=== PATIENT | male | born 1945 | race Caucasian/White ===

== ENCOUNTER → 2016-11-16 | Outpatient (CLI) | payer MEDICARE ==
[2016-11-16 13:04] LABS: CH 23.7; CHCM 29.6; HCT 40.1 % (39.0-53.0); HDW 2.62; HGB 11.9 gm/dL (13.0-17.5); Hypochromasia Marked; MCH 23.8 pg (25.0-35.0); MCHC 29.7 g/dL (31.0-37.0); MCV 80.1 fL (80.0-100.0); Mean Platelet Volume 6.1; RBC 5.01 m/uL (4.30-5.90); WBC 9.2 k/uL (3.8-10.6)
[2016-11-16 13:26] LABS: ALT 29 U/L (21-72); AST 21 U/L (17-59); Alkaline Phosphatase 90 U/L (38-126); Anion Gap 15 mmol/L; Blood Urea Nitrogen 23 mg/dL (9-20); C Reactive Protein 11.1 mg/L (<10.0); Calcium 9.7 mg/dL (8.4-10.2); Carbon Dioxide 26 mmol/L (22-30); Chloride 104 mmol/L (98-107); Glucose 206 mg/dL (74-99); Non-African American GFR(MDRD) >60 (>60 ml/min/1.73 sqM); Potassium 4.2 mmol/L (3.5-5.1); Sodium 145 mmol/L (137-145); Total Bilirubin 0.5 mg/dL (0.2-1.3); Total Protein 8.1 g/dL (6.3-8.2)
[2016-11-16 13:31] LABS: Prealbumin 21 mg/dL (18-36)
[2016-11-16 14:49] LABS: Erythrocyte Sedimentation Rate 28 mm/hr (0-15)
[2016-11-16 16:18] LABS: Hemoglobin A1C 8.1 % (4.2-6.1)
== END | disposition home or self-care (01) ==
LOC: LABWHC1 12:25
PROVIDERS: ATTEND Surgery
DX: E63.8 Other specified nutritional deficiencies (principal)
CPT/HCPCS: 36415; 80053; 83036; 84134; 85027; 85652; 86140

== ENCOUNTER → 2016-11-18 | Outpatient (CLI) | payer MEDICARE ==
--- NOTE | 2016-11-18 14:23 | US ---
LOWER EXTREMITY VENOUS INSUFFICIENCY SIDE PERFORMED: Bilateral 1) Color flow is present and patency is documented in the following vessels. No DVT or SVT is noted . ? EIV ? Common Femoral Vein ? Deep Femoral Vein ? Femoral Vein ? Popliteal Vein ? Proximal Calf Veins ? Greater Saph Vein ? Upper Small Saph Vein 2) There is venous reflux noted at the following venous levels: No reflux seen Bilateral leg ulcers x 6 years IMPRESSION: 1. No evidence of venous reflux
--- NOTE | 2016-11-25 10:50 | P.ARTDOP ---
Arterial Doppler LOWER EXTREMITY ARTERIAL DOPPLER: DATE OF SERVICE: 11/18/2016 Reason for study: Leg ulcers. Doppler waveforms: Multiphasic bilaterally throughout. Pulse volume recording: Normal configuration except at the left digital. Pressure gradients: None proximally on the right. Distal gradients on the left.. Ankle-brachial indices: Greater than 1 on the right and 0.72 on the left. Toe pressures: 59 on the right, 22 on the left Impression: Appears to be mild distal disease on the right and moderate at least distal disease on the left. Clinical correlation recommended..
== END | disposition home or self-care (01) ==
LOC: RADUSWWP 12:23
PROVIDERS: ATTEND Surgery
DX: L97.911 Non-pressure chronic ulcer of unspecified part of right lower leg limited to breakdown of skin (principal); L97.921 Non-pressure chronic ulcer of unspecified part of left lower leg limited to breakdown of skin; M79.604 Pain in right leg
CPT/HCPCS: 93923; 93970

== ENCOUNTER 2017-02-16 11:53 | Emergency (ER) | payer MEDICARE ==
[2017-02-16 12:10] VITALS: BP 191/85; PULSE 65; RESP 17; TEMP 97.5
[2017-02-16] MEDS ORDERED: DIPH,PERTUS(ACELL)TETVAC-LF 0.5 ML VIAL IM ONE (12:13)
--- NOTE | 2017-02-16 12:34 | ED ---
Lower Extremity Injury HPI - General Chief Complaint: Extremity Injury, Lower Stated Complaint: puncture wound Rt foot Time Seen by Provider: 02/16/17 12:12 Source: patient, RN notes reviewed Mode of arrival: ambulatory Limitations: no limitations - History of Present Illness Initial Comments: 71-year-old male presents emergency Department chief complaint puncture wound to his right foot. Patient states she stepped on a nail that went through his shoe into his foot. Patient was seen at the wound center today and was advised , finger to be evaluated. Patient was given a prescription for ciprofloxacin. Patient states that they want him to take this for his nail puncture. Patient was sent earlier for stated tetanus. Patient states it is sore but able to ambulate. - Related Data Home Medications Medication Instructions Recorded Confirmed Lisinopril [Zestril] 20 mg PO DAILY 11/10/16 02/16/17 amLODIPine [Norvasc] 10 mg PO DAILY 11/10/16 02/16/17 metFORMIN HCL [Glucophage] 500 mg PO DAILY 11/10/16 02/16/17 Ciprofloxacin HCl [Cipro] 500 mg PO Q12HR 02/16/17 02/16/17 Allergies Allergy/AdvReac Type Severity Reaction Status Date / Time No Known Allergies Allergy Verified 02/16/17 10:44 Review of Systems ROS Statement: Those systems with pertinent positive or pertinent negative responses have been documented in the HPI. ROS Other: All systems not noted in ROS Statement are negative. Past Medical History Past Medical History: Diabetes Mellitus, Hypertension Additional Past Medical History / Comment(s): VENOUS STASIS ULCERS BILAT LEGS, PVD History of Any Multi-Drug Resistant Organisms: MRSA Date of last positivie culture/infection: 11/10/16 MDRO Source:: Right Leg Past Surgical History: Tonsillectomy Additional Past Surgical History / Comment(s): REATTACHED TENDON LT 5TH FINGER 1995 Past Psychological History: No Psychological Hx Reported Smoking Status: Never smoker Past Alcohol Use History: None Reported Past Drug Use History: None Reported - Past Family History Father Family Medical History: Cancer Additional Family Medical History / Comment(s): PROSTATE CANCER Mother Family Medical History: Hypertension General Exam Limitations: no limitations General appearance: alert, in no apparent distress Head exam: Present: atraumatic, normocephalic, normal inspection Respiratory exam: Present: normal lung sounds bilaterally. Absent: respiratory distress, wheezes, rales, rhonchi, stridor Cardiovascular Exam: Present: regular rate, normal rhythm, normal heart sounds. Absent: systolic murmur, diastolic murmur, rubs, gallop, clicks Extremities exam: Present: other (Right foot there is a puncture wound noted just proximal to the first MTP no erythema no drainage) Course Vital Signs 02/16/17 12:06 Temperature 97.5 F L Pulse Rate 65 Respiratory 17 Rate Blood Pressure 191/85 O2 Sat by Pulse 99 Oximetry Medical Decision Making - Medical Decision Making 71-year-old male presented for puncture wound to his right foot. Patient was referred here from Wound Center. Patient was written prescription for fluoroquinolone for the nail puncture. Patient's tetanus is updated here. There is a foreign body on x-ray though it's not an area of the puncture wound on his foot. Patient will be discharged return parameters discussed. Disposition Clinical Impression: Puncture wound of foot Disposition: HOME SELF-CARE Condition: Stable Instructions: Puncture Wound (ED) Additional Instructions: Start your antibiotic prescription as directed.Please return to the Emergency Department if symptoms worsen or any other concerns. Referrals: None,Stated [Primary Care Provider] - 1-2 days Time of Disposition: 12:34
--- NOTE | 2017-02-16 13:12 | XR ---
EXAMINATION TYPE: XR foot complete RT DATE OF EXAM: 02/16/2017 CLINICAL HISTORY: pain TECHNIQUE: Frontal, lateral and oblique images of the right foot are obtained. COMPARISON: None. FINDINGS: There is no acute fracture/dislocation evident. Mild degenerative narrowing first metatars al phalangeal joint. The overlying soft tissue appears unremarkable. IMPRESSION: There is no acute fracture or dislocation. ICD 10 NO FRACTURE, INITIAL EVALUATION
== END 2017-02-16 12:45 | disposition home or self-care (01) ==
LOC: EC 11:53
DX: S91.331A Puncture wound without foreign body, right foot, initial encounter (principal); E11.9 Type 2 diabetes mellitus without complications; I10 Essential (primary) hypertension; Z23 Encounter for immunization; Z86.14 Personal history of Methicillin resistant Staphylococcus aureus infection; Z79.84 Long term (current) use of oral hypoglycemic drugs; Z79.899 Other long term (current) drug therapy; W45.0XXA Nail entering through skin, initial encounter
CPT/HCPCS: 90471; 90715; 99283

== ENCOUNTER 2017-07-07 10:49 | Day surgery (SDC) | payer MEDICARE ==
[2017-07-05 10:35] VITALS: BMI 29.0
[~2017-07-07 10:49] MED LIST: DEXAMETHASONE SOD PHOSPHATE 10 MG/ML 1 ML VIAL IV ONE; HYDROmorphone 0.5 MG/0.5 ML SYRINGE IVP PRN; LACTATED RINGERS 1,000 ML IV SCH; ONDANSETRON 4 MG/2 ML VIAL IVP ONE; Pre Op ABX Message 1 EACH MISC MISCELLANE ONE
[2017-07-07] MEDS ORDERED: LIDOCAINE 1% 20 ML VIAL (10MG/ML) FOR IV START INTRADERMA ONE (11:35)
[2017-07-07 11:46] LABS: Glucose,Whole Blood 124 mg/dL (75-99)
[2017-07-07] MEDS ORDERED: PROPOFOL 10 MG/ML 20 ML VIAL IV ONE (12:21)
[2017-07-07] MEDS ORDERED: MIDAZOLAM 2 MG/2 ML VIAL ONE (12:21)
[2017-07-07] MEDS ORDERED: fentaNYL (PF) 50 MCG/ML 2 ML AMP ONE (12:21)
[2017-07-07] MEDS ORDERED: MINERAL OIL 1 APPLIC/ML OIL MISCELLANE ONE (12:48)
[2017-07-07 13:28] VITALS: TEMP 96.8
[2017-07-07 13:42] VITALS: RESP 18
--- NOTE | 2017-07-07 13:46 | P.PCN ---
Date of Procedure: 07/07/17 Preoperative Diagnosis: Chronic ulcer lateral left lower leg and medial left ankle Postoperative Diagnosis: Same Procedure(s) Performed: Selective debridement lateral left lower leg and medial right ankle and split- thickness skin graft Anesthesia: MAC Surgeon: Thomas Whiting Estimated Blood Loss (ml): 30 Pathology: none sent Condition: stable Disposition: PACU Indications for Procedure: The patient has a chronic ulcer on the lateral left lower leg and medial right ankle. The patient has developed significantly improved vascularity in the granulation tissue. Operative Findings: On debridement of the ankle we did have fibrous tissue but there was significant oozing up through the tissue. On the lateral aspect there was a fair amount of redundant granulation tissue but beneath was fairly healthy granulation tissue which oozed very well. Description of Procedure: Date of service: 07/07/2017 Surgeon: Henok Pre-and postop diagnosis: Chronic ulcer lateral left lower leg and medial left ankle Type of debridement: selective Ulcer location lateral left lower leg and medial left ankle Anesthesia: [2% lidocaine gel applied to the ulcer] Signs of infection: Mild redness Extent of necrotic, devitalized or non-viable tissue: Slough on the medial aspect and redundant Slough and granulation tissue lateral aspect Other material in the wound that is expected to inhibit healing or promote adjacent tissue breakdown: Same Degree of epithelialization: [%] Method and instrument: Surgical debridement with sharp curette Character of the wound after debridement: Clean bloody subcutaneous bed with X tensive granulation on the lateral aspect Description of tissue removed: Slough and excessive granulation tissue Pre-debridement measurement: The lateral lower leg was 6 x 4 cm and 0.1 cm in depth. The medial ankle was 1.5 x 1 cm and 0.2 cm in depth Postoperative debridement measurement: No change Control of bleeding:[Bleeding was easily controlled with saline moistened gauze and light pressure] Post debridement dressing: We then harvested a 6 cm length 1.5 inch wide split- thickness skin graft from the anterior left thigh utilizing the dermatome set at 10 /1000s of an inch. This was placed on the mesh apparatus and meshed at 3- 1. We then placed this on the lateral ulceration and flattened it and spread it nicely. A redundant small portion was excised and placed on the medial ankle ulcer. Both skin graft areas were smeared with hydrogel. They were covered with Adaptic touch and anchored with half inch Steri-Strips. We then placed more hydrogel and absorptive silver over this. These dressings were maintained in place then with Kerlix and Eusebio wrap. [Patient tolerated procedure well]
[2017-07-07 13:48] LABS: Glucose,Whole Blood 134 mg/dL (75-99)
[2017-07-07 14:21] VITALS: BP 161/87; PULSE 65
== END 2017-07-07 14:45 | disposition home or self-care (01) ==
LOC: OR 10:49
PROVIDERS: ATTEND Thoracic Surgery (Cardiothoracic Vascular Surgery)
DX: I83.028 Varicose veins of left lower extremity with ulcer other part of lower leg (principal); I10 Essential (primary) hypertension; E11.9 Type 2 diabetes mellitus without complications; Z79.2 Long term (current) use of antibiotics; Z79.84 Long term (current) use of oral hypoglycemic drugs; Z79.899 Other long term (current) drug therapy
CPT/HCPCS: 15100; J2250; J1100; J2405; J3010; J2704

== ENCOUNTER → 2017-07-08 | Outpatient (CLI) | payer MEDICARE ==
[2017-07-08 16:32] LABS: Appearance,Urine Clear (Clear); Bilirubin,Urine Negative (Negative); Blood,Urine Negative (Negative); Color,Urine Yellow; Glucose,Urine (UA) Negative (Negative); Ketones,Urine Negative (Negative); Leukocyte Esterase,Urine Negative (Negative); Nitrite,Urine Negative (Negative); Protein,Urine Negative (Negative); Urobilinogen,Urine <2.0 mg/dL (<2.0)
[2017-07-08 16:37] LABS: Basophils % (A) 0 %; Eosinophils # (A) 0.1 k/uL (0-0.7); Eosinophils % (A) 1 %; HCT 34.1 % (39.0-53.0); HGB 10.7 gm/dL (13.0-17.5); Hypochromasia Moderate; Lymphocytes # (A) 2.1 k/uL (1.0-4.8); Lymphocytes % (A) 17 %; MCH 25.6 pg (25.0-35.0); MCHC 31.4 g/dL (31.0-37.0); MCV 81.6 fL (80.0-100.0); Monocytes # (A) 0.7 k/uL (0-1.0); Monocytes % (A) 6 %; Neutrophils # (A) 9.4 k/uL (1.3-7.7); Neutrophils % (A) 74 %; Platelet Count 366 k/uL (150-450); RBC 4.19 m/uL (4.30-5.90); RDW 14.4 % (11.5-15.5); WBC 12.6 k/uL (3.8-10.6)
[2017-07-08 16:41] LABS: Anion Gap 13 mmol/L; Blood Urea Nitrogen 23 mg/dL (9-20); Carbon Dioxide 27 mmol/L (22-30); Chloride 105 mmol/L (98-107); Potassium 4.3 mmol/L (3.5-5.1); Sodium 145 mmol/L (137-145)
== END | disposition home or self-care (01) ==
LOC: LABPAT 15:40
PROVIDERS: ATTEND Surgery
DX: Z01.812 Encounter for preprocedural laboratory examination (principal); I83.028 Varicose veins of left lower extremity with ulcer other part of lower leg
CPT/HCPCS: 80051; 81003; 82565; 84520; 85025; 93005

== ENCOUNTER 2017-07-13 08:15 | Day surgery (SDC) | payer MEDICARE ==
[2017-07-09 14:44] VITALS: BMI 29.0
[2017-07-13 08:12] LABS: Glucose,Whole Blood 158 mg/dL (75-99)
[~2017-07-13 08:15] MED LIST changes: +ASPIRIN 325 MG TAB ONE; -DEXAMETHASONE SOD PHOSPHATE 10 MG/ML 1 ML VIAL IV ONE; -HYDROmorphone 0.5 MG/0.5 ML SYRINGE IVP PRN; -LACTATED RINGERS 1,000 ML IV SCH; -ONDANSETRON 4 MG/2 ML VIAL IVP ONE; -Pre Op ABX Message 1 EACH MISC MISCELLANE ONE; +SODIUM CHLORIDE 0.9% 1,000 ML in EMPTY BAG 1 BAG IV ONE; +ceFAZolin IN SWFI 2 GM/20 ML SYRINGE IVP ONE
[2017-07-13 08:17] VITALS: RESP 16; TEMP 98.4
[2017-07-13] MEDS ORDERED: LIDOCAINE 2% INJ 20 MG/ML SQ ONE (08:34)
[2017-07-13] MEDS ORDERED: DOCUSATE 100 MG CAP PO PRN (09:19)
[2017-07-13] MEDS ORDERED: TEMAZEPAM 15 MG CAP PO PRN (09:19)
[2017-07-13] MEDS ORDERED: MAG HYDROX/AL HYDROX/SIMETH 30 ML CUP PO PRN (09:19)
[2017-07-13] MEDS ORDERED: SODIUM CHLORIDE 0.9% 1,000 ML IV SCH (09:30)
--- NOTE | 2017-07-13 09:40 | P.OP ---
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 Aortogram with bilateral runoffs via right common femoral artery access under ultrasound guidance 2. LLE selective angiogram Implants: none Anesthesia: local Surgeon: Hilario Ambriz Estimated Blood Loss (ml): 5 Pathology: none sent Condition: stable Disposition: same day Indications for Procedure: 72 yo male with history of chronic LE wounds with disabiling claudication who has been seen in wound care for months without any improvements. Upon examination he has no palpable peripheral pulses and presents for angiogram. Operative Findings: Aorta: no significant occlusive disease Iliac: bilateral iliac arteries are patent without any significant stenosis Femoral: bilateral femoral, profunda and SFA are patent with mild occlusive disease without significant stenosis. Popliteal: bilateral popliteal arteries patent without significant stenosis TPT: right lower extremity tibial peroneal artery occlusive disease. left lower extremity tibial peroneal artery occlusive disease with occlusion of anterior tibial and posterior tibial arteries. Description of Procedure: After written and informed consent was obtained from the patient and all risks, benefits and complications were described the patient was brought to the recyclable materials sorter and laid in a supine position. The area of the groins were prepped and draped in the normal fashion. Time out was done in normal fashion. Local anesthetic was administered in the subcutaneous tissues overlying the right femoral artery and using ultrasound and Seldinger technique the artery was accessed and a 5 kazakh sheath was placed. Guidewire was placed followed by a pigtail catheter and aortogram was obtained. The catheter was withdrawn and bilateral runoffs were obtained. Upon runoff the left lower extremity below knee vessels were not visualized well and therefore a rim catheter was placed and the left iliac vessel was cannulated in an up and over fashion. Selective angiogram was then performed of the left lower extremity below knee vessels. The catheter and sheath was then removed and pressure was held for hemostasis. The patient tolerated the procedure well and was sent to PACU for recovery.
--- NOTE | 2017-07-13 12:59 | IR ---
Fluoroscopy HISTORY: Bilateral leg Pain 4.5 minutes fluoroscopy time supplied to the referring clinician. 90 intraoperative C-arm images doc ument the procedure. See dictated report from vascular surgery.
[2017-07-13 15:52] VITALS: BP 154/72; PULSE 92
== END 2017-07-13 12:25 | disposition home or self-care (01) ==
LOC: CATHCVL 08:15
PROVIDERS: ATTEND Surgery
DX: I70.213 Atherosclerosis of native arteries of extremities with intermittent claudication, bilateral legs (principal); I83.028 Varicose veins of left lower extremity with ulcer other part of lower leg
CPT/HCPCS: 36246; 75625; 75716; 76937; C1769 ×4; C1894; J2001

== ENCOUNTER 2017-08-18 11:33 | Day surgery (SDC) | payer MEDICARE ==
[2017-08-02 09:03] VITALS: BMI 29.0
[~2017-08-18 11:33] MED LIST changes: -ASPIRIN 325 MG TAB ONE; +HYDROmorphone 0.5 MG/0.5 ML SYRINGE IVP PRN; +LACTATED RINGERS 1,000 ML IV SCH; +LIDOCAINE 1% 20 ML VIAL (10MG/ML) FOR IV START INTRADERMA PRN; +ONDANSETRON 4 MG/2 ML VIAL IVP ONE; +Pre Op ABX Message 1 EACH MISC MISCELLANE ONE; -SODIUM CHLORIDE 0.9% 1,000 ML in EMPTY BAG 1 BAG IV ONE; -ceFAZolin IN SWFI 2 GM/20 ML SYRINGE IVP ONE
--- NOTE | 2017-08-18 12:14 | P.GSHP ---
History of Present Illness H&P Date: 08/18/17 Chief Complaint: Chronic stasis ulcers left lower leg The patient has had stasis ulcers of the left lower leg for years. We previously did a radical debridement on the left leg including the fascia which had a significant improvement in the characteristics of the granulation tissue and the beginnings of shrinking of the lateral ulcer. He is here today to do the medial aspect of the left leg. - Constitutional Constitutional: Denies chills, Denies fever - EENT Eyes: denies blurred vision, denies pain Ears, nose, mouth and throat: Denies headache, Denies sore throat - Cardiovascular Cardiovascular: Denies chest pain, Denies shortness of breath - Respiratory Respiratory: Denies cough, Denies 7 - Gastrointestinal Gastrointestinal: Denies abdominal pain, Denies diarrhea, Denies nausea, Denies vomiting - Genitourinary (Female) Genitourinary: Denies dysuria, Denies hematuria - Genitourinary (Male) Genitourinary: Denies dysuria, Denies hematuria - Musculoskeletal Musculoskeletal: Denies myalgias - Integumentary Integumentary: Denies pruritus, Denies rash - Neurological Neurological: Denies numbness, Denies weakness - Psychiatric Psychiatric: Denies anxiety, Denies depression - Endocrine Endocrine: Denies fatigue, Denies weight change Past Medical History Past Medical History: Diabetes Mellitus, Hypertension Additional Past Medical History / Comment(s): VENOUS STASIS ; ULCERS BILAT LEGS , PVD, CRISTAL LEG WOUND DRESSED BY HOME CARE NURSE History of Any Multi-Drug Resistant Organisms: MRSA Date of last positivie culture/infection: 04/14/17 MDRO Source:: Right Leg Past Surgical History: Tonsillectomy Additional Past Surgical History / Comment(s): 07/13/17 CRISTAL AORTOGRAM AND LLE ANGIOGRAM, REATTACHED TENDON LT 5TH FINGER 1995 Past Anesthesia/Blood Transfusion Reactions: No Reported Reaction Past Psychological History: No Psychological Hx Reported Smoking Status: Never smoker Past Alcohol Use History: None Reported 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 Past Drug Use History: None Reported - Past Family History Father Family Medical History: Cancer Additional Family Medical History / Comment(s): PROSTATE CANCER Mother Family Medical History: Hypertension Medications and Allergies Home Medications Medication Instructions Recorded Confirmed Type Lisinopril [Zestril] 20 mg PO W/SUPPER 11/10/16 08/13/17 History amLODIPine [Norvasc] 10 mg PO W/SUPPER 11/10/16 08/13/17 History metFORMIN HCL [Glucophage] 500 mg PO AC-SUPPER 11/10/16 08/13/17 History Allergies Allergy/AdvReac Type Severity Reaction Status Date / Time No Known Allergies Allergy Verified 08/18/17 12:07 Surgical - Exam Osteopathic Statement: *. No significant issues noted on an osteopathic structural exam other than those noted in the History and Physical/Consult. Vital Signs Temp Pulse Resp BP Pulse Ox 97.1 F L 77 16 158/73 99 08/18/17 12:02 08/18/17 12:02 08/18/17 12:02 08/18/17 12:02 08/18/17 12:02 - General well developed, well nourished, no distress - Eyes normal ocular movement, no icteric - ENT no hearing loss, no congestion - Neck no masses, no bruits, trachea midline - Respiratory normal expansion, normal respiratory effort, clear to auscultation - Cardiovascular Rhythm: regular - Abdomen Abdomen: soft, non tender, no guarding, no rigid, no rebound - Integumentary Large stasis ulcers left lower leg no rash, no abnormal pigmentation - Neurologic no disoriented, no combative - Psychiatric oriented to time, oriented to person, oriented to place, speech is normal, memory intact Assessment and Plan (1) Venous stasis ulcer of left lower extremity Current Visit: Yes Status: Acute Code(s): I83.029 - VARICOSE VEINS OF LEFT LOWER EXTREMITY W ULCER OF UNSP SITE; L97.929 - NON-PRS CHRONIC ULC UNSP PRT OF L LOW LEG W UNSP SEVERITY SNOMED Code(s): 922759500 Plan: The patient is admitted for radical debridement of the left leg including fascia. He will then be followed in wound care.
[2017-08-18 12:17] LABS: Glucose,Whole Blood 123 mg/dL (75-99)
[2017-08-18] MEDS ORDERED: GLYCOPYRROLATE 0.2 MG/ML 2 ML VIAL ONE (12:39)
[2017-08-18] MEDS ORDERED: fentaNYL (PF) 50 MCG/ML 2 ML AMP ONE (12:39)
[2017-08-18] MEDS ORDERED: PROPOFOL 10 MG/ML 20 ML VIAL IV ONE (12:39)
[2017-08-18] MEDS ORDERED: MIDAZOLAM 2 MG/2 ML VIAL ONE (12:39)
[2017-08-18] MEDS ORDERED: LIDOCAINE 1% INJ 10MG/ML (20 ML MDV) ONE (12:39)
[2017-08-18 13:49] VITALS: TEMP 97.2
--- NOTE | 2017-08-18 13:51 | P.WCSRGD ---
Wound Ctr Surgical Debridement Date of service: 08/18/2017 Surgeon: Henok Pre-and postop diagnosis: Chronic refractory right leg stasis ulcer Type of debridement: Excisional surgical including fascial structures Chief complaint: ulcer of lateral right lower leg Anesthesia: 2% lidocaine gel applied to the ulcer Signs of infection: Mild redness Extent of necrotic, devitalized or non-viable tissue: Nonviable soft tissue and scar including nonviable fascial structures Other material in the wound that is expected to inhibit healing or promote adjacent tissue breakdown: Same Degree of epithelialization: % Method and instrument: Surgical debridement with scalpel Character of the wound after debridement: Clean bloody deep soft tissue and portions of fascial structures with bleeding edges Description of necrotic material present: And nonviable soft tissue and scar and nonviable fascial structures Description of tissue removed: Same Pre-debridement measurement: 7.5 x 7 cm and 0.1 cm in depth Postoperative debridement measurement: 8 x 9 cm and 1 cm in depth Control of bleeding:Bleeding was easily controlled with saline moistened gauze and light pressure, as well as pinpoint electrocautery Post debridement dressing: Absorptive silver and Eusebio wrap Patient tolerated procedure well
[2017-08-18 14:23] LABS: Glucose,Whole Blood 103 mg/dL (75-99)
[2017-08-18 14:37] VITALS: PULSE 60
[2017-08-18 14:59] VITALS: RESP 18
[2017-08-18 15:13] VITALS: BP 170/79
== END 2017-08-18 15:34 | disposition home or self-care (01) ==
LOC: OR 11:33
PROVIDERS: ATTEND Thoracic Surgery (Cardiothoracic Vascular Surgery)
DX: I83.018 Varicose veins of right lower extremity with ulcer other part of lower leg (principal); L97.812 Non-pressure chronic ulcer of other part of right lower leg with fat layer exposed; I10 Essential (primary) hypertension; Z79.84 Long term (current) use of oral hypoglycemic drugs; Z79.899 Other long term (current) drug therapy
CPT/HCPCS: 11043; 11046 ×6; J2250; J2405; J2001; J3010; J2704

== ENCOUNTER 2017-09-08 10:36 | Day surgery (SDC) | payer MEDICARE ==
[~2017-09-08 10:36] MED LIST changes: -LIDOCAINE 1% 20 ML VIAL (10MG/ML) FOR IV START INTRADERMA PRN; +MORPHINE SULFATE 4 MG/ML SYRINGE IV PRN; -ONDANSETRON 4 MG/2 ML VIAL IVP ONE
--- NOTE | 2017-09-08 10:46 | P.GSHP ---
History of Present Illness H&P Date: 09/08/17 Chief Complaint: Ulcer right leg. Patient has an ulcer on the right leg which has been present for years. He has had a recent aggressive surgical debridement but requires further debridement to remove large amounts of slough. It is too painful to do so without sedation. - Review of Systems Comment: Please refer to recent history and physicals for further details. There is one dated less than 30 days ago. Past Medical History Past Medical History: Diabetes Mellitus, Hypertension Additional Past Medical History / Comment(s): VENOUS STASIS ; ULCERS BILAT LEGS , PVD, CRISTAL LEG WOUND DRESSED BY HOME CARE NURSE History of Any Multi-Drug Resistant Organisms: MRSA Date of last positivie culture/infection: 04/14/17 MDRO Source:: Right Leg Past Surgical History: Tonsillectomy Additional Past Surgical History / Comment(s): 07/13/17 CRISTAL AORTOGRAM AND LLE ANGIOGRAM, REATTACHED TENDON LT 5TH FINGER 1995 Past Anesthesia/Blood Transfusion Reactions: No Reported Reaction Past Psychological History: No Psychological Hx Reported Smoking Status: Never smoker Past Alcohol Use History: None Reported 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 Past Drug Use History: None Reported - Past Family History Father Family Medical History: Cancer Additional Family Medical History / Comment(s): PROSTATE CANCER Mother Family Medical History: Hypertension Medications and Allergies Home Medications Medication Instructions Recorded Confirmed Type Lisinopril [Zestril] 20 mg PO W/SUPPER 11/10/16 09/01/17 History amLODIPine [Norvasc] 10 mg PO W/SUPPER 11/10/16 09/01/17 History metFORMIN HCL [Glucophage] 500 mg PO AC-SUPPER 11/10/16 09/01/17 History Levofloxacin [Levaquin] 500 mg PO DAILY 09/01/17 09/01/17 History Allergies Allergy/AdvReac Type Severity Reaction Status Date / Time No Known Allergies Allergy Verified 09/01/17 09:29 Surgical - Exam Osteopathic Statement: *. No significant issues noted on an osteopathic structural exam other than those noted in the History and Physical/Consult. - General well developed, well nourished, no distress - Eyes normal ocular movement, no icteric - ENT no hearing loss, no congestion - Neck no masses, no bruits, trachea midline - Respiratory normal expansion, normal respiratory effort, clear to auscultation - Cardiovascular Rhythm: regular - Abdomen Abdomen: soft, non tender, no guarding, no rigid, no rebound - Integumentary He has a large ulcer on the lateral right lower leg. no rash, no abnormal pigmentation - Neurologic no disoriented, no combative - Psychiatric oriented to time, oriented to person, oriented to place, speech is normal, memory intact Assessment and Plan (1) Venous ulcers of both lower extremities Current Visit: No Status: Acute Code(s): I87.2 - VENOUS INSUFFICIENCY ( CHRONIC) (PERIPHERAL) SNOMED Code(s): 800921727 Plan: Patient is admitted for aggressive debridement of the right leg ulcer to be done under sedation.
[2017-09-08] MEDS ORDERED: LIDOCAINE 1% 20 ML VIAL (10MG/ML) FOR IV START INTRADERMA ONE (11:14)
[2017-09-08] MEDS: ONDANSETRON 4 MG/2 ML VIAL IVP PRN ×2 (11:16→12:54)
[2017-09-08 11:25] LABS: Glucose,Whole Blood 131 mg/dL (75-99)
[2017-09-08] MEDS ORDERED: MIDAZOLAM 2 MG/2 ML VIAL ONE (12:11)
[2017-09-08] MEDS ORDERED: PROPOFOL 10 MG/ML 20 ML VIAL IV ONE (12:11)
[2017-09-08] MEDS ORDERED: fentaNYL (PF) 50 MCG/ML 2 ML AMP ONE (12:11)
[2017-09-08] MEDS ORDERED: LACTATED RINGERS 1,000 ML IV ONE ×2 (12:47→13:09)
[2017-09-08 12:51] VITALS: TEMP 97.1
[2017-09-08 13:00] VITALS: RESP 18
[2017-09-08 13:19] LABS: Glucose,Whole Blood 124 mg/dL (75-99)
[2017-09-08 13:57] VITALS: BP 143/73; PULSE 96
--- NOTE | 2017-09-08 14:46 | P.WCPCN ---
Wound Ctr Selective Debridemen Date of service: 09/08/2017 Surgeon: Henok Pre-and postop diagnosis: Chronic stasis ulcer with fascia and muscle exposed right lower leg Type of debridement: selective Ulcer location anterior lateral right lower leg Anesthesia: IV sedation per anesthesia Signs of infection: Mild redness Extent of necrotic, devitalized or non-viable tissue: Large amounts of nonviable soft tissue and slough Other material in the wound that is expected to inhibit healing or promote adjacent tissue breakdown: Same Degree of epithelialization: % Method and instrument: Surgical debridement with sharp curette Character of the wound after debridement: Bloody subcutaneous bed Description of tissue removed: Large amounts of slough and nonviable soft tissue Pre-debridement measurement: 10 x 9.5 x 0.3 cm Postoperative debridement measurement: 10.5 x 10 x 0.4 cm Control of bleeding:Bleeding was easily controlled with saline moistened gauze and light pressure Post debridement dressing: Absorptive silver and Eusebio wrap Patient tolerated procedure well
== END 2017-09-08 14:34 | disposition home or self-care (01) ==
LOC: OR 10:36
PROVIDERS: ATTEND Thoracic Surgery (Cardiothoracic Vascular Surgery)
DX: L97.815 Non-pressure chronic ulcer of other part of right lower leg with muscle involvement without evidence of necrosis (principal); I87.2 Venous insufficiency (chronic) (peripheral); E11.51 Type 2 diabetes mellitus with diabetic peripheral angiopathy without gangrene; I73.9 Peripheral vascular disease, unspecified; I10 Essential (primary) hypertension; Z79.2 Long term (current) use of antibiotics; Z79.84 Long term (current) use of oral hypoglycemic drugs; Z79.899 Other long term (current) drug therapy; Z86.14 Personal history of Methicillin resistant Staphylococcus aureus infection
CPT/HCPCS: 87070; 87075; 87205; 88304

== ENCOUNTER 2017-10-27 09:43 | Day surgery (SDC) | payer MEDICARE ==
[2017-10-25 16:17] VITALS: BMI 27.3
--- NOTE | 2017-10-27 09:11 | P.GSHP ---
History of Present Illness H&P Date: 10/27/17 Chief Complaint: Right leg ulcer For at least 3 or 4 years this patient has had bilateral lower leg ulcers. We were able to heal the left leg with aggressive deep debridement followed by skin grafting. He still has a very large ulcer on the lateral right leg which has undergone extensive aggressive debridement and has filled in with good granulation tissue. - Constitutional Constitutional: Denies chills, Denies fever - EENT Eyes: denies blurred vision, denies pain Ears, nose, mouth and throat: Denies headache, Denies sore throat - Cardiovascular Cardiovascular: Denies chest pain, Denies decreased exercise tolerance, Denies dyspnea on exertion, Denies orthopnea, Denies paroxysmal nocturnal dyspnea, Denies shortness of breath - Respiratory Respiratory: Denies cough, Denies 7 - Gastrointestinal Gastrointestinal: Denies abdominal pain, Denies coffee ground emesis, Denies diarrhea, Denies hematemesis, Denies hematochezia, Denies jaundice, Denies nausea, Denies vomiting - Genitourinary (Female) Genitourinary: Denies dysuria, Denies hematuria - Genitourinary (Male) Genitourinary: Denies dysuria, Denies hematuria - Musculoskeletal Musculoskeletal: Denies myalgias - Integumentary Comment: Large ulcer anterior lateral right leg. Integumentary: Denies pruritus, Denies rash - Neurological Neurological: Denies numbness, Denies weakness - Psychiatric Psychiatric: Denies anxiety, Denies depression - Endocrine Endocrine: Denies fatigue, Denies weight change - Hematologic/Lymphatic Hematologic/Lymphatic: Denies easy bleeding, Denies easy bruising, Denies lymphedema - Allergic/Immunologic Allergic/Immunologic: Denies anaphylaxis, Denies angioedema, Denies urticaria Past Medical History Past Medical History: Diabetes Mellitus, Hypertension Additional Past Medical History / Comment(s): VENOUS STASIS ; ULCERS BILAT LEGS , PVD, CRISTAL LEG WOUND DRESSED BY HOME CARE NURSE History of Any Multi-Drug Resistant Organisms: MRSA Date of last positivie culture/infection: 04/14/17 MDRO Source:: Right Leg Past Surgical History: Tonsillectomy Additional Past Surgical History / Comment(s): CRISTAL AORTOGRAM AND LLE ANGIOGRAM, REATTACHED TENDON LT 5TH FINGER Past Anesthesia/Blood Transfusion Reactions: No Reported Reaction Smoking Status: Never smoker - Past Family History Father Family Medical History: Cancer Additional Family Medical History / Comment(s): PROSTATE CANCER Mother Family Medical History: Hypertension Medications and Allergies Home Medications Medication Instructions Recorded Confirmed Type Lisinopril [Zestril] 20 mg PO W/SUPPER 11/10/16 10/25/17 History amLODIPine [Norvasc] 10 mg PO W/SUPPER 11/10/16 10/25/17 History metFORMIN HCL [Glucophage] 500 mg PO AC-SUPPER 11/10/16 10/25/17 History Amoxic-Pot Clav 875-125Mg 1 tab PO Q12HR 10/25/17 10/25/17 History [Augmentin 875-125] Allergies Allergy/AdvReac Type Severity Reaction Status Date / Time No Known Allergies Allergy Verified 10/26/17 08:05 Surgical - Exam Osteopathic Statement: *. No significant issues noted on an osteopathic structural exam other than those noted in the History and Physical/Consult. Assessment and Plan (1) Venous stasis ulcer of right lower extremity Status: Acute Code(s): I83.019 - VARICOSE VEINS OF RIGHT LOWER EXTREMITY W ULCER OF UNSP SITE; L97.919 - NON-PRS CHRONIC ULC UNSP PRT OF R LOW LEG W UNSP SEVERITY SNOMED Code(s): 782900433 Plan: We discussed options with the patient. We will proceed with split-thickness skin graft anterior lateral right lower leg.
[~2017-10-27 09:43] MED LIST changes: +DEXAMETHASONE SOD PHOSPHATE 10 MG/ML 1 ML VIAL IV ONE; -HYDROmorphone 0.5 MG/0.5 ML SYRINGE IVP PRN; +LIDOCAINE 1% 20 ML VIAL (10MG/ML) FOR IV START INTRADERMA PRN; +MORPHINE SULFATE 2 MG/ML SYRINGE IV PRN; -MORPHINE SULFATE 4 MG/ML SYRINGE IV PRN; +ONDANSETRON ODT 4 MG TAB PO ONE; -Pre Op ABX Message 1 EACH MISC MISCELLANE ONE; +ceFAZolin IN SWFI 2 GM/20 ML SYRINGE IVP ONE
[2017-10-27 10:12] VITALS: TEMP 98.4
[2017-10-27] MEDS ORDERED: ONDANSETRON 4 MG/2 ML VIAL IVP ONE (10:13)
[2017-10-27 10:18] LABS: Glucose,Whole Blood 132 mg/dL (75-99)
[2017-10-27] MEDS ORDERED: LIDOCAINE 1% INJ 10MG/ML (20 ML MDV) ONE (11:48)
[2017-10-27] MEDS ORDERED: MIDAZOLAM 2 MG/2 ML VIAL ONE (11:48)
[2017-10-27] MEDS ORDERED: PROPOFOL 10 MG/ML 20 ML VIAL IV ONE (11:48)
[2017-10-27] MEDS ORDERED: fentaNYL (PF) 50 MCG/ML 2 ML AMP ONE (11:48)
[2017-10-27] MEDS ORDERED: MINERAL OIL 30 ML CUP MISCELLANE ONE (12:12)
--- NOTE | 2017-10-27 12:49 | P.PCN ---
Date of Procedure: 10/27/17 Preoperative Diagnosis: Chronic ulcer anterior lateral right lower leg Postoperative Diagnosis: Same Procedure(s) Performed: Selective debridement and split-thickness skin graft Anesthesia: MAC Surgeon: Thomas Whiting Estimated Blood Loss (ml): 20 Pathology: none sent Condition: stable Disposition: PACU Indications for Procedure: The patient has a chronic ulcer in the anterior right lower leg Operative Findings: The ulcer is about 10 x 12 cm and 0.1 cm in depth. It is very well granulated. Description of Procedure: With the patient spine position, under benefit of IV sedation, we prepped and draped in standard fashion. We began by using a sharp curette to remove slough and excess granulation tissue down to 1 including bloody granulating subcutaneous bed. We left behind a bloody granulating subcutaneous base. We did not change the dimensions in are debridement. This was a selective debridement. We then achieved satisfactory hemostasis with direct pressure. We then using 10 1000s of an inch setting and a 1-1/2 inch guide on the dermatome removed about a 10 a half centimeter split-thickness skin graft from the anterior right thigh. This was meshed at 1-3. We then placed this on the ulceration and spread it to cover almost the entire ulceration. We trimmed a portion of the graft from one edge and placed this in a thumb-like peninsula of ulcer. The skin graft was flattened nicely and spread over the entire area. We then covered it with Adaptic touch. The Adaptic touch was anchored in place using Steri-Strips. We then placed hydrogel over the ulcer on top of the Adaptic touch. We then covered this with a layer of absorptive silver. We then coated the absorptive silver again with the hydrogel. We then placed 4 x 4 's over this. The leg was wrapped first with Kerlix and then with a 44 inch Eusebio. This was held in place with tape. The patient tolerated the procedure well and was taken recovery area in stable condition.
[2017-10-27 13:05] VITALS: BP 128/72; PULSE 55; RESP 18
== END 2017-10-27 13:29 | disposition home or self-care (01) ==
LOC: OR 09:43
PROVIDERS: ATTEND Thoracic Surgery (Cardiothoracic Vascular Surgery)
DX: E11.622 Type 2 diabetes mellitus with other skin ulcer (principal); L97.819 Non-pressure chronic ulcer of other part of right lower leg with unspecified severity; I10 Essential (primary) hypertension; I73.9 Peripheral vascular disease, unspecified; Z86.14 Personal history of Methicillin resistant Staphylococcus aureus infection; Z79.2 Long term (current) use of antibiotics; Z79.84 Long term (current) use of oral hypoglycemic drugs; Z79.899 Other long term (current) drug therapy
CPT/HCPCS: 15100; J2250; J1100; J2405; J2001; J3010; J2704

== ENCOUNTER → 2018-07-21 | Outpatient (CLI) | payer MEDICARE ==
--- NOTE | 2018-07-22 11:19 | ECHOF ---
Referral Reason:R01.1 Murmur, Z01.818 MEASUREMENTS -------- HEIGHT: 185.4 cm WEIGHT: 98.9 kg BP: 151/68 RVIDd: 3.6 cm (< 3.3) IVSd: 1.3 cm (0.6 - 1.1) LVIDd: 4.5 cm (3.9 - 5.3) LVPWd: 1.3 cm (0.6 - 1.1) IVSs: 1.8 cm LVIDs: 3.4 cm LVPWs: 1.8 cm LA Diam: 3.6 cm (2.7 - 3.8) LAESV Index (A-L): 30.02 ml/m Ao Diam: 3.5 cm (2.0 - 3.7) MV EXCURSION: 18.395 mm (> 18.000) MV EF SLOPE: 46 mm/s (70 - 150) EPSS: 0.3 cm MV E Evan: 1.20 m/s MV DecT: 309 ms MV A Evan: 1.28 m/s MV E/A Ratio: 0.93 AV maxP.88 mmHg AV meanP.34 mmHg RAP: 5.00 mmHg RVSP: 35.45 mmHg FINDINGS -------- Sinus rhythm. This was a technically adequate study. The left ventricular size is normal. There is mild concentric left ventricular hypertrophy. Overa ll left ventricular systolic function is normal with, an EF between 60 - 65 %. The right ventricle is mildly enlarged. LA is midly dilated 29-33ml/m2. The right atrium is normal in size. There is mild aortic valve sclerosis. There is mild aortic stenosis present. Peak/mean gradient a cross the Aortic Valve is 18.88mmHg / 8.34mmHg. Mild mitral annular calcification present. Mild tricuspid regurgitation present. There is mild pulmonary hypertension. The right ventricular systolic pressure, as measured by Doppler, is 35.45mmHg. Trace/mild (physiologic) pulmonic regurgitation. The aortic root size is normal. Normal inferior vena cava with normal inspiratory collapse consistent with estimated right atrial pre ssure of 5 mmHg. There is no pericardial effusion. CONCLUSIONS -------- 1. Sinus rhythm. 2. This was a technically adequate study. 3. The left ventricular size is normal. 4. There is mild concentric left ventricular hypertrophy. 5. Overall left ventricular systolic function is normal with, an EF between 60 - 65 %. 6. The right ventricle is mildly enlarged. 7. LA is midly dilated 29-33ml/m2. 8. The right atrium is normal in size. 9. There is mild aortic valve sclerosis. 10. There is mild aortic stenosis present. 11. Peak/mean gradient across the Aortic Valve is 18.88mmHg / 8.34mmHg. 12. Mild mitral annular calcification present. 13. Mild tricuspid regurgitation present. 14. There is mild pulmonary hypertension. 15. The right ventricular systolic pressure, as measured by Doppler, is 35.45mmHg. 16. Trace/mild (physiologic) pulmonic regurgitation. 17. The aortic root size is normal. 18. Normal inferior vena cava with normal inspiratory collapse consistent with estimated right atrial pressure of 5 mmHg. 19. There is no pericardial effusion. CAR BODY INSPECTOR: Radha Jesus RDCS
== END ==
LOC: RADECHMAIN 12:28
PROVIDERS: ATTEND Nurse Practitioner Family
DX: I51.7 Cardiomegaly (principal); I35.8 Other nonrheumatic aortic valve disorders; I35.0 Nonrheumatic aortic (valve) stenosis; I07.1 Rheumatic tricuspid insufficiency; I27.20 Pulmonary hypertension, unspecified
CPT/HCPCS: 93306

== ENCOUNTER → 2018-07-21 | Outpatient (CLI) | payer MEDICARE ==
[2018-07-21 13:48] LABS: Basophils % (A) 0 %; Eosinophils # (A) 0.1 k/uL (0-0.7); Eosinophils % (A) 1 %; HCT 35.2 % (39.0-53.0); HGB 11.5 gm/dL (13.0-17.5); Lymphocytes # (A) 1.3 k/uL (1.0-4.8); Lymphocytes % (A) 16 %; MCHC 32.6 g/dL (31.0-37.0); MCV 82.8 fL (80.0-100.0); Mean Platelet Volume 6.5; Monocytes # (A) 0.7 k/uL (0-1.0); Monocytes % (A) 8 %; Neutrophils # (A) 6.1 k/uL (1.3-7.7); Neutrophils % (A) 72 %; Platelet Count 339 k/uL (150-450); RBC 4.26 m/uL (4.30-5.90); RDW 14.9 % (11.5-15.5); WBC 8.6 k/uL (3.8-10.6)
[2018-07-21 13:49] LABS: Potassium 4.8 mmol/L (3.5-5.1)
== END ==
LOC: LABPAT 13:15
PROVIDERS: ATTEND Surgery
DX: Z01.812 Encounter for preprocedural laboratory examination (principal); I83.028 Varicose veins of left lower extremity with ulcer other part of lower leg
CPT/HCPCS: 36415; 80051; 82565; 84520; 85025

== ENCOUNTER 2018-07-29 05:52 | Day surgery (SDC) | payer MEDICARE ==
[2018-07-27 15:15] VITALS: BMI 28.8
[2018-07-29] MEDS ORDERED: SODIUM CHLORIDE 0.9% 1,000 ML in EMPTY BAG 1 BAG IV ONE (06:12)
[2018-07-29] MEDS ORDERED: ASPIRIN 325 MG TAB PO STA (06:12)
[2018-07-29] MEDS ORDERED: ALPRAZolam 0.25 MG TAB PO PRN (06:12)
[2018-07-29 07:03] LABS: Glucose,Whole Blood 149 mg/dL (75-99)
[2018-07-29 07:05] VITALS: TEMP 97.8
[2018-07-29] MEDS ORDERED: fentaNYL (PF) 50 MCG/ML 2 ML AMP ONE (07:26)
[2018-07-29] MEDS ORDERED: LIDOCAINE 1% INJ 10MG/ML (20 ML MDV) ONE (07:26)
[2018-07-29] MEDS ORDERED: MIDAZOLAM 2 MG/2 ML VIAL ONE (07:26)
[2018-07-29] MEDS ORDERED: PROPOFOL 10 MG/ML 20 ML VIAL IV ONE (07:26)
[2018-07-29] MEDS ORDERED: LIDOCAINE 1% INJ 10MG/ML (20 ML MDV) SQ ONE (07:36)
[2018-07-29] MEDS ORDERED: IOPAMIDOL-370 50ML BTL INJ ONE ×2 (08:15→08:16)
[2018-07-29] MEDS ORDERED: IOPAMIDOL-370 100ML BTL INJ ONE (08:16)
--- NOTE | 2018-07-29 08:35 | P.OP ---
Date of Procedure: 07/29/18 Preoperative Diagnosis: left lower extremity chronic non healing wounds Postoperative Diagnosis: same Procedure(s) Performed: aortogram with runoffs and selective left lower extremity angiogram and attempted revascularization of anterior tibial artery Anesthesia: local Surgeon: Hilario Ambriz Estimated Blood Loss (ml): 5 Condition: stable Disposition: other (Unable to revascularize the anterior tibial or posterior tibial arteries due to chronic occlusion. We will need to continue local wound care and if wounds do not heal issue and will likely need a below-knee amputation.) Indications for Procedure: 73 year old male with history of left lower extremity non healing wounds x months presents for angiogram and possible intervention to improve blood flow to the left lower extremity. Operative Findings: occluded anterior tibial artery without collateralization. Occluded posterior tibial artery. Only one vessel to the ankle with small collaterals in the foot. Description of Procedure: After written informed consent was obtained the patient all risks benefits competitions were described the patient is brought to the Extrusion Die Coordinator and laid in a supine position. The area of the groins were prepped and draped in usual sterile fashion. Timeout was performed in normal fashion. Local anesthetic was utilized to infuse over the right common femoral artery and under ultrasound guidance utilizing a micropuncture needle and Seldinger technique the right common femoral artery was accessed. 035 Glidewire was then placed into the aorta followed by pigtail catheter. Aortogram and lower extremity angiograms were then obtained. 035 Glidewire was placed once again within the pigtail catheter and the left common iliac artery was accessed. This was followed by an angled glide catheter. Guidewire was then removed and exchanged for a Glidewire advantage. 6-Estonian up and over sheath 55 cm was then placed over the Glidewire advantage into the superficial femoral artery. And gram was then obtained of the left lower extremity demonstrating abrupt cutoff and occlusion of the anterior tibial artery just after the takeoff. There was multiple collaterals noted but none that reconstituted to the anterior tibial artery at the ankle. Attempt was placed across this area with no success. All guidewires and catheters were then removed pressure was placed after the sheath was removed for hemostasis. Hemostasis was assured area was cleansed and dressings were placed the patient tolerated procedure well and was sent to PACU for recovery. Plan - Discharge Summary Discharge Rx Participant: No New Discharge Prescriptions: No Action Lisinopril [Zestril] 20 mg PO W/SUPPER metFORMIN HCL [Glucophage] 500 mg PO AC-SUPPER amLODIPine [Norvasc] 10 mg PO W/SUPPER Simvastatin [Zocor] 5 mg PO W/SUPPER Levofloxacin [Levaquin] 500 mg PO DAILY Discharge Medication List Lisinopril [Zestril] 20 mg PO W/SUPPER 11/10/16 [History] amLODIPine [Norvasc] 10 mg PO W/SUPPER 11/10/16 [History] metFORMIN HCL [Glucophage] 500 mg PO AC-SUPPER 11/10/16 [History] Simvastatin [Zocor] 5 mg PO W/SUPPER 03/16/18 [History] Levofloxacin [Levaquin] 500 mg PO DAILY 06/08/18 [History] Follow up Appointment(s)/Referral(s): Thomas Whiting DO [Doctor of Osteopathic Medicine] - 1 Week Discharge Disposition: HOME SELF-CARE
--- NOTE | 2018-07-29 09:00 | IR ---
Fluoroscopy HISTORY: Peripheral vascular occlusive disease 12.3 minutes fluoroscopy time supplied to the referring clinician. 180 intraoperative C-arm images d ocument the procedure. See dictated report from vascular surgery.
[2018-07-29 12:54] VITALS: RESP 18
[2018-07-29 12:55] VITALS: BP 141/65
[2018-07-29 14:07] VITALS: PULSE 65
== END 2018-07-29 13:30 | disposition home or self-care (01) ==
LOC: CATHCVL 05:52
PROVIDERS: ATTEND Surgery
DX: E11.51 Type 2 diabetes mellitus with diabetic peripheral angiopathy without gangrene (principal); I70.245 Atherosclerosis of native arteries of left leg with ulceration of other part of foot; L97.529 Non-pressure chronic ulcer of other part of left foot with unspecified severity; I70.211 Atherosclerosis of native arteries of extremities with intermittent claudication, right leg; E11.621 Type 2 diabetes mellitus with foot ulcer; I87.2 Venous insufficiency (chronic) (peripheral); I10 Essential (primary) hypertension; E78.5 Hyperlipidemia, unspecified; Z79.2 Long term (current) use of antibiotics; Z79.84 Long term (current) use of oral hypoglycemic drugs; Z79.899 Other long term (current) drug therapy
CPT/HCPCS: 36247; 75625; 75716; 76937; C1894; C1769 ×5; C1887; J2250; J2001; J3010; J2704; Q9967 ×2

== ENCOUNTER 2021-12-26 17:19 | Inpatient (IN) | payer MEDICARE, OTHER ==
--- NOTE | 2021-12-26 22:10 | ED ---
Recheck HPI - General Chief Complaint: Recheck/Abnormal Lab/Rx Stated Complaint: critical labs Time Seen by Provider: 12/26/21 21:36 Source: EMS Mode of arrival: EMS Limitations: no limitations - History of Present Illness Initial Comments: This patient is a 76-year-old man sent here from [facility] for abnormal lab result. Patient believes that he had routine follow-up testing today. The nurses at the [facility] received a call that his BUN and creatinine were elevated, they were 103 and 7.8 respectively. The patient states that he feels "okay." On the review of systems, patient does report that he is having difficulty initiating urination. He denies any other urinary symptoms. Patient is not aware if he has any prostate issues, he does not see a urologist. MD Complaint: abnormal lab -: hour(s) Returns Today for: Called Because of Abnormal Lab/Test Symptoms Since Prior Visit: no new symptoms Context: called for abnormal lab result Associated Symptoms: none - Related Data Home Medications Medication Instructions Recorded Confirmed amLODIPine [Norvasc] 10 mg PO W/SUPPER 11/10/16 09/28/18 lisinopriL [Zestril] 20 mg PO W/SUPPER 11/10/16 09/28/18 metFORMIN HCL [Glucophage] 500 mg PO AC-SUPPER 11/10/16 09/28/18 Simvastatin [Zocor] 5 mg PO W/SUPPER 03/16/18 09/28/18 Lidocaine 2% Gel [Xylocaine Jelly 1 applic TOPICAL ONCE PRN 09/07/18 09/28/18 2%] Allergies Allergy/AdvReac Type Severity Reaction Status Date / Time No Known Allergies Allergy Verified 12/26/21 22:51 Review of Systems ROS Statement: Those systems with pertinent positive or pertinent negative responses have been documented in the HPI. ROS Other: All systems not noted in ROS Statement are negative. Constitutional: Denies: fever, chills Respiratory: Denies: cough, dyspnea Cardiovascular: Denies: chest pain, palpitations, edema Gastrointestinal: Denies: abdominal pain, vomiting, diarrhea Genitourinary: Reports: other (Difficulty initiating urination). Denies: dysuria, frequency, hematuria Musculoskeletal: Denies: back pain Skin: Denies: rash Neurological: Denies: headache Past Medical History Past Medical History: Diabetes Mellitus, Hypertension, Renal Disease Additional Past Medical History / Comment(s): VENOUS STASIS ; ULCERS BILAT LEGS, PVD, CRISTAL LEG WOUND DRESSED BY HOME CARE NURSE History of Any Multi-Drug Resistant Organisms: MRSA Date of last positivie culture/infection: 04/14/17 MDRO Source:: Right Leg Past Surgical History: Tonsillectomy Additional Past Surgical History / Comment(s): 07/13/17 CRISTAL AORTOGRAM AND LLE ANGIOGRAM, REATTACHED TENDON LT 5TH FINGER 1995. skin graft bilat legs Past Anesthesia/Blood Transfusion Reactions: No Reported Reaction Past Psychological History: No Psychological Hx Reported Smoking Status: Never smoker Past Alcohol Use History: None Reported Past Drug Use History: None Reported - Past Family History Father Family Medical History: Cancer Additional Family Medical History / Comment(s): PROSTATE CANCER Mother Family Medical History: Hypertension General Exam Limitations: no limitations General appearance: alert, in no apparent distress Head exam: Present: atraumatic, normocephalic Eye exam: Present: normal appearance. Absent: scleral icterus, conjunctival injection ENT exam: Present: normal oropharynx Neck exam: Present: normal inspection Respiratory exam: Present: normal lung sounds bilaterally. Absent: respiratory distress, wheezes, rales, rhonchi, stridor Cardiovascular Exam: Present: regular rate, normal rhythm, normal heart sounds. Absent: systolic murmur, diastolic murmur, rubs, gallop GI/Abdominal exam: Present: soft. Absent: distended, tenderness, guarding, rebound, rigid, mass Extremities exam: Present: normal inspection, normal capillary refill, pedal edema (There is right lower extremity edema, patient states this is chronic. Chronic heel decubitus ulcers). Absent: calf tenderness Back exam: Present: normal inspection. Absent: CVA tenderness (R), CVA tenderness (L) Neurological exam: Present: alert Skin exam: Present: warm, dry, normal color Course Vital Signs 12/26/21 17:34 Temperature 97.8 F Pulse Rate 91 Respiratory 14 Rate Blood Pressure 160/77 O2 Sat by Pulse 98 Oximetry Medical Decision Making - Medical Decision Making Patient 76-year-old man sent from his long-term care facility for abnormal labs found earlier today. I repeat labs confirm patient in renal failure. Suspect that this is obstructive, a post void bladder scan revealed volume of approx imately 1000 and miles. Blankenship catheter placed with 1 L of urine drained. Patient discussed with the on-call physician, admitted and consultations ordered. - Lab Data Result diagrams: 12/26/21 21:41 12/26/21 21:41 Lab Results 12/26/21 12/26/21 12/26/21 Range/Units 21:41 21:41 21:41 WBC 8.4 (3.8-10.6) k/uL RBC 4.24 L (4.30-5.90) m/uL Hgb 12.2 L (13.0-17.5) gm/dL Hct 36.8 L (39.0-53.0) % MCV 86.7 (80.0-100.0) fL MCH 28.9 (25.0-35.0) pg MCHC 33.3 (31.0-37.0) g/dL RDW 16.6 H (11.5-15.5) % Plt Count 315 (150-450) k/uL MPV 7.0 Neutrophils % 75 % Lymphocytes % 10 % Monocytes % 8 % Eosinophils % 2 % Basophils % 1 % Neutrophils # 6.4 (1.3-7.7) k/uL Lymphocytes # 0.8 L (1.0-4.8) k/uL Monocytes # 0.7 (0-1.0) k/uL Eosinophils # 0.2 (0-0.7) k/uL Basophils # 0.1 (0-0.2) k/uL Anisocytosis Slight Sodium 135 L (137-145) mmol/L Potassium 4.7 (3.5-5.1) mmol/L Chloride 101 (98-107) mmol/L Carbon Dioxide 19 L (22-30) mmol/L Anion Gap 15 mmol/L BUN 108 H* (9-20) mg/dL Creatinine 7.90 H* (0.66-1.25) mg/dL Est GFR (CKD-EPI)AfAm 7 (>60 ml/min/1.73 sqM) Est GFR (CKD-EPI)NonAf 6 (>60 ml/min/1.73 sqM) Glucose 167 H (74-99) mg/dL Calcium 8.8 (8.4-10.2) mg/dL Total Bilirubin 0.5 (0.2-1.3) mg/dL AST 23 (17-59) U/L ALT 11 (4-49) U/L Alkaline Phosphatase 72 (38-126) U/L Total Protein 7.8 (6.3-8.2) g/dL Albumin 4.3 (3.5-5.0) g/dL Urine Color Light Yellow Urine Appearance Clear (Clear) Urine pH 5.5 (5.0-8.0) Ur Specific [place] 1.008 (1.001-1.035) Urine Protein 1+ H (Negative) Urine Glucose (UA) Trace H (Negative) Urine Ketones Negative (Negative) Urine Blood Small H (Negative) Urine Nitrite Negative (Negative) Urine Bilirubin Negative (Negative) Urine Urobilinogen <2.0 (<2.0) mg/dL Ur Leukocyte Esterase Negative (Negative) Urine RBC 1 (0-5) /hpf Urine WBC 4 (0-5) /hpf Ur Squamous Epith Cells <1 (0-4) /hpf Amorphous Sediment Occasional H (None) /hpf Urine Bacteria Rare H (None) /hpf Hyaline Casts 3 H (0-2) /lpf Granular Casts 3 (0) /lpf Urine Mucus Rare H (None) /hpf Disposition Clinical Impression: Acute renal failure Disposition: ADMITTED IP TO THIS HOSP Condition: Fair Is patient prescribed a controlled substance at d/c from ED?: No Time of Disposition: 22:45
[2021-12-26 22:13] LABS: Anisocytosis Slight; Basophils # (A) 0.1 k/uL (0-0.2); Basophils % (A) 1 %; Eosinophils # (A) 0.2 k/uL (0-0.7); Eosinophils % (A) 2 %; HCT 36.8 % (39.0-53.0); HGB 12.2 gm/dL (13.0-17.5); Lymphocytes # (A) 0.8 k/uL (1.0-4.8); Lymphocytes % (A) 10 %; MCH 28.9 pg (25.0-35.0); MCHC 33.3 g/dL (31.0-37.0); MCV 86.7 fL (80.0-100.0); Monocytes # (A) 0.7 k/uL (0-1.0); Monocytes % (A) 8 %; Neutrophils # (A) 6.4 k/uL (1.3-7.7); Neutrophils % (A) 75 %; Platelet Count 315 k/uL (150-450); RBC 4.24 m/uL (4.30-5.90); RDW 16.6 % (11.5-15.5); WBC 8.4 k/uL (3.8-10.6)
[2021-12-26 22:30] LABS: Albumin 4.3 g/dL (3.5-5.0); Calcium 8.8 mg/dL (8.4-10.2); Potassium 4.7 mmol/L (3.5-5.1); Total Bilirubin 0.5 mg/dL (0.2-1.3); Total Protein 7.8 g/dL (6.3-8.2)
[2021-12-26 22:41] LABS: Amorphous Sediment,Urine Occasional /hpf; Appearance,Urine Clear (Clear); Bacteria,Urine Rare /hpf; Bilirubin,Urine Negative (Negative); Blood,Urine Small (Negative); Color,Urine Light Yellow; Glucose,Urine (UA) Trace (Negative); Granular Casts,Urine 3 /lpf (0); Hyaline Casts,Urine 3 /lpf (0-2); Ketones,Urine Negative (Negative); Leukocyte Esterase,Urine Negative (Negative); Mucus,Urine Rare /hpf; Nitrite,Urine Negative (Negative); PH, Urine 5.5 (5.0-8.0); Protein,Urine 1+ (Negative); RBC,Urine 1 /hpf (0-5); Specific Gravity,Urine 1.008 (1.001-1.035); Squamous Epithelial Cell,Urine <1 /hpf (0-4); Urobilinogen,Urine <2.0 mg/dL (<2.0); WBC,Urine 4 /hpf (0-5)
[2021-12-26] MEDS ORDERED: NALOXONE 0.4 MG/ML 1 ML VIAL IV PRN (22:46)
[2021-12-26] MEDS ORDERED: ACETAMINOPHEN TAB 325 MG TAB PO PRN (22:46)
[2021-12-26 23:40] LABS: Creatinine,Urine Random 39.4 mg/dL
[2021-12-27] MEDS: INSULIN ASPART (NovoLOG) 100 UNIT/ML VIAL SQ SCH ×4 (06:13→21:14)
[2021-12-27 06:20] LABS: Glucose,Whole Blood 134 mg/dL (70-110)
--- NOTE | 2021-12-27 08:45 | P.GSCN ---
History of Present Illness Consult date: 12/27/21 Reason for Consult: urinary retention History of present illness: This is a 76-year-old male that presented to the emergency department from a retirement due to acute kidney injury, his creatinine was 7.9 from a baseline of 1.3. In the emergency department a catheter was placed for 1 L urinary retention. Indicated he's been having some difficulty voiding recently. Denies any previous history of urinary retention. Denies any gross hematuria or history of kidney stones. He has not seen a urologist in the past. Review of Systems - Constitutional Denies fever, Denies weight loss - EENT Ears, nose, mouth and throat: Denies dysphagia - Cardiovascular Denies chest pain, Denies shortness of breath - Gastrointestinal Reports as per HPI - Genitourinary Denies dysuria, Denies hematuria, Denies kidney stones - Integumentary Denies rash, Denies unusual bruising - Neurological Denies headaches, Denies syncope Past Medical History Past Medical History: Diabetes Mellitus, Hypertension, Renal Disease Additional Past Medical History / Comment(s): VENOUS STASIS ; ULCERS BILAT LEGS, PVD, CRISTAL LEG WOUND DRESSED BY HOME CARE NURSE History of Any Multi-Drug Resistant Organisms: MRSA Year Discovered:: 04/14/17 MDRO Source:: Right Leg Past Surgical History: Tonsillectomy Additional Past Surgical History / Comment(s): 07/13/17 CRISTAL AORTOGRAM AND LLE ANGIOGRAM, REATTACHED TENDON LT 5TH FINGER 1995. skin graft bilat legs Past Anesthesia/Blood Transfusion Reactions: No Reported Reaction Past Psychological History: No Psychological Hx Reported Smoking Status: Never smoker Past Alcohol Use History: None Reported Past Drug Use History: None Reported - Past Family History Father Family Medical History: Cancer Additional Family Medical History / Comment(s): PROSTATE CANCER Mother Family Medical History: Hypertension Medications and Allergies Home Medications Medication Instructions Recorded Confirmed Type amLODIPine [Norvasc] 10 mg PO DAILY 11/10/16 12/26/21 History Simvastatin [Zocor] 5 mg PO HS 03/16/18 12/26/21 History Acetaminophen Tab [Tylenol] 650 mg PO Q6H PRN 12/26/21 12/26/21 History Cefepime [Maxipime] 2 gm IVPB Q12H 12/26/21 12/26/21 History HYDROcodone/APAP 5-325MG [[place] 1 tab PO Q6H PRN 12/26/21 12/26/21 History 5-325] Insulin Glargine,Hum.rec.anlog 10 units SQ HS 12/26/21 12/26/21 History [Lantus Solostar Pen] Insulin Lispro [humaLOG Kwikpen] 2 unit SQ TID-W/MEALS 12/26/21 12/26/21 History Insulin Lispro [humaLOG Kwikpen] See Protocol SQ ACHS 12/26/21 12/26/21 History Magnesium Oxide [Mag-Ox] 400 mg PO DAILY 12/26/21 12/26/21 History Multivitamins, Thera [Multivitamin 1 tab PO DAILY 12/26/21 12/26/21 History (formulary)] Pioglitazone [Actos] 15 mg PO DAILY 12/26/21 12/26/21 History Prostat Awc 30 ml PO BID 12/26/21 12/26/21 History Sennosides [Senokot] 8.6 mg PO BID PRN 12/26/21 12/26/21 History Triad Hydrophillic Wound Dress 1 applic TOPICAL DAILY PRN 12/26/21 12/26/21 History Paste Triad Hydrophillic Wound Dress 1 applic TOPICAL Q12H 12/26/21 12/26/21 History Paste metroNIDAZOLE [Flagyl] 500 mg PO Q8H 12/26/21 12/26/21 History polyethylene glycoL 3350 [Miralax] 17 gm PO DAILY PRN 12/26/21 12/26/21 History Allergies Allergy/AdvReac Type Severity Reaction Status Date / Time No Known Allergies Allergy Verified 12/26/21 22:51 Surgical - Exam Vital Signs Temp Pulse Resp BP Pulse Ox 97.8 F 91 14 160/77 98 12/26/21 17:34 12/26/21 17:34 12/26/21 17:34 12/26/21 17:34 12/26/21 17:34 - General no distress, no pain - Eyes normal ocular movement, no pale - ENT normal nares, normal mucosa - Respiratory normal expansion, normal respiratory effort - Abdomen Abdomen: soft, non tender - Genitourinary Urine is clear - Psychiatric oriented to time, oriented to person, oriented to place Results - Labs 12/26/21 21:41 12/26/21 21:41 Abnormal Lab Results - Last 24 Hours (Table) 12/26/21 12/26/21 12/26/21 Range/Units 21:41 21:41 21:41 RBC 4.24 L (4.30-5.90) m/uL Hgb 12.2 L (13.0-17.5) gm/dL Hct 36.8 L (39.0-53.0) % RDW 16.6 H (11.5-15.5) % Lymphocytes # 0.8 L (1.0-4.8) k/uL Sodium 135 L (137-145) mmol/L Carbon Dioxide 19 L (22-30) mmol/L BUN 108 H* (9-20) mg/dL Creatinine 7.90 H* (0.66-1.25) mg/dL Glucose 167 H (74-99) mg/dL POC Glucose (mg/dL) (70-110) mg/dL Osmolality (280-301) mosm/kg Urine Protein 1+ H (Negative) Urine Glucose (UA) Trace H (Negative) Urine Blood Small H (Negative) Amorphous Sediment Occasional H (None) /hpf Urine Bacteria Rare H (None) /hpf Hyaline Casts 3 H (0-2) /lpf Urine Mucus Rare H (None) /hpf 12/26/21 12/27/21 Range/Units 21:41 05:57 RBC (4.30-5.90) m/uL Hgb (13.0-17.5) gm/dL Hct (39.0-53.0) % RDW (11.5-15.5) % Lymphocytes # (1.0-4.8) k/uL Sodium (137-145) mmol/L Carbon Dioxide (22-30) mmol/L BUN (9-20) mg/dL Creatinine (0.66-1.25) mg/dL Glucose (74-99) mg/dL POC Glucose (mg/dL) 134 H (70-110) mg/dL Osmolality 320 H (280-301) mosm/kg Urine Protein (Negative) Urine Glucose (UA) (Negative) Urine Blood (Negative) Amorphous Sediment (None) /hpf Urine Bacteria (None) /hpf Hyaline Casts (0-2) /lpf Urine Mucus (None) /hpf Diabetes panel 12/26/21 Range/Units 21:41 Sodium 135 L (137-145) mmol/L Potassium 4.7 (3.5-5.1) mmol/L Chloride 101 (98-107) mmol/L Carbon Dioxide 19 L (22-30) mmol/L BUN 108 H* (9-20) mg/dL Creatinine 7.90 H* (0.66-1.25) mg/dL Glucose 167 H (74-99) mg/dL Calcium 8.8 (8.4-10.2) mg/dL AST 23 (17-59) U/L ALT 11 (4-49) U/L Alkaline Phosphatase 72 (38-126) U/L Total Protein 7.8 (6.3-8.2) g/dL Albumin 4.3 (3.5-5.0) g/dL Calcium panel 12/26/21 Range/Units 21:41 Calcium 8.8 (8.4-10.2) mg/dL Albumin 4.3 (3.5-5.0) g/dL Pituitary panel 12/26/21 Range/Units 21:41 Sodium 135 L (137-145) mmol/L Potassium 4.7 (3.5-5.1) mmol/L Chloride 101 (98-107) mmol/L Carbon Dioxide 19 L (22-30) mmol/L BUN 108 H* (9-20) mg/dL Creatinine 7.90 H* (0.66-1.25) mg/dL Glucose 167 H (74-99) mg/dL Calcium 8.8 (8.4-10.2) mg/dL Adrenal panel 12/26/21 Range/Units 21:41 Sodium 135 L (137-145) mmol/L Potassium 4.7 (3.5-5.1) mmol/L Chloride 101 (98-107) mmol/L Carbon Dioxide 19 L (22-30) mmol/L BUN 108 H* (9-20) mg/dL Creatinine 7.90 H* (0.66-1.25) mg/dL Glucose 167 H (74-99) mg/dL Calcium 8.8 (8.4-10.2) mg/dL Total Bilirubin 0.5 (0.2-1.3) mg/dL AST 23 (17-59) U/L ALT 11 (4-49) U/L Alkaline Phosphatase 72 (38-126) U/L Total Protein 7.8 (6.3-8.2) g/dL Albumin 4.3 (3.5-5.0) g/dL Assessment and Plan Assessment: 76-year-old male admitted to the hospital with acute kidney injury, creatinine of 7.9 from 1.3. Also has 1 L urinary retention, no previous history of retention. Most likely patient has underlying BPH. -Recommend Keeping Blankenship catheter for minumum of 7-10 days, patient is discharged to retirement, trial of void can be performed at the retirement. -We'll start Flomax, recommend discharged home on Flomax -We'll obtain a renal ultrasound
--- NOTE | 2021-12-27 09:02 | P.HPIM ---
History of Present Illness This is a pleasant 76 years old male with past medical history of Diabetes Mellitus, Hypertension; ULCERS BILAT LEGS, PVD, CRISTAL LEG WOUND DRESSED BY HOME CARE NURSE Patient was brought from [facility]. He was at [facility] and discharge hospital on bilateral diabetic foot ulcers with surrounding cellulitis secondary to enterococcus faecalis, Morganella morganii and Fusobacterium Varium. He underwent surgical debridement on 11/18 and he was discharged on IV cefepime and Flagyl 5 weeks he still has PICC line in his left arm with no surrounding cellulitis Sent from [facility] for elevated BUN & Cr. Pt does have hx of renal failure. Patient states that he has no burning but sometimes his house for him to be and sometimes he has pain when he urinated. He denies suprapubic tenderness. Patient found to have urinary retention with 1 L of urine. He status post Blankenship catheter No chest pain or dyspnea. No headache or weakness or numbness. No vomiting or abdominal pain. He has some loose stool. No smoking, alcohol or illicit drugs BUN and creatinine were elevated, they were 103 and 7.8 respectively. Vitas looks stable. Blood pressure elevated mildly. Labs showing unremarkable CBC and BMP except for elevated creatinine 7.9 and be on 108. Osmolality is high at 320. Glucose is high as 167. Liver enzymes are not elevated. Urinalysis is negative for infection but showed 1+ protein, trace glucose and small blood and occasional amorphous sediment. Urine osmolality is 248 and urine creatinine is 39.4 In the emergency room metformin was held and shock absorber installer consulted Review of Systems Review of systems CONSTITUTIONAL: No fever, no malaise, no fatigue. HEENT: No recent visual problems or hearing problems. Denied any sore throat. CARDIOVASCULAR: No orthopnea, PND, no palpitations, no syncope. PULMONARY: No shortness of breath, no cough, no hemoptysis. GASTROINTESTINAL: No diarrhea, no nausea, no vomiting, no abdominal pain. Normoactive bowel sounds. NEUROLOGICAL: No headaches, no weakness, no numbness. HEMATOLOGICAL: Denies any bleeding or petechiae. GENITOURINARY: Denies any burning micturition, frequency, or urgency. MUSCULOSKELETAL/RHEUMATOLOGICAL: Denies any joint pain, swelling, or any muscle pain. ENDOCRINE: Denies any polyuria or polydipsia. Past Medical History Past Medical History: Diabetes Mellitus, Hypertension, Renal Disease Additional Past Medical History / Comment(s): VENOUS STASIS ; ULCERS BILAT LEGS, PVD, CRISTAL LEG WOUND DRESSED BY HOME CARE NURSE History of Any Multi-Drug Resistant Organisms: MRSA Date of last positivie culture/infection: 04/14/17 MDRO Source:: Right Leg Past Surgical History: Tonsillectomy Additional Past Surgical History / Comment(s): 07/13/17 CRISTAL AORTOGRAM AND LLE ANGIOGRAM, REATTACHED TENDON LT 5TH FINGER 1995. skin graft bilat legs Past Anesthesia/Blood Transfusion Reactions: No Reported Reaction Past Psychological History: No Psychological Hx Reported Smoking Status: Never smoker Past Alcohol Use History: None Reported Past Drug Use History: None Reported - Past Family History Father Family Medical History: Cancer Additional Family Medical History / Comment(s): PROSTATE CANCER Mother Family Medical History: Hypertension Medications and Allergies Home Medications Medication Instructions Recorded Confirmed Type amLODIPine [Norvasc] 10 mg PO DAILY 11/10/16 12/26/21 History Simvastatin [Zocor] 5 mg PO HS 03/16/18 12/26/21 History Acetaminophen Tab [Tylenol] 650 mg PO Q6H PRN 12/26/21 12/26/21 History Cefepime [Maxipime] 2 gm IVPB Q12H 12/26/21 12/26/21 History HYDROcodone/APAP 5-325MG [[place] 1 tab PO Q6H PRN 12/26/21 12/26/21 History 5-325] Insulin Glargine,Hum.rec.anlog 10 units SQ HS 12/26/21 12/26/21 History [Lantus Solostar Pen] Insulin Lispro [humaLOG Kwikpen] 2 unit SQ TID-W/MEALS 12/26/21 12/26/21 History Insulin Lispro [humaLOG Kwikpen] See Protocol SQ ACHS 12/26/21 12/26/21 History Magnesium Oxide [Mag-Ox] 400 mg PO DAILY 12/26/21 12/26/21 History Multivitamins, Thera [Multivitamin 1 tab PO DAILY 12/26/21 12/26/21 History (formulary)] Pioglitazone [Actos] 15 mg PO DAILY 12/26/21 12/26/21 History Prostat Awc 30 ml PO BID 12/26/21 12/26/21 History Sennosides [Senokot] 8.6 mg PO BID PRN 12/26/21 12/26/21 History Triad Hydrophillic Wound Dress 1 applic TOPICAL DAILY PRN 12/26/21 12/26/21 History Paste Triad Hydrophillic Wound Dress 1 applic TOPICAL Q12H 12/26/21 12/26/21 History Paste metroNIDAZOLE [Flagyl] 500 mg PO Q8H 12/26/21 12/26/21 History polyethylene glycoL 3350 [Miralax] 17 gm PO DAILY PRN 12/26/21 12/26/21 History Allergies Allergy/AdvReac Type Severity Reaction Status Date / Time No Known Allergies Allergy Verified 12/26/21 22:51 Physical Exam Vitals: Vital Signs Temp Pulse Pulse Resp BP BP Pulse Ox 12/27/21 03:27 97.9 F 87 16 154/75 98 12/27/21 00:05 98.0 F 90 16 160/80 99 12/26/21 23:00 97.7 F 77 20 149/79 97 12/26/21 17:34 97.8 F 91 14 160/77 98 Intake and Output 12/26/21 12/27/21 12/27/21 22:59 06:59 14:59 Output Total 850 Balance -850 Output: Urine 850 Uretheral (Blankenship) 350 Other: Voiding Method Indwelling Catheter # Bowel Movements 1 Weight 99.79 kg 99.79 kg GENERAL: The patient is alert and oriented x3, not in any acute distress. Well developed, well nourished. HEENT: Pupils are round and equally reacting to light. EOMI. No scleral icterus. No conjunctival pallor. Normocephalic, atraumatic. No pharyngeal erythema. No thyromegaly. CARDIOVASCULAR: S1 and S2 present. No murmurs, rubs, or gallops. PULMONARY: Chest is clear to auscultation, no wheezing or crackles. ABDOMEN: Soft, nontender, nondistended, normoactive bowel sounds. No palpable or ganomegaly. MUSCULOSKELETAL: No joint swelling or deformity. -EXTREMITIES: No cyanosis, clubbing, or pedal edema. Bilateral feet ulcers with Dressing in Place NEUROLOGICAL: Gross neurological examination did not reveal any focal deficits. SKIN: No rashes. no petechiae. Results CBC & Chem 7: 12/26/21 21:41 12/26/21 21:41 Labs: Abnormal Lab Results - Last 24 Hours (Table) 12/26/21 12/26/21 12/26/21 Range/Units 21:41 21:41 21:41 RBC 4.24 L (4.30-5.90) m/uL Hgb 12.2 L (13.0-17.5) gm/dL Hct 36.8 L (39.0-53.0) % RDW 16.6 H (11.5-15.5) % Lymphocytes # 0.8 L (1.0-4.8) k/uL Sodium 135 L (137-145) mmol/L Carbon Dioxide 19 L (22-30) mmol/L BUN 108 H* (9-20) mg/dL Creatinine 7.90 H* (0.66-1.25) mg/dL Glucose 167 H (74-99) mg/dL POC Glucose (mg/dL) (70-110) mg/dL Osmolality (280-301) mosm/kg Urine Protein 1+ H (Negative) Urine Glucose (UA) Trace H (Negative) Urine Blood Small H (Negative) Amorphous Sediment Occasional H (None) /hpf Urine Bacteria Rare H (None) /hpf Hyaline Casts 3 H (0-2) /lpf Urine Mucus Rare H (None) /hpf 12/26/21 12/27/21 Range/Units 21:41 05:57 RBC (4.30-5.90) m/uL Hgb (13.0-17.5) gm/dL Hct (39.0-53.0) % RDW (11.5-15.5) % Lymphocytes # (1.0-4.8) k/uL Sodium (137-145) mmol/L Carbon Dioxide (22-30) mmol/L BUN (9-20) mg/dL Creatinine (0.66-1.25) mg/dL Glucose (74-99) mg/dL POC Glucose (mg/dL) 134 H (70-110) mg/dL Osmolality 320 H (280-301) mosm/kg Urine Protein (Negative) Urine Glucose (UA) (Negative) Urine Blood (Negative) Amorphous Sediment (None) /hpf Urine Bacteria (None) /hpf Hyaline Casts (0-2) /lpf Urine Mucus (None) /hpf Thrombosis Risk Factor Assmnt - Choose All That Apply Each Factor Represents 1 point: Swollen legs (current) Each Risk Factor Represents 3 Points: Age 75 years or older Other congenital or acquired thrombophilia - If yes, enter type in comment: No Thrombosis Risk Factor Assessment Total Risk Factor Score: 4 Thrombosis Risk Factor Assessment Level: Moderate Risk Assessment and Plan Assessment: Acute kidney injury mostly secondary to obstructive uropathy Urinary retention status post Blankenship catheter Chronic bilateral diabetic foot ulcers and surrounding cellulitis, improving, on chronic antibiotics but syncope 5 weeks from 11/26 Hypertension Diabetes mellitus Peripheral vascular disease and history of bilateral leg ulcers. Plan: This is a pleasant 76 years old male who presents with acute kidney injury Continue with IV fluid Nephrology consult renal ultrasound Consult ID team urology consult and patient was started on Flomax. Continue with Blankenship catheter. Labs and medication were reviewed.. Continue same treatment. Continue with symptomatic treatment. Resume home medication. Monitor lytes and vitals. DVT and GI prophylaxis. Further recommendations as per clinical course of the patient DVT prophylaxis: Subcutaneous heparin GI Prophylaxis: Pepcid
--- NOTE | 2021-12-27 09:40 | P.NPCON ---
History of Present Illness - Reason for Consult acute renal failure - History of Present Illness Reason for consultation: Acute kidney injury History of present illness: Patient is a 76-year-old male seen in renal consultation for acute kidney injury. Patient's creatinine in December 2020 was in the range of 1.1-1.3. This admission it was elevated at 7.9. Patient presents from extended care facility due to abnormal labs. He was noted to be in acute renal failure and was sent to the hospital. It is noted that he was having difficulty with urination. He was noted to be in urinary retention and had a Blankenship catheter placed in the ER with 1 L of urine obtained. Patient is not a very reliable historian. Noted to have dysphagia. Denies chest pain or shortness of breath. No vomiting or diarrhea. Oral intake is good. Currently has a Blankenship catheter with urine output documented as 850 mL. Patient has history of hypertension and diabetes. I don't see any nonsteroidals and his home medication list. Denies hematuria. No evidence of hypotension. Vital signs are stable. General: Awake. No acute distress. HEENT: Head exam is unremarkable. LUNGS: Breath sounds decreased. HEART: Rate and Rhythm are regular. ABDOMEN: Soft, no distention. EXTREMITITES: No edema. Past Medical History Past Medical History: Diabetes Mellitus, Hypertension, Renal Disease Additional Past Medical History / Comment(s): VENOUS STASIS ; ULCERS BILAT LEGS, PVD, CRISTAL LEG WOUND DRESSED BY HOME CARE NURSE History of Any Multi-Drug Resistant Organisms: MRSA Date of last positivie culture/infection: 04/14/17 MDRO Source:: Right Leg Past Surgical History: Tonsillectomy Additional Past Surgical History / Comment(s): 07/13/17 CRISTAL AORTOGRAM AND LLE ANGIOGRAM, REATTACHED TENDON LT 5TH FINGER 1995. skin graft bilat legs Past Anesthesia/Blood Transfusion Reactions: No Reported Reaction Past Psychological History: No Psychological Hx Reported Smoking Status: Never smoker Past Alcohol Use History: None Reported Past Drug Use History: None Reported - Past Family History Father Family Medical History: Cancer Additional Family Medical History / Comment(s): PROSTATE CANCER Mother Family Medical History: Hypertension Medications and Allergies Home Medications Medication Instructions Recorded Confirmed Type amLODIPine [Norvasc] 10 mg PO DAILY 11/10/16 12/26/21 History Simvastatin [Zocor] 5 mg PO HS 03/16/18 12/26/21 History Acetaminophen Tab [Tylenol] 650 mg PO Q6H PRN 12/26/21 12/26/21 History Cefepime [Maxipime] 2 gm IVPB Q12H 12/26/21 12/26/21 History HYDROcodone/APAP 5-325MG [[place] 1 tab PO Q6H PRN 12/26/21 12/26/21 History 5-325] Insulin Glargine,Hum.rec.anlog 10 units SQ HS 12/26/21 12/26/21 History [Lantus Solostar Pen] Insulin Lispro [humaLOG Kwikpen] 2 unit SQ TID-W/MEALS 12/26/21 12/26/21 History Insulin Lispro [humaLOG Kwikpen] See Protocol SQ ACHS 12/26/21 12/26/21 History Magnesium Oxide [Mag-Ox] 400 mg PO DAILY 12/26/21 12/26/21 History Multivitamins, Thera [Multivitamin 1 tab PO DAILY 12/26/21 12/26/21 History (formulary)] Pioglitazone [Actos] 15 mg PO DAILY 12/26/21 12/26/21 History Prostat Awc 30 ml PO BID 12/26/21 12/26/21 History Sennosides [Senokot] 8.6 mg PO BID PRN 12/26/21 12/26/21 History Triad Hydrophillic Wound Dress 1 applic TOPICAL DAILY PRN 12/26/21 12/26/21 History Paste Triad Hydrophillic Wound Dress 1 applic TOPICAL Q12H 12/26/21 12/26/21 History Paste metroNIDAZOLE [Flagyl] 500 mg PO Q8H 12/26/21 12/26/21 History polyethylene glycoL 3350 [Miralax] 17 gm PO DAILY PRN 12/26/21 12/26/21 History Allergies Allergy/AdvReac Type Severity Reaction Status Date / Time No Known Allergies Allergy Verified 12/26/21 22:51 Physical Exam Vitals: Vital Signs Temp Pulse Pulse Resp BP BP Pulse Ox 12/27/21 03:27 97.9 F 87 16 154/75 98 12/27/21 00:05 98.0 F 90 16 160/80 99 12/26/21 23:00 97.7 F 77 20 149/79 97 12/26/21 17:34 97.8 F 91 14 160/77 98 Intake and Output 12/26/21 12/27/21 12/27/21 22:59 06:59 14:59 Output Total 850 Balance -850 Output: Urine 850 Uretheral (Blankenship) 350 Other: Voiding Method Indwelling Catheter # Bowel Movements 1 Weight 99.79 kg 99.79 kg Results - Lab Results Most recent lab results Calcium 8.8 mg/dL (8.4-10.2) 12/26/21 21:41 12/26/21 21:41 12/26/21 21:41 Assessment and Plan Plan: Assessment: 1. Acute kidney injury secondary to urinary retention. Creatinine 7.9 on admission. Creatinine in December 2020 was in the range of 1.1-1.3. 2. Metabolic acidosis secondary to acute kidney injury. 3. Urinary retention. Has a Blankenship catheter. Flomax started. Urology following. 4. Benign hypertension. Stable. 5. Diabetes mellitus. Plan: Start normal saline at 50 mL an hour. Maintain Blankenship catheter. Follow-up renal ultrasound. Morning labs pending. Continue to monitor renal function and urine output. Continue to hold metformin for now. Thank you for the consultation. I will continue to follow patient with you during his hospital stay.
[2021-12-27] MEDS: FAMOTIDINE 20 MG/2 ML VIAL IV SCH (09:59)
[2021-12-27] MEDS: TAMSULOSIN 0.4 MG CAP.ER.24H PO SCH (09:59)
[2021-12-27] MEDS: SODIUM CHLORIDE 0.9% 1,000 ML IV SCH (10:00)
[2021-12-27 11:30] LABS: Glucose,Whole Blood 246 mg/dL (70-110)
--- NOTE | 2021-12-27 11:52 | US ---
EXAMINATION TYPE: US kidneys/renal and bladder DATE OF EXAM: 12/27/2021 COMPARISON: NONE CLINICAL HISTORY: SIXTO. SIXTO EXAM MEASUREMENTS: Right Kidney: 12.0 x 6.7 x 6.5 cm Left Kidney: 11.7 x 5.8 x 6.5 cm Right Kidney: No hydronephrosis or masses seen Left Kidney: Dilated renal pelvis Bladder: Blankenship within bladder Bilateral Jets seen: N IMPRESSION: Mild left hydronephrosis versus extrarenal pelvis. Blankenship catheter with suboptimal visualization of the bladder lumen. There appears to be a thickened bl adder wall. Correlate with urinalysis.
[2021-12-27 12:20] LABS: Calcium 8.4 mg/dL (8.4-10.2); Magnesium 2.5 mg/dL (1.6-2.3); Potassium 4.8 mmol/L (3.5-5.1)
[2021-12-27 16:52] LABS: Glucose,Whole Blood 235 mg/dL (70-110)
[2021-12-27] MEDS ORDERED: metFORMIN 500 MG TAB PO SCH (17:30)
[2021-12-27] MEDS: ATORVASTATIN 10 MG TAB PO SCH (18:05)
[2021-12-27] MEDS: amLODIPine 10 MG TAB PO SCH (18:05)
[2021-12-27 20:14] LABS: Glucose,Whole Blood 250 mg/dL (70-110)
[2021-12-27] MEDS: HEPARIN SODIUM,PORCINE/PF 5,000 UNIT/0.5 ML SYRINGE SQ SCH (21:14)
--- NOTE | 2021-12-28 00:54 | P.CONS ---
History of Present Illness - Reason for Consult Consult date: 12/27/21 - History of Present Illness Patient is a 76-year-old male well-known to myself in this patient who to follow-up with us that [facility] wound care patient was recently diagnosed with bilateral heel infected pressure ulcer with underlying osteomyelitis culture predominantly positive for gram-negative that is Morganella Proteus group A strep and bacteroids patient did get a PICC line and was advised a 6-week course of cefepime and oral Flagyl with the patient apparently was receiving at the local residential patient was brought into the hospital last night as the patient was noticed to have a abnormal labs done at the residential with a BUN of 103 and a creatinine of 7.8 patient was feeling okay and did not have any active symptoms patient denies having any headache no chest pain or shortness of breath or cough no abdominal pain or any diarrhea patient on presentation to the hospital was afebrile and no fever have been recorded subsequently patient did have a normal white count, BUN 105 with a creatinine of 7.92 liver exams are normal urine has been negative patient did have a abdominal bladder ultrasound mild left hydronephrosis with a thickened bladder, infectious disease was consulted for follow-up of his wound and need for further antibiotic Past Medical History Past Medical History: Diabetes Mellitus, Hypertension, Renal Disease Additional Past Medical History / Comment(s): VENOUS STASIS ; ULCERS BILAT LEGS, PVD, CRISTAL LEG WOUND DRESSED BY HOME CARE NURSE History of Any Multi-Drug Resistant Organisms: MRSA Year Discovered:: 04/14/17 MDRO Source:: Right Leg Past Surgical History: Tonsillectomy Additional Past Surgical History / Comment(s): 07/13/17 CRISTAL AORTOGRAM AND LLE ANGIOGRAM, REATTACHED TENDON LT 5TH FINGER 1995. skin graft bilat legs Past Anesthesia/Blood Transfusion Reactions: No Reported Reaction Past Psychological History: No Psychological Hx Reported Smoking Status: Never smoker Past Alcohol Use History: None Reported Past Drug Use History: None Reported - Past Family History Father Family Medical History: Cancer Additional Family Medical History / Comment(s): PROSTATE CANCER Mother Family Medical History: Hypertension Medications and Allergies Home Medications Medication Instructions Recorded Confirmed Type amLODIPine [Norvasc] 10 mg PO DAILY 11/10/16 12/26/21 History Simvastatin [Zocor] 5 mg PO HS 03/16/18 12/26/21 History Acetaminophen Tab [Tylenol] 650 mg PO Q6H PRN 12/26/21 12/26/21 History Cefepime [Maxipime] 2 gm IVPB Q12H 12/26/21 12/26/21 History HYDROcodone/APAP 5-325MG [[place] 1 tab PO Q6H PRN 12/26/21 12/26/21 History 5-325] Insulin Glargine,Hum.rec.anlog 10 units SQ HS 12/26/21 12/26/21 History [Lantus Solostar Pen] Insulin Lispro [humaLOG Kwikpen] 2 unit SQ TID-W/MEALS 12/26/21 12/26/21 History Insulin Lispro [humaLOG Kwikpen] See Protocol SQ ACHS 12/26/21 12/26/21 History Magnesium Oxide [Mag-Ox] 400 mg PO DAILY 12/26/21 12/26/21 History Multivitamins, Thera [Multivitamin 1 tab PO DAILY 12/26/21 12/26/21 History (formulary)] Pioglitazone [Actos] 15 mg PO DAILY 12/26/21 12/26/21 History Prostat Awc 30 ml PO BID 12/26/21 12/26/21 History Sennosides [Senokot] 8.6 mg PO BID PRN 12/26/21 12/26/21 History Triad Hydrophillic Wound Dress 1 applic TOPICAL DAILY PRN 12/26/21 12/26/21 History Paste Triad Hydrophillic Wound Dress 1 applic TOPICAL Q12H 12/26/21 12/26/21 History Paste metroNIDAZOLE [Flagyl] 500 mg PO Q8H 12/26/21 12/26/21 History polyethylene glycoL 3350 [Miralax] 17 gm PO DAILY PRN 12/26/21 12/26/21 History Allergies Allergy/AdvReac Type Severity Reaction Status Date / Time No Known Allergies Allergy Verified 12/26/21 22:51 Physical Exam Vitals: Vital Signs Temp Pulse Pulse Resp BP BP Pulse Ox 12/27/21 11:10 97.6 F 89 16 137/69 97 12/27/21 09:54 97.6 F 96 16 142/70 99 12/27/21 03:27 97.9 F 87 16 154/75 98 12/27/21 00:05 98.0 F 90 16 160/80 99 12/26/21 23:00 97.7 F 77 20 149/79 97 12/26/21 17:34 97.8 F 91 14 160/77 98 Intake and Output 12/26/21 12/27/21 12/27/21 22:59 06:59 14:59 Intake Total 1236 Output Total 850 400 Balance -850 836 Intake: Oral 1236 Output: Urine 850 400 Uretheral (Blankenship) 350 Other: Voiding Method Indwelling Catheter Indwelling Catheter # Bowel Movements 1 Weight 99.79 kg 99.79 kg Results CBC & Chem 7: 12/26/21 21:41 12/27/21 11:26 Labs: Abnormal Lab Results - Last 24 Hours (Table) 12/26/21 12/26/21 12/26/21 Range/Units 21:41 21:41 21:41 RBC 4.24 L (4.30-5.90) m/uL Hgb 12.2 L (13.0-17.5) gm/dL Hct 36.8 L (39.0-53.0) % RDW 16.6 H (11.5-15.5) % Lymphocytes # 0.8 L (1.0-4.8) k/uL Sodium 135 L (137-145) mmol/L Carbon Dioxide 19 L (22-30) mmol/L BUN 108 H* (9-20) mg/dL Creatinine 7.90 H* (0.66-1.25) mg/dL Glucose 167 H (74-99) mg/dL POC Glucose (mg/dL) (70-110) mg/dL Osmolality (280-301) mosm/kg Magnesium (1.6-2.3) mg/dL Urine Protein 1+ H (Negative) Urine Glucose (UA) Trace H (Negative) Urine Blood Small H (Negative) Amorphous Sediment Occasional H (None) /hpf Urine Bacteria Rare H (None) /hpf Hyaline Casts 3 H (0-2) /lpf Urine Mucus Rare H (None) /hpf 12/26/21 12/27/21 12/27/21 Range/Units 21:41 05:57 11:26 RBC (4.30-5.90) m/uL Hgb (13.0-17.5) gm/dL Hct (39.0-53.0) % RDW (11.5-15.5) % Lymphocytes # (1.0-4.8) k/uL Sodium 135 L (137-145) mmol/L Carbon Dioxide 20 L (22-30) mmol/L BUN 105 H* (9-20) mg/dL Creatinine 7.92 H* (0.66-1.25) mg/dL Glucose 234 H (74-99) mg/dL POC Glucose (mg/dL) 134 H (70-110) mg/dL Osmolality 320 H (280-301) mosm/kg Magnesium 2.5 H (1.6-2.3) mg/dL Urine Protein (Negative) Urine Glucose (UA) (Negative) Urine Blood (Negative) Amorphous Sediment (None) /hpf Urine Bacteria (None) /hpf Hyaline Casts (0-2) /lpf Urine Mucus (None) /hpf 12/27/21 Range/Units 11:28 RBC (4.30-5.90) m/uL Hgb (13.0-17.5) gm/dL Hct (39.0-53.0) % RDW (11.5-15.5) % Lymphocytes # (1.0-4.8) k/uL Sodium (137-145) mmol/L Carbon Dioxide (22-30) mmol/L BUN (9-20) mg/dL Creatinine (0.66-1.25) mg/dL Glucose (74-99) mg/dL POC Glucose (mg/dL) 246 H (70-110) mg/dL Osmolality (280-301) mosm/kg Magnesium (1.6-2.3) mg/dL Urine Protein (Negative) Urine Glucose (UA) (Negative) Urine Blood (Negative) Amorphous Sediment (None) /hpf Urine Bacteria (None) /hpf Hyaline Casts (0-2) /lpf Urine Mucus (None) /hpf Assessment and Plan Plan: 1patient with recent history of bilateral heel infected pressure ulcer with underlying osteomyelitis culture positive for Morganella Proteus strep and bacteroids for the patient was getting cefepime and Flagyl and seem to have almost complete his antibiotic therapy now presenting with the acute renal failure in this patient currently does not look toxic and bilateral heel wounds have significantly improved with no evidence of any cellulitis. 2recommend local wound care with the Aquacel silver dressing and keep the area of the pressure. 3no need for further antibiotic therapy. We will follow on clinical condition and cultures to further adjust medication if needed Thank you for this consultation will follow this patient along with you
[2021-12-28 06:16] LABS: Glucose,Whole Blood 136 mg/dL (70-110)
[2021-12-28] MEDS: INSULIN ASPART (NovoLOG) 100 UNIT/ML VIAL SQ SCH ×4 (06:36→20:33)
[2021-12-28] MEDS: SODIUM CHLORIDE 0.9% 1,000 ML IV SCH (06:37)
[2021-12-28 09:32] LABS: Calcium 8.4 mg/dL (8.4-10.2); Magnesium 2.2 mg/dL (1.6-2.3); Potassium 4.6 mmol/L (3.5-5.1)
--- NOTE | 2021-12-28 09:38 | P.PN ---
Subjective Patient is seen in follow-up for acute kidney injury. Creatinine 7.92 yesterday. Has a Blankenship catheter. Nonoliguric. Oral intake is good. No vom iting or diarrhea. Hemodynamically stable. Vital signs are stable. General: Awake. No acute distress. HEENT: Head exam is unremarkable. LUNGS: Breath sounds decreased. HEART: Rate and Rhythm are regular. ABDOMEN: Soft, no distention. EXTREMITITES: No edema. Objective - Vital Signs Vital signs: Vital Signs Temp 98.0 F 12/28/21 04:11 Pulse 103 H 12/28/21 04:11 Resp 16 12/28/21 04:11 BP 153/80 12/28/21 04:11 Pulse Ox 95 12/28/21 04:11 FiO2 Intake & Output 12/27/21 12/28/21 12/28/21 18:59 06:59 18:59 Intake Total 1236 618 Output Total 900 1750 Balance 336 -1750 618 Intake: Oral 1236 618 Output: Urine 900 1750 Uretheral (Blankenship) 1400 Other: Voiding Method Indwelling Catheter Indwelling Catheter - Labs CBC & Chem 7: 12/26/21 21:41 12/27/21 11:26 Labs: Abnormal Lab Results - Last 24 Hours (Table) 12/27/21 12/27/21 12/27/21 Range/Units 11:26 11:28 16:45 Sodium 135 L (137-145) mmol/L Carbon Dioxide 20 L (22-30) mmol/L BUN 105 H* (9-20) mg/dL Creatinine 7.92 H* (0.66-1.25) mg/dL Glucose 234 H (74-99) mg/dL POC Glucose (mg/dL) 246 H 235 H (70-110) mg/dL Magnesium 2.5 H (1.6-2.3) mg/dL 12/27/21 12/28/21 Range/Units 20:13 06:11 Sodium (137-145) mmol/L Carbon Dioxide (22-30) mmol/L BUN (9-20) mg/dL Creatinine (0.66-1.25) mg/dL Glucose (74-99) mg/dL POC Glucose (mg/dL) 250 H 136 H (70-110) mg/dL Magnesium (1.6-2.3) mg/dL Assessment and Plan Plan: Assessment: 1. Acute kidney injury secondary to urinary retention. Creatinine 7.9 on admission - stable at 7.92 yesterday- . Creatinine in December 2020 was in the range of 1.1-1.3. 2. Metabolic acidosis secondary to acute kidney injury. 3. Urinary retention. Has a Blankenship catheter.On Flomax. Urology following. Ultrasound showed left-sided hydronephrosis versus extrarenal pelvis. 4. Benign hypertension. Stable. 5. Diabetes mellitus. Plan: Maintain IV fluids - change to bicarb drip. Continue to monitor renal function and urine output. Continue to hold metformin for now. Continue to assess daily for need for renal replacement therapy. No urgency at this time. Will notify urology for possible cystoscopy with intervention as renal function has not improved. Quantify proteinuria. Repeat UA. Check serologies.
[2021-12-28] MEDS: HEPARIN SODIUM,PORCINE/PF 5,000 UNIT/0.5 ML SYRINGE SQ SCH ×2 (09:41→21:14)
[2021-12-28] MEDS: TAMSULOSIN 0.4 MG CAP.ER.24H PO SCH (09:42)
[2021-12-28] MEDS: FAMOTIDINE 20 MG/2 ML VIAL IV SCH (09:42)
[2021-12-28] MEDS ORDERED: DEXTROSE 5% IN WATER 1,000 ML with SODIUM BICARB (1 MEQ/ML) 150 ML IV SCH (11:00)
[2021-12-28 11:56] LABS: Estimated Average Glucose UNC
[2021-12-28 12:00] LABS: Glucose,Whole Blood 149 mg/dL (70-110)
[2021-12-28] MEDS: SODIUM BICARBONATE TAB 650 MG TAB PO SCH ×2 (12:51→21:14)
[2021-12-28 13:19] LABS: Appearance,Urine Clear (Clear); Bacteria,Urine Rare /hpf; Bilirubin,Urine Negative (Negative); Blood,Urine Large (Negative); Color,Urine Light Yellow; Glucose,Urine (UA) 1+ (Negative); Ketones,Urine Negative (Negative); Leukocyte Esterase,Urine Small (Negative); Mucus,Urine Rare /hpf; Nitrite,Urine Negative (Negative); PH, Urine 6.5 (5.0-8.0); Protein,Urine 1+ (Negative); RBC,Urine 110 /hpf (0-5); Specific Gravity,Urine 1.005 (1.001-1.035); Urobilinogen,Urine <2.0 mg/dL (<2.0); WBC,Urine 10 /hpf (0-5)
[2021-12-28 13:24] LABS: Creatinine,Urine Random 21.7 mg/dL; Protein/Creatinine Ratio,Urine 3.226
--- NOTE | 2021-12-28 14:42 | CT ---
EXAMINATION TYPE: CT renal stones wo con DATE OF EXAM: 12/28/2021 COMPARISON: None HISTORY: hydronephrosis CT DLP: 806.5 mGycm Automated exposure control for dose reduction was used. Images obtained from the diaphragm to the floor of the pelvis with no contrast. Lung bases are clear of consolidation. No pleural effusion. Heart size is normal. No pericardial effu ray. Liver spleen and stomach pancreas gallbladder appear intact. Bile ducts are not dilated. There are small calcified gallstone. There is no adrenal mass. Kidneys have normal size. No hydronephrosis. 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 There is no retroperitoneal adenopathy. Ureters are not dilated. There is Blankenship catheter in the urina ry bladder. Bladder is almost empty. There is some wall thickening of the urinary bladder. There is n o evidence of inguinal hernia. There is right hip nailing. No free fluid in the pelvis. Appendix appe ars normal. The lumbar vertebrae have normal alignment. There is degenerative anterior spurring in the lower thor acic spine and entire lumbar spine. Facet joints are intact. No compression fracture. IMPRESSION: No evidence of renal stone or obstruction. There is probably nonspecific urinary bladder wall thicken ing. Small gallstone.
[2021-12-28 16:44] LABS: Glucose,Whole Blood 294 mg/dL (70-110)
[2021-12-28] MEDS: ATORVASTATIN 10 MG TAB PO SCH (17:29)
[2021-12-28] MEDS: amLODIPine 10 MG TAB PO SCH (17:29)
[2021-12-28 20:12] LABS: Glucose,Whole Blood 121 mg/dL (70-110)
--- NOTE | 2021-12-28 21:23 | P.PN ---
Subjective This is a pleasant 76 years old male with past medical history of Diabetes Mellitus, Hypertension; ULCERS BILAT LEGS, PVD, CRISTAL LEG WOUND DRESSED BY HOME CARE NURSE Patient was brought from [facility]. He was at [facility] and discharge hospital on bilateral diabetic foot ulcers with surrounding cellulitis secondary to enterococcus faecalis, Morganella morganii and Fusobacterium Varium. He underwent surgical debridement on 11/18 and he was discharged on IV cefepime and Flagyl 5 weeks he still has PICC line in his left arm with no surr ounding cellulitis Sent from [facility] for elevated BUN & Cr. Pt does have hx of renal failure. Wendy dove states that he has no burning but sometimes his house for him to be and sometimes he has pain when he urinated. He denies suprapubic tenderness. Patient found to have urinary retention with 1 L of urine. He status post Blankenship catheter No chest pain or dyspnea. No headache or weakness or numbness. No vomiting or abdominal pain. He has some loose stool. No smoking, alcohol or illicit drugs BUN and creatinine were elevated, they were 103 and 7.8 respectively. Vitas looks stable. Blood pressure elevated mildly. Labs showing unremarkable CBC and BMP except for elevated creatinine 7.9 and be on 108. Osmolality is high at 320. Glucose is high as 167. Liver enzymes are not elevated. Urinalysis is negative for infection but showed 1+ protein, trace glucose and small blood and occasional amorphous sediment. Urine osmolality is 248 and urine creatinine is 39.4 In the emergency room metformin was held and air chipper consulted 12/28/2021 Patient clinically stable. No new complaints. He still has Blankenship catheter in place for his obstructive uropathy. Creatinine around 7. CT of the renal system without contrast showing no obstruction or stone today. Check CBC and BMP tomorrow, further workup recommended by air chipper will defer further management. No need for antibiotics per ID team for his diabetic foot ulcers Objective - Vital Signs Vital signs: Vital Signs Temp 98.0 F 12/28/21 09:34 Pulse 91 12/28/21 09:34 Resp 16 12/28/21 09:34 BP 157/78 12/28/21 09:34 Pulse Ox 98 12/28/21 09:34 FiO2 Intake & Output 12/27/21 12/28/21 12/28/21 18:59 06:59 18:59 Intake Total 1236 618 Output Total 900 1750 550 Balance 336 -1750 68 Intake: Oral 1236 618 Output: Urine 900 1750 550 Uretheral (Blankenship) 1400 550 Other: Voiding Method Indwelling Catheter Indwelling Catheter Indwelling Catheter - Exam GENERAL: The patient is alert and oriented x3, not in any acute distress. Well developed, well nourished. HEENT: Pupils are round and equally reacting to light. EOMI. No scleral icterus. No conjunctival pallor. Normocephalic, atraumatic. No pharyngeal erythema. No thyromegaly. CARDIOVASCULAR: S1 and S2 present. No murmurs, rubs, or gallops. PULMONARY: Chest is clear to auscultation, no wheezing or crackles. -ABDOMEN: Soft, nontender, nondistended, normoactive bowel sounds. No palpable organomegaly. Blankenship catheter in place MUSCULOSKELETAL: No joint swelling or deformity. EXTREMITIES: No cyanosis, clubbing, or pedal edema. NEUROLOGICAL: Gross neurological examination did not reveal any focal deficits. SKIN: No rashes. no petechiae. - Labs CBC & Chem 7: 12/26/21 21:41 12/28/21 08:44 Labs: Abnormal Lab Results - Last 24 Hours (Table) 12/27/21 12/27/21 12/27/21 Range/Units 11:26 11:28 16:45 Sodium 135 L (137-145) mmol/L Carbon Dioxide 20 L (22-30) mmol/L BUN 105 H* (9-20) mg/dL Creatinine 7.92 H* (0.66-1.25) mg/dL Glucose 234 H (74-99) mg/dL POC Glucose (mg/dL) 246 H 235 H (70-110) mg/dL Magnesium 2.5 H (1.6-2.3) mg/dL 12/27/21 12/28/21 12/28/21 Range/Units 20:13 06:11 08:44 Sodium 131 L (137-145) mmol/L Carbon Dioxide 15 L (22-30) mmol/L BUN 99 H (9-20) mg/dL Creatinine 7.57 H* (0.66-1.25) mg/dL Glucose 137 H (74-99) mg/dL POC Glucose (mg/dL) 250 H 136 H (70-110) mg/dL Magnesium (1.6-2.3) mg/dL Assessment and Plan Assessment: Acute kidney injury secondary to obstructive uropathy Urinary retention status post Blankenship catheter Chronic bilateral diabetic foot ulcers and surrounding cellulitis, improving, no need for further antibiotic Hypertension Diabetes mellitus Peripheral vascular disease and history of bilateral leg ulcers. Plan: This is a pleasant 76 years old male who presents with acute kidney injury Continue with IV fluid, currently on sodium bicarb Nephrology consult Consult ID team urology consult and patient was started on Flomax. Continue with Blankenship catheter. Labs and medication were reviewed.. Continue same treatment. Continue with symptomatic treatment. Resume home medication. Monitor lytes and vitals. DVT and GI prophylaxis. Further recommendations as per clinical course of the patient DVT prophylaxis: Subcutaneous heparin GI Prophylaxis: Pepcid
--- NOTE | 2021-12-29 01:32 | P.PN ---
Subjective Progress Note Date: 12/28/21 Principal diagnosis: Bilateral heel ulcers Patient is a 76-year-old male with a recent history of bilateral knee infected pressure ulcer with underlying osteomyelitis for the patient was receiving cefepime and Flagyl subsequently admitted to hospital with acute renal failure. On today's evaluation that is 12/28/2021, the patient denies having any fever or any chills, the patient is breathing comfortably no chest pain shortness of breath, abdominal pain or any worsening pain to bilateral heel wound area Objective - Vital Signs Vital signs: Vital Signs Temp 97.4 F L 12/28/21 16:15 Pulse 89 12/28/21 16:15 Resp 16 12/28/21 16:15 BP 153/76 12/28/21 16:15 Pulse Ox 99 12/28/21 16:15 FiO2 Intake & Output 12/28/21 12/28/21 12/29/21 06:59 18:59 06:59 Intake Total 1476 Output Total 1750 1350 Balance -1750 126 Intake: Oral 1476 Output: Urine 1750 1350 Uretheral (Blankenship) 1400 550 Other: Voiding Method Indwelling Catheter Indwelling Catheter - Exam GENERAL DESCRIPTION: An elderly male lying in bed in no distress RESPIRATORY SYSTEM: Unlabored breathing , decreased breath sounds at bases HEART: S1 S2 regular rate and rhythm , ABDOMEN: Soft , no tenderness EXTREMITIES: Bilateral heel wounds are currently dressed no drainage on the dressing - Labs CBC & Chem 7: 12/26/21 21:41 12/28/21 08:44 Labs: Abnormal Lab Results - Last 24 Hours (Table) 12/28/21 12/28/21 12/28/21 Range/Units 06:11 08:44 08:44 Sodium 131 L (137-145) mmol/L Carbon Dioxide 15 L (22-30) mmol/L BUN 99 H (9-20) mg/dL Creatinine 7.57 H* (0.66-1.25) mg/dL Glucose 137 H (74-99) mg/dL POC Glucose (mg/dL) 136 H (70-110) mg/dL Hemoglobin A1c 7.1 H (0.0-6.0) % Urine Protein (Negative) Urine Glucose (UA) (Negative) Urine Blood (Negative) Ur Leukocyte Esterase (Negative) Urine RBC (0-5) /hpf Urine WBC (0-5) /hpf Urine Bacteria (None) /hpf Urine Mucus (None) /hpf 12/28/21 12/28/21 12/28/21 Range/Units 11:54 13:00 16:42 Sodium (137-145) mmol/L Carbon Dioxide (22-30) mmol/L BUN (9-20) mg/dL Creatinine (0.66-1.25) mg/dL Glucose (74-99) mg/dL POC Glucose (mg/dL) 149 H 294 H (70-110) mg/dL Hemoglobin A1c (0.0-6.0) % Urine Protein 1+ H (Negative) Urine Glucose (UA) 1+ H (Negative) Urine Blood Large H (Negative) Ur Leukocyte Esterase Small H (Negative) Urine RBC 110 H (0-5) /hpf Urine WBC 10 H (0-5) /hpf Urine Bacteria Rare H (None) /hpf Urine Mucus Rare H (None) /hpf 12/28/21 Range/Units 20:09 Sodium (137-145) mmol/L Carbon Dioxide (22-30) mmol/L BUN (9-20) mg/dL Creatinine (0.66-1.25) mg/dL Glucose (74-99) mg/dL POC Glucose (mg/dL) 121 H (70-110) mg/dL Hemoglobin A1c (0.0-6.0) % Urine Protein (Negative) Urine Glucose (UA) (Negative) Urine Blood (Negative) Ur Leukocyte Esterase (Negative) Urine RBC (0-5) /hpf Urine WBC (0-5) /hpf Urine Bacteria (None) /hpf Urine Mucus (None) /hpf Assessment and Plan (1) Decubitus ulcer of heel, bilateral, stage 3 Current Visit: Yes Status: Acute Code(s): L89.613 - PRESSURE ULCER OF RIGHT HEEL, STAGE 3; L89.623 - PRESSURE ULCER OF LEFT HEEL, STAGE 3 SNOMED Code(s): 61553341062785 Plan: 1patient with recent history of bilateral heel infected pressure ulcer with underlying osteomyelitis culture positive for Morganella Proteus strep and bacteroids for the patient was getting cefepime and Flagyl and seem to have almost complete his antibiotic therapy now presenting with the acute renal failure in this patient currently does not look toxic and bilateral heel wounds have significantly improved with no evidence of any cellulitis. 2patient continue local wound care with the Aquacel silver dressing and keep the area of the pressure. 3will monitor patient closely off antibiotic therapy. Time with Patient: Less than 30
[2021-12-29 06:15] LABS: Glucose,Whole Blood 133 mg/dL (70-110)
[2021-12-29] MEDS: INSULIN ASPART (NovoLOG) 100 UNIT/ML VIAL SQ SCH ×4 (06:56→20:32)
[2021-12-29] MEDS: SODIUM BICARBONATE TAB 650 MG TAB PO SCH ×2 (08:31→20:32)
[2021-12-29] MEDS: TAMSULOSIN 0.4 MG CAP.ER.24H PO SCH (08:31)
[2021-12-29] MEDS: HEPARIN SODIUM,PORCINE/PF 5,000 UNIT/0.5 ML SYRINGE SQ SCH ×2 (08:31→20:32)
[2021-12-29] MEDS: FAMOTIDINE 20 MG TAB PO SCH (08:31)
[2021-12-29 08:43] LABS: Basophils # (A) 0.1 k/uL (0-0.2); Basophils % (A) 1 %; Eosinophils # (A) 0.2 k/uL (0-0.7); Eosinophils % (A) 2 %; HCT 33.7 % (39.0-53.0); HGB 11.3 gm/dL (13.0-17.5); Lymphocytes # (A) 0.8 k/uL (1.0-4.8); Lymphocytes % (A) 8 %; MCH 28.2 pg (25.0-35.0); MCHC 33.4 g/dL (31.0-37.0); MCV 84.3 fL (80.0-100.0); Mean Platelet Volume 7.1; Monocytes # (A) 0.7 k/uL (0-1.0); Monocytes % (A) 7 %; Neutrophils # (A) 8.1 k/uL (1.3-7.7); Neutrophils % (A) 81 %; Platelet Count 301 k/uL (150-450); RBC 3.99 m/uL (4.30-5.90); RDW 15.9 % (11.5-15.5)
[2021-12-29 08:53] LABS: Magnesium 2.2 mg/dL (1.6-2.3)
[2021-12-29 08:57] LABS: Calcium 8.1 mg/dL (8.4-10.2); Potassium 3.7 mmol/L (3.5-5.1)
--- NOTE | 2021-12-29 09:22 | P.PN ---
Subjective Patient is seen in follow-up for acute kidney injury. No improvement in renal function despite Blankenship catheter insertion. Nonoliguric. Oral intake is good. No vomiting or diarrhea. Hemodynamically stable. Vital signs are stable. General: Awake. No acute distress. HEENT: Head exam is unremarkable. LUNGS: Breath sounds decreased. HEART: Rate and Rhythm are regular. ABDOMEN: Soft, no distention. EXTREMITITES: No edema. Objective - Vital Signs Vital signs: Vital Signs Temp 97.6 F 12/29/21 08:29 Pulse 95 12/29/21 08:29 Resp 16 12/29/21 08:29 BP 146/68 12/29/21 08:29 Pulse Ox 98 12/29/21 08:29 FiO2 Intake & Output 12/28/21 12/29/21 12/29/21 18:59 06:59 18:59 Intake Total 1476 320 Output Total 1350 1900 Balance 126 -1580 Intake: Intake, IV Titration 200 Amount Dextrose 5% in Water 1, 200 000 ml @ 50 mls/hr IV . Q23H CIARA with Sodium Bicarb (1 Meq/ml) 150 ml Rx#:[id number] Oral 1476 120 Output: Urine 1350 1900 Uretheral (Blankenship) 550 650 Other: Voiding Method Indwelling Catheter Indwelling Catheter - Labs CBC & Chem 7: 12/29/21 08:14 12/29/21 08:14 Labs: Abnormal Lab Results - Last 24 Hours (Table) 12/28/21 12/28/21 12/28/21 Range/Units 08:44 08:44 11:54 RBC (4.30-5.90) m/uL Hgb (13.0-17.5) gm/dL Hct (39.0-53.0) % RDW (11.5-15.5) % Neutrophils # (1.3-7.7) k/uL Lymphocytes # (1.0-4.8) k/uL Sodium 131 L (137-145) mmol/L Chloride (98-107) mmol/L Carbon Dioxide 15 L (22-30) mmol/L BUN 99 H (9-20) mg/dL Creatinine 7.57 H* (0.66-1.25) mg/dL Glucose 137 H (74-99) mg/dL POC Glucose (mg/dL) 149 H (70-110) mg/dL Hemoglobin A1c 7.1 H (0.0-6.0) % Calcium (8.4-10.2) mg/dL Urine Protein (Negative) Urine Glucose (UA) (Negative) Urine Blood (Negative) Ur Leukocyte Esterase (Negative) Urine RBC (0-5) /hpf Urine WBC (0-5) /hpf Urine Bacteria (None) /hpf Urine Mucus (None) /hpf 12/28/21 12/28/21 12/28/21 Range/Units 13:00 16:42 20:09 RBC (4.30-5.90) m/uL Hgb (13.0-17.5) gm/dL Hct (39.0-53.0) % RDW (11.5-15.5) % Neutrophils # (1.3-7.7) k/uL Lymphocytes # (1.0-4.8) k/uL Sodium (137-145) mmol/L Chloride (98-107) mmol/L Carbon Dioxide (22-30) mmol/L BUN (9-20) mg/dL Creatinine (0.66-1.25) mg/dL Glucose (74-99) mg/dL POC Glucose (mg/dL) 294 H 121 H (70-110) mg/dL Hemoglobin A1c (0.0-6.0) % Calcium (8.4-10.2) mg/dL Urine Protein 1+ H (Negative) Urine Glucose (UA) 1+ H (Negative) Urine Blood Large H (Negative) Ur Leukocyte Esterase Small H (Negative) Urine RBC 110 H (0-5) /hpf Urine WBC 10 H (0-5) /hpf Urine Bacteria Rare H (None) /hpf Urine Mucus Rare H (None) /hpf 12/29/21 12/29/21 12/29/21 Range/Units 06:13 08:14 08:14 RBC 3.99 L (4.30-5.90) m/uL Hgb 11.3 L (13.0-17.5) gm/dL Hct 33.7 L (39.0-53.0) % RDW 15.9 H (11.5-15.5) % Neutrophils # 8.1 H (1.3-7.7) k/uL Lymphocytes # 0.8 L (1.0-4.8) k/uL Sodium 130 L (137-145) mmol/L Chloride 93 L (98-107) mmol/L Carbon Dioxide (22-30) mmol/L BUN 93 H (9-20) mg/dL Creatinine 7.87 H* (0.66-1.25) mg/dL Glucose 127 H (74-99) mg/dL POC Glucose (mg/dL) 133 H (70-110) mg/dL Hemoglobin A1c (0.0-6.0) % Calcium 8.1 L (8.4-10.2) mg/dL Urine Protein (Negative) Urine Glucose (UA) (Negative) Urine Blood (Negative) Ur Leukocyte Esterase (Negative) Urine RBC (0-5) /hpf Urine WBC (0-5) /hpf Urine Bacteria (None) /hpf Urine Mucus (None) /hpf Assessment and Plan Plan: Assessment: 1. Acute kidney injury secondary to urinary retention. No improvement in renal function. Creatinine in December 2020 was in the range of 1.1-1.3; creatinine was 1.4 in October 2021. 2. Metabolic acidosis secondary to acute kidney injury. Improved. 3. Urinary retention. Has a Blankenship catheter.On Flomax. Urology following. Ultrasound showed left-sided hydronephrosis versus extrarenal pelvis. 4. Benign hypertension. Stable. 5. Diabetes mellitus. Plan: Stop Bicarb drip. Start normal saline at 50 mL an hour. Maintain oral bicarb. Continue to monitor renal function and urine output. Continue to hold metformin for now. Continue to assess daily for need for renal replacement therapy. No urgency at this time. Renal CT showed no evidence of obstruction. UPC 3.2 g. Follow-up serologies. If no further intervention by urology, will need kidney biopsy to determine cause of kidney failure. Will discuss with urology.
[2021-12-29 11:10] LABS: Protein, Total 6.7 g/dL (6.2-8.2)
[2021-12-29 11:15] LABS: Complement C3 69.7 mg/dL (80.0-207.0)
[2021-12-29 11:27] LABS: Hepatitis A Antibody IgM Nonreactive (Nonreactive); Hepatitis B Core IgM Nonreactive (Nonreactive); Hepatitis B Surface Antigen Nonreactive (Nonreactive); Hepatitis C IgG Antibody Nonreactive (Nonreactive)
[2021-12-29 12:05] LABS: Glucose,Whole Blood 187 mg/dL (70-110)
[2021-12-29] MEDS: SODIUM CHLORIDE 0.9% 1,000 ML IV SCH (12:44)
--- NOTE | 2021-12-29 13:09 | P.PN ---
Subjective Progress Note Date: 12/29/21 No acute overnight events, creatinine stones at 7.8. Underwent CT abdomen and pelvis yesterday showed no evidence of hydronephrosis Objective - Vital Signs Vital signs: Vital Signs Temp 97.6 F 12/29/21 08:29 Pulse 95 12/29/21 08:29 Resp 16 12/29/21 08:29 BP 146/68 12/29/21 08:29 Pulse Ox 98 12/29/21 08:29 FiO2 Intake & Output 12/28/21 12/29/21 12/29/21 18:59 06:59 18:59 Intake Total 1476 320 354 Output Total 1350 1900 Balance 126 -1580 354 Intake: Intake, IV Titration 200 Amount Dextrose 5% in Water 1, 200 000 ml @ 50 mls/hr IV . Q23H CIARA with Sodium Bicarb (1 Meq/ml) 150 ml Rx#:[id number] Oral 1476 120 354 Output: Urine 1350 1900 Uretheral (Blankenship) 550 650 Other: Voiding Method Indwelling Catheter Indwelling Catheter - Constitutional General appearance: Present: no acute distress - Gastrointestinal General gastrointestinal: Present: soft. Absent: distended, tenderness - Labs CBC & Chem 7: 12/29/21 08:14 12/29/21 08:14 Labs: Abnormal Lab Results - Last 24 Hours (Table) 12/28/21 12/28/21 12/28/21 Range/Units 13:00 16:42 20:09 RBC (4.30-5.90) m/uL Hgb (13.0-17.5) gm/dL Hct (39.0-53.0) % RDW (11.5-15.5) % Neutrophils # (1.3-7.7) k/uL Lymphocytes # (1.0-4.8) k/uL Sodium (137-145) mmol/L Chloride (98-107) mmol/L BUN (9-20) mg/dL Creatinine (0.66-1.25) mg/dL Glucose (74-99) mg/dL POC Glucose (mg/dL) 294 H 121 H (70-110) mg/dL Calcium (8.4-10.2) mg/dL Urine Protein 1+ H (Negative) Urine Glucose (UA) 1+ H (Negative) Urine Blood Large H (Negative) Ur Leukocyte Esterase Small H (Negative) Urine RBC 110 H (0-5) /hpf Urine WBC 10 H (0-5) /hpf Urine Bacteria Rare H (None) /hpf Urine Mucus Rare H (None) /hpf Complement C3 (80.0-207.0) mg/dL 12/29/21 12/29/21 12/29/21 Range/Units 06:13 08:14 08:14 RBC (4.30-5.90) m/uL Hgb (13.0-17.5) gm/dL Hct (39.0-53.0) % RDW (11.5-15.5) % Neutrophils # (1.3-7.7) k/uL Lymphocytes # (1.0-4.8) k/uL Sodium 130 L (137-145) mmol/L Chloride 93 L (98-107) mmol/L BUN 93 H (9-20) mg/dL Creatinine 7.87 H* (0.66-1.25) mg/dL Glucose 127 H (74-99) mg/dL POC Glucose (mg/dL) 133 H (70-110) mg/dL Calcium 8.1 L (8.4-10.2) mg/dL Urine Protein (Negative) Urine Glucose (UA) (Negative) Urine Blood (Negative) Ur Leukocyte Esterase (Negative) Urine RBC (0-5) /hpf Urine WBC (0-5) /hpf Urine Bacteria (None) /hpf Urine Mucus (None) /hpf Complement C3 69.7 L (80.0-207.0) mg/dL 12/29/21 12/29/21 Range/Units 08:14 12:03 RBC 3.99 L (4.30-5.90) m/uL Hgb 11.3 L (13.0-17.5) gm/dL Hct 33.7 L (39.0-53.0) % RDW 15.9 H (11.5-15.5) % Neutrophils # 8.1 H (1.3-7.7) k/uL Lymphocytes # 0.8 L (1.0-4.8) k/uL Sodium (137-145) mmol/L Chloride (98-107) mmol/L BUN (9-20) mg/dL Creatinine (0.66-1.25) mg/dL Glucose (74-99) mg/dL POC Glucose (mg/dL) 187 H (70-110) mg/dL Calcium (8.4-10.2) mg/dL Urine Protein (Negative) Urine Glucose (UA) (Negative) Urine Blood (Negative) Ur Leukocyte Esterase (Negative) Urine RBC (0-5) /hpf Urine WBC (0-5) /hpf Urine Bacteria (None) /hpf Urine Mucus (None) /hpf Complement C3 (80.0-207.0) mg/dL Assessment and Plan Assessment: 76-year-old male admitted to the hospital with acute kidney injury, creatinine of 7.9 from 1.3. Also has 1 L urinary retention, no previous history of retention. Most likely patient has underlying BPH. Creatinine has not improved despite Blankenship. CT obtained yesterday showed no evidence of hydronephrosis. Given the lack of hydronephrosis patient will not benefit from stents. At this point no further surgical intervention from urology standpoint. -Recommend Keeping Blankenship catheter in until acute kidney injury resolves -Continue Flomax
--- NOTE | 2021-12-29 15:32 | P.PN ---
Subjective This is a pleasant 76 years old male with past medical history of Diabetes Mellitus, Hypertension; ULCERS BILAT LEGS, PVD, CRISTAL LEG WOUND DRESSED BY HOME CARE NURSE Patient was brought from [facility]. He was at [facility] and discharge hospital on bilateral diabetic foot ulcers with surrounding cellulitis secondary to enterococcus faecalis, Morganella morganii and Fusobacterium Varium. He underwent surgical debridement on 11/18 and he was discharged on IV cefepime and Flagyl 5 weeks he still has PICC line in his left arm with no surr ounding cellulitis Sent from [facility] for elevated BUN & Cr. Pt does have hx of renal failure. Wendy dove states that he has no burning but sometimes his house for him to be and sometimes he has pain when he urinated. He denies suprapubic tenderness. Patient found to have urinary retention with 1 L of urine. He status post Blankenship catheter No chest pain or dyspnea. No headache or weakness or numbness. No vomiting or abdominal pain. He has some loose stool. No smoking, alcohol or illicit drugs BUN and creatinine were elevated, they were 103 and 7.8 respectively. Vitas looks stable. Blood pressure elevated mildly. Labs showing unremarkable CBC and BMP except for elevated creatinine 7.9 and be on 108. Osmolality is high at 320. Glucose is high as 167. Liver enzymes are not elevated. Urinalysis is negative for infection but showed 1+ protein, trace glucose and small blood and occasional amorphous sediment. Urine osmolality is 248 and urine creatinine is 39.4 In the emergency room metformin was held and systems support specialist consulted 12/28/2021 Patient clinically stable. No new complaints. He still has Blankenship catheter in place for his obstructive uropathy. Creatinine around 7. CT of the renal system without contrast showing no obstruction or stone today. Check CBC and BMP tomorrow, further workup recommended by systems support specialist will defer further management. No need for antibiotics per ID team for his diabetic foot ulcers 12/29/2021 Patient remains clinically the same, no dyspnea or chest discomfort. Cephalic catheter and replaced Creatinine with no improvement and staying at 7.8. Urologist recommending no further surgical intervention Car Body Designer on the case with more workup was ordered. He started on normal saline 50 mL/h today Objective - Vital Signs Vital signs: Vital Signs Temp 97.6 F 12/29/21 08:29 Pulse 95 12/29/21 08:29 Resp 16 12/29/21 08:29 BP 146/68 12/29/21 08:29 Pulse Ox 98 12/29/21 08:29 FiO2 Intake & Output 12/28/21 12/29/21 12/29/21 18:59 06:59 18:59 Intake Total 1476 320 354 Output Total 1350 1900 Balance 126 -1580 354 Intake: Intake, IV Titration 200 Amount Dextrose 5% in Water 1, 200 000 ml @ 50 mls/hr IV . Q23H [facility] with Sodium Bicarb (1 Meq/ml) 150 ml Rx#:[id number] Oral 1476 120 354 Output: Urine 1350 1900 Uretheral (Blankenship) 550 650 Other: Voiding Method Indwelling Catheter Indwelling Catheter - Exam GENERAL: The patient is alert and oriented x3, not in any acute distress. Well developed, well nourished. HEENT: Pupils are round and equally reacting to light. EOMI. No scleral icterus. No conjunctival pallor. Normocephalic, atraumatic. No pharyngeal erythema. No thyromegaly. CARDIOVASCULAR: S1 and S2 present. No murmurs, rubs, or gallops. PULMONARY: Chest is clear to auscultation, no wheezing or crackles. -ABDOMEN: Soft, nontender, nondistended, normoactive bowel sounds. No palpable organomegaly. Blankenship catheter in place MUSCULOSKELETAL: No joint swelling or deformity. EXTREMITIES: No cyanosis, clubbing, or pedal edema. NEUROLOGICAL: Gross neurological examination did not reveal any focal deficits. SKIN: No rashes. no petechiae. - Labs CBC & Chem 7: 12/29/21 08:14 12/29/21 08:14 Labs: Abnormal Lab Results - Last 24 Hours (Table) 12/28/21 12/28/21 12/28/21 Range/Units 08:44 11:54 13:00 RBC (4.30-5.90) m/uL Hgb (13.0-17.5) gm/dL Hct (39.0-53.0) % RDW (11.5-15.5) % Neutrophils # (1.3-7.7) k/uL Lymphocytes # (1.0-4.8) k/uL Sodium (137-145) mmol/L Chloride (98-107) mmol/L BUN (9-20) mg/dL Creatinine (0.66-1.25) mg/dL Glucose (74-99) mg/dL POC Glucose (mg/dL) 149 H (70-110) mg/dL Hemoglobin A1c 7.1 H (0.0-6.0) % Calcium (8.4-10.2) mg/dL Urine Protein 1+ H (Negative) Urine Glucose (UA) 1+ H (Negative) Urine Blood Large H (Negative) Ur Leukocyte Esterase Small H (Negative) Urine RBC 110 H (0-5) /hpf Urine WBC 10 H (0-5) /hpf Urine Bacteria Rare H (None) /hpf Urine Mucus Rare H (None) /hpf Complement C3 (80.0-207.0) mg/dL 12/28/21 12/28/21 12/29/21 Range/Units 16:42 20:09 06:13 RBC (4.30-5.90) m/uL Hgb (13.0-17.5) gm/dL Hct (39.0-53.0) % RDW (11.5-15.5) % Neutrophils # (1.3-7.7) k/uL Lymphocytes # (1.0-4.8) k/uL Sodium (137-145) mmol/L Chloride (98-107) mmol/L BUN (9-20) mg/dL Creatinine (0.66-1.25) mg/dL Glucose (74-99) mg/dL POC Glucose (mg/dL) 294 H 121 H 133 H (70-110) mg/dL Hemoglobin A1c (0.0-6.0) % Calcium (8.4-10.2) mg/dL Urine Protein (Negative) Urine Glucose (UA) (Negative) Urine Blood (Negative) Ur Leukocyte Esterase (Negative) Urine RBC (0-5) /hpf Urine WBC (0-5) /hpf Urine Bacteria (None) /hpf Urine Mucus (None) /hpf Complement C3 (80.0-207.0) mg/dL 12/29/21 12/29/21 12/29/21 Range/Units 08:14 08:14 08:14 RBC 3.99 L (4.30-5.90) m/uL Hgb 11.3 L (13.0-17.5) gm/dL Hct 33.7 L (39.0-53.0) % RDW 15.9 H (11.5-15.5) % Neutrophils # 8.1 H (1.3-7.7) k/uL Lymphocytes # 0.8 L (1.0-4.8) k/uL Sodium 130 L (137-145) mmol/L Chloride 93 L (98-107) mmol/L BUN 93 H (9-20) mg/dL Creatinine 7.87 H* (0.66-1.25) mg/dL Glucose 127 H (74-99) mg/dL POC Glucose (mg/dL) (70-110) mg/dL Hemoglobin A1c (0.0-6.0) % Calcium 8.1 L (8.4-10.2) mg/dL Urine Protein (Negative) Urine Glucose (UA) (Negative) Urine Blood (Negative) Ur Leukocyte Esterase (Negative) Urine RBC (0-5) /hpf Urine WBC (0-5) /hpf Urine Bacteria (None) /hpf Urine Mucus (None) /hpf Complement C3 69.7 L (80.0-207.0) mg/dL Assessment and Plan Assessment: Acute kidney injury secondary to obstructive uropathy Urinary retention status post Blankenship catheter Chronic bilateral diabetic foot ulcers and surrounding cellulitis, improving, no need for further antibiotic Hypertension Diabetes mellitus Peripheral vascular disease and history of bilateral leg ulcers. Plan: This is a pleasant 76 years old male who presents with acute kidney injury Continue with IV fluid, currently on sodium bicarb Nephrology consult Consult ID team urology consult and patient was started on Flomax. Continue with Blankenship catheter. Labs and medication were reviewed.. Continue same treatment. Continue with symptomatic treatment. Resume home medication. Monitor lytes and vitals. DVT and GI prophylaxis. Further recommendations as per clinical course of the patient DVT prophylaxis: Subcutaneous heparin GI Prophylaxis: Pepcid
[2021-12-29 16:37] LABS: Glucose,Whole Blood 154 mg/dL (70-110)
[2021-12-29] MEDS: ATORVASTATIN 10 MG TAB PO SCH (17:16)
[2021-12-29] MEDS: amLODIPine 10 MG TAB PO SCH (17:16)
[2021-12-29 20:07] LABS: Glucose,Whole Blood 253 mg/dL (70-110)
[2021-12-30 06:25] LABS: Glucose,Whole Blood 160 mg/dL (70-110)
[2021-12-30] MEDS: SODIUM CHLORIDE 0.9% 1,000 ML IV SCH (06:29)
[2021-12-30] MEDS: INSULIN ASPART (NovoLOG) 100 UNIT/ML VIAL SQ SCH ×4 (06:30→20:40)
[2021-12-30 08:13] LABS: Calcium 7.7 mg/dL (8.4-10.2); Magnesium 2.1 mg/dL (1.6-2.3); Potassium 3.5 mmol/L (3.5-5.1)
[2021-12-30] MEDS: FAMOTIDINE 20 MG TAB PO SCH (09:29)
[2021-12-30] MEDS: SODIUM BICARBONATE TAB 650 MG TAB PO SCH ×2 (09:29→20:40)
[2021-12-30] MEDS: TAMSULOSIN 0.4 MG CAP.ER.24H PO SCH (09:29)
[2021-12-30] MEDS: HEPARIN SODIUM,PORCINE/PF 5,000 UNIT/0.5 ML SYRINGE SQ SCH ×2 (09:29→20:39)
[2021-12-30] MEDS ORDERED: POTASSIUM CHLORIDE ER 20 MEQ TAB.ER PO STA (10:36)
--- NOTE | 2021-12-30 10:39 | P.PN ---
Subjective Patient is seen in follow-up for acute kidney injury. No improvement in renal function despite Blankenship catheter insertion. Nonoliguric. Oral intake is good. No vomiting or diarrhea. Hemodynamically stable. No changes overnight. Vital signs are stable. General: Awake. No acute distress. HEENT: Head exam is unremarkable. LUNGS: Breath sounds decreased. HEART: Rate and Rhythm are regular. ABDOMEN: Soft, no distention. EXTREMITITES: No edema. Objective - Vital Signs Vital signs: Vital Signs Temp 97.7 F 12/30/21 08:45 Pulse 99 12/30/21 08:45 Resp 16 12/30/21 10:16 BP 144/56 12/30/21 08:45 Pulse Ox 95 12/30/21 08:45 FiO2 Intake & Output 12/29/21 12/30/21 12/30/21 18:59 06:59 18:59 Intake Total 1140 840 240 Output Total 2000 3100 600 Balance -860 -5471 -360 Intake: IV 550 600 Sodium Chloride 0.9% 1, 550 600 000 ml @ 50 mls/hr IV . Q20H [facility] Rx#:[id number] Oral 590 240 240 Output: Urine 1999 3100 600 Uretheral (Blankenship) 2000 1000 600 Other: Voiding Method Indwelling Catheter Indwelling Catheter Indwelling Catheter - Labs CBC & Chem 7: 12/29/21 08:14 12/30/21 06:22 Labs: Abnormal Lab Results - Last 24 Hours (Table) 12/29/21 12/29/21 12/29/21 Range/Units 08:14 12:03 16:36 Sodium (137-145) mmol/L Carbon Dioxide (22-30) mmol/L BUN (9-20) mg/dL Creatinine (0.66-1.25) mg/dL POC Glucose (mg/dL) 187 H 154 H (70-110) mg/dL Calcium (8.4-10.2) mg/dL Complement C3 69.7 L (80.0-207.0) mg/dL 12/29/21 12/30/21 12/30/21 Range/Units 20:06 06:22 06:22 Sodium 134 L (137-145) mmol/L Carbon Dioxide 19 L (22-30) mmol/L BUN 97 H (9-20) mg/dL Creatinine 7.37 H* (0.66-1.25) mg/dL POC Glucose (mg/dL) 253 H 160 H (70-110) mg/dL Calcium 7.7 L (8.4-10.2) mg/dL Complement C3 (80.0-207.0) mg/dL Assessment and Plan Plan: Assessment: 1. Acute kidney injury secondary to urinary retention. No improvement in renal function. Creatinine in December 2020 was in the range of 1.1-1.3; creatinine was 1.4 in October 2021. 2. Metabolic acidosis secondary to acute kidney injury and IV fluids. 3. Urinary retention. Has a Blankenship catheter. On Flomax. Urology following. Ultrasound showed left-sided hydronephrosis versus extrarenal pelvis. no hydronephrosis noted on CT. 4. Benign hypertension. Stable. 5. Diabetes mellitus. Plan: Maintain normal saline at 50 mL an hour. Maintain oral bicarb. Continue to monitor renal function and urine output. Continue to hold metformin for now. Continue to assess daily for need for renal replacement therapy. No urgency at this time. Renal CT showed no evidence of obstruction. UPC 3.2 g. Follow-up serologies - hepatitis panel negative. C3 low. C4 normal. No further intervention is planned by urology. Schedule for kidney biopsy. Replace potassium.
[2021-12-30 11:33] LABS: Potassium,Urine Random 26.9 mmol/L (25.0-125.0)
[2021-12-30 11:34] LABS: Glucose,Whole Blood 178 mg/dL (70-110)
--- NOTE | 2021-12-30 12:02 | P.PN ---
Subjective This is a pleasant 76 years old male with past medical history of Diabetes Mellitus, Hypertension; ULCERS BILAT LEGS, PVD, CRISTAL LEG WOUND DRESSED BY HOME CARE NURSE Patient was brought from [facility]. He was at [facility] and discharge hospital on bilateral diabetic foot ulcers with surrounding cellulitis secondary to enterococcus faecalis, Morganella morganii and Fusobacterium Varium. He underwent surgical debridement on 11/18 and he was discharged on IV cefepime and Flagyl 5 weeks he still has PICC line in his left arm with no surr ounding cellulitis Sent from [facility] for elevated BUN & Cr. Pt does have hx of renal failure. Wendy dove states that he has no burning but sometimes his house for him to be and sometimes he has pain when he urinated. He denies suprapubic tenderness. Patient found to have urinary retention with 1 L of urine. He status post Blankenship catheter No chest pain or dyspnea. No headache or weakness or numbness. No vomiting or abdominal pain. He has some loose stool. No smoking, alcohol or illicit drugs BUN and creatinine were elevated, they were 103 and 7.8 respectively. Vitas looks stable. Blood pressure elevated mildly. Labs showing unremarkable CBC and BMP except for elevated creatinine 7.9 and be on 108. Osmolality is high at 320. Glucose is high as 167. Liver enzymes are not elevated. Urinalysis is negative for infection but showed 1+ protein, trace glucose and small blood and occasional amorphous sediment. Urine osmolality is 248 and urine creatinine is 39.4 In the emergency room metformin was held and animal park code enforcement officer consulted 12/28/2021 Patient clinically stable. No new complaints. He still has Blankenship catheter in place for his obstructive uropathy. Creatinine around 7. CT of the renal system without contrast showing no obstruction or stone today. Check CBC and BMP tomorrow, further workup recommended by animal park code enforcement officer will defer further management. No need for antibiotics per ID team for his diabetic foot ulcers 12/29/2021 Patient remains clinically the same, no dyspnea or chest discomfort. Cephalic catheter and replaced Creatinine with no improvement and staying at 7.8. Urologist recommending no further surgical intervention Scrap Piler on the case with more workup was ordered. He started on normal saline 50 mL/h today 12/30/21 No new complaint Patient still has Blankenship catheter in place. Creatinine only slightly came down to 7.3 today. Patient kept on normal saline at 50 mm per hour. Metformin on hold. Scrap Piler on the case recommended transfer the patient to her level of care for possible kidney biopsy Discussed with social work Objective - Vital Signs Vital signs: Vital Signs Temp 97.7 F 12/30/21 08:45 Pulse 99 12/30/21 08:45 Resp 16 12/30/21 10:16 BP 144/56 12/30/21 08:45 Pulse Ox 95 12/30/21 08:45 FiO2 Intake & Output 12/29/21 12/30/21 12/30/21 18:59 06:59 18:59 Intake Total 1140 840 240 Output Total 1999 3100 600 Balance -436 -0082 -051 Intake: IV 550 600 Sodium Chloride 0.9% 1, 550 600 000 ml @ 50 mls/hr IV . Q20H [facility] Rx#:[id number] Oral 590 240 240 Output: Urine 1999 3100 600 Uretheral (Blankenship) 1999 1000 600 Other: Voiding Method Indwelling Catheter Indwelling Catheter Indwelling Catheter - Exam GENERAL: The patient is alert and oriented x3, not in any acute distress. Well developed, well nourished. HEENT: Pupils are round and equally reacting to light. EOMI. No scleral icterus. No conjunctival pallor. Normocephalic, atraumatic. No pharyngeal erythema. No thyromegaly. CARDIOVASCULAR: S1 and S2 present. No murmurs, rubs, or gallops. PULMONARY: Chest is clear to auscultation, no wheezing or crackles. -ABDOMEN: Soft, nontender, nondistended, normoactive bowel sounds. No palpable organomegaly. Blankenship catheter in place MUSCULOSKELETAL: No joint swelling or deformity. EXTREMITIES: No cyanosis, clubbing, or pedal edema. NEUROLOGICAL: Gross neurological examination did not reveal any focal deficits. SKIN: No rashes. no petechiae. - Labs CBC & Chem 7: 12/29/21 08:14 12/30/21 06:22 Labs: Abnormal Lab Results - Last 24 Hours (Table) 12/29/21 12/29/21 12/29/21 Range/Units 08:14 12:03 16:36 Sodium (137-145) mmol/L Carbon Dioxide (22-30) mmol/L BUN (9-20) mg/dL Creatinine (0.66-1.25) mg/dL POC Glucose (mg/dL) 187 H 154 H (70-110) mg/dL Calcium (8.4-10.2) mg/dL Complement C3 69.7 L (80.0-207.0) mg/dL 12/29/21 12/30/21 12/30/21 Range/Units 20:06 06:22 06:22 Sodium 134 L (137-145) mmol/L Carbon Dioxide 19 L (22-30) mmol/L BUN 97 H (9-20) mg/dL Creatinine 7.37 H* (0.66-1.25) mg/dL POC Glucose (mg/dL) 253 H 160 H (70-110) mg/dL Calcium 7.7 L (8.4-10.2) mg/dL Complement C3 (80.0-207.0) mg/dL Assessment and Plan Assessment: Acute kidney injury secondary to obstructive uropathy Urinary retention status post Blaneknship catheter Chronic bilateral diabetic foot ulcers and surrounding cellulitis, improving, no need for further antibiotic Hypertension Diabetes mellitus Peripheral vascular disease and history of bilateral leg ulcers. Plan: This is a pleasant 76 years old male who presents with acute kidney injury Continue with IV fluid, currently on normal saline at 50 mL per hour Continue with Blankenship catheter Urologist recommended no further workup Nephrology consult, discussed the case with animal park code enforcement officer recommended to transfer the patient to tertiary center for possible biopsy urology consult and patient was started on Flomax. Continue with Blankenship catheter. Labs and medication were reviewed.. Continue same treatment. Continue with symptomatic treatment. Resume home medication. Monitor lytes and vitals. DVT and GI prophylaxis. Further recommendations as per clinical course of the patient DVT prophylaxis: Subcutaneous heparin GI Prophylaxis: Pepcid
[2021-12-30 14:40] LABS: Free Kappa Lt Chain Qnt, Serum 11.02 mg/dL (0.33-1.94); Free Lambda Lt Chain Qnt, Seru 8.85 mg/dL (0.57-2.63)
[2021-12-30 16:11] LABS: Glucose,Whole Blood 166 mg/dL (70-110)
[2021-12-30] MEDS: ATORVASTATIN 10 MG TAB PO SCH (17:08)
[2021-12-30] MEDS: amLODIPine 10 MG TAB PO SCH (17:08)
--- NOTE | 2021-12-30 17:25 | P.PN ---
Subjective Progress Note Date: 12/29/21 Principal diagnosis: Bilateral heel ulcers Patient is a 76-year-old male with a recent history of bilateral knee infected pressure ulcer with underlying osteomyelitis for the patient was receiving cefepime and Flagyl subsequently admitted to hospital with acute renal failure. On today's evaluation that is 12/29/2021, the patient remains to be afebrile, the patient is breathing comfortably on room air, denies chest pain shortness of breath, abdominal pain or any worsening pain to bilateral heel wound area Objective - Vital Signs Vital signs: Vital Signs Temp 97.6 F 12/29/21 08:29 Pulse 84 12/29/21 12:00 Resp 16 12/29/21 12:00 BP 143/66 12/29/21 12:00 Pulse Ox 98 12/29/21 12:00 FiO2 Intake & Output 12/28/21 12/29/21 12/29/21 18:59 06:59 18:59 Intake Total 1476 320 472 Output Total 1350 1900 1000 Balance 126 -1580 -528 Intake: Intake, IV Titration 200 Amount Dextrose 5% in Water 1, 200 000 ml @ 50 mls/hr IV . Q23H [facility] with Sodium Bicarb (1 Meq/ml) 150 ml Rx#:[id number] Oral 1476 120 472 Output: Urine 1350 1900 1000 Uretheral (Blankenship) 977 211 9549 Other: Voiding Method Indwelling Catheter Indwelling Catheter Indwelling Catheter - Exam GENERAL DESCRIPTION: An elderly male lying in bed in no distress RESPIRATORY SYSTEM: Unlabored breathing , decreased breath sounds at bases HEART: S1 S2 regular rate and rhythm , ABDOMEN: Soft , no tenderness EXTREMITIES: Bilateral heel wounds are currently dressed no drainage on the lex ssing - Labs CBC & Chem 7: 12/29/21 08:14 12/30/21 06:22 Labs: Abnormal Lab Results - Last 24 Hours (Table) 12/28/21 12/28/21 12/29/21 Range/Units 16:42 20:09 06:13 RBC (4.30-5.90) m/uL Hgb (13.0-17.5) gm/dL Hct (39.0-53.0) % RDW (11.5-15.5) % Neutrophils # (1.3-7.7) k/uL Lymphocytes # (1.0-4.8) k/uL Sodium (137-145) mmol/L Chloride (98-107) mmol/L BUN (9-20) mg/dL Creatinine (0.66-1.25) mg/dL Glucose (74-99) mg/dL POC Glucose (mg/dL) 294 H 121 H 133 H (70-110) mg/dL Calcium (8.4-10.2) mg/dL Complement C3 (80.0-207.0) mg/dL 12/29/21 12/29/21 12/29/21 Range/Units 08:14 08:14 08:14 RBC 3.99 L (4.30-5.90) m/uL Hgb 11.3 L (13.0-17.5) gm/dL Hct 33.7 L (39.0-53.0) % RDW 15.9 H (11.5-15.5) % Neutrophils # 8.1 H (1.3-7.7) k/uL Lymphocytes # 0.8 L (1.0-4.8) k/uL Sodium 130 L (137-145) mmol/L Chloride 93 L (98-107) mmol/L BUN 93 H (9-20) mg/dL Creatinine 7.87 H* (0.66-1.25) mg/dL Glucose 127 H (74-99) mg/dL POC Glucose (mg/dL) (70-110) mg/dL Calcium 8.1 L (8.4-10.2) mg/dL Complement C3 69.7 L (80.0-207.0) mg/dL 12/29/21 Range/Units 12:03 RBC (4.30-5.90) m/uL Hgb (13.0-17.5) gm/dL Hct (39.0-53.0) % RDW (11.5-15.5) % Neutrophils # (1.3-7.7) k/uL Lymphocytes # (1.0-4.8) k/uL Sodium (137-145) mmol/L Chloride (98-107) mmol/L BUN (9-20) mg/dL Creatinine (0.66-1.25) mg/dL Glucose (74-99) mg/dL POC Glucose (mg/dL) 187 H (70-110) mg/dL Calcium (8.4-10.2) mg/dL Complement C3 (80.0-207.0) mg/dL Assessment and Plan (1) Decubitus ulcer of heel, bilateral, stage 3 Current Visit: Yes Status: Acute Code(s): L89.613 - PRESSURE ULCER OF RIGHT HEEL, STAGE 3; L89.623 - PRESSURE ULCER OF LEFT HEEL, STAGE 3 SNOMED Code(s): 33438536549076 Plan: 1patient with recent history of bilateral heel infected pressure ulcer with underlying osteomyelitis culture positive for Morganella Proteus strep and bacteroids for the patient was getting cefepime and Flagyl and seem to have almost complete his antibiotic therapy now presenting with the acute renal failure in this patient currently does not look toxic and bilateral heel wounds have significantly improved with no evidence of any cellulitis. 2patient continue local wound care with the Aquacel silver dressing and keep th e area of the pressure. 3no need for antibiotic therapy at this point. Time with Patient: Less than 30
--- NOTE | 2021-12-30 17:26 | P.PN ---
Subjective Progress Note Date: 12/30/21 Principal diagnosis: Bilateral heel ulcers Patient is a 76-year-old male with a recent history of bilateral knee infected pressure ulcer with underlying osteomyelitis for the patient was receiving cefepime and Flagyl subsequently admitted to hospital with acute renal failure. On today's evaluation that is 12/30/2021, the patient denies any fever or any chills, the patient is breathing comfortably on room air, the patient denies chest pain shortness of breath, the patient denies nausea vomiting abdominal pain and no pain to bilateral heel wound area Objective - Vital Signs Vital signs: Vital Signs Temp 97.7 F 12/30/21 08:45 Pulse 99 12/30/21 08:45 Resp 16 12/30/21 10:16 BP 144/56 12/30/21 08:45 Pulse Ox 95 12/30/21 08:45 FiO2 Intake & Output 12/29/21 12/30/21 12/30/21 18:59 06:59 18:59 Intake Total 1140 840 240 Output Total 1999 3100 600 Balance -864 -5951 -360 Intake: IV 550 600 Sodium Chloride 0.9% 1, 550 600 000 ml @ 50 mls/hr IV . Q20H [facility] Rx#:[id number] Oral 590 240 240 Output: Urine 1999 3100 600 Uretheral (Blankenship) 1999 1000 600 Other: Voiding Method Indwelling Catheter Indwelling Catheter Indwelling Catheter - Exam GENERAL DESCRIPTION: An elderly male lying in bed in no distress RESPIRATORY SYSTEM: Unlabored breathing , decreased breath sounds at bases HEART: S1 S2 regular rate and rhythm , ABDOMEN: Soft , no tenderness EXTREMITIES: Bilateral heel wounds are currently dressed no drainage on the dressing - Labs CBC & Chem 7: 12/29/21 08:14 12/30/21 06:22 Labs: Abnormal Lab Results - Last 24 Hours (Table) 12/29/21 12/29/21 12/29/21 Range/Units 12:03 16:36 20:06 Sodium (137-145) mmol/L Carbon Dioxide (22-30) mmol/L BUN (9-20) mg/dL Creatinine (0.66-1.25) mg/dL POC Glucose (mg/dL) 187 H 154 H 253 H (70-110) mg/dL Calcium (8.4-10.2) mg/dL 12/30/21 12/30/21 Range/Units 06:22 06:22 Sodium 134 L (137-145) mmol/L Carbon Dioxide 19 L (22-30) mmol/L BUN 97 H (9-20) mg/dL Creatinine 7.37 H* (0.66-1.25) mg/dL POC Glucose (mg/dL) 160 H (70-110) mg/dL Calcium 7.7 L (8.4-10.2) mg/dL Assessment and Plan (1) Decubitus ulcer of heel, bilateral, stage 3 Current Visit: Yes Status: Acute Code(s): L89.613 - PRESSURE ULCER OF RIGHT HEEL, STAGE 3; L89.623 - PRESSURE ULCER OF LEFT HEEL, STAGE 3 SNOMED Code(s): 05872073516343 Plan: 1patient with recent history of bilateral heel infected pressure ulcer with underlying osteomyelitis culture positive for Morganella Proteus strep and bacteroids for the patient was getting cefepime and Flagyl and seem to have almost complete his antibiotic therapy now presenting with the acute renal failure in this patient currently does not look toxic and bilateral heel wounds have significantly improved with no evidence of any cellulitis. 2patient continue local wound care with the Aquacel silver dressing and keep the area of the pressure and monitor close off antibiotic therapy. Time with Patient: Less than 30
[2021-12-30 18:45] LABS: Anti-DNA, DS unit <1.0 IU/mL; DNA Double-Stranded NEGATIVE (NEGATIVE)
[2021-12-30 20:26] LABS: Glucose,Whole Blood 173 mg/dL (70-110)
[2021-12-30 20:39] VITALS: RESP 17
[2021-12-30 23:49] VITALS: BP 154/69; PULSE 96; TEMP 98
[2021-12-31 14:20] LABS: C-ANCA <1:20 Titer (<1:20)
[2021-12-31 15:31] LABS: Albumin 3.45 g/dL (3.80-4.90); Gamma Globulin 1.23 g/dL (0.70-1.50)
== END 2021-12-31 00:30 | disposition short-term general hospital (02) | DRG 682 ==
LOC: EC 17:19 → 3SCARD 22:46
PROVIDERS: ADMIT Hospitalist; ATTEND Hospitalist
DX: N17.9 Acute kidney failure, unspecified (principal); L89.613 Pressure ulcer of right heel, stage 3; L89.623 Pressure ulcer of left heel, stage 3; E87.2 Acidosis; M86.8X7 Other osteomyelitis, ankle and foot; N40.1 Benign prostatic hyperplasia with lower urinary tract symptoms; R33.8 Other retention of urine; I10 Essential (primary) hypertension; E11.51 Type 2 diabetes mellitus with diabetic peripheral angiopathy without gangrene; E11.621 Type 2 diabetes mellitus with foot ulcer; E11.628 Type 2 diabetes mellitus with other skin complications; N13.9 Obstructive and reflux uropathy, unspecified; L97.529 Non-pressure chronic ulcer of other part of left foot with unspecified severity; L97.519 Non-pressure chronic ulcer of other part of right foot with unspecified severity; Z20.822 Contact with and (suspected) exposure to COVID-19; R13.10 Dysphagia, unspecified; N28.89 Other specified disorders of kidney and ureter; Z79.4 Long term (current) use of insulin; Z79.84 Long term (current) use of oral hypoglycemic drugs; Z79.899 Other long term (current) drug therapy; Z98.890 Other specified postprocedural states; Z79.2 Long term (current) use of antibiotics; Z86.14 Personal history of Methicillin resistant Staphylococcus aureus infection; Z86.19 Personal history of other infectious and parasitic diseases; Z80.42 Family history of malignant neoplasm of prostate; Z82.49 Family history of ischemic heart disease and other diseases of the circulatory system
CPT/HCPCS: 36415; 74150; 76770; 80048; 80053; 80074; 81001; 82570; 83036; 83735; 83883; 83930; 83935; 84133; 84156; 84165; 84300; 85025; 86038; 86160; 86162; 86225; 86255; 86334; 86335; 87635

== ENCOUNTER 2023-10-21 11:11 | Inpatient (IN) | payer MEDICARE ==
[2023-10-21 12:02] LABS: Basophils % (A) 0 %; Eosinophils # (A) 0.1 k/uL (0-0.7); Eosinophils % (A) 1 %; HGB 11.6 gm/dL (13.0-17.5); Lymphocytes # (A) 0.6 k/uL (1.0-4.8); Lymphocytes % (A) 5 %; MCH 31.5 pg (25.0-35.0); MCHC 33.2 g/dL (31.0-37.0); Mean Platelet Volume 7.4; Monocytes # (A) 0.8 k/uL (0-1.0); Monocytes % (A) 7 %; Neutrophils # (A) 9.7 k/uL (1.3-7.7); Neutrophils % (A) 85 %; Platelet Count 353 k/uL (150-450); RBC 3.68 m/uL (4.30-5.90); RDW 13.9 % (11.5-15.5); WBC 11.5 k/uL (3.8-10.6)
--- NOTE | 2023-10-21 12:07 | ED ---
Skin/Abscess/FB HPI - General Chief complaint: Skin/Abscess/Foreign Body Stated complaint: wounds on feet Time Seen by Provider: 10/21/23 11:23 Source: patient, EMS, RN notes reviewed Mode of arrival: EMS Limitations: no limitations - History of Present Illness Initial comments: This is a 78-year-old male who presents to the emergency department for a di abetic ulcer to his left heel. States that this has been present for the last 3 years. He does have a wound care nurse who comes to the house every other day, and she was concerned that the wound appeared to be worsening, and advised he come to the emergency department for evaluation. Patient states that he usually uses a cane to get around, however this morning he was unable to put pressure on his left foot. Denies any fever/chills and he is not currently on any antibiotics. Patient notes that he did trip over his couch a couple of days ago and fell, hitting the top of his head. Denies any loss of consciousness. Not taking any blood thinners and denies any headaches. - Related Data Home Medications Medication Instructions Recorded Confirmed amLODIPine [Norvasc] 10 mg PO DAILY 11/10/16 10/21/23 Simvastatin [Zocor] 5 mg PO HS 03/16/18 10/21/23 Multivitamins, Thera [Multivitamin 1 tab PO DAILY 12/26/21 10/21/23 (formulary)] Pioglitazone [Actos] 15 mg PO DAILY 12/26/21 10/21/23 Ferrous Sulfate [Feosol] 325 mg PO DAILY 04/29/23 10/21/23 Tamsulosin [Flomax] 0.4 mg PO DAILY 10/21/23 10/21/23 lisinopriL [Zestril] 10 mg PO DAILY 10/21/23 10/21/23 Allergies Allergy/AdvReac Type Severity Reaction Status Date / Time No Known Allergies Allergy Verified 10/21/23 12:02 Review of Systems ROS Statement: Those systems with pertinent positive or pertinent negative responses have been documented in the HPI. ROS Other: All systems not noted in ROS Statement are negative. Past Medical History Past Medical History: Diabetes Mellitus, Hypertension, Renal Disease Additional Past Medical History / Comment(s): VENOUS STASIS ; ULCERS BILAT LEGS, PVD, CRISTAL LEG WOUND DRESSED BY HOME CARE NURSE History of Any Multi-Drug Resistant Organisms: MRSA Date of last positivie culture/infection: 04/14/17 MDRO Source:: Right Leg Past Surgical History: Tonsillectomy Additional Past Surgical History / Comment(s): 07/13/17 CRISTAL AORTOGRAM AND LLE ANGIOGRAM, REATTACHED TENDON LT 5TH FINGER 1995. skin graft bilat legs Past Anesthesia/Blood Transfusion Reactions: No Reported Reaction Past Psychological History: No Psychological Hx Reported Smoking Status: Former smoker Past Alcohol Use History: None Reported Past Drug Use History: None Reported - Past Family History Father Family Medical History: Cancer Additional Family Medical History / Comment(s): PROSTATE CANCER Mother Family Medical History: Hypertension General Exam Limitations: no limitations General appearance: alert, in no apparent distress Head exam: Present: atraumatic, normocephalic, normal inspection Respiratory exam: Present: normal lung sounds bilaterally. Absent: respiratory distress, wheezes, rales, rhonchi, stridor Cardiovascular Exam: Present: regular rate, normal rhythm, normal heart sounds. Absent: systolic murmur, diastolic murmur, rubs, gallop, clicks Extremities exam: Present: other (There is a large ulceration to the left heel with some active drainage and foul odor) Neurological exam: Present: alert, oriented X3, CN II-XII intact Psychiatric exam: Present: normal affect, normal mood Course Vital Signs 10/21/23 10/21/23 10/21/23 11:14 12:12 14:39 Temperature 98.7 F 98.3 F 98.4 F Pulse Rate 78 85 81 Respiratory 20 18 16 Rate Blood Pressure 146/69 131/67 140/67 O2 Sat by Pulse 98 96 97 Oximetry Medical Decision Making - Medical Decision Making This is a 78 year old male who presents to the emergency department for an ulcer to the left heel. Was pt. sent in by a medical professional or institution? @ -No Did you speak to anyone other than the patient for history? @ -No Did you review nursing and triage notes? @ -Yes, and I agree, it is accurate with regards to the patient's symptoms. Were old charts reviewed? @ -No Differential Diagnosis? @ -Differential Wound: Ulcer, cellulitis, abscess, burn, this is not meant to be an all-inclusive list. EKG interpreted by me (3pts min.)? @ -EKG interpreted by me demonstrating the following: Sinus rhythm. Ventricular rate 93 bpm, SD interval 189 ms, QRS duration 122 ms, QTc 402 ms. X-rays interpreted by me (1pt min.)? @ -X-ray of the left foot obtained. My interpretation identifies a soft tissue wound on the heel CT interpreted by me (1pt min.)? @ -Not obtained U/S interpreted by me (1pt. min.)? @ -Not obtained What testing was considered but not performed? (CT, X-rays, U/S, labs)? Why? @ -None What meds were considered but not given? Why? @ -None Did you discuss the management of the patient with other professionals? @ -Yes, Dr. Easton, who accepts the patient for admission. Did you reconcile home meds? @ -Yes Was smoking cessation discussed for >3mins.? @ -No Was critical care preformed (if so, how long)? @ -No Were there social determinants of health that impacted care today? How? (Homelessness, low income, unemployed, alcoholism, drug addiction, transportation, low edu. Level, literacy, decrease access to med. care, longterm, rehab)? @ -No Was there de-escalation of care discussed even if they declined? (Discuss DNR or withdrawal of care, Hospice)? @ -No What co-morbidities impacted this encounter? (DM, HTN, Smoking, COPD, CAD, Cancer, CVA, Hep., AIDS, mental health diagnosis, sleep apnea, morbid obesity)? @ -DM, HTN, renal disease Was patient admitted / discharged? @ -Admitted. Lab work demonstrates leukocytosis with a white blood cell count of 11.5. CRP elevated at 18.6. Hyperkalemia also present with a potassium of 5.7. Lokelma and calcium gluconate administered for hypokalemia. X-ray of the left foot demonstrates a large soft tissue wound along the heel that appears to be a full-thickness to nearly full-thickness wound down to the calcaneal bone. There is a possible pathologic fracture secondary to osteomyelitis. Blood and wound cultures were obtained and the patient was started on vancomycin and cefepime. Patient admitted to medicine for diabetic ulcer with possible osteomyelitis and calcaneal fracture. Consult placed for infectious disease and orthopedics. Undiagnosed new problem with uncertain prognosis? @ -None Drug Therapy requiring intensive monitoring for toxicity (Heparin, Nitro, Insulin, Cardizem)? @ -None Were any procedures done? @ -None Diagnosis/symptom? @ -Osteomyelitis, calcaneal fracture Acute, or Chronic, or Acute on Chronic? @ -Acute Uncomplicated (without systemic symptoms) or Complicated (systemic symptoms)? @ -Uncomplicated Side effects of treatment? @ -None Exacerbation, Progression, or Severe Exacerbation] @ -Not applicable Poses a threat to life or bodily function? @ -Yes Diagnosis/symptom? @ -Diabetic ulcer Acute, or Chronic, or Acute on Chronic? @ -Chronic Uncomplicated (without systemic symptoms) or Complicated (systemic symptoms)? @ -Uncomplicated Side effects of treatment? @ -None Exacerbation, Progression, or Severe Exacerbation] @ -Progression Poses a threat to life or bodily function? @ -Yes This case was discussed in detail with the attending ED physician, Dr. Martinez. Presentation, findings, and treatment plan discussed in detail as well. - Lab Data Result diagrams: 10/21/23 11:47 10/21/23 11:47 Lab Results 10/21/23 10/21/23 10/21/23 Range/Units 11:47 11:47 11:47 WBC 11.5 H (3.8-10.6) k/uL RBC 3.68 L (4.30-5.90) m/uL Hgb 11.6 L (13.0-17.5) gm/dL Hct 35.0 L (39.0-53.0) % MCV 95.0 (80.0-100.0) fL MCH 31.5 (25.0-35.0) pg MCHC 33.2 (31.0-37.0) g/dL RDW 13.9 (11.5-15.5) % Plt Count 353 (150-450) k/uL MPV 7.4 Neutrophils % 85 % Lymphocytes % 5 % Monocytes % 7 % Eosinophils % 1 % Basophils % 0 % Neutrophils # 9.7 H (1.3-7.7) k/uL Lymphocytes # 0.6 L (1.0-4.8) k/uL Monocytes # 0.8 (0-1.0) k/uL Eosinophils # 0.1 (0-0.7) k/uL Basophils # 0.0 (0-0.2) k/uL Sodium 141 (137-145) mmol/L Potassium 5.7 H (3.5-5.1) mmol/L Chloride 111 H (98-107) mmol/L Carbon Dioxide 20 L (22-30) mmol/L Anion Gap 10 mmol/L BUN 55 H (9-20) mg/dL Creatinine 1.45 H (0.66-1.25) mg/dL Est GFR (CKD-EPI)AfAm 53 (>60 ml/min/1.73 sqM) Est GFR (CKD-EPI)NonAf 46 (>60 ml/min/1.73 sqM) Glucose 242 H (74-99) mg/dL Plasma Lactic Acid Aston 1.6 (0.7-2.0) mmol/L Calcium 9.7 (8.4-10.2) mg/dL Total Bilirubin 0.6 (0.2-1.3) mg/dL AST 32 (17-59) U/L ALT 45 (4-49) U/L Alkaline Phosphatase 103 (38-126) U/L C-Reactive Protein 18.6 H (<1.0) mg/dL Total Protein 7.5 (6.3-8.2) g/dL Albumin 3.5 (3.5-5.0) g/dL - Radiology Data Radiology results: report reviewed, image reviewed Disposition Clinical Impression: Diabetic ulcer of left foot, Osteomyelitis of left foot, Calcaneus fracture, left Disposition: ADMITTED IP TO [facility] Time of Disposition: 14:00
[2023-10-21] MEDS: SODIUM CHLORIDE 0.9% 1,000 ML IV STA (12:11)
--- NOTE | 2023-10-21 12:11 | XR ---
EXAMINATION TYPE: XR foot limited 2 views LT DATE OF EXAM: 10/21/2023 COMPARISON: NONE HISTORY: 78-year-old male nonhealing wound/infection, pain TECHNIQUE: 2 views FINDINGS: There is diffuse osteopenia. There is chronic-appearing soft tissue and bony deformity to t he tip of the great toe. Vascular calcifications. Pes planus. There is a soft tissue wound along the plantar heel. This appears to be full-thickness to nearly full-thickness to the calcaneus. There appe ars to be a probable pathologic fracture that is obliquely oriented through the posterior calcaneus p ossibly extending to the posterior subtalar joint. IMPRESSION: 1. Large soft tissue wound along the heel. This appears to be a full-thickness to nearly full-thickne ss wound down to the calcaneal bone. There is an underlying oblique fracture of the posterior calcane us. Widening at the fracture margins up to 7 mm and possible superior extension of fracture to the po sterior subtalar joint. Unable to exclude pathologic fracture secondary to osteomyelitis. Compare to any available outside priors. 2. Pes planus deformity. Osteopenia.
[2023-10-21] MEDS ORDERED: VANCOMYCIN IV PER PHARMACY 1 EACH MISC MISCELLANE PRN (12:22)
[2023-10-21 12:26] LABS: ALT 45 U/L (4-49); AST 32 U/L (17-59); African American GFR (CKD) 53 (>60 ml/min/1.73 sqM); Albumin 3.5 g/dL (3.5-5.0); Alkaline Phosphatase 103 U/L (38-126); Anion Gap 10 mmol/L; Blood Urea Nitrogen 55 mg/dL (9-20); Calcium 9.7 mg/dL (8.4-10.2); Carbon Dioxide 20 mmol/L (22-30); Chloride 111 mmol/L (98-107); Glucose 242 mg/dL (74-99); Non-African American GFR(CKD) 46 (>60 ml/min/1.73 sqM); Potassium 5.7 mmol/L (3.5-5.1); Sodium 141 mmol/L (137-145); Total Bilirubin 0.6 mg/dL (0.2-1.3); Total Protein 7.5 g/dL (6.3-8.2)
[2023-10-21 12:52] LABS: C Reactive Protein 18.6 mg/dL (<1.0)
[2023-10-21] MEDS: CALCIUM GLUCONATE IN NACL 1 GM in SALINE 1 100ML.BAG IVPB ONE (13:19)
[2023-10-21] MEDS: CEFEPIME 1 GM in SODIUM CHLORIDE 0.9% 50 ML IVPB STA (13:22)
--- NOTE | 2023-10-21 13:44 | CT ---
EXAMINATION TYPE: CT brain wo con CT DLP: 1168.5 mGycm, Automated exposure control for dose reduction was used. DATE OF EXAM: 10/21/2023 1:01 PM COMPARISON: . CLINICAL INDICATION:Male, 78 years old with history of Head injury, . Altered mental status. Initial encounter. TECHNIQUE: Brain: Axial CT images of the brain were obtained with coronal and sagittal reformats created and rev iewed. Contrast used: None. Oral contrast used: None. FINDINGS: Brain: Extra-axial spaces: No abnormal extra-axial fluid collections. Ventricular system: Ventricles are prominent in size. Likely age-related involution. Cerebral parenchyma: No acute intraparenchymal hemorrhage or mass effect. The higgins-white junction is well differentiated. Cerebellum: Unremarkable. Mass effect: No evidence of midline shift. Intracranial vasculature: unremarkable Soft tissues: Normal. Calvarium/osseous structures: No depressed skull fracture. Paranasal sinuses and mastoid air cells: Mild scattered paranasal sinus disease. Visualized orbits: Orbital contents are intact. IMPRESSION: No acute intracranial process. Age-related involution.
[2023-10-21] MEDS ORDERED: NALOXONE 0.4 MG/ML 1 ML VIAL IV PRN (14:00)
[2023-10-21] MEDS ORDERED: ONDANSETRON 4 MG/2 ML VIAL IVP PRN (14:00)
[2023-10-21] MEDS ORDERED: ACETAMINOPHEN TAB 325 MG TAB PO PRN (14:00)
[2023-10-21] MEDS: VANCOMYCIN 1,750 MG in SODIUM CHLORIDE 0.9% 500 ML 500 ML IVPB ONE (14:19)
[2023-10-21] MEDS: SODIUM ZIRCONIUM CYCLOSILICATE 10 GM PACKET PO ONE (14:20)
[2023-10-21 16:30] LABS: Glucose,Whole Blood 179 mg/dL (70-110)
[2023-10-21] MEDS ORDERED: DEXTROSE 50% SYRINGE 50 ML IVP PRN ×2 (18:24)
[2023-10-21 19:58] LABS: Erythrocyte Sedimentation Rate 89 mm/Hr (0-20)
[2023-10-21 21:44] LABS: Glucose,Whole Blood 195 mg/dL (70-110)
[2023-10-21] MEDS: CEFEPIME 1 GM in SODIUM CHLORIDE 0.9% 50 ML IVPB SCH (21:45)
[2023-10-21] MEDS: ATORVASTATIN 10 MG TAB PO SCH (21:45)
[2023-10-21] MEDS: INSULIN ASPART (NovoLOG) 100 UNIT/ML VIAL SQ SCH (21:45)
--- NOTE | 2023-10-21 22:12 | P.HPIM ---
History of Present Illness H&P Date: 10/21/23 Chief Complaint: Foot ulcer Patient is a 78-year-old male with a past medical history of hypertension, diabetes type 2 [id number], BPH, chronic venous stasis ulcers bilateral legs and left heel diabetic foot ulcer presents to ER with worsening wound infection. Patient has been having diabetic ulcer for the past 3 years and is on follow-up with wound care nurse who came to her house the other day and concerned that wounds appears to be worsening and advised to go to ER. Otherwise patient denies any complaints of fever or chills. No nausea vomiting abdominal pain or diarrhea. Apparently patient did trip over his college a couple of days ago and fell hitting his head. Patient is currently not on any blood thinners. Denies any chest pain or shortness of breath. No cough or sputum production. X-ray of the foot showed large soft tissue wound along the heel. This appears to be full-thickness to nearly full-thickness wound down to the calcaneal bone. Underlying oblique fracture of the posterior calcaneus. Widening at the fracture margin up to 7 mm and possible superior axis no fracture to the posterior subtalar joint. Unable to exclude pathological fracture secondary to osteomyelitis. Pes planus deformity. Osteopenia. CT head showed no acute intracranial process. Age-related involution. EKG showed sinus rhythm with heart rate 93 Laboratory data showed WBC 11.5 hemoglobin 11.6, platelets 353 ESR 89 CRP 18.6 Sodium 141 potassium 5.7, chloride 111 bicarb is 20 BUN 55 and creatinine 1.45, blood sugar 242, liver enzymes not elevated. Albumin 3.5 Review of Systems Constitutional: Patient denies any fever or chills . No generalized weakness or weight loss. Abdomen: Patient denied nausea vomiting and diarrhea and abdominal pain. Cardiovascular: Patient denies any chest pain or short of breath no palpit ations. Respiratory: patient denied any cough is from production. No shortness of breath Complete review of systems could not be obtained from the patient except above Past Medical History Past Medical History: Diabetes Mellitus, Hypertension, Renal Disease Additional Past Medical History / Comment(s): VENOUS STASIS ; ULCERS BILAT LEGS, PVD, CRISTAL LEG WOUND History of Any Multi-Drug Resistant Organisms: MRSA Date of last positivie culture/infection: 04/14/17 MDRO Source:: Right Leg Past Surgical History: Tonsillectomy Additional Past Surgical History / Comment(s): 07/13/17 CRISTAL AORTOGRAM AND LLE ANGIOGRAM, REATTACHED TENDON LT 5TH FINGER 1995. skin graft bilat legs, Right foot pinky toe amp. 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 Past Drug Use History: None Reported - Past Family History Father Family Medical History: Cancer Additional Family Medical History / Comment(s): PROSTATE CANCER Mother Family Medical History: Hypertension Medications and Allergies Home Medications Medication Instructions Recorded Confirmed Type RX: amLODIPine [Norvasc] 10 mg PO DAILY 11/10/16 10/21/23 History Simvastatin [Zocor] 5 mg PO HS 03/16/18 10/21/23 History Multivitamins, Thera [Multivitamin 1 tab PO DAILY 12/26/21 10/21/23 History (formulary)] Pioglitazone [Actos] 15 mg PO DAILY 12/26/21 10/21/23 History Ferrous Sulfate [Feosol] 325 mg PO DAILY 04/29/23 10/21/23 History Tamsulosin [Flomax] 0.4 mg PO DAILY 10/21/23 10/21/23 History lisinopriL [Zestril] 10 mg PO DAILY 10/21/23 10/21/23 History Allergies Allergy/AdvReac Type Severity Reaction Status Date / Time No Known Allergies Allergy Verified 10/21/23 12:02 Physical Exam Vitals: Vital Signs Temp Pulse Pulse Resp BP BP Pulse Ox 10/21/23 15:03 98.2 F 74 20 149/67 98 10/21/23 14:39 98.4 F 81 16 140/67 97 10/21/23 12:12 98.3 F 85 18 131/67 96 10/21/23 11:14 98.7 F 78 20 146/69 98 Intake and Output 10/21/23 10/21/23 10/21/23 06:59 14:59 22:59 Output Total 400 Balance -400 Output: Urine 400 Other: Weight 108.862 kg 108.862 kg PHYSICAL EXAMINATION: Patient is lying in the bed comfortably, no acute distress, awake alert and oriented.. HEENT: Normocephalic. Neck is supple. Pupils reactive. Nostrils clear. Oral cavity is moist. Neck reveals no JVD, carotid bruits, or thyromegaly. CHEST EXAMINATION: Trachea is central. Symmetrical expansion. Bibasilar diminished sounds otherwise lung nguyen clear to auscultation and percussion. CARDIAC: Normal S1, S2 with no gallops. No murmurs ABDOMEN: Soft. Bowel sounds normal. No organomegaly. No abdominal bruits. Extremities: Patient does have left heel ulcer with purulent base 4 x 5 cm. Chronic venous stasis. Right foot small plantar ulcer and redness over the metatarsal region. Neurologically awake, alert, oriented x 2-3 able to move all extremities. No focal deficits noted Skin: No rash or skin lesions. Psychiatric: Coperative. Nonsuicidal Musculoskeletal: No joint swelling or deformity. Results CBC & Chem 7: 10/21/23 11:47 10/21/23 17:45 Labs: Abnormal Lab Results - Last 24 Hours (Table) 10/21/23 10/21/23 10/21/23 Range/Units 11:47 11:47 16:29 WBC 11.5 H (3.8-10.6) k/uL RBC 3.68 L (4.30-5.90) m/uL Hgb 11.6 L (13.0-17.5) gm/dL Hct 35.0 L (39.0-53.0) % Neutrophils # 9.7 H (1.3-7.7) k/uL Lymphocytes # 0.6 L (1.0-4.8) k/uL Potassium 5.7 H (3.5-5.1) mmol/L Chloride 111 H (98-107) mmol/L Carbon Dioxide 20 L (22-30) mmol/L BUN 55 H (9-20) mg/dL Creatinine 1.45 H (0.66-1.25) mg/dL Glucose 242 H (74-99) mg/dL POC Glucose (mg/dL) 179 H (70-110) mg/dL C-Reactive Protein 18.6 H (<1.0) mg/dL Thrombosis Risk Factor Assmnt - DVT/VTE Prophylaxis DVT/VTE Prophylaxis: Pharmacologic Prophylaxis ordered - Choose All That Apply Any of the Below Risk Factors Present?: Yes Each Factor Represents 1 point: Obesity (BMI >25), Swollen legs (current), Varicose veins Other Risk Factors: Yes Each Risk Factor Represents 3 Points: Age 75 years or older Other congenital or acquired thrombophilia - If yes, enter type in comment: No Thrombosis Risk Factor Assessment Total Risk Factor Score: 6 Thrombosis Risk Factor Assessment Level: High Risk Assessment and Plan Assessment: Left heel diabetic full-thickness ulcer with possible osteomyelitis Chronic diabetic foot ulcer wound on wound care follow-up for the past 3 years Hyperglycemia with uncontrolled diabetes type 2 Mild acute kidney injury likely prerenal Hyperkalemia with slight hemolysis Hypertension Prior history of smoking DVT and GI prophylaxis with heparin subcu and PPI Plan: Patient will be continued on IV hydration with normal saline. Was given a dose of vancomycin and cefepime in the ER. Continue with broad-spectrum antibiotics and wound cultures were sent. ID consult due to underlying osteomyelitis. Continue with insulin sliding scale for better blood sugar control. Pain management. Wound care consult. Continue with home medications and follow-up closely. Time with Patient: Greater than 30
--- NOTE | 2023-10-21 22:32 | P.CONS ---
History of Present Illness - Reason for Consult Consult date: 10/21/23 Osteomyelitis diabetic ulcer Requesting physician: Rosemary Holland - Chief Complaint Worsening left heel wound x weeks - History of Present Illness Patient is a 78-year-old male with a past medical history negative for diabetes mellitus hypertension renal insufficiency with low creatinine clearance and high risk of nephrotoxicity from certain antibiotics patient did have a history of bilateral heel pressure ulcer with history of osteomyelitis for the patient has completed by therapy for the nonhealing wound patient has been following up in the outpatient center with the wound care patient has been eval by the wound care nurse who was concerned that the left heel wound was getting infected as the patient was having some foul-smelling drainage from it and also noticed to have worsening wound for the patient was advised to go to the hospital patient denies high-grade fever or any chills did have some dull aching pain mild to moderate intensity without radiation nonhealing wound with some foul-smelling drainage that is been getting worse for the last few days on presentation to the hospital the patient was afebrile and no fever have been recorded subsequently patient was not tachycardic hypotensive or hypoxic he did have white count of 11.5 BUN/creatinine has been mildly elevated potassium was 5 point 7 repeat is 4.8 liver enzymes are normal local cultures obtained which are currently pending patient did have a x-ray of the foot large soft tissue wound along the heel full-thickness underlying oblique flexion of the posterior calcaneus patient has been admitted to the hospital he was started on vancomycin and cefepime infectious was consulted for further management of antibiotic therapy Review of Systems Positive point and negatives has been mentioned in the HPI, complete review of systems was performed and all other systems are negative Past Medical History Past Medical History: Diabetes Mellitus, Hypertension, Renal Disease Additional Past Medical History / Comment(s): VENOUS STASIS ; ULCERS BILAT LEGS, PVD, CRISTAL LEG WOUND History of Any Multi-Drug Resistant Organisms: MRSA Year Discovered:: 04/14/17 MDRO Source:: Right Leg Past Surgical History: Tonsillectomy Additional Past Surgical History / Comment(s): 07/13/17 CRISTAL AORTOGRAM AND LLE ANGIOGRAM, REATTACHED TENDON LT 5TH FINGER 1995. skin graft bilat legs, Right foot pinky toe amp. 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 Past Drug Use History: None Reported - Past Family History Father Family Medical History: Cancer Additional Family Medical History / Comment(s): PROSTATE CANCER Mother Family Medical History: Hypertension Medications and Allergies Home Medications Medication Instructions Recorded Confirmed Type amLODIPine [Norvasc] 10 mg PO DAILY 11/10/16 10/21/23 History Simvastatin [Zocor] 5 mg PO HS 03/16/18 10/21/23 History Multivitamins, Thera [Multivitamin 1 tab PO DAILY 12/26/21 10/21/23 History (formulary)] Pioglitazone [Actos] 15 mg PO DAILY 12/26/21 10/21/23 History Ferrous Sulfate [Iron (65 MG 325 mg PO DAILY 04/29/23 10/21/23 History Elemental)] Tamsulosin [Flomax] 0.4 mg PO DAILY 10/21/23 10/21/23 History lisinopriL [Zestril] 10 mg PO DAILY 10/21/23 10/21/23 History Acetaminophen Tab [Tylenol] 650 mg PO Q6HR PRN tab 10/27/23 Rx Cefepime [Maxipime] 2 gm IVPB Q8HR #126 each 10/27/23 Rx Collagenase [Santyl Ointment] 1 applic TOPICAL DAILY each 10/27/23 Rx HYDROcodone/APAP 5-325MG [[place] 1 each PO Q6H PRN #4 tab 10/27/23 Rx 5-325] Heparin Sodium,Porcine (1 ml) 5,000 unit SQ Q8HR each 10/27/23 Rx [Heparin Sodium] INSULIN ASPART (NovoLOG) [NovoLOG 0 unit SQ ACHS each 10/27/23 Rx (formulary)] Pantoprazole [Protonix] 40 mg PO DAILY tab 10/27/23 Rx metroNIDAZOLE [Flagyl] 500 mg PO TID #126 tab 10/27/23 Rx Allergies Allergy/AdvReac Type Severity Reaction Status Date / Time No Known Allergies Allergy Verified 10/21/23 12:02 Physical Exam Vitals: Vital Signs Temp Pulse Pulse Resp BP BP Pulse Ox 10/21/23 15:03 98.2 F 74 20 149/67 98 10/21/23 14:39 98.4 F 81 16 140/67 97 04/25/24 12:12 98.3 F 85 18 131/67 96 10/21/23 11:14 98.7 F 78 20 146/69 98 Intake and Output 10/21/23 10/21/23 10/21/23 06:59 14:59 22:59 Other: Weight 108.862 kg 108.862 kg GENERAL DESCRIPTION: Elderly male lying in bed, no distress. No tachypnea or accessory muscle of respiration use. HEENT: Shows Pallor , no scleral icterus. Oral mucous membrane is dry. No pharyngeal erythema or thrush NECK: Trachea central, no thyromegaly. LUNGS: Unlabored breathing. Clear to auscultation anteriorly. No wheeze or crackle. HEART: S1, S2, regular rate and rhythm. No loud murmur ABDOMEN: Soft, no tenderness , guarding or rigidity, no organomegaly EXTREMITIES: Left heel with necrotic wound with surrounding swelling redness and some drainage SKIN: No rash, no masses palpable. NEUROLOGICAL: The patient is awake, alert, oriented x3, mood and affect normal. Results CBC & Chem 7: 10/27/23 05:39 10/27/23 05:39 Labs: Abnormal Lab Results - Last 24 Hours (Table) 10/21/23 10/21/23 10/21/23 Range/Units 11:47 11:47 16:29 WBC 11.5 H (3.8-10.6) k/uL RBC 3.68 L (4.30-5.90) m/uL Hgb 11.6 L (13.0-17.5) gm/dL Hct 35.0 L (39.0-53.0) % Neutrophils # 9.7 H (1.3-7.7) k/uL Lymphocytes # 0.6 L (1.0-4.8) k/uL Potassium 5.7 H (3.5-5.1) mmol/L Chloride 111 H (98-107) mmol/L Carbon Dioxide 20 L (22-30) mmol/L BUN 55 H (9-20) mg/dL Creatinine 1.45 H (0.66-1.25) mg/dL Glucose 242 H (74-99) mg/dL POC Glucose (mg/dL) 179 H (70-110) mg/dL C-Reactive Protein 18.6 H (<1.0) mg/dL Assessment and Plan (1) Diabetic ulcer of left foot Status: Acute Code(s): E11.621 - TYPE 2 DIABETES MELLITUS WITH FOOT ULCER; L97.529 - NON-PRESSURE CHRONIC ULCER OTH PRT LEFT FOOT W UNSP SEVERITY SNOMED Code(s): 995234087 (2) Osteomyelitis of left foot Status: Acute Code(s): M86.9 - OSTEOMYELITIS, UNSPECIFIED SNOMED Code(s): 1933089800324475 (3) Stage IV pressure ulcer of left heel Status: Acute Code(s): L89.624 - PRESSURE ULCER OF LEFT HEEL, STAGE 4 SNOMED Code(s): 37827033044962 Plan: 1patient presented to hospital with worsening wound to the left heel. The patient has for many months to years and noticed to have worsening by the home care nurse with increasing foul-smelling drainage and the patient did have abnormal x-ray likely secondary to underlying osteomyelitis 2-patient would benefit from vascular surgery evaluation for debridement and deep culture 3-patient did have remains urgency risk of nephrotoxicity 4-cefepime and Vanco should provide adequate empiric antibiotic coverage however the Vanco trough and creatinine level monitor closely 5-we will check inflammatory markers We will follow on clinical condition and cultures to further adjust medication if needed Thank you for this consultation we will follow the patient along with you Dictation was produced using [employer] dictation software. please excuse any grammatical, word or spelling errors. Time with Patient: Greater than 30
[2023-10-21] MEDS: HEPARIN SODIUM,PORCINE 5,000 UNIT/ML 1 ML VIAL SQ SCH (23:22)
[2023-10-22] MEDS: VANCOMYCIN 1,750 MG in SODIUM CHLORIDE 0.9% 500 ML 500 ML IVPB SCH (06:00)
[2023-10-22 06:16] LABS: Glucose,Whole Blood 153 mg/dL (70-110)
[2023-10-22] MEDS: lisinopriL 10 MG TAB PO SCH (08:32)
[2023-10-22] MEDS: MULTIVITAMINS, THERA 1 EACH TAB PO SCH (08:32)
[2023-10-22] MEDS: amLODIPine 10 MG TAB PO SCH (08:32)
[2023-10-22] MEDS: PANTOPRAZOLE 40 MG TABLET PO SCH (08:32)
[2023-10-22] MEDS: TAMSULOSIN 0.4 MG CAP.ER.24H PO SCH (08:32)
[2023-10-22] MEDS: PIOGLITAZONE 15 MG TAB PO SCH (08:32)
[2023-10-22] MEDS: FERROUS SULFATE 325 MG TAB PO SCH (08:32)
--- NOTE | 2023-10-22 08:49 | P.GSCN ---
History of Present Illness Consult date: 10/22/23 Reason for Consult: left heel wound/debridement Requesting physician: Anuradha Bentley History of present illness: This is a pleasant 78-year-old male a with a past medical history including hypertension, type 2 diabetes mellitus, BPH, chronic kidney disease, chronic venous stasis ulcers, peripheral arterial disease and chronic left heel diabetic foot ulcer. Patient states he has had a left heel wound for approximately 5 years, states he has been getting wound care. He has a wound care nurse that comes to his house and they were concerned that it was infected as there was increased drainage and foul odor. He states that this just started about a week ago. Denies any fevers or chills. He has seen Dr. Ambriz in the past and he had a aortogram with runoff in 2019 and attempted revascularization of the anterior and posterior tibial artery, however was unable to due to chronic occlusion. In his report at that time it did state that if the wound did not heal he would recommend a below the knee amputation. Patient has not seen vascular surgery since that time. On this admission he had an x-ray of the left foot concerning for large soft tissue wound with concern for osteomyelitis. Infectious disease is seeing patient and has started him on IV antibiotics and requested vascular surgery for surgical debridement. Patient states he has not been able to walk on that left foot due to increased pain. He also has some lower extremity discoloration which he states comes and goes off and on as well as a fall about a month ago he states where he has a left knee wound. He denies any recent fevers, chills or bodyaches. He has been afebrile. Mildly elevated white count with sed rate and CRP elevated. He currently denies any shortness of breath, chest pain, abdominal pain, nausea or vomiting. Review of Systems A 14 point review systems was completed all pertinent positives and negatives as stated in the HPI. Past Medical History Past Medical History: Diabetes Mellitus, Hypertension, Renal Disease Additional Past Medical History / Comment(s): VENOUS STASIS ; ULCERS BILAT LEGS, PVD, CRISTAL LEG WOUND History of Any Multi-Drug Resistant Organisms: MRSA Year Discovered:: 04/14/17 MDRO Source:: Right Leg Past Surgical History: Tonsillectomy Additional Past Surgical History / Comment(s): 07/13/17 CRISTAL AORTOGRAM AND LLE ANGIOGRAM, REATTACHED TENDON LT 5TH FINGER 1995. skin graft bilat legs, Right foot pinky toe amp. 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 Past Drug Use History: None Reported - Past Family History Father Family Medical History: Cancer Additional Family Medical History / Comment(s): PROSTATE CANCER Mother Family Medical History: Hypertension Medications and Allergies Home Medications Medication Instructions Recorded Confirmed Type amLODIPine [Norvasc] 10 mg PO DAILY 11/10/16 10/21/23 History Simvastatin [Zocor] 5 mg PO HS 03/16/18 10/21/23 History Multivitamins, Thera [Multivitamin 1 tab PO DAILY 12/26/21 10/21/23 History (formulary)] Pioglitazone [Actos] 15 mg PO DAILY 12/26/21 10/21/23 History Ferrous Sulfate [Feosol] 325 mg PO DAILY 04/29/23 10/21/23 History Tamsulosin [Flomax] 0.4 mg PO DAILY 10/21/23 10/21/23 History lisinopriL [Zestril] 10 mg PO DAILY 10/21/23 10/21/23 History Allergies Allergy/AdvReac Type Severity Reaction Status Date / Time No Known Allergies Allergy Verified 10/21/23 12:02 Surgical - Exam Vital Signs Temp Pulse Resp BP Pulse Ox 98.7 F 78 20 146/69 98 10/21/23 11:14 10/21/23 11:14 10/21/23 11:14 10/21/23 11:14 10/21/23 11:14 General appearance: The patient is alert, oriented, appears in no acute distress. HET: Head is normocephalic and atraumatic. Pupils are equal and reactive. Neck: Supple. Heart: Regular. Lungs: Equal expansion, normal respiratory effort. Abdomen: Soft, nondistended. Extremities: Palpable bilateral femoral pulses. Bilateral lower extremities with hyperpigmentation, left greater than right. There is a soft bump on patient's nowak which he states he has had since age 19. Left knee with wound with a scab. Left heel with large diabetic pressure wound with eschar, drainage and foul odor. Wound is to the bone. Right great toe with small diabetic ulcer. Nonpalpable DP and PT pulses. Neurological: No focal deficits. Alert and oriented. Results - Labs 10/21/23 11:47 10/21/23 17:45 Abnormal Lab Results - Last 24 Hours (Table) 10/21/23 10/21/23 10/21/23 Range/Units 11:47 11:47 16:29 WBC 11.5 H (3.8-10.6) k/uL RBC 3.68 L (4.30-5.90) m/uL Hgb 11.6 L (13.0-17.5) gm/dL Hct 35.0 L (39.0-53.0) % Neutrophils # 9.7 H (1.3-7.7) k/uL Lymphocytes # 0.6 L (1.0-4.8) k/uL ESR 89 H (0-20) mm/Hr Potassium 5.7 H (3.5-5.1) mmol/L Chloride 111 H (98-107) mmol/L Carbon Dioxide 20 L (22-30) mmol/L BUN 55 H (9-20) mg/dL Creatinine 1.45 H (0.66-1.25) mg/dL Glucose 242 H (74-99) mg/dL POC Glucose (mg/dL) 179 H (70-110) mg/dL C-Reactive Protein 18.6 H (<1.0) mg/dL 10/21/23 10/22/23 Range/Units 21:34 06:13 WBC (3.8-10.6) k/uL RBC (4.30-5.90) m/uL Hgb (13.0-17.5) gm/dL Hct (39.0-53.0) % Neutrophils # (1.3-7.7) k/uL Lymphocytes # (1.0-4.8) k/uL ESR (0-20) mm/Hr Potassium (3.5-5.1) mmol/L Chloride (98-107) mmol/L Carbon Dioxide (22-30) mmol/L BUN (9-20) mg/dL Creatinine (0.66-1.25) mg/dL Glucose (74-99) mg/dL POC Glucose (mg/dL) 195 H 153 H (70-110) mg/dL C-Reactive Protein (<1.0) mg/dL Microbiology - Last 24 Hours (Table) 10/21/23 11:47 Gram Stain - Preliminary Foot - Left Diabetes panel 10/21/23 10/21/23 Range/Units 11:47 17:45 Sodium 141 (137-145) mmol/L Potassium 5.7 H 4.8 (3.5-5.1) mmol/L Chloride 111 H (98-107) mmol/L Carbon Dioxide 20 L (22-30) mmol/L BUN 55 H (9-20) mg/dL Creatinine 1.45 H (0.66-1.25) mg/dL Glucose 242 H (74-99) mg/dL Calcium 9.7 (8.4-10.2) mg/dL AST 32 (17-59) U/L ALT 45 (4-49) U/L Alkaline Phosphatase 103 (38-126) U/L Total Protein 7.5 (6.3-8.2) g/dL Albumin 3.5 (3.5-5.0) g/dL Calcium panel 10/21/23 Range/Units 11:47 Calcium 9.7 (8.4-10.2) mg/dL Albumin 3.5 (3.5-5.0) g/dL Pituitary panel 10/21/23 10/21/23 Range/Units 11:47 17:45 Sodium 141 (137-145) mmol/L Potassium 5.7 H 4.8 (3.5-5.1) mmol/L Chloride 111 H (98-107) mmol/L Carbon Dioxide 20 L (22-30) mmol/L BUN 55 H (9-20) mg/dL Creatinine 1.45 H (0.66-1.25) mg/dL Glucose 242 H (74-99) mg/dL Calcium 9.7 (8.4-10.2) mg/dL Adrenal panel 10/21/23 10/21/23 Range/Units 11:47 17:45 Sodium 141 (137-145) mmol/L Potassium 5.7 H 4.8 (3.5-5.1) mmol/L Chloride 111 H (98-107) mmol/L Carbon Dioxide 20 L (22-30) mmol/L BUN 55 H (9-20) mg/dL Creatinine 1.45 H (0.66-1.25) mg/dL Glucose 242 H (74-99) mg/dL Calcium 9.7 (8.4-10.2) mg/dL Total Bilirubin 0.6 (0.2-1.3) mg/dL AST 32 (17-59) U/L ALT 45 (4-49) U/L Alkaline Phosphatase 103 (38-126) U/L Total Protein 7.5 (6.3-8.2) g/dL Albumin 3.5 (3.5-5.0) g/dL - Imaging Comments: Left foot x-ray 1. Large tissue wound along the heel. This appears to be a full-thickness to nearly full-thickness wound down to the calcaneal bone. There is an underlying oblique fracture of the posterior calcaneus. Widening at the fracture margins up to 7 mm and possible superior extension of fracture to the posterior subtalar joint. Unable to exclude pathologic fracture secondary to osteomyelitis. Compared to any available outside priors. 2. Pes planus deformity. Osteopenia Assessment and Plan Assessment: 1. Infected chronic left heel wound 2. Peripheral arterial disease 3. Diabetes mellitus 4. Chronic kidney disease 5. Hypertension Plan: 1. Continue with antibiotic recommendations from infectious disease 2. Keep patient n.p.o. except for meds 3. Hold heparin 4. Consult to wound care clinic 5. Arterial ultrasound bilateral lower extremities ordered 6. Patient scheduled for left heel excisional debridement. Discussed with patient findings on x-ray and previous recommendation from vascular surgeon Dr. Ambriz that patient may likely need a below the knee amputation. Patient states that he will not undergo any amputation at this time. Discussed with patient that if amputation is recommended and he declines there is risk for bacteremia and sepsis which could ultimately lead to . Patient states he understands and would not like to proceed with any amputation of the left lower extremity if needed at this time. The impression and plan of care has been dictated as directed. Dr. Blankenship I performed a history and examination of this patient, discussed the same with the dictator. I agree with the dictator's note ,documented as a scribe. Any additional findings or plans will be noted.
[2023-10-22] MEDS ORDERED: PANTOPRAZOLE 40 MG/10 ML VIAL IV SCH (09:00)
--- NOTE | 2023-10-22 09:42 | P.CONS ---
History of Present Illness - Reason for Consult Consult date: 10/22/23 wound care - History of Present Illness This is a pleasant 78-year-old male a with a past medical history including hypertension, type 2 diabetes mellitus, BPH, chronic kidney disease, chronic venous stasis ulcers, peripheral arterial disease and chronic left heel diabetic foot ulcer. Patient states he has had a left heel wound for approximately 5 years, states he has been getting wound care. He has a wound care nurse that comes to his house and they were concerned that it was infected as there was increased drainage and foul odor. He states that this just started about a week ago. Denies any fevers or chills. Patient states that he has been following with Dr. Martini at [facility] for wound care. He does not know what dressings are applied to his site. Patient has a left stage III pressure ulcer measuring approximately 5 x 5 x 0.2 with significant amount of eschar slough and nonviable tissue minimal granulation seen within the wound edge. Patient has a stage II pressure ulcer to the right great toe measuring approxione 0.5 x 1.0 x 0.2 cm ulceration shows slough nonviable tissue with minimal granulation. Patient has a right heel stage II pressure ulcer measuring 1 x 1 x 0.2 cm with slough and nonviable tissue present. Review Of Systems: Constitutional: No fever, no chills, no night sweats. No weight change. No weakness, fatigue or lethargy. No daytime sleepiness. Integumentary:reports wounds, no lesions. No rash or pruritus. No unusual bruising. No change in hair or nails. Physical exam: General Appearance: Alert, cooperative, no distress, appears stated age. Skin: See HPI all other Skin color, texture, tugor normal, no rashes or lesions. Neurologic: Alert oriented x3 Assessment: 1. Stage III pressure ulcer left heel 2. Stage II pressure ulcer right great toe 3. Stage II pressure ulcer right heel 4. Diabetic foot ulcer 5. Arthrosclerosis with ulceration to left heel. Plan: 1. Apply Santyl, saline moist gauze, dry gauze, rolled gauze secure with paper tape. Thank you for the consultation any questions please contact the wound care center. Past Medical History Past Medical History: Diabetes Mellitus, Hypertension, Renal Disease Additional Past Medical History / Comment(s): VENOUS STASIS ; ULCERS BILAT LEGS, PVD, CRISTAL LEG WOUND History of Any Multi-Drug Resistant Organisms: MRSA Year Discovered:: 04/14/17 MDRO Source:: Right Leg Past Surgical History: Tonsillectomy Additional Past Surgical History / Comment(s): 07/13/17 CRISTAL AORTOGRAM AND LLE ANGIOGRAM, REATTACHED TENDON LT 5TH FINGER 1995. skin graft bilat legs, Right foot pinky toe amp. 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 Past Drug Use History: None Reported - Past Family History Father Family Medical History: Cancer Additional Family Medical History / Comment(s): PROSTATE CANCER Mother Family Medical History: Hypertension Medications and Allergies Home Medications Medication Instructions Recorded Confirmed Type amLODIPine [Norvasc] 10 mg PO DAILY 11/10/16 10/21/23 History Simvastatin [Zocor] 5 mg PO HS 03/16/18 10/21/23 History Multivitamins, Thera [Multivitamin 1 tab PO DAILY 12/26/21 10/21/23 History (formulary)] Pioglitazone [Actos] 15 mg PO DAILY 12/26/21 10/21/23 History Ferrous Sulfate [Feosol] 325 mg PO DAILY 04/29/23 10/21/23 History Tamsulosin [Flomax] 0.4 mg PO DAILY 10/21/23 10/21/23 History lisinopriL [Zestril] 10 mg PO DAILY 10/21/23 10/21/23 History Allergies Allergy/AdvReac Type Severity Reaction Status Date / Time No Known Allergies Allergy Verified 10/21/23 12:02 Physical Exam Vitals: Vital Signs Temp Pulse Pulse Resp BP BP Pulse Ox 10/22/23 07:34 98.5 F 80 17 151/67 94 L 10/22/23 02:02 98.6 F 55 L 20 162/71 94 L 10/21/23 19:40 98.4 F 74 20 142/64 99 10/21/23 15:03 98.2 F 74 20 149/67 98 10/21/23 14:39 98.4 F 81 16 140/67 97 10/21/23 12:12 98.3 F 85 18 131/67 96 04/25/24 11:14 98.7 F 78 20 146/69 98 Intake and Output 10/21/23 10/22/23 10/22/23 22:59 06:59 14:59 Intake Total 750 Output Total 400 600 Balance -400 150 Intake: Oral 750 Output: Urine 400 600 Other: Voiding Method Urinal # Voids 2 Weight 108.862 kg Results CBC & Chem 7: 10/21/23 11:47 10/21/23 17:45 Labs: Abnormal Lab Results - Last 24 Hours (Table) 10/21/23 10/21/23 10/21/23 Range/Units 11:47 11:47 16:29 WBC 11.5 H (3.8-10.6) k/uL RBC 3.68 L (4.30-5.90) m/uL Hgb 11.6 L (13.0-17.5) gm/dL Hct 35.0 L (39.0-53.0) % Neutrophils # 9.7 H (1.3-7.7) k/uL Lymphocytes # 0.6 L (1.0-4.8) k/uL ESR 89 H (0-20) mm/Hr Potassium 5.7 H (3.5-5.1) mmol/L Chloride 111 H (98-107) mmol/L Carbon Dioxide 20 L (22-30) mmol/L BUN 55 H (9-20) mg/dL Creatinine 1.45 H (0.66-1.25) mg/dL Glucose 242 H (74-99) mg/dL POC Glucose (mg/dL) 179 H (70-110) mg/dL C-Reactive Protein 18.6 H (<1.0) mg/dL 10/21/23 10/22/23 Range/Units 21:34 06:13 WBC (3.8-10.6) k/uL RBC (4.30-5.90) m/uL Hgb (13.0-17.5) gm/dL Hct (39.0-53.0) % Neutrophils # (1.3-7.7) k/uL Lymphocytes # (1.0-4.8) k/uL ESR (0-20) mm/Hr Potassium (3.5-5.1) mmol/L Chloride (98-107) mmol/L Carbon Dioxide (22-30) mmol/L BUN (9-20) mg/dL Creatinine (0.66-1.25) mg/dL Glucose (74-99) mg/dL POC Glucose (mg/dL) 195 H 153 H (70-110) mg/dL C-Reactive Protein (<1.0) mg/dL Microbiology - Last 24 Hours (Table) 10/21/23 11:47 Gram Stain - Preliminary Foot - Left Assessment and Plan (1) Pressure ulcer of left heel, stage 3 Current Visit: Yes Status: Acute Code(s): L89.623 - PRESSURE ULCER OF LEFT HEEL, STAGE 3 SNOMED Code(s): 29585118779678 (2) Pressure ulcer of right heel, stage 2 Current Visit: Yes Status: Acute Code(s): L89.612 - PRESSURE ULCER OF RIGHT HEEL, STAGE 2 SNOMED Code(s): 56069506783410 (3) Pressure ulcer of toe, stage 2 Current Visit: Yes Status: Acute Code(s): L89.892 - PRESSURE ULCER OF OTHER SITE, STAGE 2 SNOMED Code(s): 788702197 (4) Diabetic ulcer of left foot Current Visit: Yes Status: Acute Code(s): E11.621 - TYPE 2 DIABETES MELLITUS WITH FOOT ULCER; L97.529 - NON-PRESSURE CHRONIC ULCER OTH PRT LEFT FOOT W UNSP SEVERITY SNOMED Code(s): 035183849 (5) Atherosclerosis of [place] arteries of left leg with ulceration of other part of foot Current Visit: No Status: Acute Code(s): I70.245 - ATHSCL [place] ARTERIES OF LEFT LEG W ULCERATION OTH PRT FOOT SNOMED Code(s): 5117638594
[2023-10-22 10:20] LABS: HGB 11.1 g/dL (13.0-17.0); MCH 29.6 pg (27.0-32.0); MCHC 30.8 g/dL (32.0-37.0); Mean Platelet Volume 9.9 FL (9.5-12.2); NRBC Per 100 WBC 0 X 10*3/uL (0.00-0.01); Platelet Count 313 X 10*3/uL (140-440); RBC 3.75 X 10*6/uL (4.40-5.60); RDW 13.7 % (11.5-14.5); WBC 11.36 X 10*3/uL (4.50-10.00)
[2023-10-22 10:48] LABS: Basophils # (A) 0.05 X 10*3/uL (0.00-0.10); Basophils % (A) 0.4 %; Eosinophils # (A) 0.15 X 10*3/uL (0.04-0.35); Eosinophils % (A) 1.3 %; Lymphocytes # (A) 0.74 X 10*3/uL (0.90-5.00); Lymphocytes % (A) 6.5 %; Monocytes # (A) 1.54 X 10*3/uL (0.20-1.00); Monocytes % (A) 13.6 %; Neutrophils % (A) 77.5 %; RBC Morphology Normal (Normal)
[2023-10-22 10:58] LABS: BUN/Creat Ratio 27.08 Ratio (12.00-20.00); Blood Urea Nitrogen 35.2 mg/dL (9.0-27.0); Calcium 9.1 mg/dL (8.7-10.3); Carbon Dioxide 21.2 mmol/L (21.6-31.8); Chloride 110 mmol/L (96-109); Glucose 164 mg/dL (70-110); Potassium 4.8 mmol/L (3.5-5.5); Sodium 142 mmol/L (135-145)
[2023-10-22 11:32] LABS: Glucose,Whole Blood 154 mg/dL (70-110)
[2023-10-22] MEDS: IV FLUID CONTINUATION 1,000 ML IV ONE (12:56)
[2023-10-22 13:03] LABS: Glucose,Whole Blood 144 mg/dL (70-110)
--- NOTE | 2023-10-22 13:21 | US ---
EXAMINATION TYPE: US arterial LE multi level DATE OF EXAM: 10/22/2023 12:23 PM CLINICAL INDICATION: Male, 78 years old with history of non helming left heel wound; History of: Smoker: No Hypertension: Yes Diabetic: Yes Hyperlipidemia: No TIA/CVA: No Previous Vascular Surgery: No CAD: No HI: No Vascular Ulcers: Yes Claudication: Yes Gangrene: Yes Doppler Waveforms: Right: Monophasic Left: Monophasic Pulse Volume Recording: Pressure Gradients: Right Brachial Pressure: 151 Left Brachial Pressure: 151 Ankle-Brachial Indices: Right: 1.09 Left: 1.05 (Vessel hardening > 1.4; Normal 0.9 - 1.4, Moderate 0.7 - 0.9, Severe 0.5-0.7) Toe Brachial Indices: Right: 0.33 Left: 0.20 Unable to identify bilateral posterior tibial pulses. IMPRESSION: MARLA could not be confirmed on bilateral posterior tibial pulses. Right and left MARLA normal utilizing dorsalis pedis arteries. Markedly depressed right and left toe brachial indices indicating severe peripheral vascular disease in the feet.
[2023-10-22] MEDS ORDERED: KETAMINE HCL IN 0.9 % NACL 50 MG/5 ML SYRINGE ONE (13:42)
[2023-10-22] MEDS ORDERED: MIDAZOLAM 2 MG/2 ML VIAL ONE (13:42)
[2023-10-22] MEDS ORDERED: fentaNYL (PF) 50 MCG/ML 2 ML AMP ONE (13:42)
[2023-10-22] MEDS ORDERED: GLYCOPYRROLATE 0.2 MG/ML 2 ML VIAL ONE (13:42)
[2023-10-22] MEDS ORDERED: PROPOFOL 10 MG/ML 20 ML VIAL IV ONE (13:42)
--- NOTE | 2023-10-22 14:24 | P.OP ---
Date of Procedure: 10/22/23 Description of Procedure: Preoperative diagnosis: Left heel nonhealing wound, diabetes, infrapopliteal disease, peripheral arterial disease Postoperative diagnosis: Same Procedure: Sharp excisional debridement left heel to bone measuring 11 x 7 x 2.0 cm Surgeon: Rajwinder Blankenship D.O. EBL: 15 cc IV fluids: See records Urine output: Not measured Drains: None Complications: None immediately apparent Condition: Stable to recovery Operative indication and findings: Patient is a 78-year-old male with a nonhea ling left heel wound for the past 5 years he reportedly has been going to wound care. He was found to have worsening odor and appearance of the wound therefore he presented for evaluation is recommended undergo debridement. We did initially discuss the likelihood of needing a below-knee amputation at some point given the extent of the wound and his continued nonhealing. The patient is not willing to undergo this at the time therefore a debridement was performed. Procedure in detail: Patient is brought to the operative suite placed in supine position. The left lower extremities prepped and draped in usual sterile fashion. A preprocedural timeout was performed, all parties were in agreement. Using a scalpel, the areas of eschar were excised. This carried down to the subcutaneous tissue to the bone. At this point it was evident that there was significant and severe bone destruction of the heel. The bone was debrided. The bone itself is very friable and likely osteomyelitic. The edges were smoothed. The subcutaneous tissues were debrided with a curette. Cultures were taken. The area was irrigated. Wet-to-dry dressings were placed with a mild pressure dressing at the heel due to some minimal bone bleeding. Patient was sent to recovery in stable condition having tolerated the procedure well. The patient will require a below-knee amputation given the extent of the wound and his vascular disease with nonability to revascularize. Will continue to have discussions see if this is something he is willing to undergo.
[2023-10-22] MEDS: LACTATED RINGERS 1,000 ML IV ONE (14:32)
[2023-10-22 15:04] LABS: Glucose,Whole Blood 143 mg/dL (70-110)
--- NOTE | 2023-10-22 16:25 | P.CNOR ---
History of Present Illness - [facility] Consult date: 10/22/23 Requesting physician: Rosemary Holland Consult reason: other (Possible left calcaneal fracture secondary to osteomyel itis) History of present illness: Patient is a 78-year-old male who presented to the emergency department due to diabetic ulcer to the left heel. Patient has a past medical history significant for hypertension, diabetes, BPH, chronic venous stasis ulcers of bilateral legs and left heel diabetic foot ulcer. Orthopedics was consulted due to calcaneal fracture secondary to osteomyelitis. Patient was seen at bedside this morning lying in; position with evident ulcers present through bilateral lower extremities from the ankle to the foot. Patient says he has had an ulcer for several years. Patient is somewhat of a poor historian so some of history is difficult to obtain. Patient states he does normally ambulate using a walker or cane. Patient states she does have a wound care nurse who comes to the house every couple days for care of his wounds. According other notes patient did trip and fall hitting his head prior to coming into the emergency department. Patient denies any high-grade fevers or chills. Patient states he is not having a ton of pain to the foot. Patient does have loss of sensation over the heel. Patient denies any previous orthopedic surgeries to the bilateral lower extremities. Patient denies chest pain, fever, nausea, vomiting, change in vision, loss of bowel/bladder control. Past Medical History Past Medical History: Diabetes Mellitus, Hypertension, Renal Disease Additional Past Medical History / Comment(s): VENOUS STASIS ; ULCERS BILAT LEGS, PVD, CRISTAL LEG WOUND History of Any Multi-Drug Resistant Organisms: MRSA Year Discovered:: 04/14/17 MDRO Source:: Right Leg Past Surgical History: Tonsillectomy Additional Past Surgical History / Comment(s): 07/13/17 CRISTAL AORTOGRAM AND LLE ANGIOGRAM, REATTACHED TENDON LT 5TH FINGER 1995. skin graft bilat legs, Right foot pinky toe amp. 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 Past Drug Use History: None Reported - Past Family History Father Family Medical History: Cancer Additional Family Medical History / Comment(s): PROSTATE CANCER Mother Family Medical History: Hypertension Medications and Allergies Home Medications Medication Instructions Recorded Confirmed Type amLODIPine [Norvasc] 10 mg PO DAILY 11/10/16 10/21/23 History Simvastatin [Zocor] 5 mg PO HS 03/16/18 10/21/23 History Multivitamins, Thera [Multivitamin 1 tab PO DAILY 12/26/21 10/21/23 History (formulary)] Pioglitazone [Actos] 15 mg PO DAILY 12/26/21 10/21/23 History Ferrous Sulfate [Feosol] 325 mg PO DAILY 04/29/23 10/21/23 History Tamsulosin [Flomax] 0.4 mg PO DAILY 10/21/23 10/21/23 History lisinopriL [Zestril] 10 mg PO DAILY 10/21/23 10/21/23 History Allergies Allergy/AdvReac Type Severity Reaction Status Date / Time No Known Allergies Allergy Verified 10/21/23 12:02 Physical Examination On inspection patient does present with bilateral scabbing to the anterior knees just distal to the patella's. Negative for any active drainage from these areas. Patient does have multiple areas from the left ankle and the left foot with nonhealing open wounds. The wound over the left heel appears to be black in color with a distinct odor. Right ankle/foot does with wounds as well. Sensation is greatly diminished in the bilateral ankles and feet. Patient is able to wiggle digits in bilateral feet. Range of motion is limited in the knees and hips bilaterally in flexion so extension. 4/5 in all major motor groups in bilateral lower extremities. DP pulses not palpable bilaterally. Cap refill delayed in digits of bilateral feet. Negative Homans bilaterally. Results - Labs Labs: Abnormal Lab Results - Last 24 Hours (Table) 10/21/23 10/21/23 10/21/23 Range/Units 11:47 16:29 21:34 WBC (4.50-10.00) X 10*3/uL RBC (4.40-5.60) X 10*6/uL Hgb (13.0-17.0) g/dL Hct (39.6-50.0) % MCHC (32.0-37.0) g/dL Immature Gran # (0.00-0.04) X 10*3/uL Neutrophils # (1.80-7.70) X 10*3/uL Lymphocytes # (0.90-5.00) X 10*3/uL Monocytes # (0.20-1.00) X 10*3/uL ESR 89 H (0-20) mm/Hr Chloride (96-109) mmol/L Carbon Dioxide (21.6-31.8) mmol/L BUN (9.0-27.0) mg/dL Est GFR (CKD-EPI) (>=60) BUN/Creatinine Ratio (12.00-20.00) Ratio Glucose (70-110) mg/dL POC Glucose (mg/dL) 179 H 195 H (70-110) mg/dL Hemoglobin A1c (<=6.0) % 10/22/23 10/22/23 10/22/23 Range/Units 06:13 07:20 07:20 WBC 11.36 H (4.50-10.00) X 10*3/uL RBC 3.75 L (4.40-5.60) X 10*6/uL Hgb 11.1 L (13.0-17.0) g/dL Hct 36.0 L (39.6-50.0) % MCHC 30.8 L (32.0-37.0) g/dL Immature Gran # 0.08 H (0.00-0.04) X 10*3/uL Neutrophils # 8.80 H (1.80-7.70) X 10*3/uL Lymphocytes # 0.74 L (0.90-5.00) X 10*3/uL Monocytes # 1.54 H (0.20-1.00) X 10*3/uL ESR (0-20) mm/Hr Chloride (96-109) mmol/L Carbon Dioxide (21.6-31.8) mmol/L BUN (9.0-27.0) mg/dL Est GFR (CKD-EPI) (>=60) BUN/Creatinine Ratio (12.00-20.00) Ratio Glucose (70-110) mg/dL POC Glucose (mg/dL) 153 H (70-110) mg/dL Hemoglobin A1c 6.9 H (<=6.0) % 10/22/23 10/22/23 Range/Units 07:20 11:30 WBC (4.50-10.00) X 10*3/uL RBC (4.40-5.60) X 10*6/uL Hgb (13.0-17.0) g/dL Hct (39.6-50.0) % MCHC (32.0-37.0) g/dL Immature Gran # (0.00-0.04) X 10*3/uL Neutrophils # (1.80-7.70) X 10*3/uL Lymphocytes # (0.90-5.00) X 10*3/uL Monocytes # (0.20-1.00) X 10*3/uL ESR (0-20) mm/Hr Chloride 110 H (96-109) mmol/L Carbon Dioxide 21.2 L (21.6-31.8) mmol/L BUN 35.2 H (9.0-27.0) mg/dL Est GFR (CKD-EPI) 57 L (>=60) BUN/Creatinine Ratio 27.08 H (12.00-20.00) Ratio Glucose 164 H (70-110) mg/dL POC Glucose (mg/dL) 154 H (70-110) mg/dL Hemoglobin A1c (<=6.0) % Microbiology - Last 24 Hours (Table) 10/21/23 11:47 Gram Stain - Preliminary Foot - Left Wound Culture - Preliminary Gram Neg Bacilli Gram Neg Bacilli#2 H & H 10/21/23 10/22/23 Range/Units 11:47 07:20 Hgb 11.6 L 11.1 L (13.0-17.5) gm/dL Hct 35.0 L 36.0 L (39.0-53.0) % Result Diagrams: 10/22/23 07:20 10/22/23 07:20 - Diagnostic results Ankle/Foot x-ray: report reviewed, image reviewed (X-ray of the left foot does reveal oblique fracture of the calcaneus with some extension to over the ankle. Evident for soft tissue ulcer extending to the bone) Assessment and Plan Assessment: 1. Left heel nonhealing wound; calcaneal fracture left foot 2. Multiple medical comorbidities Plan: 1. Left heel nonhealing wound; calcaneal fracture left foot - X-ray of the left foot does reveal oblique fracture of the calcaneus with some extension to over the ankle. Evident for soft tissue ulcer extending to the bone. I did review the findings of the imaging and exam with my attending, Dr. Arias. Due to the patient's complex medical state and having a chronic nonhealing wound in the left foot patient is not a good candidate for orthopedic surgical intervention for the calcaneal fracture on the left foot. we do agree with vascular and other specialties that below the knee amputation of the left lower extremity may be a better treatment option due to the high risk for sepsis due to the chronic infection in the left foot and the peripheral vascular disease. We recommend patient to be nonweightbearing to the left lower extremity. We will defer left ankle/left foot wound care to the wound management team. We do recommend patient to follow-up with orthopedic ankle/contact center specialist for calcaneal fracture when patient is medically stabilized we will follow patient as needed during stay in hospital. 2. Appreciate medical management and other specialty recommendations 3. Pain management -[place]; Tylenol 4. DVT prophylaxis -heparin 5. GI prophylaxis -Protonix 6. PT/OT -nonweightbearing left lower extremity. Perform gentle range of motion exercises while resting in bed 7. Encourage incentive spirometer use 8. Appreciate consult Time with Patient: Less than 30
[2023-10-22 16:47] LABS: Glucose,Whole Blood 140 mg/dL (70-110)
--- NOTE | 2023-10-22 16:58 | P.PN ---
Subjective Progress Note Date: 10/22/23 78-year-old male with a past medical history of hypertension, diabetes type 2 [id number], BPH, chronic venous stasis ulcers bilateral legs and left heel diabetic foot ulcer presents to ER with worsening wound infection. Patient has been having diabetic ulcer for the past 3 years and is on follow-up with wound care nurse who came to her house the other day and concerned that wounds appears to be worsening and advised to go to ER. Otherwise patient denies any complaints of fever or chills. No nausea vomiting abdominal pain or diarrhea. Apparently patient did trip over his college a couple of days ago and fell hitting his head. Patient is currently not on any blood thinners. Denies any chest pain or shortness of breath. No cough or sputum production. X-ray of the foot showed large soft tissue wound along the heel. This appears to be full-thickness to nearly full-thickness wound down to the calcaneal bone. Underlying oblique fracture of the posterior calcaneus. Widening at the fracture margin up to 7 mm and possible superior axis no fracture to the posterior subtalar joint. Unable to exclude pathological fracture secondary to osteomyelitis. Pes planus deformity. Osteopenia. CT head showed no acute intracranial process. Age-related involution. EKG showed sinus rhythm with heart rate 93 Laboratory data showed WBC 11.5 hemoglobin 11.6, platelets 353 ESR 89 CRP 18.6 Sodium 141 potassium 5.7, chloride 111 bicarb is 20 BUN 55 and creatinine 1.45, blood sugar 242, liver enzymes not elevated. Albumin 3.5 Objective - Vital Signs Vital signs: Vital Signs Temp 98.5 F 10/22/23 07:34 Pulse 80 10/22/23 07:34 Resp 17 10/22/23 07:34 BP 151/67 10/22/23 07:34 Pulse Ox 94 L 10/22/23 07:34 FiO2 Intake & Output 10/21/23 10/22/23 10/22/23 18:59 06:59 18:59 Intake Total 750 Output Total 400 600 Balance -400 150 Weight 108.862 kg Intake: Oral 750 Output: Urine 400 600 Other: Voiding Method Urinal # Voids 2 - Exam Patient is lying in the bed comfortably, no acute distress, awake alert and oriented.. HEENT: Normocephalic. Neck is supple. Pupils reactive. Nostrils clear. Oral cavi ty is moist. Neck reveals no JVD, carotid bruits, or thyromegaly. CHEST EXAMINATION: Trachea is central. Symmetrical expansion. Bibasilar diminished sounds otherwise lung nguyen clear to auscultation and percussion. CARDIAC: Normal S1, S2 with no gallops. No murmurs ABDOMEN: Soft. Bowel sounds normal. No organomegaly. No abdominal bruits. Extremities: Patient does have left heel ulcer with purulent base 4 x 5 cm. Chronic venous stasis. Right foot small plantar ulcer and redness over the metatarsal region. Neurologically awake, alert, oriented x 2-3 able to move all extremities. No focal deficits noted Skin: No rash or skin lesions. Psychiatric: Coperative. Nonsuicidal Musculoskeletal: No joint swelling or deformity. - Labs CBC & Chem 7: 10/22/23 07:20 10/22/23 07:20 Labs: Abnormal Lab Results - Last 24 Hours (Table) 10/21/23 10/21/23 10/21/23 Range/Units 11:47 11:47 16:29 WBC 11.5 H (3.8-10.6) k/uL RBC 3.68 L (4.30-5.90) m/uL Hgb 11.6 L (13.0-17.5) gm/dL Hct 35.0 L (39.0-53.0) % MCHC (32.0-37.0) g/dL Immature Gran # (0.00-0.04) X 10*3/uL Neutrophils # 9.7 H (1.3-7.7) k/uL Lymphocytes # 0.6 L (1.0-4.8) k/uL Monocytes # (0.20-1.00) X 10*3/uL ESR 89 H (0-20) mm/Hr Potassium 5.7 H (3.5-5.1) mmol/L Chloride 111 H (98-107) mmol/L Carbon Dioxide 20 L (22-30) mmol/L BUN 55 H (9-20) mg/dL Creatinine 1.45 H (0.66-1.25) mg/dL Est GFR (CKD-EPI) (>=60) BUN/Creatinine Ratio (12.00-20.00) Ratio Glucose 242 H (74-99) mg/dL POC Glucose (mg/dL) 179 H (70-110) mg/dL Hemoglobin A1c (<=6.0) % C-Reactive Protein 18.6 H (<1.0) mg/dL 10/21/23 10/22/23 10/22/23 Range/Units 21:34 06:13 07:20 WBC (3.8-10.6) k/uL RBC (4.30-5.90) m/uL Hgb (13.0-17.5) gm/dL Hct (39.0-53.0) % MCHC (32.0-37.0) g/dL Immature Gran # (0.00-0.04) X 10*3/uL Neutrophils # (1.3-7.7) k/uL Lymphocytes # (1.0-4.8) k/uL Monocytes # (0.20-1.00) X 10*3/uL ESR (0-20) mm/Hr Potassium (3.5-5.1) mmol/L Chloride (98-107) mmol/L Carbon Dioxide (22-30) mmol/L BUN (9-20) mg/dL Creatinine (0.66-1.25) mg/dL Est GFR (CKD-EPI) (>=60) BUN/Creatinine Ratio (12.00-20.00) Ratio Glucose (74-99) mg/dL POC Glucose (mg/dL) 195 H 153 H (70-110) mg/dL Hemoglobin A1c 6.9 H (<=6.0) % C-Reactive Protein (<1.0) mg/dL 10/22/23 10/22/23 10/22/23 Range/Units 07:20 07:20 11:30 WBC 11.36 H (3.8-10.6) k/uL RBC 3.75 L (4.30-5.90) m/uL Hgb 11.1 L (13.0-17.5) gm/dL Hct 36.0 L (39.0-53.0) % MCHC 30.8 L (32.0-37.0) g/dL Immature Gran # 0.08 H (0.00-0.04) X 10*3/uL Neutrophils # 8.80 H (1.3-7.7) k/uL Lymphocytes # 0.74 L (1.0-4.8) k/uL Monocytes # 1.54 H (0.20-1.00) X 10*3/uL ESR (0-20) mm/Hr Potassium (3.5-5.1) mmol/L Chloride 110 H (98-107) mmol/L Carbon Dioxide 21.2 L (22-30) mmol/L BUN 35.2 H (9-20) mg/dL Creatinine (0.66-1.25) mg/dL Est GFR (CKD-EPI) 57 L (>=60) BUN/Creatinine Ratio 27.08 H (12.00-20.00) Ratio Glucose 164 H (74-99) mg/dL POC Glucose (mg/dL) 154 H (70-110) mg/dL Hemoglobin A1c (<=6.0) % C-Reactive Protein (<1.0) mg/dL Microbiology - Last 24 Hours (Table) 10/21/23 11:47 Gram Stain - Preliminary Foot - Left Wound Culture - Preliminary Gram Neg Bacilli Gram Neg Bacilli#2 Assessment and Plan Assessment: Left heel diabetic full-thickness ulcer with possible osteomyelitis Chronic diabetic foot ulcer wound on wound care follow-up for the past 3 years Hyperglycemia with uncontrolled diabetes type 2 Mild acute kidney injury likely prerenal Hyperkalemia with slight hemolysis Hypertension Prior history of smoking DVT and GI prophylaxis with heparin subcu and PPI Plan: Patient will be continued on IV hydration with normal saline. Was given a dose of vancomycin and cefepime in the ER. Continue with broad-spectrum antibiotics and wound cultures were sent. ID consult due to underlying osteomyelitis. Continue with insulin sliding scale for better blood sugar control. Pain management. Wound care consult. Continue with home medications and follow-up closely.
[2023-10-22] MEDS: COLLAGENASE 250 UNIT/GM OINTMENT 30 GM TUBE TOPICAL SCH (17:21)
[2023-10-22 19:58] LABS: Glucose,Whole Blood 181 mg/dL (70-110)
[2023-10-23 07:07] LABS: Glucose,Whole Blood 203 mg/dL (70-110)
--- NOTE | 2023-10-23 08:00 | P.PN ---
Subjective Progress Note Date: 10/22/23 Principal diagnosis: Reason for follow-up is left heel stage IV pressure ulcer with osteomyelitis Patient is a 78-year male with multiple comorbidities did have a chronic nonhealing wound to the left heel area for the patient present to the hospital with worsening wound per advice of his home care nurse.Patient is status post sharp excisional debridement left heel to the wound measuring 11 X7X 2.0 cm by vascular surgery completed on 10/22/2023 On today's evaluation that is 10/22/2023, the patient continues to be afebrile, the patient is on room air and breathing comfortably, the Pt denies having any chest pain or cough, the patient denies having any abdominal pain no vomiting or any diarrhea has been reported by the nursing staff, patient denies any worsening pain to the left heel area. Patient white count is 11.36, creatinine is 1.3 sed rate is 89 CRP 18.6 cultures currently pending Objective - Vital Signs Vital signs: Vital Signs Temp 94.7 F L 10/22/23 16:15 Pulse 69 10/22/23 16:15 Resp 16 10/22/23 16:15 BP 138/69 10/22/23 16:15 Pulse Ox 98 10/22/23 16:15 FiO2 Intake & Output 10/22/23 10/22/23 10/23/23 06:59 18:59 06:59 Intake Total 750 1118 Output Total 600 900 Balance 150 218 Weight 108.862 kg Intake: IV 1000 Oral 750 118 Output: Urine 600 900 Other: Voiding Method Urinal Incontinent External Catheter # Voids 2 1 - Exam GENERAL DESCRIPTION: An elderly male lying in bed in no distress RESPIRATORY SYSTEM: Unlabored breathing , decreased breath sounds at bases HEART: S1 S2 regular rate and rhythm , ABDOMEN: Soft , no tenderness EXTREMITIES: Left heel wound is currently dressed in OR dressing - Labs CBC & Chem 7: 10/22/23 07:20 10/22/23 07:20 Labs: Abnormal Lab Results - Last 24 Hours (Table) 10/22/23 10/22/23 10/22/23 Range/Units 06:13 07:20 07:20 WBC 11.36 H (4.50-10.00) X 10*3/uL RBC 3.75 L (4.40-5.60) X 10*6/uL Hgb 11.1 L (13.0-17.0) g/dL Hct 36.0 L (39.6-50.0) % MCHC 30.8 L (32.0-37.0) g/dL Immature Gran # 0.08 H (0.00-0.04) X 10*3/uL Neutrophils # 8.80 H (1.80-7.70) X 10*3/uL Lymphocytes # 0.74 L (0.90-5.00) X 10*3/uL Monocytes # 1.54 H (0.20-1.00) X 10*3/uL Chloride (96-109) mmol/L Carbon Dioxide (21.6-31.8) mmol/L BUN (9.0-27.0) mg/dL Est GFR (CKD-EPI) (>=60) BUN/Creatinine Ratio (12.00-20.00) Ratio Glucose (70-110) mg/dL POC Glucose (mg/dL) 153 H (70-110) mg/dL Hemoglobin A1c 6.9 H (<=6.0) % 10/22/23 10/22/23 10/22/23 Range/Units 07:20 11:30 13:02 WBC (4.50-10.00) X 10*3/uL RBC (4.40-5.60) X 10*6/uL Hgb (13.0-17.0) g/dL Hct (39.6-50.0) % MCHC (32.0-37.0) g/dL Immature Gran # (0.00-0.04) X 10*3/uL Neutrophils # (1.80-7.70) X 10*3/uL Lymphocytes # (0.90-5.00) X 10*3/uL Monocytes # (0.20-1.00) X 10*3/uL Chloride 110 H (96-109) mmol/L Carbon Dioxide 21.2 L (21.6-31.8) mmol/L BUN 35.2 H (9.0-27.0) mg/dL Est GFR (CKD-EPI) 57 L (>=60) BUN/Creatinine Ratio 27.08 H (12.00-20.00) Ratio Glucose 164 H (70-110) mg/dL POC Glucose (mg/dL) 154 H 144 H (70-110) mg/dL Hemoglobin A1c (<=6.0) % 10/22/23 10/22/23 10/22/23 Range/Units 15:04 16:46 19:57 WBC (4.50-10.00) X 10*3/uL RBC (4.40-5.60) X 10*6/uL Hgb (13.0-17.0) g/dL Hct (39.6-50.0) % MCHC (32.0-37.0) g/dL Immature Gran # (0.00-0.04) X 10*3/uL Neutrophils # (1.80-7.70) X 10*3/uL Lymphocytes # (0.90-5.00) X 10*3/uL Monocytes # (0.20-1.00) X 10*3/uL Chloride (96-109) mmol/L Carbon Dioxide (21.6-31.8) mmol/L BUN (9.0-27.0) mg/dL Est GFR (CKD-EPI) (>=60) BUN/Creatinine Ratio (12.00-20.00) Ratio Glucose (70-110) mg/dL POC Glucose (mg/dL) 143 H 140 H 181 H (70-110) mg/dL Hemoglobin A1c (<=6.0) % Microbiology - Last 24 Hours (Table) 10/21/23 13:07 Blood Culture - Preliminary Blood 10/21/23 13:07 Blood Culture - Preliminary Blood 10/21/23 11:47 Gram Stain - Preliminary Foot - Left Wound Culture - Preliminary Gram Neg Bacilli Gram Neg Bacilli#2 Assessment and Plan (1) Stage IV pressure ulcer of left heel Current Visit: Yes Status: Acute Code(s): L89.624 - PRESSURE ULCER OF LEFT HEEL, STAGE 4 SNOMED Code(s): 01968644944948 (2) Osteomyelitis of left foot Current Visit: Yes Status: Acute Code(s): M86.9 - OSTEOMYELITIS, UNSPECIFIED SNOMED Code(s): 5615449856875255 Plan: 1patient presented to hospital with worsening wound to the left heel. The pat ient has for many months to years and noticed to have worsening by the home care nurse with increasing foul-smelling drainage and the patient did have abnormal x-ray likely secondary to underlying osteomyelitis 2-patient is s/p vascular surgery evaluation and debridement along with deep culture which will be followed 3-patient to continue with cefepime and Vanco while waiting for the culture to finalize Dictation was produced using [employer] dictation software. please excuse any grammatical, word or spelling errors. Time with Patient: Less than 30
[2023-10-23 09:22] LABS: BUN/Creat Ratio 22.92 Ratio (12.00-20.00); Blood Urea Nitrogen 29.8 mg/dL (9.0-27.0); Calcium 8.9 mg/dL (8.7-10.3); Carbon Dioxide 22.4 mmol/L (21.6-31.8); Chloride 111 mmol/L (96-109); Glucose 160 mg/dL (70-110); Potassium 4.8 mmol/L (3.5-5.5); Sodium 142 mmol/L (135-145)
[2023-10-23 09:26] LABS: Basophils # (A) 0.06 X 10*3/uL (0.00-0.10); Basophils % (A) 0.5 %; Eosinophils % (A) 2.3 %; HCT 34.4 % (39.6-50.0); HGB 10.7 g/dL (13.0-17.0); Lymphocytes # (A) 1.15 X 10*3/uL (0.90-5.00); Lymphocytes % (A) 8.9 %; MCH 29.2 pg (27.0-32.0); MCHC 31.1 g/dL (32.0-37.0); MCV 93.7 FL (80.0-97.0); Mean Platelet Volume 9.9 FL (9.5-12.2); Monocytes # (A) 1.64 X 10*3/uL (0.20-1.00); Monocytes % (A) 12.7 %; NRBC Per 100 WBC 0 X 10*3/uL (0.00-0.01); Neutrophils # (A) 9.69 X 10*3/uL (1.80-7.70); Neutrophils % (A) 75.1 %; Platelet Count 314 X 10*3/uL (140-440); RBC 3.67 X 10*6/uL (4.40-5.60); RDW 13.7 % (11.5-14.5); WBC 12.91 X 10*3/uL (4.50-10.00)
[2023-10-23] MEDS: VANCOMYCIN 1,750 MG in SODIUM CHLORIDE 0.9% 500 ML 500 ML IVPB SCH (09:58)
[2023-10-23 11:20] LABS: Glucose,Whole Blood 191 mg/dL (70-110)
--- NOTE | 2023-10-23 11:23 | P.PN ---
Subjective Progress Note Date: 10/23/23 Principal diagnosis: Left heel nonhealing wound; calcaneal fracture left foot Patient was seen at bedside this morning and is; position with dressing present over left ankle/heel. Patient says he did have debridement performed yesterday by Dr. Blankenship in the operating room. Patient says he has been nonweightbearing since the surgery yesterday. Patient denies any other orthopedic issues at this time. Patient is able to freely move digits in his left foot as well as flex an d extend the left knee. Objective - Vital Signs Vital signs: Vital Signs Temp 98.1 F 10/23/23 07:28 Pulse 73 10/23/23 07:28 Resp 17 10/23/23 07:28 BP 155/70 10/23/23 07:28 Pulse Ox 96 10/23/23 07:28 FiO2 Intake & Output 10/22/23 10/23/23 10/23/23 18:59 06:59 18:59 Intake Total 1118 480 Output Total 900 600 Balance 218 -120 Weight 108.862 kg Intake: IV 1000 Oral 118 480 Output: Urine 900 600 Other: Voiding Method Incontinent Incontinent External Catheter External Catheter # Voids 1 2 - Exam On inspection patient does present with bilateral scabbing to the anterior knees just distal to the patellas. Negative for any active drainage from these areas. Patient does have multiple areas from the left ankle and the left foot with nonhealing open wounds. . Right ankle/foot does with wounds as well. Sensation is greatly diminished in the bilateral ankles and feet. Patient is able to wiggle digits in bilateral feet. Range of motion is limited in the knees and hips bilaterally in flexion so extension. 4/5 in all major motor groups in bilateral lower extremities. DP pulses not palpable bilaterally. Cap refill delayed in digits of bilateral feet. Negative Homans bilaterally. - Labs CBC & Chem 7: 10/23/23 04:11 10/23/23 04:11 Labs: Abnormal Lab Results - Last 24 Hours (Table) 10/22/23 10/22/23 10/22/23 Range/Units 11:30 13:02 15:04 WBC (4.50-10.00) X 10*3/uL RBC (4.40-5.60) X 10*6/uL Hgb (13.0-17.0) g/dL Hct (39.6-50.0) % MCHC (32.0-37.0) g/dL Immature Gran # (0.00-0.04) X 10*3/uL Neutrophils # (1.80-7.70) X 10*3/uL Monocytes # (0.20-1.00) X 10*3/uL Chloride (96-109) mmol/L BUN (9.0-27.0) mg/dL Est GFR (CKD-EPI) (>=60) BUN/Creatinine Ratio (12.00-20.00) Ratio Glucose (70-110) mg/dL POC Glucose (mg/dL) 154 H 144 H 143 H (70-110) mg/dL 10/22/23 10/22/23 10/23/23 Range/Units 16:46 19:57 04:11 WBC 12.91 H (4.50-10.00) X 10*3/uL RBC 3.67 L (4.40-5.60) X 10*6/uL Hgb 10.7 L (13.0-17.0) g/dL Hct 34.4 L (39.6-50.0) % MCHC 31.1 L (32.0-37.0) g/dL Immature Gran # 0.07 H (0.00-0.04) X 10*3/uL Neutrophils # 9.69 H (1.80-7.70) X 10*3/uL Monocytes # 1.64 H (0.20-1.00) X 10*3/uL Chloride (96-109) mmol/L BUN (9.0-27.0) mg/dL Est GFR (CKD-EPI) (>=60) BUN/Creatinine Ratio (12.00-20.00) Ratio Glucose (70-110) mg/dL POC Glucose (mg/dL) 140 H 181 H (70-110) mg/dL 10/23/23 10/23/23 10/23/23 Range/Units 04:11 07:06 11:18 WBC (4.50-10.00) X 10*3/uL RBC (4.40-5.60) X 10*6/uL Hgb (13.0-17.0) g/dL Hct (39.6-50.0) % MCHC (32.0-37.0) g/dL Immature Gran # (0.00-0.04) X 10*3/uL Neutrophils # (1.80-7.70) X 10*3/uL Monocytes # (0.20-1.00) X 10*3/uL Chloride 111 H (96-109) mmol/L BUN 29.8 H (9.0-27.0) mg/dL Est GFR (CKD-EPI) 57 L (>=60) BUN/Creatinine Ratio 22.92 H (12.00-20.00) Ratio Glucose 160 H (70-110) mg/dL POC Glucose (mg/dL) 203 H 191 H (70-110) mg/dL Microbiology - Last 24 Hours (Table) 10/21/23 13:07 Blood Culture - Preliminary Blood 10/21/23 13:07 Blood Culture - Preliminary Blood 10/21/23 11:47 Gram Stain - Preliminary Foot - Left Wound Culture - Preliminary Gram Neg Bacilli Gram Neg Bacilli#2 Assessment and Plan Assessment: 1. Left heel nonhealing wound; calcaneal fracture left foot 2. Multiple medical comorbidities Plan: 1. Left heel nonhealing wound; calcaneal fracture left foot - X-ray of the left foot does reveal oblique fracture of the calcaneus with some extension to over the ankle. Evident for soft tissue ulcer extending to the bone. I did review the findings of the imaging and exam with my attending, Dr. Arias. Due to the patient's complex medical state and having a chronic nonhealing wound in the left foot patient is not a good candidate for orthopedic surgical intervention for the calcaneal fracture on the left foot. we do agree with vascular and other specialties that below the knee amputation of the left lower extremity may be a better treatment option due to the high risk for sepsis due to the chronic infection in the left foot and the peripheral vascular disease. We recommend patient to be nonweightbearing to the left lower extremity. We will defer left ankle/left foot wound care to the wound management team. We do recommend patient to follow-up with orthopedic ankle/clerical specialist for calcaneal fr acture when patient is medically stabilized. Orthopedics is signing off at this time. Please do not hesitate to contact us for any further questions. 2. Appreciate medical management and other specialty recommendations 3. Pain management -[place]; Tylenol 4. DVT prophylaxis -heparin 5. GI prophylaxis -Protonix 6. PT/OT -nonweightbearing left lower extremity. Perform gentle range of maureen on exercises while resting in bed 7. Encourage incentive spirometer use Time with Patient: Less than 30
--- NOTE | 2023-10-23 14:54 | P.PN ---
Subjective Progress Note Date: 10/23/23 78-year-old male with a past medical history of hypertension, diabetes type 2 [id number], BPH, chronic venous stasis ulcers bilateral legs and left heel diabetic foot ulcer presents to ER with worsening wound infection. Patient has been having diabetic ulcer for the past 3 years and is on follow-up with wound care nurse who came to her house the other day and concerned that wounds appears to be worsening and advised to go to ER. Otherwise patient denies any complaints of fever or chills. No nausea vomiting abdominal pain or diarrhea. Apparently patient did trip over his college a couple of days ago and fell hitting his head. Patient is currently not on any blood thinners. Denies any chest pain or shortness of breath. No cough or sputum production. X-ray of the foot showed large soft tissue wound along the heel. This appears to be full-thickness to nearly full-thickness wound down to the calcaneal bone. Underlying oblique fracture of the posterior calcaneus. Widening at the fracture margin up to 7 mm and possible superior axis no fracture to the posterior subtalar joint. Unable to exclude pathological fracture secondary to osteomyelitis. Pes planus deformity. Osteopenia. CT head showed no acute intracranial process. Age-related involution. EKG showed sinus rhythm with heart rate 93 Laboratory data showed WBC 11.5 hemoglobin 11.6, platelets 353 ESR 89 CRP 18.6 Sodium 141 potassium 5.7, chloride 111 bicarb is 20 BUN 55 and creatinine 1.45, blood sugar 242, liver enzymes not elevated. Albumin 3.5 24-hour interval change 10/23/2023 --patient continues to be afebrile, the patient is on room air and breathing comfortably, the Pt denies having any chest pain or cough, the patient denies having any abdominal pain no vomiting or any diarrhea has been reported by the nursing staff, patient denies any worsening pain to the left heel area. Patient white count is 11.36, creatinine is 1.3 sed rate is 89 CRP 18.6 cultures currently pending patient presented to hospital with worsening wound to the left heel. The patient has for many months to years and noticed to have worsening by the home care nurse with increasing foul-smelling drainage and the patient did have abnormal x-ray likely secondary to underlying osteomyelitis -patient is s/p vascular surgery evaluation and debridement along with deep culture which will be followed -patient to continue with cefepime and Vanco while waiting for the culture to finalize Objective - Vital Signs Vital signs: Vital Signs Temp 98.1 F 10/23/23 07:28 Pulse 73 10/23/23 07:28 Resp 17 10/23/23 07:28 BP 155/70 10/23/23 07:28 Pulse Ox 96 10/23/23 07:28 FiO2 Intake & Output 10/22/23 10/23/23 10/23/23 18:59 06:59 18:59 Intake Total 1118 480 Output Total 900 600 Balance 218 -120 Weight 108.862 kg Intake: IV 1000 Oral 118 480 Output: Urine 900 600 Other: Voiding Method Incontinent Incontinent External Catheter External Catheter # Voids 1 2 - Exam Patient is lying in the bed comfortably, no acute distress, awake alert and oriented.. HEENT: Normocephalic. Neck is supple. Pupils reactive. Nostrils clear. Oral cavity is moist. Neck reveals no JVD, carotid bruits, or thyromegaly. CHEST EXAMINATION: Trachea is central. Symmetrical expansion. Bibasilar diminished sounds otherwise lung nguyen clear to auscultation and percussion. CARDIAC: Normal S1, S2 with no gallops. No murmurs ABDOMEN: Soft. Bowel sounds normal. No organomegaly. No abdominal bruits. Extremities: Patient does have left heel ulcer with purulent base 4 x 5 cm. Chronic venous stasis. Right foot small plantar ulcer and redness over the metatarsal region. Neurologically awake, alert, oriented x 2-3 able to move all extremities. No focal deficits noted Skin: No rash or skin lesions. Psychiatric: Coperative. Nonsuicidal Musculoskeletal: No joint swelling or deformity. - Labs CBC & Chem 7: 10/23/23 04:11 10/23/23 04:11 Labs: Abnormal Lab Results - Last 24 Hours (Table) 10/22/23 10/22/23 10/22/23 Range/Units 07:20 07:20 07:20 WBC 11.36 H (4.50-10.00) X 10*3/uL RBC 3.75 L (4.40-5.60) X 10*6/uL Hgb 11.1 L (13.0-17.0) g/dL Hct 36.0 L (39.6-50.0) % MCHC 30.8 L (32.0-37.0) g/dL Immature Gran # 0.08 H (0.00-0.04) X 10*3/uL Neutrophils # 8.80 H (1.80-7.70) X 10*3/uL Lymphocytes # 0.74 L (0.90-5.00) X 10*3/uL Monocytes # 1.54 H (0.20-1.00) X 10*3/uL Chloride 110 H (96-109) mmol/L Carbon Dioxide 21.2 L (21.6-31.8) mmol/L BUN 35.2 H (9.0-27.0) mg/dL Est GFR (CKD-EPI) 57 L (>=60) BUN/Creatinine Ratio 27.08 H (12.00-20.00) Ratio Glucose 164 H (70-110) mg/dL POC Glucose (mg/dL) (70-110) mg/dL Hemoglobin A1c 6.9 H (<=6.0) % 10/22/23 10/22/23 10/22/23 Range/Units 11:30 13:02 15:04 WBC (4.50-10.00) X 10*3/uL RBC (4.40-5.60) X 10*6/uL Hgb (13.0-17.0) g/dL Hct (39.6-50.0) % MCHC (32.0-37.0) g/dL Immature Gran # (0.00-0.04) X 10*3/uL Neutrophils # (1.80-7.70) X 10*3/uL Lymphocytes # (0.90-5.00) X 10*3/uL Monocytes # (0.20-1.00) X 10*3/uL Chloride (96-109) mmol/L Carbon Dioxide (21.6-31.8) mmol/L BUN (9.0-27.0) mg/dL Est GFR (CKD-EPI) (>=60) BUN/Creatinine Ratio (12.00-20.00) Ratio Glucose (70-110) mg/dL POC Glucose (mg/dL) 154 H 144 H 143 H (70-110) mg/dL Hemoglobin A1c (<=6.0) % 0410/22/23 10/23/23 Range/Units 16:46 19:57 04:11 WBC 12.91 H (4.50-10.00) X 10*3/uL RBC 3.67 L (4.40-5.60) X 10*6/uL Hgb 10.7 L (13.0-17.0) g/dL Hct 34.4 L (39.6-50.0) % MCHC 31.1 L (32.0-37.0) g/dL Immature Gran # 0.07 H (0.00-0.04) X 10*3/uL Neutrophils # 9.69 H (1.80-7.70) X 10*3/uL Lymphocytes # (0.90-5.00) X 10*3/uL Monocytes # 1.64 H (0.20-1.00) X 10*3/uL Chloride (96-109) mmol/L Carbon Dioxide (21.6-31.8) mmol/L BUN (9.0-27.0) mg/dL Est GFR (CKD-EPI) (>=60) BUN/Creatinine Ratio (12.00-20.00) Ratio Glucose (70-110) mg/dL POC Glucose (mg/dL) 140 H 181 H (70-110) mg/dL Hemoglobin A1c (<=6.0) % 10/23/23 10/23/23 Range/Units 04:11 07:06 WBC (4.50-10.00) X 10*3/uL RBC (4.40-5.60) X 10*6/uL Hgb (13.0-17.0) g/dL Hct (39.6-50.0) % MCHC (32.0-37.0) g/dL Immature Gran # (0.00-0.04) X 10*3/uL Neutrophils # (1.80-7.70) X 10*3/uL Lymphocytes # (0.90-5.00) X 10*3/uL Monocytes # (0.20-1.00) X 10*3/uL Chloride 111 H (96-109) mmol/L Carbon Dioxide (21.6-31.8) mmol/L BUN 29.8 H (9.0-27.0) mg/dL Est GFR (CKD-EPI) 57 L (>=60) BUN/Creatinine Ratio 22.92 H (12.00-20.00) Ratio Glucose 160 H (70-110) mg/dL POC Glucose (mg/dL) 203 H (70-110) mg/dL Hemoglobin A1c (<=6.0) % Microbiology - Last 24 Hours (Table) 10/21/23 13:07 Blood Culture - Preliminary Blood 10/21/23 13:07 Blood Culture - Preliminary Blood 10/21/23 11:47 Gram Stain - Preliminary Foot - Left Wound Culture - Preliminary Gram Neg Bacilli Gram Neg Bacilli#2 Assessment and Plan Assessment: Left heel diabetic full-thickness ulcer with possible osteomyelitis Chronic diabetic foot ulcer wound on wound care follow-up for the past 3 years Hyperglycemia with uncontrolled diabetes type 2 Mild acute kidney injury likely prerenal Hyperkalemia with slight hemolysis Hypertension Prior history of smoking DVT and GI prophylaxis with heparin subcu and PPI Plan: Patient will be continued on IV hydration with normal saline. Was given a dose of vancomycin and cefepime in the ER. Continue with broad-spectrum antibiotics and wound cultures were sent. ID consult due to underlying osteomyelitis. Continue with insulin sliding scale for better blood sugar control. Pain management. Wound care consult. Continue with home medications and follow-up closely.
[2023-10-23 16:25] LABS: Glucose,Whole Blood 176 mg/dL (70-110)
[2023-10-23 21:52] LABS: Glucose,Whole Blood 230 mg/dL (70-110)
[2023-10-24 05:51] LABS: Glucose,Whole Blood 146 mg/dL (70-110)
[2023-10-24 06:11] LABS: African American GFR (CKD) 61 (>60 ml/min/1.73 sqM); Anion Gap 8 mmol/L; Blood Urea Nitrogen 32 mg/dL (9-20); Calcium 8.5 mg/dL (8.4-10.2); Carbon Dioxide 20 mmol/L (22-30); Chloride 114 mmol/L (98-107); Glucose 143 mg/dL (74-99); Non-African American GFR(CKD) 53 (>60 ml/min/1.73 sqM); Potassium 4.6 mmol/L (3.5-5.1); Sodium 142 mmol/L (137-145)
[2023-10-24 10:02] LABS: Basophils # (A) 0.06 X 10*3/uL (0.00-0.10); Basophils % (A) 0.5 %; Eosinophils # (A) 0.46 X 10*3/uL (0.04-0.35); Eosinophils % (A) 3.7 %; HCT 34.3 % (39.6-50.0); HGB 10.7 g/dL (13.0-17.0); Lymphocytes % (A) 9.6 %; MCH 29.2 pg (27.0-32.0); MCHC 31.2 g/dL (32.0-37.0); MCV 93.7 FL (80.0-97.0); Mean Platelet Volume 9.7 FL (9.5-12.2); Monocytes # (A) 1.19 X 10*3/uL (0.20-1.00); Monocytes % (A) 9.5 %; NRBC Per 100 WBC 0 X 10*3/uL (0.00-0.01); Neutrophils # (A) 9.46 X 10*3/uL (1.80-7.70); Neutrophils % (A) 75.6 %; Platelet Count 305 X 10*3/uL (140-440); RBC 3.66 X 10*6/uL (4.40-5.60); RDW 13.6 % (11.5-14.5); WBC 12.51 X 10*3/uL (4.50-10.00)
[2023-10-24 11:50] LABS: Glucose,Whole Blood 214 mg/dL (70-110)
--- NOTE | 2023-10-24 15:02 | P.PN ---
Subjective Progress Note Date: 10/24/23 78-year-old male with a past medical history of hypertension, diabetes type 2 [id number], BPH, chronic venous stasis ulcers bilateral legs and left heel diabetic foot ulcer presents to ER with worsening wound infection. Patient has been having diabetic ulcer for the past 3 years and is on follow-up with wound care nurse who came to her house the other day and concerned that wounds appears to be worsening and advised to go to ER. Otherwise patient denies any complaints of fever or chills. No nausea vomiting abdominal pain or diarrhea. Apparently patient did trip over his college a couple of days ago and fell hitting his head. Patient is currently not on any blood thinners. Denies any chest pain or shortness of breath. No cough or sputum production. X-ray of the foot showed large soft tissue wound along the heel. This appears to be full-thickness to nearly full-thickness wound down to the calcaneal bone. Underlying oblique fracture of the posterior calcaneus. Widening at the fracture margin up to 7 mm and possible superior axis no fracture to the posterior subtalar joint. Unable to exclude pathological fracture secondary to osteomyelitis. Pes planus deformity. Osteopenia. CT head showed no acute intracranial process. Age-related involution. EKG showed sinus rhythm with heart rate 93 Laboratory data showed WBC 11.5 hemoglobin 11.6, platelets 353 ESR 89 CRP 18.6 Sodium 141 potassium 5.7, chloride 111 bicarb is 20 BUN 55 and creatinine 1.45, blood sugar 242, liver enzymes not elevated. Albumin 3.5 24-hour interval change 10/23/2023 --patient continues to be afebrile, the patient is on room air and breathing comfortably, the Pt denies having any chest pain or cough, the patient denies having any abdominal pain no vomiting or any diarrhea has been reported by the nursing staff, patient denies any worsening pain to the left heel area. Patient white count is 11.36, creatinine is 1.3 sed rate is 89 CRP 18.6 cultures currently pending patient presented to hospital with worsening wound to the left heel. The patient has for many months to years and noticed to have worsening by the home care nurse with increasing foul-smelling drainage and the patient did have abnormal x-ray likely secondary to underlying osteomyelitis -patient is s/p vascular surgery evaluation and debridement along with deep culture which will be followed -patient to continue with cefepime and Vanco while waiting for the culture to finalize 10/24/2023 Patient is seen and evaluated sitting up in bed; denies any complaints Vital signs are reviewed and are stable Lab review reveals a WBC of 12.5, hemoglobin of 10.7 and platelet count of 305, sodium 142, potassium 4.6, BUNs/creatinine of 32/1.30, blood glucose of 214 -- Left heel nonhealing wound; calcaneal fracture left foot - X-ray of the left foot does reveal oblique fracture of the calcaneus with some extension to over the ankle. Evident for soft tissue ulcer extending to the bone. Patient has been evaluated by orthopedic surgery, due to the patient's complex medical state and having a chronic nonhealing wound in the left foot, patient is not a good candidate for orthopedic surgical intervention for the calcaneal fracture on the left foot. Orthopedic surgery does agree with vascular and other specialties that below the knee amputation of the left lower extremity may be a better treatment option due to the high risk for sepsis due to the chronic infection in the left foot and the peripheral vascular disease. We recommend patient to be nonweightbearing to the left lower extremity. Objective - Vital Signs Vital signs: Vital Signs Temp 97.6 F 10/24/23 07:37 Pulse 94 10/24/23 07:37 Resp 17 10/24/23 07:37 BP 153/73 10/24/23 07:37 Pulse Ox 98 10/24/23 07:37 FiO2 Intake & Output 10/23/23 10/24/23 10/24/23 18:59 06:59 18:59 Intake Total 480 240 Output Total 700 Balance -700 480 240 Intake: Oral 480 240 Output: Urine 700 Other: Voiding Method External Catheter Incontinent External Catheter # Voids 3 # Bowel Movements 1 - Exam Patient is lying in the bed comfortably, no acute distress, awake alert and oriented.. HEENT: Normocephalic. Neck is supple. Pupils reactive. Nostrils clear. Oral cavity is moist. Neck reveals no JVD, carotid bruits, or thyromegaly. CHEST EXAMINATION: Trachea is central. Symmetrical expansion. Bibasilar diminished sounds otherwise lung nguyen clear to auscultation and percussion. CARDIAC: Normal S1, S2 with no gallops. No murmurs ABDOMEN: Soft. Bowel sounds normal. No organomegaly. No abdominal bruits. Extremities: Patient does have left heel ulcer with purulent base 4 x 5 cm. Chronic venous stasis. Right foot small plantar ulcer and redness over the metatarsal region. Neurologically awake, alert, oriented x 2-3 able to move all extremities. No focal deficits noted Skin: No rash or skin lesions. Psychiatric: Coperative. Nonsuicidal Musculoskeletal: No joint swelling or deformity. - Labs CBC & Chem 7: 10/24/23 05:25 10/24/23 05:25 Labs: Abnormal Lab Results - Last 24 Hours (Table) 10/23/23 10/23/23 10/23/23 Range/Units 11:18 16:22 21:49 WBC (4.50-10.00) X 10*3/uL RBC (4.40-5.60) X 10*6/uL Hgb (13.0-17.0) g/dL Hct (39.6-50.0) % MCHC (32.0-37.0) g/dL Immature Gran # (0.00-0.04) X 10*3/uL Neutrophils # (1.80-7.70) X 10*3/uL Monocytes # (0.20-1.00) X 10*3/uL Eosinophils # (0.04-0.35) X 10*3/uL Chloride (98-107) mmol/L Carbon Dioxide (22-30) mmol/L BUN (9-20) mg/dL Creatinine (0.66-1.25) mg/dL Glucose (74-99) mg/dL POC Glucose (mg/dL) 191 H 176 H 230 H (70-110) mg/dL 10/24/23 10/24/23 10/24/23 Range/Units 05:25 05:25 05:50 WBC 12.51 H (4.50-10.00) X 10*3/uL RBC 3.66 L (4.40-5.60) X 10*6/uL Hgb 10.7 L (13.0-17.0) g/dL Hct 34.3 L (39.6-50.0) % MCHC 31.2 L (32.0-37.0) g/dL Immature Gran # 0.14 H (0.00-0.04) X 10*3/uL Neutrophils # 9.46 H (1.80-7.70) X 10*3/uL Monocytes # 1.19 H (0.20-1.00) X 10*3/uL Eosinophils # 0.46 H (0.04-0.35) X 10*3/uL Chloride 114 H (98-107) mmol/L Carbon Dioxide 20 L (22-30) mmol/L BUN 32 H (9-20) mg/dL Creatinine 1.30 H (0.66-1.25) mg/dL Glucose 143 H (74-99) mg/dL POC Glucose (mg/dL) 146 H (70-110) mg/dL Microbiology - Last 24 Hours (Table) 10/21/23 11:47 Gram Stain - Preliminary Foot - Left Wound Culture - Preliminary Morganella morganii Proteus vulgaris 10/22/23 14:08 Gram Stain - Preliminary Foot - Left 10/21/23 13:07 Blood Culture - Preliminary Blood 10/21/23 13:07 Blood Culture - Preliminary Blood Assessment and Plan Assessment: Left heel diabetic full-thickness ulcer with possible osteomyelitis Chronic diabetic foot ulcer wound on wound care follow-up for the past 3 years Hyperglycemia with uncontrolled diabetes type 2 Mild acute kidney injury likely prerenal Hyperkalemia with slight hemolysis Hypertension Prior history of smoking DVT and GI prophylaxis with heparin subcu and PPI Plan: Patient will be continued on IV hydration with normal saline. Was given a dose of vancomycin and cefepime in the ER. Continue with broad-spectrum antibiotics and wound cultures were sent. ID consult due to underlying osteomyelitis. Continue with insulin sliding scale for better blood sugar control. Pain management. Wound care consult. Continue with home medications and follow-up closely.
--- NOTE | 2023-10-24 15:56 | P.PN ---
Subjective Progress Note Date: 10/23/23 Principal diagnosis: Reason for follow-up is left heel stage IV pressure ulcer with osteomyelitis Patient is a 78-year male with multiple comorbidities did have a chronic nonhealing wound to the left heel area for the patient present to the hospital with worsening wound per advice of his home care nurse.Patient is status post sharp excisional debridement left heel to the wound measuring 11 X7X 2.0 cm by vascular surgery completed on 10/22/2023 On today's evaluation that is 10/23/2023, Patient is afebrile patient is currently on room air and denies having any shortness of breath, the patient denies any chest pain or cough, the patient denies any nausea vomiting did not have any abdominal pain and no diarrhea, denies any worsening pain to the left heel wound area Patient white count is slightly up to 12.91, creatinine is 1.3 Objective - Vital Signs Vital signs: Vital Signs Temp 97.7 F 10/23/23 13:50 Pulse 75 10/23/23 13:50 Resp 16 10/23/23 13:50 BP 126/67 10/23/23 13:50 Pulse Ox 98 10/23/23 13:50 FiO2 Intake & Output 10/22/23 10/23/23 10/23/23 18:59 06:59 18:59 Intake Total 1118 480 Output Total 900 600 Balance 218 -120 Weight 108.862 kg Intake: IV 1000 Oral 118 480 Output: Urine 900 600 Other: Voiding Method Incontinent Incontinent External Catheter External Catheter # Voids 1 2 - Exam GENERAL DESCRIPTION: An elderly male lying in bed in no distress RESPIRATORY SYSTEM: Unlabored breathing , decreased breath sounds at bases HEART: S1 S2 regular rate and rhythm , ABDOMEN: Soft , no tenderness EXTREMITIES: Left heel wound is currently dressed in OR dressing - Labs CBC & Chem 7: 10/24/23 05:25 10/24/23 05:25 Labs: Abnormal Lab Results - Last 24 Hours (Table) 10/22/23 10/22/23 10/23/23 Range/Units 16:46 19:57 04:11 WBC 12.91 H (4.50-10.00) X 10*3/uL RBC 3.67 L (4.40-5.60) X 10*6/uL Hgb 10.7 L (13.0-17.0) g/dL Hct 34.4 L (39.6-50.0) % MCHC 31.1 L (32.0-37.0) g/dL Immature Gran # 0.07 H (0.00-0.04) X 10*3/uL Neutrophils # 9.69 H (1.80-7.70) X 10*3/uL Monocytes # 1.64 H (0.20-1.00) X 10*3/uL Chloride (96-109) mmol/L BUN (9.0-27.0) mg/dL Est GFR (CKD-EPI) (>=60) BUN/Creatinine Ratio (12.00-20.00) Ratio Glucose (70-110) mg/dL POC Glucose (mg/dL) 140 H 181 H (70-110) mg/dL 10/23/23 10/23/23 10/23/23 Range/Units 04:11 07:06 11:18 WBC (4.50-10.00) X 10*3/uL RBC (4.40-5.60) X 10*6/uL Hgb (13.0-17.0) g/dL Hct (39.6-50.0) % MCHC (32.0-37.0) g/dL Immature Gran # (0.00-0.04) X 10*3/uL Neutrophils # (1.80-7.70) X 10*3/uL Monocytes # (0.20-1.00) X 10*3/uL Chloride 111 H (96-109) mmol/L BUN 29.8 H (9.0-27.0) mg/dL Est GFR (CKD-EPI) 57 L (>=60) BUN/Creatinine Ratio 22.92 H (12.00-20.00) Ratio Glucose 160 H (70-110) mg/dL POC Glucose (mg/dL) 203 H 191 H (70-110) mg/dL Microbiology - Last 24 Hours (Table) 10/21/23 13:07 Blood Culture - Preliminary Blood 10/21/23 13:07 Blood Culture - Preliminary Blood Assessment and Plan (1) Stage IV pressure ulcer of left heel Current Visit: Yes Status: Acute Code(s): L89.624 - PRESSURE ULCER OF LEFT HEEL, STAGE 4 SNOMED Code(s): 64785049984440 (2) Osteomyelitis of left foot Current Visit: Yes Status: Acute Code(s): M86.9 - OSTEOMYELITIS, UNSPECIFIED SNOMED Code(s): 3790958787649169 Plan: 1patient presented to hospital with worsening wound to the left heel. The patient has for many months to years and noticed to have worsening by the home care nurse with increasing foul-smelling drainage and the patient did have abnormal x-ray likely secondary to underlying osteomyelitis 2-patient is s/p vascular surgery evaluation and debridement along with deep culture which are currently pending 3-patient to continue with cefepime and Vanco while waiting for the culture to finalize to determine his discharge antibiotics Dictation was produced using [employer] dictation software. please excuse any grammatical, word or spelling errors. Time with Patient: Less than 30
--- NOTE | 2023-10-24 15:58 | P.PN ---
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 Patient is a 78-year male with multiple comorbidities did have a chronic nonhealing wound to the left heel area for the patient present to the hospital with worsening wound per advice of his home care nurse.Patient is status post sharp excisional debridement left heel to the wound measuring 11 X7X 2.0 cm by vascular surgery completed on 10/22/2023 On today's evaluation that is 10/24/2023, patient has been afebrile, patient is breathing comfortably and is currently on room air, patient denies having any significant cough no chest pain shortness of breath, patient denies nausea vomiting or diarrhea and no abdominal pain, patient mention his dressing has not been changed denies any worsening pain to the left heel wound Patient white count is on 12.51, creatinine is 1.30, culture growing Morganella and Proteus Objective - Vital Signs Vital signs: Vital Signs Temp 98.0 F 10/24/23 14:00 Pulse 80 10/24/23 14:00 Resp 17 10/24/23 14:00 BP 120/64 10/24/23 14:00 Pulse Ox 95 10/24/23 14:00 FiO2 Intake & Output 10/23/23 10/24/23 10/24/23 18:59 06:59 18:59 Intake Total 480 240 Output Total 700 400 Balance -700 480 -160 Intake: Oral 480 240 Output: Urine 700 400 Other: Voiding Method External Catheter Incontinent External Catheter # Voids 3 # Bowel Movements 1 - Exam GENERAL DESCRIPTION: An elderly male lying in bed in no distress RESPIRATORY SYSTEM: Unlabored breathing , decreased breath sounds at bases HEART: S1 S2 regular rate and rhythm , ABDOMEN: Soft , no tenderness EXTREMITIES: Left heel wound is currently dressed in OR dressing - Labs CBC & Chem 7: 10/24/23 05:25 10/24/23 05:25 Labs: Abnormal Lab Results - Last 24 Hours (Table) 10/23/23 10/23/23 10/24/23 Range/Units 16:22 21:49 05:25 WBC (4.50-10.00) X 10*3/uL RBC (4.40-5.60) X 10*6/uL Hgb (13.0-17.0) g/dL Hct (39.6-50.0) % MCHC (32.0-37.0) g/dL Immature Gran # (0.00-0.04) X 10*3/uL Neutrophils # (1.80-7.70) X 10*3/uL Monocytes # (0.20-1.00) X 10*3/uL Eosinophils # (0.04-0.35) X 10*3/uL Chloride 114 H (98-107) mmol/L Carbon Dioxide 20 L (22-30) mmol/L BUN 32 H (9-20) mg/dL Creatinine 1.30 H (0.66-1.25) mg/dL Glucose 143 H (74-99) mg/dL POC Glucose (mg/dL) 176 H 230 H (70-110) mg/dL 10/24/23 10/24/23 10/24/23 Range/Units 05:25 05:50 11:49 WBC 12.51 H (4.50-10.00) X 10*3/uL RBC 3.66 L (4.40-5.60) X 10*6/uL Hgb 10.7 L (13.0-17.0) g/dL Hct 34.3 L (39.6-50.0) % MCHC 31.2 L (32.0-37.0) g/dL Immature Gran # 0.14 H (0.00-0.04) X 10*3/uL Neutrophils # 9.46 H (1.80-7.70) X 10*3/uL Monocytes # 1.19 H (0.20-1.00) X 10*3/uL Eosinophils # 0.46 H (0.04-0.35) X 10*3/uL Chloride (98-107) mmol/L Carbon Dioxide (22-30) mmol/L BUN (9-20) mg/dL Creatinine (0.66-1.25) mg/dL Glucose (74-99) mg/dL POC Glucose (mg/dL) 146 H 214 H (70-110) mg/dL Microbiology - Last 24 Hours (Table) 10/21/23 11:47 Anaerobic Culture - Final Foot - Left 10/21/23 11:47 Gram Stain - Preliminary Foot - Left Wound Culture - Preliminary Morganella morganii Proteus vulgaris 10/22/23 14:08 Gram Stain - Preliminary Foot - Left 10/21/23 13:07 Blood Culture - Preliminary Blood 10/21/23 13:07 Blood Culture - Preliminary Blood Assessment and Plan (1) Stage IV pressure ulcer of left heel Current Visit: Yes Status: Acute Code(s): L89.624 - PRESSURE ULCER OF LEFT HEEL, STAGE 4 SNOMED Code(s): 56797159997458 (2) Osteomyelitis of left foot Current Visit: Yes Status: Acute Code(s): M86.9 - OSTEOMYELITIS, UNSPECIFIED SNOMED Code(s): 6059836408880006 Plan: 1patient presented to hospital with worsening wound to the left heel. The patient has for many months to years and noticed to have worsening by the home care nurse with increasing foul-smelling drainage and the patient did have abnormal x-ray likely secondary to underlying osteomyelitis 2-patient is s/p vascular surgery evaluation and debridement along with deep culture which are currently pending however initial culture grew Proteus and Morganella 3-patient to continue with cefepime however will discontinue vancomycin patient will need a PICC line for outpatient IV antibiotic therapy which will be ordered Dictation was produced using [employer] dictation software. please excuse any grammatical, word or spelling errors. Time with Patient: Less than 30
[2023-10-24] MEDS: VANCOMYCIN TROUGH DUE 1 EACH MISC MISCELLANE ONE (16:19)
[2023-10-24 16:35] LABS: Glucose,Whole Blood 173 mg/dL (70-110)
[2023-10-24] MEDS: CEFEPIME 2 GM in SODIUM CHLORIDE 0.9% 50 ML IVPB SCH (17:53)
[2023-10-24 21:23] LABS: Glucose,Whole Blood 145 mg/dL (70-110)
[2023-10-24] MEDS: CEFEPIME 2 GM in SODIUM CHLORIDE 0.9% 100 ML IVPB SCH (21:52)
[2023-10-25 06:02] LABS: Glucose,Whole Blood 154 mg/dL (70-110)
[2023-10-25 07:06] LABS: African American GFR (CKD) 58 (>60 ml/min/1.73 sqM); Non-African American GFR(CKD) 50 (>60 ml/min/1.73 sqM)
[2023-10-25 08:37] LABS: Basophils # (A) 0.08 X 10*3/uL (0.00-0.10); Basophils % (A) 0.5 %; Eosinophils # (A) 0.65 X 10*3/uL (0.04-0.35); Eosinophils % (A) 4.3 %; HCT 36.9 % (39.6-50.0); HGB 11.3 g/dL (13.0-17.0); Lymphocytes # (A) 1.32 X 10*3/uL (0.90-5.00); Lymphocytes % (A) 8.8 %; MCH 28.8 pg (27.0-32.0); MCHC 30.6 g/dL (32.0-37.0); MCV 94.1 FL (80.0-97.0); Mean Platelet Volume 9.7 FL (9.5-12.2); Monocytes # (A) 1.23 X 10*3/uL (0.20-1.00); Monocytes % (A) 8.2 %; NRBC Per 100 WBC 0 X 10*3/uL (0.00-0.01); Neutrophils # (A) 11.57 X 10*3/uL (1.80-7.70); Neutrophils % (A) 76.7 %; Platelet Count 338 X 10*3/uL (140-440); RBC 3.92 X 10*6/uL (4.40-5.60); RDW 13.5 % (11.5-14.5); WBC 15.07 X 10*3/uL (4.50-10.00)
--- NOTE | 2023-10-25 11:28 | P.PN ---
Subjective Progress Note Date: 10/25/23 Principal diagnosis: Osteomyelitis, infected left foot wound Patient is seen and examined today as a follow-up. He underwent excisional debridement of the left heel on 10/22/2023. At that time it was determined that he would require below the knee amputation given the extent of the wound and vascular disease. This was discussed with the patient today and he states that he is unsure if he wants to move forward with an amputation. He denies any shortness of breath, chest pain, abdominal pain, fevers or chills. He does have discomfort of the left heel. Dressing is intact. He has been afebrile. He remains on IV antibiotics. Objective - Vital Signs Vital signs: Vital Signs Temp 98.2 F 10/25/23 08:00 Pulse 81 10/25/23 08:00 Resp 17 10/25/23 08:00 BP 151/80 10/25/23 08:00 Pulse Ox 96 10/25/23 08:00 FiO2 Intake & Output 10/24/23 10/25/23 10/25/23 18:59 06:59 18:59 Intake Total 240 900 Output Total 400 1500 Balance -160 -600 Intake: Oral 240 900 Output: Urine 400 1500 Other: Voiding Method Incontinent External Catheter External Catheter - Exam General appearance: The patient is alert, oriented, appears in no acute distress. HET: Head is normocephalic and atraumatic. Pupils are equal and reactive. Neck: Supple. Heart: Regular. Lungs: Equal expansion, normal respiratory effort. Abdomen: Soft, nontender, nondistended. Extremities: Left foot with dressing. Neurological: No focal deficits. - Labs CBC & Chem 7: 10/25/23 04:59 10/25/23 04:59 Labs: Abnormal Lab Results - Last 24 Hours (Table) 10/24/23 10/24/23 10/24/23 Range/Units 05:25 11:49 16:34 WBC 12.51 H (4.50-10.00) X 10*3/uL RBC 3.66 L (4.40-5.60) X 10*6/uL Hgb 10.7 L (13.0-17.0) g/dL Hct 34.3 L (39.6-50.0) % MCHC 31.2 L (32.0-37.0) g/dL Immature Gran # 0.14 H (0.00-0.04) X 10*3/uL Neutrophils # 9.46 H (1.80-7.70) X 10*3/uL Monocytes # 1.19 H (0.20-1.00) X 10*3/uL Eosinophils # 0.46 H (0.04-0.35) X 10*3/uL Creatinine (0.66-1.25) mg/dL POC Glucose (mg/dL) 214 H 173 H (70-110) mg/dL 10/24/23 10/25/23 10/25/23 Range/Units 21:22 04:59 04:59 WBC 15.07 H (4.50-10.00) X 10*3/uL RBC 3.92 L (4.40-5.60) X 10*6/uL Hgb 11.3 L (13.0-17.0) g/dL Hct 36.9 L (39.6-50.0) % MCHC 30.6 L (32.0-37.0) g/dL Immature Gran # 0.22 H (0.00-0.04) X 10*3/uL Neutrophils # 11.57 H (1.80-7.70) X 10*3/uL Monocytes # 1.23 H (0.20-1.00) X 10*3/uL Eosinophils # 0.65 H (0.04-0.35) X 10*3/uL Creatinine 1.36 H (0.66-1.25) mg/dL POC Glucose (mg/dL) 145 H (70-110) mg/dL 10/25/23 Range/Units 06:00 WBC (4.50-10.00) X 10*3/uL RBC (4.40-5.60) X 10*6/uL Hgb (13.0-17.0) g/dL Hct (39.6-50.0) % MCHC (32.0-37.0) g/dL Immature Gran # (0.00-0.04) X 10*3/uL Neutrophils # (1.80-7.70) X 10*3/uL Monocytes # (0.20-1.00) X 10*3/uL Eosinophils # (0.04-0.35) X 10*3/uL Creatinine (0.66-1.25) mg/dL POC Glucose (mg/dL) 154 H (70-110) mg/dL Microbiology - Last 24 Hours (Table) 10/21/23 13:07 Blood Culture - Preliminary Blood 10/21/23 13:07 Blood Culture - Preliminary Blood 10/21/23 11:47 Anaerobic Culture - Final Foot - Left 10/21/23 11:47 Gram Stain - Preliminary Foot - Left Wound Culture - Preliminary Morganella morganii Proteus vulgaris 10/22/23 14:08 Gram Stain - Preliminary Foot - Left Assessment and Plan Assessment: 1. Infected chronic left heel wound 2. Peripheral arterial disease 3. Diabetes mellitus 4. Chronic kidney disease 5. Hypertension Plan: 1. Continue with antibiotic recommendations from infectious disease 2. Continue with daily dressing changes, Santyl, saline to moisten gauze and Kerlix. 3. Offload weight on left heel 4. Consult to wound care clinic 5. Arterial ultrasound bilateral lower extremities ordered and reviewed Discussed with patient findings during surgical debridement and the extent of the wound along with his peripheral arterial disease that the wound would not heal. Recommendation is to move forward with a below the knee amputation. Patient states he is not ready to make that decision at this time. Discharge plans are for subacute rehab. Discussed with patient we recommend amputation being done during this hospital admission however if he is declining at this time we would be happy to see him as an outpatient. If patient does agree to left below the knee amputation he will need cardiology workup and clearance prior to surgery. Thank you for this consultation. The impression and plan of care has been dictated as directed. Dr. Blankenship I performed a history and examination of this patient, discussed the same with the dictator. I agree with the dictator's note ,documented as a scribe. Any additional findings or plans will be noted.
[2023-10-25 11:40] LABS: Glucose,Whole Blood 267 mg/dL (70-110)
--- NOTE | 2023-10-25 12:21 | P.PN ---
Subjective Progress Note Date: 10/25/23 Principal diagnosis: Reason for follow-up is left heel stage IV pressure ulcer with osteomyelitis Patient is a 78-year male with multiple comorbidities did have a chronic nonhealing wound to the left heel area for the patient present to the hospital with worsening wound per advice of his home care nurse.Patient is status post sharp excisional debridement left heel to the wound measuring 11 X7X 2.0 cm by vascular surgery completed on 10/22/2023 On today's evaluation that is 10/25/2023,the patient denies any fever or any chills, patient is breathing comfortably on room air, the patient denies chest pain shortness of breath and no significant cough, patient denies abdominal pain, no nausea vomiting or diarrhea, denies any worsening pain to the left heel area. Patient white count slightly up to 15.07, creatinine is 1.36 Objective - Vital Signs Vital signs: Vital Signs Temp 98.2 F 10/25/23 08:00 Pulse 81 10/25/23 08:00 Resp 17 10/25/23 08:00 BP 151/80 10/25/23 08:00 Pulse Ox 96 10/25/23 08:00 FiO2 Intake & Output 10/24/23 10/25/23 10/25/23 18:59 06:59 18:59 Intake Total 240 900 Output Total 400 1500 Balance -160 -600 Intake: Oral 240 900 Output: Urine 400 1500 Other: Voiding Method Incontinent External Catheter Incontinent External Catheter - Exam GENERAL DESCRIPTION: An elderly male lying in bed in no distress RESPIRATORY SYSTEM: Unlabored breathing , decreased breath sounds at bases HEART: S1 S2 regular rate and rhythm , ABDOMEN: Soft , no tenderness EXTREMITIES: Left heel wound overall did have some slough tissue no foul- smelling drainage - Labs CBC & Chem 7: 10/25/23 04:59 10/25/23 04:59 Labs: Abnormal Lab Results - Last 24 Hours (Table) 10/24/23 10/24/23 10/25/23 Range/Units 16:34 21:22 04:59 WBC (4.50-10.00) X 10*3/uL RBC (4.40-5.60) X 10*6/uL Hgb (13.0-17.0) g/dL Hct (39.6-50.0) % MCHC (32.0-37.0) g/dL Immature Gran # (0.00-0.04) X 10*3/uL Neutrophils # (1.80-7.70) X 10*3/uL Monocytes # (0.20-1.00) X 10*3/uL Eosinophils # (0.04-0.35) X 10*3/uL Creatinine 1.36 H (0.66-1.25) mg/dL POC Glucose (mg/dL) 173 H 145 H (70-110) mg/dL 10/25/23 10/25/23 10/25/23 Range/Units 04:59 06:00 11:39 WBC 15.07 H (4.50-10.00) X 10*3/uL RBC 3.92 L (4.40-5.60) X 10*6/uL Hgb 11.3 L (13.0-17.0) g/dL Hct 36.9 L (39.6-50.0) % MCHC 30.6 L (32.0-37.0) g/dL Immature Gran # 0.22 H (0.00-0.04) X 10*3/uL Neutrophils # 11.57 H (1.80-7.70) X 10*3/uL Monocytes # 1.23 H (0.20-1.00) X 10*3/uL Eosinophils # 0.65 H (0.04-0.35) X 10*3/uL Creatinine (0.66-1.25) mg/dL POC Glucose (mg/dL) 154 H 267 H (70-110) mg/dL Microbiology - Last 24 Hours (Table) 10/21/23 11:47 Gram Stain - Final Foot - Left Wound Culture - Final Proteus vulgaris Morganella morganii Enterobacter cloacae 10/21/23 13:07 Blood Culture - Preliminary Blood 10/21/23 13:07 Blood Culture - Preliminary Blood 10/21/23 11:47 Anaerobic Culture - Final Foot - Left Assessment and Plan (1) Stage IV pressure ulcer of left heel Current Visit: Yes Status: Acute Code(s): L89.624 - PRESSURE ULCER OF LEFT HEEL, STAGE 4 SNOMED Code(s): 44702334927919 (2) Osteomyelitis of left foot Current Visit: Yes Status: Acute Code(s): M86.9 - OSTEOMYELITIS, UNSPECIFIED SNOMED Code(s): 9502484057965278 Plan: 1patient presented to hospital with worsening wound to the left heel. The patient has for many months to years and noticed to have worsening by the home care nurse with increasing foul-smelling drainage and the patient did have abnormal x-ray likely secondary to underlying osteomyelitis 2-patient is s/p vascular surgery evaluation and debridement along with deep culture which are currently pending however initial culture grew Proteus and Morganella 3-patient to continue with cefepime with slight worsening of the white count will add Flagyl for anaerobic coverage while waiting for the anaerobes culture to finalize, the patient will need a PICC line and placement Dictation was produced using [facility] dictation software. please excuse any grammatical, word or spelling errors. Time with Patient: Less than 30
[2023-10-25 16:27] LABS: Glucose,Whole Blood 155 mg/dL (70-110)
[2023-10-25] MEDS: CEFEPIME 2 GM in SODIUM CHLORIDE 0.9% 100 ML IVPB SCH (17:27)
[2023-10-25] MEDS: metroNIDAZOLE 500 MG TAB PO SCH (17:27)
[2023-10-25] MEDS: HYDROcodone/APAP 5-325MG 1 EACH TAB PO PRN (17:35)
[2023-10-25 20:19] LABS: Glucose,Whole Blood 192 mg/dL (70-110)
--- NOTE | 2023-10-26 02:47 | P.PN ---
Subjective Progress Note Date: 10/25/23 78-year-old male with a past medical history of hypertension, diabetes type 2 [id number], BPH, chronic venous stasis ulcers bilateral legs and left heel diabetic foot ulcer presents to ER with worsening wound infection. Patient has been having diabetic ulcer for the past 3 years and is on follow-up with wound care nurse who came to her house the other day and concerned that wounds appears to be worsening and advised to go to ER. Otherwise patient denies any complaints of fever or chills. No nausea vomiting abdominal pain or diarrhea. Apparently patient did trip over his college a couple of days ago and fell hitting his head. Patient is currently not on any blood thinners. Denies any chest pain or shortness of breath. No cough or sputum production. X-ray of the foot showed large soft tissue wound along the heel. This appears to be full-thickness to nearly full-thickness wound down to the calcaneal bone. Underlying oblique fracture of the posterior calcaneus. Widening at the fracture margin up to 7 mm and possible superior axis no fracture to the posterior subtalar joint. Unable to exclude pathological fracture secondary to osteomyelitis. Pes planus deformity. Osteopenia. CT head showed no acute intracranial process. Age-related involution. EKG showed sinus rhythm with heart rate 93 Laboratory data showed WBC 11.5 hemoglobin 11.6, platelets 353 ESR 89 CRP 18.6 Sodium 141 potassium 5.7, chloride 111 bicarb is 20 BUN 55 and creatinine 1.45, blood sugar 242, liver enzymes not elevated. Albumin 3.5 24-hour interval change 10/23/2023 --patient continues to be afebrile, the patient is on room air and breathing comfortably, the Pt denies having any chest pain or cough, the patient denies having any abdominal pain no vomiting or any diarrhea has been reported by the nursing staff, patient denies any worsening pain to the left heel area. Patient white count is 11.36, creatinine is 1.3 sed rate is 89 CRP 18.6 cultures currently pending patient presented to hospital with worsening wound to the left heel. The patient has for many months to years and noticed to have worsening by the home care nurse with increasing foul-smelling drainage and the patient did have abnormal x-ray likely secondary to underlying osteomyelitis -patient is s/p vascular surgery evaluation and debridement along with deep culture which will be followed -patient to continue with cefepime and Vanco while waiting for the culture to finalize 10/24/2023 Patient is seen and evaluated sitting up in bed; denies any complaints Vital signs are reviewed and are stable Lab review reveals a WBC of 12.5, hemoglobin of 10.7 and platelet count of 305, sodium 142, potassium 4.6, BUNs/creatinine of 32/1.30, blood glucose of 214 -- Left heel nonhealing wound; calcaneal fracture left foot - X-ray of the left foot does reveal oblique fracture of the calcaneus with some extension to over the ankle. Evident for soft tissue ulcer extending to the bone. Patient has been evaluated by orthopedic surgery, due to the patient's complex medical state and having a chronic nonhealing wound in the left foot, patient is not a good candidate for orthopedic surgical intervention for the calcaneal fracture on the left foot. Orthopedic surgery does agree with vascular and other specialties that below the knee amputation of the left lower extremity may be a better treatment option due to the high risk for sepsis due to the chronic infection in the left foot and the peripheral vascular disease. We recommend patient to be nonweightbearing to the left lower extremity. 10/25/2023 Patient is seen in follow-up today with multiple medical consultations following. Patient continues on cefepime and Flagyl being added as patient continues with significant white count. Patient is status post debridement and cultures showing copious amounts of Proteus unable to evaluate further. Patient will need a PICC line and will continue on IV antibiotics outpatient. Patient with significant weakness planning on ECF for continued IV antibiotics as well as strength and mobility. Vascular surgery following recommending below the knee amputation on the left although patient is hesitant at this time and will follow-up with outpatient. Continue with local wound care. review of systems: Constitutional: No reports of fatigue, fever, or chills Cardiovascular: No reports of chest pain or palpitations Respiratory: No reports of shortness of breath or cough GI: No reports of nausea, vomiting, or diarrhea : No reports of dysuria or retention Neurovascular: reports of generalized weakness and continued left foot pain All medications have been reviewed Physical exam: Patient is sitting up in the chair, no acute distress, awake alert and oriented x 3, well-developed, elderly appearing, obese.. HEENT: Normocephalic. Neck is supple. Pupils reactive. Nostrils clear. Oral cavity is moist. Neck reveals no JVD, carotid bruits, or thyromegaly. CHEST EXAMINATION: Trachea is central. Symmetrical expansion. Bibasilar diminished sounds otherwise lung nguyen clear to auscultation and percussion. CARDIAC: Normal S1, S2 with no gallops. No murmurs ABDOMEN: Soft. Obese. Bowel sounds normal. No organomegaly. No abdominal bruits. Extremities: Patient does have left heel ulcer with purulent base 4 x 5 cm. Status post debridement with surgical dressings that are dry and intact. Chronic venous stasis. Right foot small plantar ulcer and redness over the metatarsal region. Neurologically awake, alert, oriented x 2-3 able to move all extremities. No focal deficits noted, diffusely weak Skin: No rash or skin lesions. Psychiatric: Cooperative. Non-suicidal Musculoskeletal: No joint swelling or deformity. Assessment: Left heel diabetic full-thickness ulcer with concerns of osteomyelitis, status post debridement. Vascular surgery recommending below the knee amputation on the left although patient is refusing currently and will follow-up outpatient. Chronic diabetic foot ulcer on the right on wound care follow-up for the past 3 years Hyperglycemia with uncontrolled diabetes type 2 Mild acute kidney injury likely prerenal, improving Hyperkalemia with slight hemolysis, improved Stage II pressure ulcer on the left heel, present on admission Stage II pressure ulcer on the right great toe as well as right heel, present on admission Hypertension Prior history of smoking DVT and GI prophylaxis with heparin subcu and PPI Plan: Patient will be continued on IV hydration with normal saline. Patient to continue on cefepime and Flagyl being ordered with infectious disease following. Initial culture showing Proteus and patient is status post incision and drainage. Deep tissue culture showing too much Proteus to evaluate further. Patient will require a PICC line and IV antibiotic therapy outpatient PT/OT therapy evaluating recommending rehab and patient is agreeable. Patient evaluated by wound care and will continue with current wound care instructions and dressing changes Vascular surgery evaluated the patient and is status post incision and drainage with debridement and recommending left BKA although patient is refusing at this time. Continue monitoring Accu-Cheks before meals and at bedtime and will continue current regimen and titrate accordingly Case management following working on discharge planning. Possible discharge in the next 24 to 48 hours The impression and plan of care has been dictated by Mary Larsen, Nurse Practitioner as directed. Dr. Dennise MD I have performed a history and examination and MDM of this patient, discussed the same with the dictator, and agree with the dictator's assessment and plan as written ,documented as a scribe. Based on total visit time, I have performed more than 50% of the visit. Objective - Vital Signs Vital signs: Vital Signs Temp 98.2 F 10/25/23 08:00 Pulse 81 10/25/23 08:00 Resp 17 10/25/23 08:00 BP 151/80 10/25/23 08:00 Pulse Ox 96 10/25/23 08:00 FiO2 Intake & Output 10/24/23 10/25/23 10/25/23 18:59 06:59 18:59 Intake Total 240 900 Output Total 400 1500 Balance -160 -600 Intake: Oral 240 900 Output: Urine 400 1500 Other: Voiding Method Incontinent External Catheter External Catheter - Labs CBC & Chem 7: 10/25/23 04:59 10/25/23 04:59 Labs: Abnormal Lab Results - Last 24 Hours (Table) 10/24/23 10/24/23 10/24/23 Range/Units 05:25 11:49 16:34 WBC 12.51 H (4.50-10.00) X 10*3/uL RBC 3.66 L (4.40-5.60) X 10*6/uL Hgb 10.7 L (13.0-17.0) g/dL Hct 34.3 L (39.6-50.0) % MCHC 31.2 L (32.0-37.0) g/dL Immature Gran # 0.14 H (0.00-0.04) X 10*3/uL Neutrophils # 9.46 H (1.80-7.70) X 10*3/uL Monocytes # 1.19 H (0.20-1.00) X 10*3/uL Eosinophils # 0.46 H (0.04-0.35) X 10*3/uL Creatinine (0.66-1.25) mg/dL POC Glucose (mg/dL) 214 H 173 H (70-110) mg/dL 10/24/23 10/25/23 10/25/23 Range/Units 21:22 04:59 04:59 WBC 15.07 H (4.50-10.00) X 10*3/uL RBC 3.92 L (4.40-5.60) X 10*6/uL Hgb 11.3 L (13.0-17.0) g/dL Hct 36.9 L (39.6-50.0) % MCHC 30.6 L (32.0-37.0) g/dL Immature Gran # 0.22 H (0.00-0.04) X 10*3/uL Neutrophils # 11.57 H (1.80-7.70) X 10*3/uL Monocytes # 1.23 H (0.20-1.00) X 10*3/uL Eosinophils # 0.65 H (0.04-0.35) X 10*3/uL Creatinine 1.36 H (0.66-1.25) mg/dL POC Glucose (mg/dL) 145 H (70-110) mg/dL 10/25/23 Range/Units 06:00 WBC (4.50-10.00) X 10*3/uL RBC (4.40-5.60) X 10*6/uL Hgb (13.0-17.0) g/dL Hct (39.6-50.0) % MCHC (32.0-37.0) g/dL Immature Gran # (0.00-0.04) X 10*3/uL Neutrophils # (1.80-7.70) X 10*3/uL Monocytes # (0.20-1.00) X 10*3/uL Eosinophils # (0.04-0.35) X 10*3/uL Creatinine (0.66-1.25) mg/dL POC Glucose (mg/dL) 154 H (70-110) mg/dL Microbiology - Last 24 Hours (Table) 10/21/23 13:07 Blood Culture - Preliminary Blood 10/21/23 13:07 Blood Culture - Preliminary Blood 10/21/23 11:47 Anaerobic Culture - Final Foot - Left 10/21/23 11:47 Gram Stain - Preliminary Foot - Left Wound Culture - Preliminary Morganella morganii Proteus vulgaris 10/22/23 14:08 Gram Stain - Preliminary Foot - Left
[2023-10-26 06:04] LABS: Glucose,Whole Blood 132 mg/dL (70-110)
[2023-10-26 06:49] LABS: INR 1.1 (<1.2); Prothrombin Time 12.2 sec (10.0-12.5)
[2023-10-26] MEDS ORDERED: LIDOCAINE 1% INJ 10MG/ML (20 ML MDV) ONE (07:23)
[2023-10-26] MEDS: LIDOCAINE 2% (PF) 20 MG/ML 5 ML VIAL SQ ONE (07:33)
--- NOTE | 2023-10-26 07:44 | P.PCN ---
Date of Procedure: 10/26/23 Preoperative Diagnosis: Left heel osteomyelitis need for long-term IV antibiotics Postoperative Diagnosis: Same Procedure(s) Performed: Left upper extremity basilic vein PICC placement under ultrasound and fluoroscopic guidance Anesthesia: local Surgeon: Hilario Ambriz Estimated Blood Loss (ml): 5 Pathology: none sent Condition: stable Disposition: PACU Description of Procedure: After written and informed consent was obtained the patient and all risks, benefits and competitions were described the patient was brought to the Activities Director and laid in a supine position with his left arm outstretched on an armboard. The area of the left arm was prepped and draped in usual sterile fashion. Timeout was performed in normal fashion. Utilizing ultrasound the basilic vein was visualized and shown to be compressible without any visible thrombus. Under ultrasound guidance the basilic vein was then cannulated with a micropuncture needle and wire was placed under direct visualization of fluoroscopy. Introducer sheath was then placed. The catheter was measured and cut to the ap propriate length which was 50 cm. The catheter was then guided through the breakaway sheath and the sheath was removed with good positioning was visualized under fluoroscopy. The catheter was pulled and flushed easily. It was then secured in place in normal fashion. Patient tolerated the procedure well was sent back to his room for recovery.
--- NOTE | 2023-10-26 07:54 | IR ---
EXAMINATION TYPE: IR cvc insert >=5 years DATE OF EXAM: 10/26/2023 COMPARISON: NONE HISTORY: Fluoroscopy time. Fluoroscopy was provided to the referring clinician.
[2023-10-26] MEDS: SODIUM CHLORIDE 0.9% 500 ML 500 ML IV ONE (07:55)
[2023-10-26 08:33] LABS: Basophils # (A) 0.09 X 10*3/uL (0.00-0.10); Basophils % (A) 0.6 %; Eosinophils # (A) 0.65 X 10*3/uL (0.04-0.35); Eosinophils % (A) 4.2 %; HCT 32.9 % (39.6-50.0); HGB 10.4 g/dL (13.0-17.0); Lymphocytes # (A) 1.69 X 10*3/uL (0.90-5.00); Lymphocytes % (A) 10.9 %; MCH 29.5 pg (27.0-32.0); MCHC 31.6 g/dL (32.0-37.0); MCV 93.2 FL (80.0-97.0); Mean Platelet Volume 9.6 FL (9.5-12.2); Monocytes # (A) 1.27 X 10*3/uL (0.20-1.00); Monocytes % (A) 8.2 %; NRBC Per 100 WBC 0 X 10*3/uL (0.00-0.01); Neutrophils # (A) 11.59 X 10*3/uL (1.80-7.70); Neutrophils % (A) 74.6 %; Platelet Count 306 X 10*3/uL (140-440); RBC 3.53 X 10*6/uL (4.40-5.60); RDW 13.6 % (11.5-14.5); WBC 15.52 X 10*3/uL (4.50-10.00)
[2023-10-26 09:03] LABS: BUN/Creat Ratio 20.38 Ratio (12.00-20.00); Blood Urea Nitrogen 26.5 mg/dL (9.0-27.0); Calcium 8.5 mg/dL (8.7-10.3); Carbon Dioxide 20.7 mmol/L (21.6-31.8); Chloride 112 mmol/L (96-109); Glucose 114 mg/dL (70-110); Magnesium 1.9 mg/dL (1.5-2.4); Potassium 4.6 mmol/L (3.5-5.5); Sodium 139 mmol/L (135-145)
[2023-10-26 11:17] LABS: Glucose,Whole Blood 197 mg/dL (70-110)
--- NOTE | 2023-10-26 15:05 | P.PN ---
Subjective Progress Note Date: 10/26/23 Principal diagnosis: Osteomyelitis, infected left foot wound Patient was seen and examined today as a follow-up. He got a PICC line placed. He has been afebrile. He has decided that he does not want to proceed with any amputation. Objective - Vital Signs Vital signs: Vital Signs Temp 98.3 F 10/26/23 07:11 Pulse 74 10/26/23 07:11 Resp 18 10/26/23 07:11 BP 126/55 10/26/23 07:11 Pulse Ox 95 10/26/23 07:11 FiO2 Intake & Output 10/25/23 10/26/23 10/26/23 18:59 06:59 18:59 Intake Total 50 Output Total 800 600 Balance -800 -600 50 Intake: IV 50 Output: Urine 800 600 Other: Voiding Method Incontinent Incontinent External Catheter # Bowel Movements 1 - Exam General appearance: The patient is alert, oriented, appears in no acute distress. HET: Head is normocephalic and atraumatic. Pupils are equal and reactive. Neck: Supple. Heart: Regular. Lungs: Equal expansion, normal respiratory effort. Abdomen: Soft, nontender, nondistended. Extremities: Left foot with dressing. Neurological: No focal deficits. - Labs CBC & Chem 7: 10/26/23 05:03 10/26/23 05:03 Labs: Abnormal Lab Results - Last 24 Hours (Table) 10/25/23 10/25/23 10/25/23 Range/Units 11:39 16:25 20:18 WBC (4.50-10.00) X 10*3/uL RBC (4.40-5.60) X 10*6/uL Hgb (13.0-17.0) g/dL Hct (39.6-50.0) % MCHC (32.0-37.0) g/dL Immature Gran # (0.00-0.04) X 10*3/uL Neutrophils # (1.80-7.70) X 10*3/uL Monocytes # (0.20-1.00) X 10*3/uL Eosinophils # (0.04-0.35) X 10*3/uL Chloride (96-109) mmol/L Carbon Dioxide (21.6-31.8) mmol/L Est GFR (CKD-EPI) (>=60) BUN/Creatinine Ratio (12.00-20.00) Ratio Glucose (70-110) mg/dL POC Glucose (mg/dL) 267 H 155 H 192 H (70-110) mg/dL Calcium (8.7-10.3) mg/dL 10/26/23 10/26/23 10/26/23 Range/Units 05:03 05:03 06:02 WBC 15.52 H (4.50-10.00) X 10*3/uL RBC 3.53 L (4.40-5.60) X 10*6/uL Hgb 10.4 L (13.0-17.0) g/dL Hct 32.9 L (39.6-50.0) % MCHC 31.6 L (32.0-37.0) g/dL Immature Gran # 0.23 H (0.00-0.04) X 10*3/uL Neutrophils # 11.59 H (1.80-7.70) X 10*3/uL Monocytes # 1.27 H (0.20-1.00) X 10*3/uL Eosinophils # 0.65 H (0.04-0.35) X 10*3/uL Chloride 112 H (96-109) mmol/L Carbon Dioxide 20.7 L (21.6-31.8) mmol/L Est GFR (CKD-EPI) 57 L (>=60) BUN/Creatinine Ratio 20.38 H (12.00-20.00) Ratio Glucose 114 H (70-110) mg/dL POC Glucose (mg/dL) 132 H (70-110) mg/dL Calcium 8.5 L (8.7-10.3) mg/dL Microbiology - Last 24 Hours (Table) 10/22/23 14:08 Anaerobic Culture - Final Heel - Left 10/22/23 14:08 Gram Stain - Final Foot - Left Wound Culture - Final 10/21/23 11:47 Gram Stain - Final Foot - Left Wound Culture - Final Proteus vulgaris Morganella morganii Enterobacter cloacae Assessment and Plan Assessment: 1. Infected chronic left heel wound 2. Peripheral arterial disease 3. Diabetes mellitus 4. Chronic kidney disease 5. Hypertension Plan: 1. Continue with antibiotic recommendations from infectious disease 2. Continue with daily dressing changes, Santyl, saline to moisten gauze and Kerlix. 3. Offload weight on left heel 4. Consult to wound care clinic 5. Arterial ultrasound bilateral lower extremities ordered and reviewed Discussed again with patient findings during surgical debridement and the extent of the wound along with his peripheral arterial disease that the wound would not heal. Recommendation is to move forward with a below the knee amputation. Recommendation is for left below the knee amputation during this hospitalizatio, however Patient continues to refuse any amputation. Discussed with patient risk for infection and wound to spread that may cause sepsis and could include . Patient verbalizes understanding and continues to refuse amputation at this time. Thank you for this consultation, we will sign off at this time. The impression and plan of care has been dictated as directed. Dr. Ambriz I performed a history and examination of this patient, discussed the same with the dictator. I agree with the dictator's note ,documented as a scribe. Any additional findings or plans will be noted.
[2023-10-26 16:16] LABS: Glucose,Whole Blood 164 mg/dL (70-110)
[2023-10-26] MEDS: CEFEPIME 2 GM in SODIUM CHLORIDE 0.9% 100 ML IVPB SCH (17:27)
[2023-10-26 20:30] LABS: Glucose,Whole Blood 136 mg/dL (70-110)
--- NOTE | 2023-10-27 04:55 | P.PN ---
Subjective Progress Note Date: 10/26/23 78-year-old male with a past medical history of hypertension, diabetes type 2 [id number], BPH, chronic venous stasis ulcers bilateral legs and left heel diabetic foot ulcer presents to ER with worsening wound infection. Patient has been having diabetic ulcer for the past 3 years and is on follow-up with wound care nurse who came to her house the other day and concerned that wounds appears to be worsening and advised to go to ER. Otherwise patient denies any complaints of fever or chills. No nausea vomiting abdominal pain or diarrhea. Apparently patient did trip over his college a couple of days ago and fell hitting his head. Patient is currently not on any blood thinners. Denies any chest pain or shortness of breath. No cough or sputum production. X-ray of the foot showed large soft tissue wound along the heel. This appears to be full-thickness to nearly full-thickness wound down to the calcaneal bone. Underlying oblique fracture of the posterior calcaneus. Widening at the fracture margin up to 7 mm and possible superior axis no fracture to the posterior subtalar joint. Unable to exclude pathological fracture secondary to osteomyelitis. Pes planus deformity. Osteopenia. CT head showed no acute intracranial process. Age-related involution. EKG showed sinus rhythm with heart rate 93 Laboratory data showed WBC 11.5 hemoglobin 11.6, platelets 353 ESR 89 CRP 18.6 Sodium 141 potassium 5.7, chloride 111 bicarb is 20 BUN 55 and creatinine 1.45, blood sugar 242, liver enzymes not elevated. Albumin 3.5 24-hour interval change 10/23/2023 --patient continues to be afebrile, the patient is on room air and breathing comfortably, the Pt denies having any chest pain or cough, the patient denies having any abdominal pain no vomiting or any diarrhea has been reported by the nursing staff, patient denies any worsening pain to the left heel area. Patient white count is 11.36, creatinine is 1.3 sed rate is 89 CRP 18.6 cultures currently pending patient presented to hospital with worsening wound to the left heel. The patient has for many months to years and noticed to have worsening by the home care nurse with increasing foul-smelling drainage and the patient did have abnormal x-ray likely secondary to underlying osteomyelitis -patient is s/p vascular surgery evaluation and debridement along with deep culture which will be followed -patient to continue with cefepime and Vanco while waiting for the culture to finalize 10/24/2023 Patient is seen and evaluated sitting up in bed; denies any complaints Vital signs are reviewed and are stable Lab review reveals a WBC of 12.5, hemoglobin of 10.7 and platelet count of 305, sodium 142, potassium 4.6, BUNs/creatinine of 32/1.30, blood glucose of 214 -- Left heel nonhealing wound; calcaneal fracture left foot - X-ray of the left foot does reveal oblique fracture of the calcaneus with some extension to over the ankle. Evident for soft tissue ulcer extending to the bone. Patient has been evaluated by orthopedic surgery, due to the patient's complex medical state and having a chronic nonhealing wound in the left foot, patient is not a good candidate for orthopedic surgical intervention for the calcaneal fracture on the left foot. Orthopedic surgery does agree with vascular and other specialties that below the knee amputation of the left lower extremity may be a better treatment option due to the high risk for sepsis due to the chronic infection in the left foot and the peripheral vascular disease. We recommend patient to be nonweightbearing to the left lower extremity. 10/25/2023 Patient is seen in follow-up today with multiple medical consultations following. Patient continues on cefepime and Flagyl being added as patient continues with significant white count. Patient is status post debridement and cultures showing copious amounts of Proteus unable to evaluate further. Patient will need a PICC line and will continue on IV antibiotics outpatient. Patient with significant weakness planning on ECF for continued IV antibiotics as well as strength and mobility. Vascular surgery following recommending below the knee amputation on the left although patient is hesitant at this time and will follow-up with outpatient. Continue with local wound care. 10/26/2023 Patient is seen and evaluated in follow-up this morning with no acute overnight issues noted. Patient reports continued discomfort in the left foot and dressings are currently dry and intact. Plan is for patient to go to [facility] and has received insurance authorization. Patient has a PICC line. White count is elevated and will repeat labs in the am and discuss with ID about discharge planning. Patient is afebrile and denies chest pain or shortness of breath. review of systems: Constitutional: No reports of fatigue, fever, or chills Cardiovascular: No reports of chest pain or palpitations Respiratory: No reports of shortness of breath or cough GI: No reports of nausea, vomiting, or diarrhea : No reports of dysuria or retention Neurovascular: reports of generalized weakness and continued left foot pain All medications have been reviewed Physical exam: Patient is sitting up in the bed, no acute distress, awake alert and oriented x 3, well-developed, elderly appearing, obese.. HEENT: Normocephalic. Neck is supple. Pupils reactive. Nostrils clear. Oral cavity is moist. Neck reveals no JVD, carotid bruits, or thyromegaly. CHEST EXAMINATION: Trachea is central. Symmetrical expansion. Bibasilar diminished sounds otherwise lung nguyen clear to auscultation and percussion. CARDIAC: Normal S1, S2 with no gallops. No murmurs ABDOMEN: Soft. Obese. Bowel sounds normal. No organomegaly. No abdominal bruits. Extremities: Patient does have left heel ulcer 4 x 5 cm. Status post debridement with surgical dressings that are dry and intact. Chronic venous stasis. Right foot small plantar ulcer and redness over the metatarsal region. Neurologically awake, alert, oriented x 2-3 able to move all extremities. No focal deficits noted, diffusely weak Skin: No rash or skin lesions. Psychiatric: Cooperative. Non-suicidal Musculoskeletal: No joint swelling or deformity. Assessment: Left heel diabetic full-thickness ulcer with concerns of osteomyelitis, status post debridement. Vascular surgery recommending below the knee amputation on the left although patient is refusing currently and will follow-up outpatient. Chronic diabetic foot ulcer on the right on wound care follow-up for the past 3 years Hyperglycemia with uncontrolled diabetes type 2 Mild acute kidney injury likely prerenal, improving Hyperkalemia with slight hemolysis, improved Stage II pressure ulcer on the left heel, present on admission Stage II pressure ulcer on the right great toe as well as right heel, present on admission Hypertension Prior history of smoking DVT and GI prophylaxis with heparin subcu and PPI Plan: Patient will be continued on IV hydration with normal saline. Patient to continue on cefepime and Flagyl being added with infectious disease following. Initial culture showing Proteus and patient is status post incision and drainag e. Deep tissue culture showing too much Proteus to evaluate further. Patient has a PICC line and IV antibiotic therapy outpatient. White count remains elevated. Will follow up on repeat am labs and will discuss further with ID about discharge planning PT/OT therapy evaluating recommending rehab and patient is agreeable. Plan is to go to [facility] and patient has received insurance authorization. Patient evaluated by wound care and will continue with current wound care instructions and dressing changes Vascular surgery evaluated the patient and is status post incision and drainage with debridement and recommending left BKA although patient is refusing at this time. Continue monitoring Accu-Cheks before meals and at bedtime and will continue current regimen and titrate accordingly Case management following working on discharge planning. Possible discharge in the next 24 to 48 hours The impression and plan of care has been dictated by Mary Larsen, Nurse Practitioner as directed. Dr. Dennise MD I have performed a history and examination and MDM of this patient, discussed the same with the dictator, and agree with the dictator's assessment and plan as written ,documented as a scribe. Based on total visit time, I have performed more than 50% of the visit. Objective - Vital Signs Vital signs: Vital Signs Temp 98.2 F 10/27/23 00:57 Pulse 75 10/27/23 00:57 Resp 16 10/27/23 00:57 BP 120/67 10/27/23 00:57 Pulse Ox 95 10/27/23 00:57 FiO2 Intake & Output 10/26/23 10/26/23 10/27/23 06:59 18:59 06:59 Intake Total 50 Output Total 600 700 Balance -600 -650 Intake: IV 50 Output: Urine 600 700 Other: Voiding Method Incontinent Incontinent Incontinent External Catheter External Catheter # Bowel Movements 1 1 - Labs CBC & Chem 7: 10/26/23 05:03 10/26/23 05:03 Labs: Abnormal Lab Results - Last 24 Hours (Table) 10/26/23 10/26/23 10/26/23 Range/Units 05:03 05:03 06:02 WBC 15.52 H (4.50-10.00) X 10*3/uL RBC 3.53 L (4.40-5.60) X 10*6/uL Hgb 10.4 L (13.0-17.0) g/dL Hct 32.9 L (39.6-50.0) % MCHC 31.6 L (32.0-37.0) g/dL Immature Gran # 0.23 H (0.00-0.04) X 10*3/uL Neutrophils # 11.59 H (1.80-7.70) X 10*3/uL Monocytes # 1.27 H (0.20-1.00) X 10*3/uL Eosinophils # 0.65 H (0.04-0.35) X 10*3/uL Chloride 112 H (96-109) mmol/L Carbon Dioxide 20.7 L (21.6-31.8) mmol/L Est GFR (CKD-EPI) 57 L (>=60) BUN/Creatinine Ratio 20.38 H (12.00-20.00) Ratio Glucose 114 H (70-110) mg/dL POC Glucose (mg/dL) 132 H (70-110) mg/dL Calcium 8.5 L (8.7-10.3) mg/dL 10/26/23 10/26/23 10/26/23 Range/Units 11:16 16:15 20:29 WBC (4.50-10.00) X 10*3/uL RBC (4.40-5.60) X 10*6/uL Hgb (13.0-17.0) g/dL Hct (39.6-50.0) % MCHC (32.0-37.0) g/dL Immature Gran # (0.00-0.04) X 10*3/uL Neutrophils # (1.80-7.70) X 10*3/uL Monocytes # (0.20-1.00) X 10*3/uL Eosinophils # (0.04-0.35) X 10*3/uL Chloride (96-109) mmol/L Carbon Dioxide (21.6-31.8) mmol/L Est GFR (CKD-EPI) (>=60) BUN/Creatinine Ratio (12.00-20.00) Ratio Glucose (70-110) mg/dL POC Glucose (mg/dL) 197 H 164 H 136 H (70-110) mg/dL Calcium (8.7-10.3) mg/dL Microbiology - Last 24 Hours (Table) 10/21/23 13:07 Blood Culture - Final Blood 10/21/23 13:07 Blood Culture - Final Blood
[2023-10-27 06:26] LABS: Glucose,Whole Blood 133 mg/dL (70-110)
[2023-10-27 08:55] LABS: Basophils % (A) 0.6 %; Eosinophils % (A) 3.8 %; HCT 33.1 % (39.6-50.0); HGB 10.4 g/dL (13.0-17.0); Lymphocytes # (A) 1.74 X 10*3/uL (0.90-5.00); MCHC 31.4 g/dL (32.0-37.0); MCV 92.2 FL (80.0-97.0); Mean Platelet Volume 9.7 FL (9.5-12.2); Monocytes # (A) 1.14 X 10*3/uL (0.20-1.00); Monocytes % (A) 7.2 %; NRBC Per 100 WBC 0 X 10*3/uL (0.00-0.01); Neutrophils # (A) 11.97 X 10*3/uL (1.80-7.70); Neutrophils % (A) 75.9 %; Platelet Count 302 X 10*3/uL (140-440); RBC 3.59 X 10*6/uL (4.40-5.60); RDW 13.6 % (11.5-14.5); WBC 15.78 X 10*3/uL (4.50-10.00)
[2023-10-27 09:12] LABS: BUN/Creat Ratio 20.57 Ratio (12.00-20.00); Blood Urea Nitrogen 28.8 mg/dL (9.0-27.0); Calcium 8.4 mg/dL (8.7-10.3); Carbon Dioxide 21.1 mmol/L (21.6-31.8); Chloride 106 mmol/L (96-109); Glucose 129 mg/dL (70-110); Potassium 4.6 mmol/L (3.5-5.5); Sodium 140 mmol/L (135-145)
[2023-10-27 11:57] LABS: Glucose,Whole Blood 191 mg/dL (70-110)
--- NOTE | 2023-10-27 13:07 | P.DS ---
Providers Date of admission: 10/21/23 13:55 Expected date of discharge: 10/27/23 Attending physician: Alexandro Easton Consults: 10/21/23 14:00 Consult Physician Urgent Consulting Provider: Anuradha Bentley Consult Reason/Comments: Osteomyelitis, diabetic ulcer Do you want consulting provider notified?: Yes 10/21/23 14:09 Consult Physician Urgent Consulting Provider: Titus Arias Consult Reason/Comments: Possible left calcaneal fracture secondary to osteomyelitis Do you want consulting provider notified?: Yes Primary care physician: Chanelle Murphy Hospital Course: Final diagnosis Left heel diabetic full-thickness ulcer with concerns of osteomyelitis, status post debridement. Vascular surgery recommending below the knee amputation on the left although patient is refusing currently and will follow-up outpatient. Chronic diabetic foot ulcer on the right on wound care follow-up for the past 3 years Hyperglycemia with uncontrolled diabetes type 2 Mild acute kidney injury likely prerenal, improving Hyperkalemia with slight hemolysis, improved Stage II pressure ulcer on the left heel, present on admission Stage II pressure ulcer on the right great toe as well as right heel, present on admission Hypertension Prior history of smoking DVT and GI prophylaxis with heparin subcu and PPI Full code Discharge disposition Patient is being discharged in a stable condition with guarded prognosis to [facility]. Patient will follow-up with Dr. Murphy in the outpatient setting upon discharge. Patient is to continue with IV antibiotics in the form of cefepime every 8 hours as well as oral Flagyl 3 times daily for the next 6 weeks per ID recommendations. Patient to follow-up with the wound care center as scheduled. Patient also to follow-up with vascular surgery Dr. Blankenship outpatient. Total time taken is greater than 35 minutes. Hospital course This is a 78-year-old male who was recently admitted with left heel diabetic full-thickness ulcer with concerns of osteomyelitis and infection. Patient is status post debridement with vascular surgery ultimately recommending below the knee amputation although patient is refusing at this time. Culture showing Proteus vulgaris, Morganella, Enterobacter. Deep tissue cultures showing multiple Proteus. Patient did receive a PICC line and will continue on IV antibiotics as instructed previously. Patient to follow-up with the wound care center along with vascular surgery outpatient. Recommend repeat labs in the next 2 to 3 days. Currently no reports of chest pain, shortness of breath, or p alpitations. Patient is afebrile. No reports of nausea or vomiting and patient is tolerating diet. Patient will be going to [facility] on the [facility] today. Physical exam: Gen: This is a 78-year-old male who is awake, alert and oriented x 3, elderly appearing, obese, ill-appearing HEENT: Head is atraumatic, normocephalic. Pupils equal, round. Sclerae is anicteric. NECK: Supple. No JVD. No lymphadenopathy. No thyromegaly. LUNGS: Diminished breath sounds bilaterally otherwise clear to auscultation. No wheezes or rhonchi. No intercostal retractions. HEART: Regular rate and rhythm. No murmur. ABDOMEN: Soft. Obese bowel sounds are present. No masses. No tenderness. EXTREMITIES: No pedal edema. No calf tenderness. Left lower extremity dressing currently dry and intact as it was just changed today, right foot dressing is dry. Diffusely weak NEUROLOGICAL: Patient is awake, alert and oriented x3. Cranial nerves 2 through 12 are grossly intact. Please refer to medication reconciliation sheet for a list of medications. The impression and plan of care has been dictated by Mary Larsen, Nurse Practitioner as directed. Dr. Dennise MD I have performed a history and examination and MDM of this patient, discussed the same with the dictator, and agree with the dictator's assessment and plan as written ,documented as a scribe. Based on total visit time, I have performed more than 50% of the visit. Patient Condition at Discharge: Fair Plan - Discharge Summary Discharge Rx Participant: No New Discharge Prescriptions: New metroNIDAZOLE [Flagyl] 500 mg PO TID #126 tab Cefepime [Maxipime] 2 gm IVPB Q8HR #126 each Pantoprazole [Protonix] 40 mg PO DAILY tab Acetaminophen Tab [Tylenol] 650 mg PO Q6HR PRN tab PRN Reason: Mild Pain Or Fever > 100.5 Heparin Sodium,Porcine (1 ml) [Heparin Sodium] 5,000 unit SQ Q8HR each HYDROcodone/APAP 5-325MG [Ulysses 5-325] 1 each PO Q6H PRN #4 tab PRN Reason: Moderate Pain (Scale 4 To 6) INSULIN ASPART (NovoLOG) [NovoLOG (formulary)] 0 unit SQ ACHS each Collagenase [Santyl Ointment] 1 applic TOPICAL DAILY each Continue amLODIPine [Norvasc] 10 mg PO DAILY Simvastatin [Zocor] 5 mg PO HS Multivitamins, Thera [Multivitamin (formulary)] 1 tab PO DAILY Pioglitazone [Actos] 15 mg PO DAILY lisinopriL [Zestril] 10 mg PO DAILY Ferrous Sulfate [Iron (65 MG Elemental)] 325 mg PO DAILY Tamsulosin [Flomax] 0.4 mg PO DAILY Discharge Medication List amLODIPine [Norvasc] 10 mg PO DAILY 11/10/16 [History] Simvastatin [Zocor] 5 mg PO HS 03/16/18 [History] Multivitamins, Thera [Multivitamin (formulary)] 1 tab PO DAILY 12/26/21 [Histor y] Pioglitazone [Actos] 15 mg PO DAILY 12/26/21 [History] Ferrous Sulfate [Iron (65 MG Elemental)] 325 mg PO DAILY 04/29/23 [History] Tamsulosin [Flomax] 0.4 mg PO DAILY 10/21/23 [History] lisinopriL [Zestril] 10 mg PO DAILY 10/21/23 [History] Acetaminophen Tab [Tylenol] 650 mg PO Q6HR PRN tab 10/27/23 [Rx] Cefepime [Maxipime] 2 gm IVPB Q8HR #126 each 10/27/23 [Rx] Collagenase [Santyl Ointment] 1 applic TOPICAL DAILY each 10/27/23 [Rx] HYDROcodone/APAP 5-325MG [Ulysses 5-325] 1 each PO Q6H PRN #4 tab 10/27/23 [Rx] Heparin Sodium,Porcine (1 ml) [Heparin Sodium] 5,000 unit SQ Q8HR each 10/27/23 [Rx] INSULIN ASPART (NovoLOG) [NovoLOG (formulary)] 0 unit SQ ACHS each 10/27/23 [Rx] Pantoprazole [Protonix] 40 mg PO DAILY tab 10/27/23 [Rx] metroNIDAZOLE [Flagyl] 500 mg PO TID #126 tab 10/27/23 [Rx] Follow up Appointment(s)/Referral(s): Rajwinder Blankenship DO [STAFF PHYSICIAN] - As Needed (Recommending left below the knee amputation, if patient changes his mind he should follow-up with vascular surgery Dr. Blankenship.) Chanelle Murphy MD [Primary Care Provider] - 1-2 days Wound Center,[facility] [NON-STAFF] - 1 Week Activity/Diet/Wound Care/Special Instructions: Patient is going to [facility] as tolerated Continue monitoring Accu-Cheks before meals and at bedtime and continue with sliding scale Follow-up with primary care provider on discharge Follow-up with vascular surgery outpatient to discuss further surgical intervention NovoLog sliding scale 0-150 equals 0 units 151-200 equals 2 units 201-250 equals 4 units 251-300 equals 6 units 301-350 equals 8 units 351-400 equals 10 units Please notify provider if blood sugar is 400 or above Continue heart healthy consistent carb diet Patient does have a PICC line and will continue on IV cefepime as well as oral Flagyl for 6 weeks Follow-up on repeat labs of CBC, BMP, magnesium in 2 to 3 days Continue with Aquacel silver, dry gauze, Kerlix to the right heel, right great toe with Santyl, moist gauze, dry gauze, Kerlix, left heel is Santyl to the necrotic areas with moist gauze packing dry gauze and Kerlix Discharge Disposition: TRANSFER TO SNF/ECF
[2023-10-27 16:05] VITALS: BP 116/64; PULSE 73; RESP 18; TEMP 98.1
[2023-10-27 16:45] LABS: Glucose,Whole Blood 223 mg/dL (70-110)
--- NOTE | 2023-10-28 23:41 | CDI ---
Documentation Clarification Form Date: 10/28/2023 11:29:57 PM From: Nereida Franklin Phone: Admit Date: 10/21/2023 01:55:00 PM Patient Name: Brandon Lynch Visit Number: [id number] Discharge Date: 10/27/2023 06:20:00 PM ATTENTION: The Clinical Documentation Specialists (CDI) and [facility] Coding Staff appreciate your assistance in clarifying documentation. Please respond to the clarification below the line at the bottom and electronically sign. The CDI & [facility] Coding staff will review the response and follow-up if needed. Please note: Queries are made part of the Legal Health Record. If you have any questions, please contact the author of this message via ITS. Dr. Alexandro Easton Conflicting documentation has been found in the medical record. As attending physician, please provide clarification. Hyperkalemiaalso present per ED Hypokalemia per ED History/Risk Factors: 78yo M, Lt heel stg IV chronicdiabetic foot ulcer, Rt foot ulcer,NIDDMII w hyperglycemia, PVD & osteomyelitis, SIXTO on CKD, hyperkalemia, HTN, former smoker & ETOH dependence Clinical Indicators: potassium of 5.7; Diffuselyweak Treatment: Lokelma and calcium gluconate Please clarify which diagnosis is most appropriate: [ x ] Hyperkalemia [ ] Hyperkalemia [ ] Other (please specify) [ ] Unable to determine (Template Last Revised: August 2020) MTDD
--- NOTE | 2023-10-28 23:49 | CDI ---
Documentation Clarification Form Date: 10/28/2023 11:42:00 PM From: Nereida Franklin Phone: Admit Date: 10/21/2023 01:55:00 PM Patient Name: Brandon Lynch Visit Number: [id number] Discharge Date: 10/27/2023 06:20:00 PM ATTENTION: The Clinical Documentation Specialists (CDI) and [facility] Coding Staff appreciate your assistance in clarifying documentation. Please respond to the clarification below the line at the bottom and electronically sign. The CDI & [facility] Coding staff will review the response and follow-up if needed. Please note: Queries are made part of the Legal Health Record. If you have any questions, please contact the author of this message via ITS. Dr. Alexandro Easton Unspecified CKD is documented Progress Note 10/24. Additional clarification regarding the stage of CKD is requested. History/Risk Factors: History/Risk Factors: 78yo M, Lt heel stg IV chronic diabetic foot ulcer, Rt foot ulcer, NIDDMII w hyperglycemia, PVD & osteomyelitis, SIXTO on CKD, hyperkalemia, HTN, former smoker & ETOH dependence Clinical Indicators: BUN: 55 Cr: 1.45 AfAm: 53 NonAf: 46 Treatment: monitored Please clarify the stage of the CKD, if known: [ x ] CKD Stage 3a [ ] CKD Stage 3b [ ] Other, please specify [ ] Unable to determine Reference: National [employer] Stage 1 eGFR = 90 and kidney damage for =3 months Stage 2 eGFR 60-89 and kidney damage for =3 months Stage 3a eGFR 45-59 and kidney damage for =3 months Stage 3b eGFR 30-44 and kidney damage for =3 months Stage 4 eGFR 15-29 r and kidney damage for =3 months Stage 5 eGFR <15 and kidney damage for =3 months (Template Last revised: June 2023) MTDD
--- NOTE | 2023-11-03 17:28 | P.PN ---
Subjective Progress Note Date: 10/27/23 Principal diagnosis: Reason for follow-up is left heel stage IV pressure ulcer with osteomyelitis Patient is a 78-year male with multiple comorbidities did have a chronic nonhealing wound to the left heel area for the patient present to the hospital with worsening wound per advice of his home care nurse.Patient is status post sharp excisional debridement left heel to the wound measuring 11 X7X 2.0 cm by vascular surgery completed on 10/22/2023 On today's evaluation that is 10/27/2023, the patient continues to be afebrile, the patient is on room air and breathing comfortably, the Pt denies having any chest pain or cough, the patient denies having any abdominal pain no vomiting or any diarrhea has been reported by the nursing staff, patient pain to the left heel area has slightly decreased in intensity no further drainage. Patient white count is 15.78, creatinine is 1.4 Objective - Vital Signs Vital signs: Vital Signs Temp 97.7 F 10/27/23 07:35 Pulse 83 10/27/23 07:35 Resp 17 10/27/23 07:35 BP 120/68 10/27/23 07:35 Pulse Ox 99 10/27/23 07:35 FiO2 Intake & Output 10/26/23 10/27/23 10/27/23 18:59 06:59 18:59 Intake Total 50 Output Total 700 300 Balance -650 -300 Intake: IV 50 Output: Urine 700 300 Other: Voiding Method Incontinent Incontinent External Catheter # Bowel Movements 1 - Exam GENERAL DESCRIPTION: An elderly male lying in bed in no distress RESPIRATORY SYSTEM: Unlabored breathing , decreased breath sounds at bases HEART: S1 S2 regular rate and rhythm , ABDOMEN: Soft , no tenderness EXTREMITIES: Left heel wound currently dressed no drainage on the dressing - Labs CBC & Chem 7: 10/27/23 05:39 10/27/23 05:39 Labs: Abnormal Lab Results - Last 24 Hours (Table) 10/26/23 10/26/23 10/27/23 Range/Units 16:15 20:29 05:39 WBC 15.78 H (4.50-10.00) X 10*3/uL RBC 3.59 L (4.40-5.60) X 10*6/uL Hgb 10.4 L (13.0-17.0) g/dL Hct 33.1 L (39.6-50.0) % MCHC 31.4 L (32.0-37.0) g/dL Immature Gran # 0.23 H (0.00-0.04) X 10*3/uL Neutrophils # 11.97 H (1.80-7.70) X 10*3/uL Monocytes # 1.14 H (0.20-1.00) X 10*3/uL Eosinophils # 0.60 H (0.04-0.35) X 10*3/uL Carbon Dioxide (21.6-31.8) mmol/L Anion Gap (4.00-12.00) mmol/L BUN (9.0-27.0) mg/dL Est GFR (CKD-EPI) (>=60) BUN/Creatinine Ratio (12.00-20.00) Ratio Glucose (70-110) mg/dL POC Glucose (mg/dL) 164 H 136 H (70-110) mg/dL Calcium (8.7-10.3) mg/dL 10/27/23 10/27/23 Range/Units 05:39 06:24 WBC (4.50-10.00) X 10*3/uL RBC (4.40-5.60) X 10*6/uL Hgb (13.0-17.0) g/dL Hct (39.6-50.0) % MCHC (32.0-37.0) g/dL Immature Gran # (0.00-0.04) X 10*3/uL Neutrophils # (1.80-7.70) X 10*3/uL Monocytes # (0.20-1.00) X 10*3/uL Eosinophils # (0.04-0.35) X 10*3/uL Carbon Dioxide 21.1 L (21.6-31.8) mmol/L Anion Gap 12.90 H (4.00-12.00) mmol/L BUN 28.8 H (9.0-27.0) mg/dL Est GFR (CKD-EPI) 52 L (>=60) BUN/Creatinine Ratio 20.57 H (12.00-20.00) Ratio Glucose 129 H (70-110) mg/dL POC Glucose (mg/dL) 133 H (70-110) mg/dL Calcium 8.4 L (8.7-10.3) mg/dL Microbiology - Last 24 Hours (Table) 10/21/23 13:07 Blood Culture - Final Blood 10/21/23 13:07 Blood Culture - Final Blood Assessment and Plan (1) Stage IV pressure ulcer of left heel Status: Acute Code(s): L89.624 - PRESSURE ULCER OF LEFT HEEL, STAGE 4 SNOMED Code(s): 44694492426090 (2) Osteomyelitis of left foot Status: Acute Code(s): M86.9 - OSTEOMYELITIS, UNSPECIFIED SNOMED Code(s): 8971549726270894 Plan: 1patient presented to hospital with worsening wound to the left heel. The patient has for many months to years and noticed to have worsening by the home care nurse with increasing foul-smelling drainage and the patient did have abnormal x-ray likely secondary to underlying osteomyelitis 2-patient is s/p vascular surgery evaluation and debridement along with deep culture which are currently pending however initial culture grew Proteus and Morganella 3-patient overall culture has been negative we will management on the basis of initial culture of Proteus and Morganella plan is for cefepime 2 g 8 hours and oral Flagyl 500 mg 3 times a day for 6 weeks and close outpatient follow-up discussed with admitting team working on discharge Dictation was produced using [employer] dictation software. please excuse any grammatical, word or spelling errors. Time with Patient: Less than 30
--- NOTE | 2023-11-03 17:28 | P.PN ---
Subjective Progress Note Date: 10/26/23 Principal diagnosis: Reason for follow-up is left heel stage IV pressure ulcer with osteomyelitis Patient is a 78-year male with multiple comorbidities did have a chronic nonhealing wound to the left heel area for the patient present to the hospital with worsening wound per advice of his home care nurse.Patient is status post sharp excisional debridement left heel to the wound measuring 11 X7X 2.0 cm by vascular surgery completed on 10/22/2023 On today's evaluation that is 10/26/2023,the patient remains to be afebrile, patient is on room air not requiring supplemental oxygen and denies any shortness of breath no chest pain or cough.Patient denies having any nausea or vomiting, no abdominal pain and no diarrhea has been reported on the feet denies any worsening pain to the left heel area. Patient white count is 15.52 creatinine is 1.3 Objective - Vital Signs Vital signs: Vital Signs Temp 98.0 F 10/26/23 13:15 Pulse 76 10/26/23 13:15 Resp 17 10/26/23 13:15 BP 125/67 10/26/23 13:15 Pulse Ox 96 10/26/23 13:15 FiO2 Intake & Output 10/25/23 10/26/23 10/26/23 18:59 06:59 18:59 Intake Total 50 Output Total 800 600 Balance -800 -600 50 Intake: IV 50 Output: Urine 800 600 Other: Voiding Method Incontinent Incontinent Incontinent External Catheter # Bowel Movements 1 - Exam GENERAL DESCRIPTION: An elderly male lying in bed in no distress RESPIRATORY SYSTEM: Unlabored breathing , decreased breath sounds at bases HEART: S1 S2 regular rate and rhythm , ABDOMEN: Soft , no tenderness EXTREMITIES: Left heel wound overall did have some slough tissue no foul- smelling drainage - Labs CBC & Chem 7: 10/27/23 05:39 10/27/23 05:39 Labs: Abnormal Lab Results - Last 24 Hours (Table) 10/25/23 10/25/23 10/26/23 Range/Units 16:25 20:18 05:03 WBC 15.52 H (4.50-10.00) X 10*3/uL RBC 3.53 L (4.40-5.60) X 10*6/uL Hgb 10.4 L (13.0-17.0) g/dL Hct 32.9 L (39.6-50.0) % MCHC 31.6 L (32.0-37.0) g/dL Immature Gran # 0.23 H (0.00-0.04) X 10*3/uL Neutrophils # 11.59 H (1.80-7.70) X 10*3/uL Monocytes # 1.27 H (0.20-1.00) X 10*3/uL Eosinophils # 0.65 H (0.04-0.35) X 10*3/uL Chloride (96-109) mmol/L Carbon Dioxide (21.6-31.8) mmol/L Est GFR (CKD-EPI) (>=60) BUN/Creatinine Ratio (12.00-20.00) Ratio Glucose (70-110) mg/dL POC Glucose (mg/dL) 155 H 192 H (70-110) mg/dL Calcium (8.7-10.3) mg/dL 10/26/23 10/26/23 10/26/23 Range/Units 05:03 06:02 11:16 WBC (4.50-10.00) X 10*3/uL RBC (4.40-5.60) X 10*6/uL Hgb (13.0-17.0) g/dL Hct (39.6-50.0) % MCHC (32.0-37.0) g/dL Immature Gran # (0.00-0.04) X 10*3/uL Neutrophils # (1.80-7.70) X 10*3/uL Monocytes # (0.20-1.00) X 10*3/uL Eosinophils # (0.04-0.35) X 10*3/uL Chloride 112 H (96-109) mmol/L Carbon Dioxide 20.7 L (21.6-31.8) mmol/L Est GFR (CKD-EPI) 57 L (>=60) BUN/Creatinine Ratio 20.38 H (12.00-20.00) Ratio Glucose 114 H (70-110) mg/dL POC Glucose (mg/dL) 132 H 197 H (70-110) mg/dL Calcium 8.5 L (8.7-10.3) mg/dL Microbiology - Last 24 Hours (Table) 10/22/23 14:08 Anaerobic Culture - Final Heel - Left 10/22/23 14:08 Gram Stain - Final Foot - Left Wound Culture - Final Assessment and Plan (1) Stage IV pressure ulcer of left heel Status: Acute Code(s): L89.624 - PRESSURE ULCER OF LEFT HEEL, STAGE 4 SNOMED Code(s): 08133235404433 (2) Osteomyelitis of left foot Status: Acute Code(s): M86.9 - OSTEOMYELITIS, UNSPECIFIED SNOMED Code(s): 5751823409412363 Plan: 1patient presented to hospital with worsening wound to the left heel. The patient has for many months to years and noticed to have worsening by the home care nurse with increasing foul-smelling drainage and the patient did have abnormal x-ray likely secondary to underlying osteomyelitis 2-patient is s/p vascular surgery evaluation and debridement along with deep culture which are currently pending however initial culture grew Proteus and Morganella 3-patient to continue with cefepime did have further worsening of his white count we will adjust the dose of cefepime to 2 g every 8 hours continue with the Flagyl repeat a CBC with a.m. labs hold the discharge for today discussed with the admitting team Dictation was produced using [employer] dictation software. please excuse any grammatical, word or spelling errors. Time with Patient: Less than 30
== END 2023-10-27 18:20 | DRG 988 ==
LOC: EC 11:11 → 4SSUR 13:55
PROVIDERS: ADMIT Internal Medicine; ATTEND Internal Medicine
PROC: 0QBM0ZZ Excision of Left Tarsal, Open Approach (ICD-10-PCS; principal; 2023-10-22 12:20)
PROC: 02HV33Z Insertion of Infusion Device into Superior Vena Cava, Percutaneous Approach (ICD-10-PCS; 2023-10-26)
DX: E11.51 Type 2 diabetes mellitus with diabetic peripheral angiopathy without gangrene (principal); L97.426 Non-pressure chronic ulcer of left heel and midfoot with bone involvement without evidence of necrosis; N17.9 Acute kidney failure, unspecified; M84.475A Pathological fracture, left foot, initial encounter for fracture; M86.8X7 Other osteomyelitis, ankle and foot; L89.612 Pressure ulcer of right heel, stage 2; L97.512 Non-pressure chronic ulcer of other part of right foot with fat layer exposed; I83.014 Varicose veins of right lower extremity with ulcer of heel and midfoot; I83.024 Varicose veins of left lower extremity with ulcer of heel and midfoot; L89.892 Pressure ulcer of other site, stage 2; E11.22 Type 2 diabetes mellitus with diabetic chronic kidney disease; E11.622 Type 2 diabetes mellitus with other skin ulcer; E11.621 Type 2 diabetes mellitus with foot ulcer; E11.69 Type 2 diabetes mellitus with other specified complication; I70.245 Atherosclerosis of native arteries of left leg with ulceration of other part of foot; E11.65 Type 2 diabetes mellitus with hyperglycemia; F10.21 Alcohol dependence, in remission; N18.31 Chronic kidney disease, stage 3a; Z89.421 Acquired absence of other right toe(s); I12.9 Hypertensive chronic kidney disease with stage 1 through stage 4 chronic kidney disease, or unspecified chronic kidney disease; N40.0 Benign prostatic hyperplasia without lower urinary tract symptoms; I87.8 Other specified disorders of veins; M21.42 Flat foot [pes planus] (acquired), left foot; M85.80 Other specified disorders of bone density and structure, unspecified site; B96.4 Proteus (mirabilis) (morganii) as the cause of diseases classified elsewhere; B96.89 Other specified bacterial agents as the cause of diseases classified elsewhere; E87.5 Hyperkalemia; W18.09XA Striking against other object with subsequent fall, initial encounter; Y92.008 Other place in unspecified non-institutional (private) residence as the place of occurrence of the external cause; Z86.14 Personal history of Methicillin resistant Staphylococcus aureus infection; Z87.891 Personal history of nicotine dependence; Z79.84 Long term (current) use of oral hypoglycemic drugs; Z79.899 Other long term (current) drug therapy
CPT/HCPCS: 36415; 36573; 70450; 80048; 80053; 80202; 82565; 83036; 83605; 83735; 84132; 85025; 85610; 85652; 86140; 87040; 87070; 87075; 87077; 87186; 87205; 93923; 96361; 96365; 96368; 99285

== ENCOUNTER 2023-12-08 13:30 | Inpatient (IN) | payer MEDICARE ==
[2023-12-08 14:12] LABS: Basophils # (A) 0.1 k/uL (0-0.2); Basophils % (A) 1 %; Eosinophils # (A) 0.2 k/uL (0-0.7); Eosinophils % (A) 3 %; HCT 40.8 % (39.0-53.0); HGB 12.9 gm/dL (13.0-17.5); Lymphocytes # (A) 1.2 k/uL (1.0-4.8); Lymphocytes % (A) 13 %; MCH 30.4 pg (25.0-35.0); MCHC 31.5 g/dL (31.0-37.0); MCV 96.6 fL (80.0-100.0); Mean Platelet Volume 7.5; Monocytes # (A) 0.7 k/uL (0-1.0); Monocytes % (A) 7 %; Neutrophils % (A) 74 %; Platelet Count 279 k/uL (150-450); RBC 4.22 m/uL (4.30-5.90); RDW 15.1 % (11.5-15.5); WBC 9.4 k/uL (3.8-10.6)
[2023-12-08 15:18] LABS: Potassium 7.7 mmol/L (3.5-5.1)
[2023-12-08] MEDS: CALCIUM CHLORIDE 100 MG/ML 10 ML SYRINGE IVP STA (15:19)
[2023-12-08 15:20] LABS: ALT 23 U/L (4-49); AST 21 U/L (17-59); African American GFR (CKD) 20 (>60 ml/min/1.73 sqM); Albumin 4.2 g/dL (3.5-5.0); Alkaline Phosphatase 81 U/L (38-126); Anion Gap 12 mmol/L; Blood Urea Nitrogen 82 mg/dL (9-20); Calcium 9.2 mg/dL (8.4-10.2); Carbon Dioxide 18 mmol/L (22-30); Chloride 111 mmol/L (98-107); Glucose 166 mg/dL (74-99); Magnesium 1.5 mg/dL (1.6-2.3); Non-African American GFR(CKD) 17 (>60 ml/min/1.73 sqM); Sodium 141 mmol/L (137-145); Total Bilirubin 0.5 mg/dL (0.2-1.3); Total Protein 7.7 g/dL (6.3-8.2)
--- NOTE | 2023-12-08 15:40 | ED ---
General Adult HPI - General Chief complaint: Recheck/Abnormal Lab/Rx Stated complaint: abnormal labs Time Seen by Provider: 12/08/23 13:40 Source: patient, EMS, RN notes reviewed, old records reviewed Mode of arrival: EMS Limitations: no limitations - History of Present Illness Initial comments: This is a 78-year-old male who presents emergency department from the [facility] for elevated potassium. Patient has a history of kidney failure. Patient states he has no symptoms. Patient denies any chest pain difficult breathing shortness of breath. Patient has any palpitation. Patient denies any abdominal pain patient has nausea vomiting. Patient states has been sent in for this before - Related Data Home Medications Medication Instructions Recorded Confirmed amLODIPine [Norvasc] 10 mg PO DAILY@0900 11/10/16 12/08/23 Multivitamins, Thera [Multivitamin 1 tab PO DAILY@0900 12/26/21 12/08/23 (formulary)] Ferrous Sulfate [Iron (65 MG 325 mg PO DAILY@0900 04/29/23 12/08/23 Elemental)] Tamsulosin [Flomax] 0.4 mg PO DAILY@0910/21/23 12/08/23 Atorvastatin [Lipitor] 10 mg PO HS@209911/15/23 12/08/23 Glucerna Shake 1 can PO BID@0900,209911/15/23 12/08/23 Heparin Sodium,Porcine (1 ml) 5,000 unit SQ TID@0600,1400,2200 11/15/23 12/08/23 [Heparin Sodium] Omeprazole 20 mg PO DAILY@59911/15/23 12/08/23 Insulin Degludec [Tresiba 8 units SQ DAILY@89912/08/23 12/08/23 Flextouch U-100 Pen] Insulin Lispro [humaLOG Kwikpen] See Protocol SQ ACHS@08,12,17,12/08/2311/26 Sodium Bicarbonate Tab 650 mg PO BID@0900,209912/08/23 12/08/23 Spironolactone [Aldactone] 25 mg PO DAILY@0900 12/08/23 12/08/23 Previous Rx's Medication Instructions Recorded Acetaminophen Tab [Tylenol] 650 mg PO Q6HR PRN tab 10/27/23 HYDROcodone/APAP 5-325MG [[place] 1 tab PO Q6H PRN #4 tab 11/19/23 5-325] Allergies Allergy/AdvReac Type Severity Reaction Status Date / Time No Known Allergies Allergy Verified 12/08/23 14:56 Review of Systems ROS Statement: Those systems with pertinent positive or pertinent negative responses have been documented in the HPI. ROS Other: All systems not noted in ROS Statement are negative. Past Medical History Past Medical History: Diabetes Mellitus, Hypertension, Renal Disease Additional Past Medical History / Comment(s): VENOUS STASIS ; ULCERS BILAT LEGS, PVD, CRISTAL LEG WOUND History of Any Multi-Drug Resistant Organisms: MRSA Date of last positivie culture/infection: 04/14/17 MDRO Source:: Right Leg Past Surgical History: Tonsillectomy Additional Past Surgical History / Comment(s): 07/13/17 CRISTAL AORTOGRAM AND LLE ANGIOGRAM, REATTACHED TENDON LT 5TH FINGER 1995. skin graft bilat legs, Right foot pinky toe amp. Past Anesthesia/Blood Transfusion Reactions: No Reported Reaction Past Psychological History: No Psychological Hx Reported Smoking Status: Never smoker Past Alcohol Use History: None Reported Past Drug Use History: None Reported - Past Family History Father Family Medical History: Cancer Additional Family Medical History / Comment(s): PROSTATE CANCER Mother Family Medical History: Hypertension General Exam - General Exam Comments Initial Comments: GENERAL: Patient is well-developed and well-nourished. Patient is nontoxic and well- hydrated and is in no acute distress. ENT: Neck is soft and supple. No significant lymphadenopathy is noted. Oropharynx is clear. Moist mucous membranes. Neck has full range of motion without eliciting any pain. EYES: The sclera were anicteric and conjunctiva were pink and moist. Extraocular movements were intact and pupils were equal round and reactive to light. Eyelids were unremarkable. PULMONARY: Unlabored respirations. Good breath sounds bilaterally. No audible rales rhonchi or wheezing was noted. CARDIOVASCULAR: There is a regular rate and rhythm without any murmurs gallops or rubs. ABDOMEN: Soft and nontender with normal bowel sounds. SKIN: Skin is clear with no lesions or rashes and otherwise unremarkable. NEUROLOGIC: Patient is alert and oriented x3. Cranial nerves II through XII are grossly intact. Motor and sensory are also intact. Normal speech, volume and content. Symmetrical smile. MUSCULOSKELETAL: Normal extremities with adequate strength and full range of motion. LYMPHATICS: No significant lymphadenopathy is noted PSYCHIATRIC: Normal psychiatric evaluation. Limitations: no limitations Course Vital Signs 12/08/23 13:33 Temperature 98.0 F Pulse Rate 75 Respiratory 18 Rate Blood Pressure 144/70 O2 Sat by Pulse 98 Oximetry Medical Decision Making - Medical Decision Making EKG is interpreted by myself but EKG shows a sinus rhythm at 75 bpm [place] interval is 214 QRS is 130 QT interval is 382 QTc is 410. Patient's EKG does show some peaked T waves. Was pt. sent in by a medical professional or institution (MOUNA Mckeon, LACE PAPER MACHINE OPERATOR, urgent ca re, hospital, or fpc...) When possible be specific @ -group home sent the patient and Did you speak to anyone other than the patient for history (EMS, parent, family, police, friend...)? What history was obtained from this source @ -No Did you review nursing and triage notes (agree or disagree)? Why? @ -I reviewed and agree with nursing and triage notes Were old charts reviewed (outside hosp., previous admission, EMS record, old EKG, old radiological studies, urgent care reports/EKG's, [facility] records)? Report findings @ -I reviewed the lab work that the patient was sent in with and showed an elevated potassium Differential Diagnosis (chest pain, altered mental status, abdominal pain women, abdominal pain men, vaginal bleeding, weakness, fever, dyspnea, syncope, headache, dizziness, GI bleed, back pain, seizure, CVA, palpatations, mental health, musculoskeletal)? @ -Hyperkalemia, hemolysis on lab draw, normal electrolytes EKG interpreted by me (3pts min.). @ -As above X-rays interpreted by me (1pt min.). @ -None done CT interpreted by me (1pt min.). @ -None done U/S interpreted by me (1pt. min.). @ -None done What testing was considered but not performed or refused? (CT, X-rays, U/S, labs)? Why? @ -None What meds were considered but not given or refused? Why? @ -None Did you discuss the management of the patient with other professionals (professionals i.e. MOUNA Mckeon, LACE PAPER MACHINE OPERATOR, lab, RT, psych nurse, social media campaign manager, timber sprinkler, teacher, community chest officer, rn case management)? Give summary @ -I spoke with Dr. Easton he agreed to admit the patient Was smoking cessation discussed for >3mins.? @ -No Was critical care preformed (if so, how long)? @ -35 minutes Were there social determinants of health that impacted care today? How? (Homelessness, low income, unemployed, alcoholism, drug addiction, transportation, low edu. Level, literacy, decrease access to med. care, [place] [facility], rehab)? @ -No Was there de-escalation of care discussed even if they declined (Discuss DNR or withdrawal of care, Hospice)? DNR status @ -No What co-morbidities impacted this encounter? (DM, HTN, Smoking, COPD, CAD, Cancer, CVA, ARF, Chemo, Hep., AIDS, mental health diagnosis, sleep apnea, morbid obesity)? @ -None Was patient admitted / discharged? Hospital course, mention meds given and route, prescriptions, significant lab abnormalities, going to OR and other pertinent info. @ -Patient has hyperkalemia patient was given calcium chloride insulin sodium bicarb D50 and Lokelma Undiagnosed new problem with uncertain prognosis? @ -No Drug Therapy requiring intensive monitoring for toxicity (Heparin, Nitro, Insulin, Cardizem)? @ -No Were any procedures done? @ -No Diagnosis/symptom? @ -Hypokalemia Acute, or Chronic, or Acute on Chronic? @ -Acute Uncomplicated (without systemic symptoms) or Complicated (systemic symptoms)? @ -Complicated Side effects of treatment? @ -No Exacerbation, Progression, or Severe Exacerbation? @ -No Poses a threat to life or bodily function? How? (Chest pain, [place], [place], pneumonia, PE, COPD, DKA, ARF, appy, cholecystitis, CVA, Diverticulitis, Homicidal, Suicidal, threat to staff... and all critical care pts) @ -Yes this can lead to an arrhythmia and Diagnosis/symptom? @ -Renal failure Acute, or Chronic, or Acute on Chronic? @ -Acute on chronic Uncomplicated (without systemic symptoms) or Complicated (systemic symptoms)? @ -Complicated Side effects of treatment? @ -None Exacerbation, Progression, or Severe Exacerbation] @ -No Poses a threat to life or bodily function? @ -No - Lab Data Result diagrams: 12/08/23 14:07 06/12/24 14:07 Lab Results 12/08/23 12/08/23 12/08/23 Range/Units 14:07 14:07 14:07 WBC 9.4 (3.8-10.6) k/uL RBC 4.22 L (4.30-5.90) m/uL Hgb 12.9 L (13.0-17.5) gm/dL Hct 40.8 (39.0-53.0) % MCV 96.6 (80.0-100.0) fL MCH 30.4 (25.0-35.0) pg MCHC 31.5 (31.0-37.0) g/dL RDW 15.1 (11.5-15.5) % Plt Count 279 (150-450) k/uL MPV 7.5 Neutrophils % 74 % Lymphocytes % 13 % Monocytes % 7 % Eosinophils % 3 % Basophils % 1 % Neutrophils # 7.0 (1.3-7.7) k/uL Lymphocytes # 1.2 (1.0-4.8) k/uL Monocytes # 0.7 (0-1.0) k/uL Eosinophils # 0.2 (0-0.7) k/uL Basophils # 0.1 (0-0.2) k/uL Sodium 141 (137-145) mmol/L Potassium 7.7 H* (3.5-5.1) mmol/L Chloride 111 H (98-107) mmol/L Carbon Dioxide 18 L (22-30) mmol/L Anion Gap 12 mmol/L BUN 82 H (9-20) mg/dL Creatinine 3.32 H (0.66-1.25) mg/dL Est GFR (CKD-EPI)AfAm 20 (>60 ml/min/1.73 sqM) Est GFR (CKD-EPI)NonAf 17 (>60 ml/min/1.73 sqM) Glucose 166 H (74-99) mg/dL Calcium 9.2 (8.4-10.2) mg/dL Magnesium 1.5 L (1.6-2.3) mg/dL Total Bilirubin 0.5 (0.2-1.3) mg/dL AST 21 (17-59) U/L ALT 23 (4-49) U/L Alkaline Phosphatase 81 (38-126) U/L Troponin I <0.012 (0.000-0.034) ng/mL Total Protein 7.7 (6.3-8.2) g/dL Albumin 4.2 (3.5-5.0) g/dL Critical Care Time Critical Care Time: Yes Total Critical Care Time: 35 Disposition Clinical Impression: Hyperkalemia, Renal failure Disposition: ADMITTED IP TO THIS HOSP Referrals: Chanelle Murphy MD [Primary Care Provider] - 1-2 days Time of Disposition: 15:40
[2023-12-08] MEDS: INSULIN REGULAR 100 UNIT/ML VIAL (IV) IV ONE (17:20)
[2023-12-08] MEDS: DEXTROSE 50% SYRINGE 50 ML IVP STA (17:21)
[2023-12-08] MEDS: SODIUM ZIRCONIUM CYCLOSILICATE 10 GM PACKET PO ONE (17:21)
[2023-12-08] MEDS: SODIUM BICARB 8.4% 50 ML SYR (1 MEQ/ML) IV STA (17:21)
[2023-12-08] MEDS ORDERED: HYDROcodone/APAP 5-325MG 1 EACH TAB PO PRN (20:51)
[2023-12-08] MEDS ORDERED: ACETAMINOPHEN TAB 325 MG TAB PO PRN (20:51)
[2023-12-08] MEDS ORDERED: NON FORMULARY DRUG (Glucerna Shake 1 CAN Ml) PO SCH (21:00)
[2023-12-08] MEDS: ATORVASTATIN 10 MG TAB PO SCH (22:03)
[2023-12-08] MEDS: SODIUM ZIRCONIUM CYCLOSILICATE 10 GM PACKET PO SCH (22:04)
[2023-12-08] MEDS: HEPARIN SODIUM,PORCINE 5,000 UNIT/ML 1 ML VIAL SQ SCH (22:05)
[2023-12-08] MEDS: SODIUM BICARBONATE TAB 650 MG TAB PO SCH (22:16)
--- NOTE | 2023-12-09 00:15 | P.HPIM ---
History of Present Illness H&P Date: 12/08/23 Chief Complaint: Abnormal labs Patient is a 78-year-old male with a past medical history of hypertension, diabetes type 2 insulin-dependent, prior history of left urinary retention, CKD, venous stasis, PVD and bilateral leg ulcers completed antibiotic course presents to ER due to abnormal labs. Patient otherwise denies any complaints of chest pain or shortness of breath. No nausea vomiting abdominal pain or diarrhea. EKG showed sinus rhythm with first-degree AV block. Laboratory data showed WBC 9.4 hemoglobin 12.9 and platelets 279 sodium 141 potassium 7.7 chloride 111 bicarb is 18 BUN 8020 creatinine 3.32 and blood sugar 166 and magnesium 1.5 liver exams not elevated. Troponins x 1 negative. Review of Systems Constitutional: Patient denies any fever or chills . No generalized weakness or weight loss. Abdomen: Patient denied nausea vomiting and diarrhea and abdominal pain. Cardiovascular: Patient denies any chest pain or short of breath no palpitations. Respiratory: patient denied any cough or sputum production. No shortness of breath Neurologic: Patient denied any numbness or tingling. no headache. Musculoskeletal: Patient denies any complaints of joint swelling or deformity. Skin: Negative Psychiatric: Negative Endocrine: No heat or cold intolerance. No recent weight gain. Genitourinary: No dysuria or hematuria. All other 14 point ROS negative except the above Past Medical History Past Medical History: Diabetes Mellitus, Hypertension, Renal Disease Additional Past Medical History / Comment(s): VENOUS STASIS ; ULCERS BILAT LEGS, PVD, CRISTAL LEG WOUND History of Any Multi-Drug Resistant Organisms: MRSA Date of last positivie culture/infection: 04/14/17 MDRO Source:: Right Leg Past Surgical History: Tonsillectomy Additional Past Surgical History / Comment(s): 07/13/17 CRISTAL AORTOGRAM AND LLE ANGIOGRAM, REATTACHED TENDON LT 5TH FINGER 1995. skin graft bilat legs, Right foot pinky toe amp. Past Anesthesia/Blood Transfusion Reactions: No Reported Reaction Past Psychological History: No Psychological Hx Reported Smoking Status: Never smoker Past Alcohol Use History: None Reported Past Drug Use History: None Reported - Past Family History Father Family Medical History: Cancer Additional Family Medical History / Comment(s): PROSTATE CANCER Mother Family Medical History: Hypertension Medications and Allergies Home Medications Medication Instructions Recorded Confirmed Type amLODIPine [Norvasc] 10 mg PO DAILY@0911/10/16 12/08/23 History Multivitamins, Thera [Multivitamin 1 tab PO DAILY@89912/26/21 12/08/23 History (formulary)] Ferrous Sulfate [Iron (65 MG 325 mg PO DAILY@89904/29/23 12/08/23 History Elemental)] Tamsulosin [Flomax] 0.4 mg PO DAILY@0910/21/23 12/08/23 History Acetaminophen Tab [Tylenol] 650 mg PO Q6HR PRN tab 10/27/23 12/08/23 Rx Atorvastatin [Lipitor] 10 mg PO HS@209911/15/23 12/08/23 History Glucerna Shake 1 can PO BID@0900,209911/15/23 12/08/23 History Heparin Sodium,Porcine (1 ml) 5,000 unit SQ TID@0600,1400,2200 11/15/23 12/08/23 History [Heparin Sodium] Omeprazole 20 mg PO DAILY@59911/15/23 12/08/23 History HYDROcodone/APAP 5-325MG [[place] 1 tab PO Q6H PRN #4 tab 11/19/23 12/08/23 Rx 5-325] Insulin Degludec [Tresiba 8 units SQ DAILY@89912/08/23 12/08/23 History Flextouch U-100 Pen] Insulin Lispro [humaLOG Kwikpen] See Protocol SQ ACHS@08,12,17,21 12/08/23 12/08/23 History Sodium Bicarbonate Tab 650 mg PO BID@0900,209912/08/23 12/08/23 History Spironolactone [Aldactone] 25 mg PO DAILY@89912/08/23 12/08/23 History Allergies Allergy/AdvReac Type Severity Reaction Status Date / Time No Known Allergies Allergy Verified 12/08/23 14:56 Physical Exam Vitals: Vital Signs Temp Pulse Resp BP Pulse Ox 12/08/23 20:04 70 23 133/67 98 12/08/23 17:49 97.7 F 70 16 133/67 98 12/08/23 15:50 97.5 F L 62 16 140/68 99 12/08/23 13:33 98.0 F 75 18 144/70 98 Intake and Output 12/08/23 12/08/23 12/08/23 06:59 14:59 22:59 Other: Weight 90.718 kg PHYSICAL EXAMINATION: Patient is lying in the bed comfortably, no acute distress, awake alert and oriented.. HEENT: Normocephalic. Neck is supple. Pupils reactive. Nostrils clear. Oral cavity is moist. Neck reveals no JVD, carotid bruits, or thyromegaly. CHEST EXAMINATION: Trachea is central. Symmetrical expansion. Lung nguyen clear to auscultation and percussion. CARDIAC: Normal S1, S2 with no gallops. No murmurs ABDOMEN: Soft. Bowel sounds normal. No organomegaly. No abdominal bruits. Extremities: reveal no edema. Left lower extremity heel ulcer no clubbing or cyanosis Neurologically awake, alert, oriented x3 with well-coordinated movements. No focal deficits noted Skin: No rash or skin lesions. Psychiatric: Coperative. Nonsuicidal Musculoskeletal: No joint swelling or deformity. Normal range of motion. Results CBC & Chem 7: 12/12/23 06:29 12/12/23 06:29 Labs: Abnormal Lab Results - Last 24 Hours (Table) 12/08/23 12/08/23 Range/Units 14:07 14:07 RBC 4.22 L (4.30-5.90) m/uL Hgb 12.9 L (13.0-17.5) gm/dL Potassium 7.7 H* (3.5-5.1) mmol/L Chloride 111 H (98-107) mmol/L Carbon Dioxide 18 L (22-30) mmol/L BUN 82 H (9-20) mg/dL Creatinine 3.32 H (0.66-1.25) mg/dL Glucose 166 H (74-99) mg/dL Magnesium 1.5 L (1.6-2.3) mg/dL Thrombosis Risk Factor Assmnt - DVT/VTE Prophylaxis DVT/VTE Prophylaxis: Pharmacologic Prophylaxis ordered Assessment and Plan Assessment: Acute kidney injury nonoliguric. Possible ATN. Rule out interstitial nephritis, from recent antibiotics. Hyperkalemia secondary acute kidney injury CKD stage III with baseline creatinine 1.4 Left heel full-thickness wound. Patient refused amputation as recommended by vascular surgery. On antibiotics as an outpatient currently. Has a PICC line and will continue with PICC line for 2 weeks per ID recommendations Hypertension Urinary retention requiring indwelling Blankenship catheter, patient will need outpatient follow-up with urology for cystoscopy Diabetes type 2 insulin-dependent, has an insulin pump Prior history of urinary retention Generalized weakness with gait dysfunction DVT prophylaxis with heparin subcu Obesity with a BMI 31.7 GI prophylaxis Full code Plan: Patient will be continued on IV fluids and IV sodium bicarbonate. Was given insulin/D50 and calcium gluconate and also being continued on Lokelma and follow-up potassium level and renal function. Nephrology was consulted.. Ultrasound renal was ordered. Continue with wound care and other home medications and follow-up closely. Time with Patient: Greater than 30
[2023-12-09] MEDS: CALCIUM GLUCONATE IN NACL 1 GM in SALINE 1 100ML.BAG IVPB ONE (00:53)
[2023-12-09] MEDS: MAGNESIUM SULFATE-D5W PMX 1 GM in DEXTROSE/WATER 1 100ML.BAG IVPB ONE (01:01)
[2023-12-09] MEDS: PANTOPRAZOLE 40 MG TABLET PO SCH (05:17)
[2023-12-09 08:43] LABS: Basophils # (A) 0.1 k/uL (0-0.2); Basophils % (A) 1 %; Eosinophils # (A) 0.4 k/uL (0-0.7); Eosinophils % (A) 3 %; HCT 40.9 % (39.0-53.0); HGB 12.9 gm/dL (13.0-17.5); Lymphocytes # (A) 1.5 k/uL (1.0-4.8); Lymphocytes % (A) 13 %; MCH 30.5 pg (25.0-35.0); MCHC 31.5 g/dL (31.0-37.0); MCV 96.7 fL (80.0-100.0); Mean Platelet Volume 7.4; Monocytes % (A) 9 %; Neutrophils % (A) 72 %; Platelet Count 297 k/uL (150-450); RBC 4.23 m/uL (4.30-5.90); RDW 15.4 % (11.5-15.5); WBC 11.2 k/uL (3.8-10.6)
[2023-12-09] MEDS: TAMSULOSIN 0.4 MG CAP.ER.24H PO SCH (08:53)
[2023-12-09] MEDS: amLODIPine 10 MG TAB PO SCH (08:53)
[2023-12-09] MEDS: INSULIN DETEMIR (LEVEMIR) 100 UNIT/ML SYR SQ SCH (08:57)
[2023-12-09 09:06] LABS: African American GFR (CKD) 21 (>60 ml/min/1.73 sqM); Anion Gap 10 mmol/L; Blood Urea Nitrogen 76 mg/dL (9-20); Calcium 9.9 mg/dL (8.4-10.2); Carbon Dioxide 22 mmol/L (22-30); Chloride 110 mmol/L (98-107); Glucose 123 mg/dL (74-99); Non-African American GFR(CKD) 18 (>60 ml/min/1.73 sqM); Sodium 142 mmol/L (137-145)
[2023-12-09 09:13] LABS: Potassium 6.9 mmol/L (3.5-5.1)
[2023-12-09 11:22] LABS: Glucose,Whole Blood 156 mg/dL (70-110)
[2023-12-09] MEDS: DEXTROSE 50% SYRINGE 50 ML IVP STA (14:03)
[2023-12-09] MEDS: INSULIN REGULAR 100 UNIT/ML VIAL (IV) IV ONE (14:04)
--- NOTE | 2023-12-09 14:05 | P.NPCON ---
History of Present Illness - Reason for Consult acute renal failure - History of Present Illness patient is a 78-year-old male with history of hypertension, type 2 diabetes and previous history of urine retention, currently with indwelling Blankenship catheter. Patient was recently discharged from the hospital after treatment for bilateral leg wounds. patient had acute kidney injury during his recent hospitalization about 3 weeks ago. Serum creatinine was 3.2 at time of discharge. A Blankenship catheter was placed for urine retention. Previous creatinine as low as 1.37 on 10/29/2023 On this admission serum creatinine at 3.3 to with a potassium of 7.7. Blood sugar is not elevated. About 2 L of urine noted in the Blankenship bag which was changed yesterday at the assisted. Blood pressure is not significantly low. He was maintained on cefepime and Flagyl as outpatient 4 left heel nonhealing wound with osteomyelitis. Review of Systems as per HPI Past Medical History Past Medical History: Diabetes Mellitus, Hypertension, Renal Disease Additional Past Medical History / Comment(s): VENOUS STASIS ; ULCERS BILAT LEGS, PVD, CRISTAL LEG WOUND History of Any Multi-Drug Resistant Organisms: MRSA Date of last positivie culture/infection: 04/14/17 MDRO Source:: Right Leg Past Surgical History: Tonsillectomy Additional Past Surgical History / Comment(s): 07/13/17 CRISTAL AORTOGRAM AND LLE ANGIOGRAM, REATTACHED TENDON LT 5TH FINGER 1995. skin graft bilat legs, Right foot pinky toe amp. Past Anesthesia/Blood Transfusion Reactions: No Reported Reaction Past Psychological History: No Psychological Hx Reported Smoking Status: Never smoker Past Alcohol Use History: None Reported Past Drug Use History: None Reported - Past Family History Father Family Medical History: Cancer Additional Family Medical History / Comment(s): PROSTATE CANCER Mother Family Medical History: Hypertension Medications and Allergies Home Medications Medication Instructions Recorded Confirmed Type amLODIPine [Norvasc] 10 mg PO DAILY@00 11/10/16 12/08/23 History Multivitamins, Thera [Multivitamin 1 tab PO DAILY@00 12/26/21 12/08/23 History (formulary)] Ferrous Sulfate [Iron (65 MG 325 mg PO DAILY@0900 04/29/23 12/08/23 History Elemental)] Tamsulosin [Flomax] 0.4 mg PO DAILY@0900 10/21/23 12/08/23 History Acetaminophen Tab [Tylenol] 650 mg PO Q6HR PRN tab 10/27/23 12/08/23 Rx Atorvastatin [Lipitor] 10 mg PO HS@209911/15/23 12/08/23 History Glucerna Shake 1 can PO BID@0900,2100 11/15/23 12/08/23 History Heparin Sodium,Porcine (1 ml) 5,000 unit SQ TID@0600,1400,2200 11/15/23 12/08/23 History [Heparin Sodium] Omeprazole 20 mg PO DAILY@0611/15/23 12/08/23 History HYDROcodone/APAP 5-325MG [[place] 1 tab PO Q6H PRN #4 tab 11/19/23 12/08/23 Rx 5-325] Insulin Degludec [Tresiba 8 units SQ DAILY@0900 12/08/23 12/08/23 History Flextouch U-100 Pen] Insulin Lispro [humaLOG Kwikpen] See Protocol SQ ACHS@08,12,,12/08/23 12/08/23 History Sodium Bicarbonate Tab 650 mg PO BID@0900,209912/08/23 12/08/23 History Spironolactone [Aldactone] 25 mg PO DAILY@0912/08/23 12/08/23 History Allergies Allergy/AdvReac Type Severity Reaction Status Date / Time No Known Allergies Allergy Verified 12/08/23 14:56 Physical Exam Vitals: Vital Signs Temp Pulse Pulse Resp BP BP Pulse Ox 12/09/23 12:00 97.4 F L 96 128/73 100 12/09/23 08:00 97.5 F L 75 18 147/76 100 12/09/23 06:56 79 24 126/74 98 12/09/23 05:44 67 18 126/77 97 12/09/23 02:58 64 17 129/67 98 12/09/23 01:16 60 16 128/75 97 12/08/23 22:55 70 20 129/70 96 12/08/23 20:04 70 23 133/67 98 12/08/23 17:49 97.7 F 70 16 133/67 98 12/08/23 15:50 97.5 F L 62 16 140/68 99 Intake and Output 06/06/2012/09/23 12/09/23 22:59 06:59 14:59 Intake Total 720 Output Total 2024 Balance -1305 Intake: Oral 720 Output: Urine 2024 Other: # Bowel Movements 1 patient is awake, comfortable, no acute distress. Examination of the heart S1 and S2 Examination of the lungs bilateral breath sounds are heard Abdomen is soft nontender Examination of lower extremity shows both feet are currently wrapped TECHNICAL COMMUNICATOR exam shows patient is moving all 4 extremities. Results - Lab Results Most recent lab results Calcium 9.9 mg/dL (8.4-10.2) 12/09/23 08:17 Magnesium 1.5 mg/dL (1.6-2.3) L 12/08/23 14:07 12/09/23 08:17 12/09/23 08:17 Assessment and Plan Assessment: 1. Acute kidney injury, nonoliguric and. Currently with indwelling Blankenship catheter which was changed at the assisted yesterday. Etiology is ATN. Rule out acute interstitial nephritis from antibiotics. Check ultrasound of the kidneys to rule out obstructive uropathy. Patient was noted to have bladder lesions during his last hospitalization. 2. Hyperkalemia associated with acute kidney injury. Patient was on Aldactone which is currently on hold. Blood sugar is not elevated. No GI bleed noted. Continue with lokelma. Recheck potassium this evening for possible need for dialysis if no further improvement. 3. Non-gap metabolic acidosis associated with acute kidney injury. 4. Left heel nonhealing wound with underlying osteomyelitis, maintained on cefepime and Flagyl as outpatient via PICC line 5. Chronic kidney disease with previous creatinine at 1.3-1.4 mg/dL on 10/27/2023. Etiology is likely underlying diabetic kidney disease. Acute kidney injury noted during last hospitalization with serum creatinine peaking at 3.2 mg/dL on 11/12/2023. Plan: add IV fluids, IV bicarb. Repeat potassium this evening. Continue with lokelma. IV Lasix 1 Patient will need hemodialysis if no improvement in hyperkalemia. Check ultrasound of the kidneys Thank you for the consultation. We will continue to follow the patient with you during his hospitalization.
--- NOTE | 2023-12-09 15:38 | US ---
EXAMINATION TYPE: US kidneys/renal and bladder DATE OF EXAM: 12/09/2023 COMPARISON: 11/16/23 CLINICAL INDICATION: Male, 78 years old with history of obstruction; Rule out obstruction EXAM MEASUREMENTS: Right Kidney: 11.0 x 5.6 x 5.5 cm Left Kidney: 10.4 x 6.9 x 5.7 cm Right Kidney: No hydronephrosis or masses seen Left Kidney: Hyperechoic area seen mid pole measuring 2.1 x 2.1 x 1.9cm . No hydronephrosis. Bladder: Blankenship placed, limited assessment Bilateral Jets seen: No IMPRESSION: 1. No hydronephrosis. 2. There is a 2.1 cm hypoechoic area within the left kidney. Recommend CT scan to exclude underlying mass lesion..
[2023-12-09 16:18] LABS: Potassium 6.1 mmol/L (3.5-5.1)
[2023-12-09 16:38] LABS: Glucose,Whole Blood 95 mg/dL (70-110)
[2023-12-09] MEDS: FUROSEMIDE 10 MG/ML 10 ML VIAL IV STA (17:26)
[2023-12-09] MEDS: DEXTROSE 5% IN WATER 1,000 ML with SODIUM BICARB (1 MEQ/ML) 150 ML IV SCH (18:26)
[2023-12-09 19:54] LABS: Glucose,Whole Blood 203 mg/dL (70-110)
[2023-12-10 05:34] LABS: Glucose,Whole Blood 235 mg/dL (70-110)
[2023-12-10] MEDS: ZINC OXIDE PASTE (Z-GUARD) 1 APPLIC TOPICAL PRN (08:45)
[2023-12-10 10:02] VITALS: BMI 26.4
[2023-12-10 10:36] LABS: Basophils # (A) 0.1 k/uL (0-0.2); Basophils % (A) 1 %; Eosinophils # (A) 0.3 k/uL (0-0.7); Eosinophils % (A) 3 %; HCT 40.1 % (39.0-53.0); HGB 12.7 gm/dL (13.0-17.5); Lymphocytes # (A) 1.6 k/uL (1.0-4.8); Lymphocytes % (A) 15 %; MCH 30.2 pg (25.0-35.0); MCHC 31.6 g/dL (31.0-37.0); MCV 95.5 fL (80.0-100.0); Mean Platelet Volume 7.5; Monocytes % (A) 9 %; Neutrophils # (A) 7.7 k/uL (1.3-7.7); Neutrophils % (A) 70 %; Platelet Count 321 k/uL (150-450); RDW 15.3 % (11.5-15.5)
--- NOTE | 2023-12-10 10:43 | P.CONS ---
History of Present Illness - Reason for Consult Consult date: 12/10/23 wound care - History of Present Illness This is a 78-year-old patient known to the wound care center who follows with Dr. Martini on Wednesday. Patient was seen on Wednesday for wound care. Ulceration had shown improvement in size and morphology. Patient was ordered Hydrofera Blue. Patient return to [facility] where they were concerned that the ulceration has declined with bone exposure. At this time patient does not have bone exposure there is small areas of slough noted to the wound bed however the entire wound bed shows granulation. The wound is showing improvement.Original cause of wound was Gradually Appeared. The date acquired was: 10/20/2023. The wound has been in treatment 5 weeks. The wound is currently classified as a Grade 2 wound with etiology of Diabetic Wound/Ulcer of the Lower Extremity and i s located on the Left,Plantar Foot. The wound measures 5.6cm length x 5.6cm width x 0.1cm depth; 24.63cm^2 area and 2.463cm^3 volume. There is bone, Fat Layer (Subcutaneous Tissue), and fascia exposed. There is a large amount of sanguinous drainage noted. The wound margin is distinct with the outline attached to the wound base. There is large (67-100%) red granulation within the wound bed. There is a small (1-33%) amount of necrotic tissue within the wound bed. The periwound skin appearance had no abnormalities noted for texture. The periwound skin appearance exhibited: Dry/Scaly, Erythema. The periwound skin appearance did not exhibit: Maceration, Atrophie Angelica, Cyanosis, Ecchymosis, Hemosiderin Staining, Mottled, Pallor, Rubor. The surrounding wound skin color is noted with erythema which is circumferential. Periwound temperature was noted as No Abnormality. Review Of Systems: Constitutional: No fever, no chills, no night sweats. No weight change. No weakness, fatigue or lethargy. No daytime sleepiness. Integumentary:reports wounds, no lesions. No rash or pruritus. No unusual bruising. No change in hair or nails. Physical exam: General Appearance: Alert, cooperative, no distress, appears stated age. Skin: See HPI all other Skin color, texture, tugor normal, no rashes or lesions. 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 Apply collagen, saline moist gauze, dry gauze, rolled gauze and secure with paper tape continue with heel protector. When patient returns to the extended care facility return to Hydrofera Blue orders from the wound care center. Thank you for the consultation any questions please contact the wound care queta ter DNP note has been reviewed and discussed with Dr. Whiting and the impression and plan of care has been directed as dictated. Past Medical History Past Medical History: Diabetes Mellitus, Hypertension, Renal Disease Additional Past Medical History / Comment(s): VENOUS STASIS ; ULCERS BILAT LEGS, PVD, CRISTAL LEG WOUND History of Any Multi-Drug Resistant Organisms: MRSA Year Discovered:: 04/14/17 MDRO Source:: Right Leg Past Surgical History: Tonsillectomy Additional Past Surgical History / Comment(s): 07/13/17 CRISTAL AORTOGRAM AND LLE ANGIOGRAM, REATTACHED TENDON LT 5TH FINGER 1995. skin graft bilat legs, Right foot pinky toe amp. 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 Past Drug Use History: None Reported - Past Family History Father Family Medical History: Cancer Additional Family Medical History / Comment(s): PROSTATE CANCER Mother Family Medical History: Hypertension Medications and Allergies Home Medications Medication Instructions Recorded Confirmed Type amLODIPine [Norvasc] 10 mg PO DAILY@0911/10/16 12/08/23 History Multivitamins, Thera [Multivitamin 1 tab PO DAILY@0912/26/21 12/08/23 History (formulary)] Ferrous Sulfate [Iron (65 MG 325 mg PO DAILY@89904/29/23 12/08/23 History Elemental)] Tamsulosin [Flomax] 0.4 mg PO DAILY@0910/21/23 12/08/23 History Acetaminophen Tab [Tylenol] 650 mg PO Q6HR PRN tab 10/27/23 12/08/23 Rx Atorvastatin [Lipitor] 10 mg PO HS@2100 11/15/23 12/08/23 History Glucerna Shake 1 can PO BID@0900,2100 11/15/23 12/08/23 History Heparin Sodium,Porcine (1 ml) 5,000 unit SQ TID@0600,1400,2200 11/15/23 12/08/23 History [Heparin Sodium] Omeprazole 20 mg PO DAILY@0600 11/15/23 12/08/23 History HYDROcodone/APAP 5-325MG [[place] 1 tab PO Q6H PRN #4 tab 11/19/23 12/08/23 Rx 5-325] Insulin Degludec [Tresiba 8 units SQ DAILY@0900 12/08/23 12/08/23 History Flextouch U-100 Pen] Insulin Lispro [humaLOG Kwikpen] See Protocol SQ ACHS@08,12,17,21 12/08/23 12/08/23 History Sodium Bicarbonate Tab 650 mg PO BID@0900,2100 12/08/23 12/08/23 History Spironolactone [Aldactone] 25 mg PO DAILY@0900 12/08/23 12/08/23 History Allergies Allergy/AdvReac Type Severity Reaction Status Date / Time No Known Allergies Allergy Verified 12/08/23 14:56 Physical Exam Vitals: Vital Signs Temp Pulse Pulse Resp BP Pulse Ox 12/10/23 07:54 97.6 F 83 18 121/74 98 12/10/23 04:40 98.0 F 95 17 121/75 98 12/10/23 02:05 18 12/09/23 23:25 97.9 F 92 17 128/76 98 12/09/23 21:53 18 12/09/23 19:51 98.4 F 75 18 122/72 99 12/09/23 18:30 78 16 128/69 100 12/09/23 16:00 97.7 F 138/70 99 12/09/23 14:00 96 18 12/09/23 12:00 97.4 F L 96 128/73 100 Intake and Output 12/09/23 12/10/23 12/10/23 22:59 06:59 14:59 Intake Total 340 598 Output Total 250 2000 300 Balance 90 -1999 298 Intake: Oral 340 598 Output: Urine 250 2000 300 Uretheral (Blankenship) 300 Other: Voiding Method Indwelling Catheter Indwelling Catheter Indwelling Catheter # Bowel Movements 1 1 Weight 90.718 kg 90.718 kg Results CBC & Chem 7: 12/10/23 09:34 12/09/23 15:45 Labs: Abnormal Lab Results - Last 24 Hours (Table) 12/09/23 12/09/23 12/09/23 Range/Units 11:20 15:45 19:53 WBC (3.8-10.6) k/uL RBC (4.30-5.90) m/uL Hgb (13.0-17.5) gm/dL Potassium 6.1 H* (3.5-5.1) mmol/L Chloride 111 H (98-107) mmol/L Carbon Dioxide 20 L (22-30) mmol/L POC Glucose (mg/dL) 156 H 203 H (70-110) mg/dL 12/10/23 12/10/23 Range/Units 05:33 09:34 WBC 11.0 H (3.8-10.6) k/uL RBC 4.20 L (4.30-5.90) m/uL Hgb 12.7 L (13.0-17.5) gm/dL Potassium (3.5-5.1) mmol/L Chloride (98-107) mmol/L Carbon Dioxide (22-30) mmol/L POC Glucose (mg/dL) 235 H (70-110) mg/dL Assessment and Plan (1) 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
[2023-12-10 10:46] LABS: African American GFR (CKD) 16 (>60 ml/min/1.73 sqM); Anion Gap 11 mmol/L; Blood Urea Nitrogen 75 mg/dL (9-20); Calcium 9.2 mg/dL (8.4-10.2); Carbon Dioxide 26 mmol/L (22-30); Chloride 101 mmol/L (98-107); Glucose 107 mg/dL (74-99); Non-African American GFR(CKD) 14 (>60 ml/min/1.73 sqM); Sodium 138 mmol/L (137-145)
[2023-12-10 11:34] LABS: Glucose,Whole Blood 130 mg/dL (70-110)
[2023-12-10] MEDS: INSULIN REGULAR 100 UNIT/ML VIAL (IV) IV ONE (12:23)
[2023-12-10] MEDS: DEXTROSE 50% SYRINGE 50 ML IVP STA (12:23)
[2023-12-10] MEDS: SODIUM ZIRCONIUM CYCLOSILICATE 10 GM PACKET PO ONE (12:24)
--- NOTE | 2023-12-10 12:37 | CDI ---
Documentation Clarification Form Date: 12/10/2023 From: Tara Lambert Phone: [phone] Admit Date: 12/08/2023 03:42:00 PM Patient Name: Brandon Lynch Visit Number: [id number] Discharge Date: ATTENTION: The Clinical Documentation Specialists (CDI) and [facility] Coding Staff appreciate your assistance in clarifying documentation. Please respond to the clarification below the line at the bottom and electronically sign. The CDI & [facility] Coding staff will review the response and follow-up if needed. Please note: Queries are made part of the Legal Health Record. If you have any questions, please contact the author of this message via ITS. RUI Kelley: Conflicting documentation has been found in the medical record. As attending physician, please provide clarification. 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 (3) Pressure ulcer of left heel, stage 3" History/Risk Factors: 78-year-old male with a history of HTN CKD, Venous stasis, DM2, PVD, and bilateral leg ulcers who presents with SIXTO Clinical Indicators: 12/07 H&P, HPI: "left heel full-thickness wound." 12/09 Wound Care consult, HPI: "Patient was ordered Hydrofera Blue. Patient return to [facility] where they were concerned that the ulceration has declined with bone exposure. At this time patient does not have bone exposure there is small areas of slough noted to the wound bed however the entire wound bed shows granulation. The wound is showing improvement. Original cause of wound was Gradually Appeared. The date acquired was: 10/20/2023.The wound has been in treatment 5 weeks. The wound is currently classified as a Grade 2 wound with etiology of Diabetic Wound/Ulcer of the Lower Extremity and is located on the Left Plantar Foot. The wound measures 5.6cm length x 5.6cm width x 0.1cm depth; 24.63cm 2 area and 2.463cm 3 volume. 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
[2023-12-10 16:32] LABS: Glucose,Whole Blood 178 mg/dL (70-110)
--- NOTE | 2023-12-10 18:10 | P.PN ---
Subjective Patient is seen for follow-up for acute kidney injury and hyperkalemia.. Currently maintained on IV fluids. Patient has received IV Lasix to help with the hyperkalemia. No obstruction noted on ultrasound of the kidneys. Blankenship catheter in place. Patient had about 4 L of urine output over the last 24 hours. Serum creatinine has worsened to 3.9 mg/dL today. Potassium was 6.0 today. No hypotension noted. Serum creatinine as low as 1.3 on 10/29/2023. No significant complaints today. Objective - Vital Signs Vital signs: Vital Signs Temp 98.2 F 12/10/23 15:18 Pulse 74 12/10/23 15:18 Resp 16 12/10/23 15:18 BP 116/60 12/10/23 15:18 Pulse Ox 96 12/10/23 15:18 FiO2 Intake & Output 12/09/23 12/10/23 12/10/23 18:59 06:59 18:59 Intake Total 041 069 4207 Output Total 2275 1999 1525 Balance -1315 -1900 749 Weight 90.718 kg 90.718 kg Intake: Intake, IV Titration 960 Amount Dextrose 5% in Water 1, 960 000 ml @ 80 mls/hr IV . [id number] CIARA with Sodium Bicarb (1 Meq/ml) 150 ml Rx#:[id number] Oral 023 357 6344 Output: Urine 2275 1999 152 Uretheral (Blankenship) 1125 Other: Voiding Method Indwelling Catheter Indwelling Catheter # Bowel Movements 1 1 - Exam patient is awake, comfortable, no acute distress. 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 - Labs CBC & Chem 7: 12/10/23 09:34 12/10/23 09:34 Labs: Abnormal Lab Results - Last 24 Hours (Table) 12/09/23 12/10/23 12/10/23 Range/Units 19:53 05:33 09:34 WBC 11.0 H (3.8-10.6) k/uL RBC 4.20 L (4.30-5.90) m/uL Hgb 12.7 L (13.0-17.5) gm/dL Potassium (3.5-5.1) mmol/L BUN (9-20) mg/dL Creatinine (0.66-1.25) mg/dL Glucose (74-99) mg/dL POC Glucose (mg/dL) 203 H 235 H (70-110) mg/dL 12/10/23 12/10/23 12/10/23 Range/Units 09:34 11:32 16:31 WBC (3.8-10.6) k/uL RBC (4.30-5.90) m/uL Hgb (13.0-17.5) gm/dL Potassium 6.0 H (3.5-5.1) mmol/L BUN 75 H (9-20) mg/dL Creatinine 3.95 H (0.66-1.25) mg/dL Glucose 107 H (74-99) mg/dL POC Glucose (mg/dL) 130 H 178 H (70-110) mg/dL Assessment and Plan Assessment: 1. Acute kidney injury, nonoliguric. Currently with indwelling Blankenship catheter which was recently changed . Etiology is likely ATN. Rule out acute interstitial nephritis from antibiotics. No obstruction noted on ultrasound of the kidneys. Patient was noted to have bladder lesions during his last hospitalization. 2. Hyperkalemia associated with acute kidney injury and metabolic acidosis. Patient was on Aldactone which is currently on hold. Blood sugar is not elevated. No GI bleed noted. Continue with lokelma. 3. Non-gap metabolic acidosis associated with acute kidney injury. 4. Left heel nonhealing wound with underlying osteomyelitis, maintained on cefepime and Flagyl as outpatient via PICC line 5. Chronic kidney disease with previous creatinine at 1.3-1.4 mg/dL on 10/27/2023. Etiology is likely underlying diabetic kidney disease. Acute kidney injury noted during last hospitalization with serum creatinine peaking at 3.2 mg/dL on 11/12/2023. Plan: Continue IV fluids, change to Ringer lactate. DC IV bicarb Check urine for eosinophils. Check renal CT to rule out occult obstruction. Repeat potassium this evening. Continue with lokelma. Repeat IV Lasix 1
[2023-12-10] MEDS: LACTATED RINGERS 1,000 ML IV SCH (18:23)
[2023-12-10] MEDS: FUROSEMIDE 10 MG/ML 4 ML VIAL IV STA (18:23)
[2023-12-10 18:51] LABS: Amorphous Sediment,Urine Rare /hpf; Appearance,Urine Clear (Clear); Bacteria,Urine Moderate /hpf; Bilirubin,Urine Negative (Negative); Blood,Urine Trace (Negative); Color,Urine Colorless; Glucose,Urine (UA) Negative (Negative); Hyaline Casts,Urine 1 /lpf (0-2); Ketones,Urine Negative (Negative); Leukocyte Esterase,Urine Trace (Negative); Mucus,Urine Rare /hpf; Nitrite,Urine Negative (Negative); Protein,Urine 1+ (Negative); RBC,Urine 2 /hpf (0-5); Squamous Epithelial Cell,Urine 1 /hpf (0-4); Urobilinogen,Urine <2.0 mg/dL (<2.0); WBC,Urine 9 /hpf (0-5)
--- NOTE | 2023-12-10 23:56 | CT ---
EXAM: CT Abdomen and Pelvis Without Intravenous Contrast CLINICAL HISTORY: ITS.REASON CT Reason: obstruction TECHNIQUE: Axial computed tomography images of the abdomen and pelvis without intravenous contrast. CTDI is 12.4 mGy and DLP is 885.6 mGy-cm. This CT exam was performed using one or more of the following dose reduction techniques: automated exposure control, adjustment of the mA and/or kV according to patient size, and/or use of iterative reconstruction technique. COMPARISON: CT 12/28/2021 FINDINGS: ABDOMEN: Liver: Unremarkable. Gallbladder and bile ducts: Cholelithiasis without cholecystitis. Pancreas: Unremarkable. Spleen: Unremarkable. Adrenals: Unremarkable. Kidneys and ureters: No urolithiasis or obstructive uropathy. Stomach and bowel: Unremarkable. PELVIS: Appendix: No findings to suggest acute appendicitis. Bladder: Blankenship catheter within the bladder which is thick-walled suggestive of cystitis. Reproductive: Unremarkable as visualized. ABDOMEN and PELVIS: Intraperitoneal space: Unremarkable. No free air. No significant fluid collection. Bones/joints: Postsurgical changes from a right femur ORIF. Soft tissues: Unremarkable. 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 Lymph nodes: Unremarkable. IMPRESSION: 1. No urolithiasis or obstructive uropathy. 2. Blankenship catheter within the bladder which is thick-walled suggestive of cystitis. 3. 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 4. Cholelithiasis without cholecystitis.
[2023-12-11 09:39] LABS: Basophils # (A) 0.1 k/uL (0-0.2); Basophils % (A) 1 %; Eosinophils # (A) 0.3 k/uL (0-0.7); Eosinophils % (A) 3 %; HCT 36.6 % (39.0-53.0); HGB 11.8 gm/dL (13.0-17.5); Lymphocytes # (A) 1.2 k/uL (1.0-4.8); Lymphocytes % (A) 12 %; MCH 30.6 pg (25.0-35.0); MCHC 32.3 g/dL (31.0-37.0); Mean Platelet Volume 7.3; Monocytes # (A) 1.1 k/uL (0-1.0); Monocytes % (A) 10 %; Neutrophils # (A) 7.8 k/uL (1.3-7.7); Neutrophils % (A) 73 %; Platelet Count 267 k/uL (150-450); RBC 3.86 m/uL (4.30-5.90); RDW 15.1 % (11.5-15.5); WBC 10.7 k/uL (3.8-10.6)
[2023-12-11 09:46] LABS: African American GFR (CKD) 18 (>60 ml/min/1.73 sqM); Anion Gap 9 mmol/L; Blood Urea Nitrogen 75 mg/dL (9-20); Calcium 8.9 mg/dL (8.4-10.2); Carbon Dioxide 26 mmol/L (22-30); Chloride 103 mmol/L (98-107); Glucose 189 mg/dL (74-99); Non-African American GFR(CKD) 16 (>60 ml/min/1.73 sqM); Potassium 5.2 mmol/L (3.5-5.1); Sodium 138 mmol/L (137-145)
[2023-12-11 11:43] LABS: Glucose,Whole Blood 247 mg/dL (70-110)
--- NOTE | 2023-12-11 13:43 | P.CONS ---
History of Present Illness - Reason for Consult Consult date: 12/10/23 - History of Present Illness Patient is a 78-year-old male with a past medical history significant for diabetes mellitus hypertension renal insufficiency, recently admitted to this facility and has been treated for a left heel stage IV pressure ulcer with underlying osteomyelitis for which the patient has completed his antibiotic therapy patient has been sent to the ER from the local [facility] regarding elevated potassium that has been done on the routine blood work patient denies having any fever or any chills denies having any headache or URI symptoms no chest pain shortness of breath or cough no nausea no vomiting no abdominal pain or any diarrhea patient on presentation to the hospital was afebrile and no fever have recorded subsequently patient was not tachycardic hypotensive or hypoxic, patient did have a white count of 11,000 this morning patient normal white count admission BUN/creatinine has been elevated with a BUN of 75 creatinine 3.95 liver enzymes are normal urine has been mildly positive patient has been admitted to hospital infectious he was consulted regarding left heel wound and need for any further antibiotic therapy Past Medical History Past Medical History: Diabetes Mellitus, Hypertension, Renal Disease Additional Past Medical History / Comment(s): VENOUS STASIS ; ULCERS BILAT LEGS, PVD, CRISTAL LEG WOUND History of Any Multi-Drug Resistant Organisms: MRSA Year Discovered:: 04/14/17 MDRO Source:: Right Leg Past Surgical History: Tonsillectomy Additional Past Surgical History / Comment(s): 07/13/17 CRISTAL AORTOGRAM AND LLE ANGIOGRAM, REATTACHED TENDON LT 5TH FINGER 1995. skin graft bilat legs, Right foot pinky toe amp. 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 Past Drug Use History: None Reported - Past Family History Father Family Medical History: Cancer Additional Family Medical History / Comment(s): PROSTATE CANCER Mother Family Medical History: Hypertension Medications and Allergies Home Medications Medication Instructions Recorded Confirmed Type amLODIPine [Norvasc] 10 mg PO DAILY@0900 11/10/16 12/08/23 History Multivitamins, Thera [Multivitamin 1 tab PO DAILY@0900 12/26/21 12/08/23 History (formulary)] Ferrous Sulfate [Iron (65 MG 325 mg PO DAILY@0900 04/29/23 12/08/23 History Elemental)] Tamsulosin [Flomax] 0.4 mg PO DAILY@0900 10/21/23 12/08/23 History Acetaminophen Tab [Tylenol] 650 mg PO Q6HR PRN tab 10/27/23 12/08/23 Rx Atorvastatin [Lipitor] 10 mg PO HS@209911/15/23 12/08/23 History Glucerna Shake 1 can PO BID@0900,209911/15/23 12/08/23 History Heparin Sodium,Porcine (1 ml) 5,000 unit SQ TID@0600,1400,2200 11/15/23 12/08/23 History [Heparin Sodium] Omeprazole 20 mg PO DAILY@0600 11/15/23 12/08/23 History HYDROcodone/APAP 5-325MG [[place] 1 tab PO Q6H PRN #4 tab 11/19/23 12/08/23 Rx 5-325] Insulin Degludec [Tresiba 8 units SQ DAILY@0912/08/23 12/08/23 History Flextouch U-100 Pen] Insulin Lispro [humaLOG Kwikpen] See Protocol SQ ACHS@08,12,17,21 12/08/23 12/08/23 History Sodium Bicarbonate Tab 650 mg PO BID@0900,209912/08/23 12/08/23 History Spironolactone [Aldactone] 25 mg PO DAILY@0900 12/08/23 12/08/23 History Allergies Allergy/AdvReac Type Severity Reaction Status Date / Time No Known Allergies Allergy Verified 12/08/23 14:56 Physical Exam Vitals: Vital Signs Temp Pulse Pulse Resp BP BP Pulse Ox 12/10/23 04:40 98.0 F 95 17 121/75 98 12/10/23 02:05 18 12/09/23 23:25 97.9 F 92 17 128/76 98 12/09/23 21:53 18 12/09/23 19:51 98.4 F 75 18 122/72 99 12/09/23 18:30 78 16 128/69 100 12/09/23 16:00 97.7 F 138/70 99 12/09/23 14:00 96 18 12/09/23 12:00 97.4 F L 96 128/73 100 12/09/23 08:00 97.5 F L 75 18 147/76 100 12/09/23 06:56 79 24 126/74 98 Intake and Output 12/09/23 12/09/23 12/10/23 14:59 22:59 06:59 Intake Total 720 340 Output Total 2024 250 1999 Balance -1305 90 -2000 Intake: Oral 720 340 Output: Urine 2024 Other: Voiding Method Indwelling Catheter Indwelling Catheter # Bowel Movements 1 1 Weight 90.718 kg Results CBC & Chem 7: 12/11/23 09:12 12/11/23 09:12 Labs: Abnormal Lab Results - Last 24 Hours (Table) 12/09/23 12/09/23 12/09/23 Range/Units 08:17 08:17 11:20 WBC 11.2 H (3.8-10.6) k/uL RBC 4.23 L (4.30-5.90) m/uL Hgb 12.9 L (13.0-17.5) gm/dL Neutrophils # 8.0 H (1.3-7.7) k/uL Potassium 6.9 H* (3.5-5.1) mmol/L Chloride 110 H (98-107) mmol/L Carbon Dioxide (22-30) mmol/L BUN 76 H (9-20) mg/dL Creatinine 3.18 H (0.66-1.25) mg/dL Glucose 123 H (74-99) mg/dL POC Glucose (mg/dL) 156 H (70-110) mg/dL 12/09/23 12/09/23 12/10/23 Range/Units 15:45 19:53 05:33 WBC (3.8-10.6) k/uL RBC (4.30-5.90) m/uL Hgb (13.0-17.5) gm/dL Neutrophils # (1.3-7.7) k/uL Potassium 6.1 H* (3.5-5.1) mmol/L Chloride 111 H (98-107) mmol/L Carbon Dioxide 20 L (22-30) mmol/L BUN (9-20) mg/dL Creatinine (0.66-1.25) mg/dL Glucose (74-99) mg/dL POC Glucose (mg/dL) 203 H 235 H (70-110) mg/dL Assessment and Plan Plan: 1patient with a chronic nonhealing wound to the left heel stage IV pressure ulcer and underlying osteomyelitis for the patient has completed his antibiotic therapy currently wound base with no slough tissue or surrounding redness suspicious low for ongoing infection and need for antibiotic therapy. 2patient with a mild elevated white count possibly reactive need to be monitored closely did have a positive UA however not very clear about any u rinary symptoms. 3local wound care with Aquacel silver dressing and keep the area of the pressure We will follow on clinical condition and cultures to further adjust medication if needed Thank you for this consultation we will follow the patient along with you Dictation was produced using [employer] dictation software. please excuse any grammatical, word or spelling errors. Time with Patient: Greater than 30
--- NOTE | 2023-12-11 13:52 | P.PN ---
Subjective Progress Note Date: 12/11/23 Principal diagnosis: Reason for follow-up is left heel pressure ulcer and UTI Patient is a 78-year-old male with a past medical history significant for diabetes mellitus hypertension renal insufficiency, recently admitted to this facility and has been treated for a left heel stage IV pressure ulcer with underlying osteomyelitis for which the patient has completed his antibiotic therapy, patient remains in the hospital because of elevated potassium. Patient also have a mildly positive UA with a CT completed this admission showing evidence of cystitis. On today's evaluation that is 12/11/2023,the patient denies any fever or any chills, patient is breathing comfortably on room air, the patient denies chest pain shortness of breath and no significant cough, patient denies abdominal pain, no nausea vomiting or diarrhea. Patient denies any worsening pain to the left heel area. Patient white count is down to 10.7, creatinine 3.[address] with cystitis Objective - Vital Signs Vital signs: Vital Signs Temp 98.1 F 12/11/23 11:57 Pulse 83 12/11/23 11:57 Resp 18 12/11/23 11:57 BP 118/54 12/11/23 11:57 Pulse Ox 98 12/11/23 11:57 FiO2 Intake & Output 12/10/23 12/11/23 12/11/23 18:59 06:59 18:59 Intake Total 2274 718 Output Total 1525 2220 700 Balance 749 -2220 18 Weight 90.718 kg 84.5 kg Intake: Intake, IV Titration 960 Amount Dextrose 5% in Water 1, 960 000 ml @ 80 mls/hr IV . [id number] CIARA with Sodium Bicarb (1 Meq/ml) 150 ml Rx#:[id number] Oral 1314 718 Output: Urine 1525 2220 700 Uretheral (Blankenship) 1125 350 Other: Voiding Method Indwelling Catheter Indwelling Catheter Indwelling Catheter # Bowel Movements 1 - Exam GENERAL DESCRIPTION: An elderly male lying in bed in no distress RESPIRATORY SYSTEM: Unlabored breathing , decreased breath sounds at bases HEART: S1 S2 regular rate and rhythm , ABDOMEN: Soft , no tenderness EXTREMITIES: Left heel with a stage IV ulcer with no slough tissue surrounding redness minimal drainage on the dressing - Labs CBC & Chem 7: 12/11/23 09:12 06/15/24 09:12 Labs: Abnormal Lab Results - Last 24 Hours (Table) 12/10/23 12/10/23 12/10/23 Range/Units 16:31 17:31 18:26 WBC (3.8-10.6) k/uL RBC (4.30-5.90) m/uL Hgb (13.0-17.5) gm/dL Hct (39.0-53.0) % Neutrophils # (1.3-7.7) k/uL Monocytes # (0-1.0) k/uL Potassium 5.5 H (3.5-5.1) mmol/L BUN (9-20) mg/dL Creatinine (0.66-1.25) mg/dL Glucose (74-99) mg/dL POC Glucose (mg/dL) 178 H (70-110) mg/dL Urine Protein 1+ H (Negative) Urine Blood Trace H (Negative) Ur Leukocyte Esterase Trace H (Negative) Urine WBC 9 H (0-5) /hpf Amorphous Sediment Rare H (None) /hpf Urine Bacteria Moderate H (None) /hpf Urine Mucus Rare H (None) /hpf 12/11/23 12/11/23 12/11/23 Range/Units 09:12 09:12 11:42 WBC 10.7 H (3.8-10.6) k/uL RBC 3.86 L (4.30-5.90) m/uL Hgb 11.8 L (13.0-17.5) gm/dL Hct 36.6 L (39.0-53.0) % Neutrophils # 7.8 H (1.3-7.7) k/uL Monocytes # 1.1 H (0-1.0) k/uL Potassium 5.2 H (3.5-5.1) mmol/L BUN 75 H (9-20) mg/dL Creatinine 3.51 H (0.66-1.25) mg/dL Glucose 189 H (74-99) mg/dL POC Glucose (mg/dL) 247 H (70-110) mg/dL Urine Protein (Negative) Urine Blood (Negative) Ur Leukocyte Esterase (Negative) Urine WBC (0-5) /hpf Amorphous Sediment (None) /hpf Urine Bacteria (None) /hpf Urine Mucus (None) /hpf Assessment and Plan (1) Cystitis Current Visit: Yes Status: Acute Code(s): N30.90 - CYSTITIS, UNSPECIFIED WITHOUT HEMATURIA SNOMED Code(s): 84970014 (2) Leukocytosis Current Visit: Yes Status: Acute Code(s): D72.829 - ELEVATED WHITE BLOOD CELL COUNT, UNSPECIFIED SNOMED Code(s): 084500053 (3) Stage IV pressure ulcer of left heel Current Visit: No Status: Acute Code(s): L89.624 - PRESSURE ULCER OF LEFT HEEL, STAGE 4 SNOMED Code(s): 21185314113561 Plan: 1patient with a chronic nonhealing wound to the left heel stage IV pressure ulcer and underlying osteomyelitis for the patient has completed his antibiotic therapy currently wound base with no slough tissue or surrounding redness suspicious low for ongoing infection and need for antibiotic therapy. 2patient with a mild elevated white count possibly reactive however the B did have a positive UA and CT did shows evidence of cystitis possible component of UTI from UTI gram-negative pathogen 3local wound care with Aquacel silver dressing and keep the area of the pressure 4we will add cefepime while waiting for urine culture to finalize Dictation was produced using [employer] dictation software. please excuse any grammatical, word or spelling errors. Time with Patient: Less than 30
[2023-12-11] MEDS: CEFEPIME 2 GM in SODIUM CHLORIDE 0.9% 100 ML IVPB STA (15:24)
[2023-12-11 16:13] LABS: Glucose,Whole Blood 134 mg/dL (70-110)
--- NOTE | 2023-12-11 19:28 | P.PN ---
Subjective Progress Note Date: 12/11/23 Patient is seen for follow-up for acute kidney injury and hyperkalemia. Patient has received IV Lasix to help with the hyperkalemia. No obstruction noted on ultrasound of the kidneys. Blankenship catheter in place. No new complaints. Patient is awake, comfortable, no acute distress. 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 Objective - Vital Signs Vital signs: Vital Signs Temp 98.0 F 12/11/23 08:07 Pulse 76 12/11/23 08:07 Resp 18 12/11/23 08:07 BP 130/66 12/11/23 08:07 Pulse Ox 99 12/11/23 08:07 FiO2 Intake & Output 12/10/23 12/11/23 12/11/23 18:59 06:59 18:59 Intake Total 2274 360 Output Total 1525 2220 300 Balance 749 -2220 60 Weight 90.718 kg 84.5 kg Intake: Intake, IV Titration 960 Amount Dextrose 5% in Water 1, 960 000 ml @ 80 mls/hr IV . [id number] CIARA with Sodium Bicarb (1 Meq/ml) 150 ml Rx#:[id number] Oral 1314 360 Output: Urine 1525 2220 300 Uretheral (Blankenship) 1125 300 Other: Voiding Method Indwelling Catheter Indwelling Catheter Indwelling Catheter # Bowel Movements 1 - Labs CBC & Chem 7: 12/11/23 09:12 12/11/23 09:12 Labs: Abnormal Lab Results - Last 24 Hours (Table) 12/10/23 12/10/23 12/10/23 Range/Units 16:31 17:31 18:26 WBC (3.8-10.6) k/uL RBC (4.30-5.90) m/uL Hgb (13.0-17.5) gm/dL Hct (39.0-53.0) % Neutrophils # (1.3-7.7) k/uL Monocytes # (0-1.0) k/uL Potassium 5.5 H (3.5-5.1) mmol/L BUN (9-20) mg/dL Creatinine (0.66-1.25) mg/dL Glucose (74-99) mg/dL POC Glucose (mg/dL) 178 H (70-110) mg/dL Urine Protein 1+ H (Negative) Urine Blood Trace H (Negative) Ur Leukocyte Esterase Trace H (Negative) Urine WBC 9 H (0-5) /hpf Amorphous Sediment Rare H (None) /hpf Urine Bacteria Moderate H (None) /hpf Urine Mucus Rare H (None) /hpf 12/11/23 12/11/23 12/11/23 Range/Units 09:12 09:12 11:42 WBC 10.7 H (3.8-10.6) k/uL RBC 3.86 L (4.30-5.90) m/uL Hgb 11.8 L (13.0-17.5) gm/dL Hct 36.6 L (39.0-53.0) % Neutrophils # 7.8 H (1.3-7.7) k/uL Monocytes # 1.1 H (0-1.0) k/uL Potassium 5.2 H (3.5-5.1) mmol/L BUN 75 H (9-20) mg/dL Creatinine 3.51 H (0.66-1.25) mg/dL Glucose 189 H (74-99) mg/dL POC Glucose (mg/dL) 247 H (70-110) mg/dL Urine Protein (Negative) Urine Blood (Negative) Ur Leukocyte Esterase (Negative) Urine WBC (0-5) /hpf Amorphous Sediment (None) /hpf Urine Bacteria (None) /hpf Urine Mucus (None) /hpf Assessment and Plan Assessment: 1. Acute kidney injury, nonoliguric. Currently with indwelling Blankenship catheter which was recently changed . Etiology is likely ATN. Rule out acute interstitial nephritis from antibiotics. No obstruction noted on ultrasound of the kidneys. Patient was noted to have bladder lesions during his last hospitalization. UA no eosinophils or concern for AIN. CT negative for hydronephrosis or obstructing nephropathy. 2. Hyperkalemia associated with acute kidney injury and metabolic acidosis. Patient was on Aldactone which is currently on hold. Blood sugar is not elevated. No GI bleed noted. Continue with lokelma. 3. Non-gap metabolic acidosis associated with acute kidney injury. 4. Left heel nonhealing wound with underlying osteomyelitis, maintained on cefepime and Flagyl as outpatient via PICC line 5. Chronic kidney disease with previous creatinine at 1.3-1.4 mg/dL on 10/27/2023. Etiology is likely underlying diabetic kidney disease. Acute kidney injury noted during last hospitalization with serum creatinine peaking at 3.2 mg/dL on 11/12/2023. Plan: Continue IV fluids Off IV bicarb Continue with lokelma. Daily BMP, supportive care for now. No indications for HD at this time.
[2023-12-11 20:04] LABS: Glucose,Whole Blood 138 mg/dL (70-110)
[2023-12-11] MEDS: CEFEPIME 1 GM in SODIUM CHLORIDE 0.9% 50 ML IVPB SCH (23:43)
[2023-12-12 06:03] LABS: Glucose,Whole Blood 109 mg/dL (70-110)
[2023-12-12 07:04] LABS: Basophils # (A) 0.1 k/uL (0-0.2); Basophils % (A) 1 %; Eosinophils # (A) 0.4 k/uL (0-0.7); Eosinophils % (A) 4 %; HCT 35.8 % (39.0-53.0); HGB 11.3 gm/dL (13.0-17.5); Lymphocytes # (A) 1.1 k/uL (1.0-4.8); Lymphocytes % (A) 12 %; MCH 30.3 pg (25.0-35.0); MCHC 31.5 g/dL (31.0-37.0); Mean Platelet Volume 7.3; Monocytes % (A) 11 %; Neutrophils # (A) 6.5 k/uL (1.3-7.7); Neutrophils % (A) 70 %; Platelet Count 246 k/uL (150-450); RBC 3.73 m/uL (4.30-5.90); RDW 15.1 % (11.5-15.5); WBC 9.3 k/uL (3.8-10.6)
[2023-12-12 07:37] LABS: African American GFR (CKD) 19 (>60 ml/min/1.73 sqM); Blood Urea Nitrogen 66 mg/dL (9-20); Calcium 8.8 mg/dL (8.4-10.2); Glucose 95 mg/dL (74-99); Non-African American GFR(CKD) 17 (>60 ml/min/1.73 sqM); Potassium 5.2 mmol/L (3.5-5.1); Sodium 141 mmol/L (137-145)
[2023-12-12 07:52] LABS: Anion Gap 9 mmol/L; Carbon Dioxide 24 mmol/L (22-30); Chloride 108 mmol/L (98-107)
[2023-12-12] MEDS: SODIUM ZIRCONIUM CYCLOSILICATE 10 GM PACKET PO SCH (08:30)
[2023-12-12 11:27] LABS: Glucose,Whole Blood 121 mg/dL (70-110)
--- NOTE | 2023-12-12 12:27 | P.PN ---
Subjective Progress Note Date: 12/12/23 Patient is seen for follow-up for acute kidney injury and hyperkalemia. Patient has received IV Lasix to help with the hyperkalemia. No obstruction noted on ultrasound of the kidneys. Blankenship catheter in place. No new complaints. Patient is awake, comfortable, no acute distress. 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 Objective - Vital Signs Vital signs: Vital Signs Temp 97.0 F L 12/12/23 08:23 Pulse 69 12/12/23 08:23 Resp 16 12/12/23 08:23 BP 136/71 12/12/23 08:23 Pulse Ox 99 12/12/23 08:23 FiO2 Intake & Output 12/11/23 12/12/23 12/12/23 18:59 06:59 18:59 Intake Total 1076 1210 Output Total 1375 1400 600 Balance -299 -1400 610 Weight 85 kg Intake: Intake, IV Titration 850 Amount Cefepime 1 gm In Sodium 50 Chloride 0.9% 50 ml @ 12. 5 mls/hr IVPB Q12H CIARA Rx #:[id number] Lactated Ringers 1,000 ml 800 @ 100 mls/hr IV .Q10H CIARA Rx#:[id number] Oral 1076 360 Output: Urine 1375 1400 600 Uretheral (Blankenship) 850 600 Other: Voiding Method Indwelling Catheter Indwelling Catheter Indwelling Catheter - Labs CBC & Chem 7: 12/12/23 06:29 12/12/23 06:29 Labs: Abnormal Lab Results - Last 24 Hours (Table) 12/11/23 12/11/23 12/11/23 Range/Units 11:42 16:10 20:03 RBC (4.30-5.90) m/uL Hgb (13.0-17.5) gm/dL Hct (39.0-53.0) % Potassium (3.5-5.1) mmol/L Chloride (98-107) mmol/L BUN (9-20) mg/dL Creatinine (0.66-1.25) mg/dL POC Glucose (mg/dL) 247 H 134 H 138 H (70-110) mg/dL 12/12/23 12/12/23 Range/Units 06:29 06:29 RBC 3.73 L (4.30-5.90) m/uL Hgb 11.3 L (13.0-17.5) gm/dL Hct 35.8 L (39.0-53.0) % Potassium 5.2 H (3.5-5.1) mmol/L Chloride 108 H (98-107) mmol/L BUN 66 H (9-20) mg/dL Creatinine 3.37 H (0.66-1.25) mg/dL POC Glucose (mg/dL) (70-110) mg/dL Assessment and Plan Assessment: 1. Acute kidney injury, nonoliguric. Currently with indwelling Blankenship catheter which was recently changed . Etiology is likely ATN. Rule out acute interstit ial nephritis from antibiotics. No obstruction noted on ultrasound of the kidneys. Patient was noted to have bladder lesions during his last hospitalization. UA no eosinophils or concern for AIN. CT negative for hydronephrosis or obstructing nephropathy. Creatinine peaked 4.0-->3.4 today. 2. Hyperkalemia associated with acute kidney injury and metabolic acidosis. Patient was on Aldactone which is currently on hold. Blood sugar is not elevated. No GI bleed noted. Continue with lokelma. 3. Non-gap metabolic acidosis associated with acute kidney injury. 4. Left heel nonhealing wound with underlying osteomyelitis, maintained on cefepime and Flagyl as outpatient via PICC line 5. Chronic kidney disease with previous creatinine at 1.3-1.4 mg/dL on 10/27/2023. Etiology is likely underlying diabetic kidney disease. Acute kidney injury noted during last hospitalization with serum creatinine peaking at 3.2 mg/dL on 11/12/2023. Plan: Off IV bicarb and IVF, encourage PO intake. Continue with lokelma. Daily BMP, supportive care for now. No indications for HD at this time.
--- NOTE | 2023-12-12 13:39 | P.PN ---
Subjective Progress Note Date: 12/12/23 Principal diagnosis: Reason for follow-up is left heel pressure ulcer and UTI Patient is a 78-year-old male with a past medical history significant for diabetes mellitus hypertension renal insufficiency, recently admitted to this facility and has been treated for a left heel stage IV pressure ulcer with underlying osteomyelitis for which the patient has completed his antibiotic therapy, patient remains in the hospital because of elevated potassium. Patient also have a mildly positive UA with a CT completed this admission showing evidence of cystitis. On today's evaluation that is 12/12/2023,the patient remains to be afebrile, patient is on room air not requiring supplemental oxygen and denies any shortness of breath no chest pain or cough.Patient denies having any nausea or vomiting, no abdominal pain and no diarrhea has been reported, denies any worsening pain to the left heel wound. Patient white count normalized to 9.3, creatinine 3.37 cultures currently pending Objective - Vital Signs Vital signs: Vital Signs Temp 98.0 F 12/12/23 11:38 Pulse 70 12/12/23 11:38 Resp 16 12/12/23 08:23 BP 136/67 12/12/23 11:38 Pulse Ox 99 12/12/23 11:38 FiO2 Intake & Output 12/11/23 12/12/23 12/12/23 18:59 06:59 18:59 Intake Total 1076 1568 Output Total 1375 1400 1500 Balance -299 -1400 68 Weight 85 kg Intake: Intake, IV Titration 850 Amount Cefepime 1 gm In Sodium 50 Chloride 0.9% 50 ml @ 12. 5 mls/hr IVPB Q12H CIARA Rx #:[id number] Lactated Ringers 1,000 ml 800 @ 100 mls/hr IV .Q10H CIARA Rx#:[id number] Oral 1076 718 Output: Urine 1375 1400 1500 Uretheral (Blankenship) 850 600 Other: Voiding Method Indwelling Catheter Indwelling Catheter Indwelling Catheter - Exam GENERAL DESCRIPTION: An elderly male lying in bed in no distress RESPIRATORY SYSTEM: Unlabored breathing , decreased breath sounds at bases HEART: S1 S2 regular rate and rhythm , ABDOMEN: Soft , no tenderness EXTREMITIES: Left heel wound is currently dressed - Labs CBC & Chem 7: 12/12/23 06:29 12/12/23 06:29 Labs: Abnormal Lab Results - Last 24 Hours (Table) 12/11/23 12/11/23 12/12/23 Range/Units 16:10 20:03 06:29 RBC 3.73 L (4.30-5.90) m/uL Hgb 11.3 L (13.0-17.5) gm/dL Hct 35.8 L (39.0-53.0) % Potassium (3.5-5.1) mmol/L Chloride (98-107) mmol/L BUN (9-20) mg/dL Creatinine (0.66-1.25) mg/dL POC Glucose (mg/dL) 134 H 138 H (70-110) mg/dL 12/12/23 12/12/23 Range/Units 06:29 11:26 RBC (4.30-5.90) m/uL Hgb (13.0-17.5) gm/dL Hct (39.0-53.0) % Potassium 5.2 H (3.5-5.1) mmol/L Chloride 108 H (98-107) mmol/L BUN 66 H (9-20) mg/dL Creatinine 3.37 H (0.66-1.25) mg/dL POC Glucose (mg/dL) 121 H (70-110) mg/dL Assessment and Plan (1) Cystitis Current Visit: Yes Status: Acute Code(s): N30.90 - CYSTITIS, UNSPECIFIED WITHOUT HEMATURIA SNOMED Code(s): 05182875 (2) Leukocytosis Current Visit: Yes Status: Acute Code(s): D72.829 - ELEVATED WHITE BLOOD CELL COUNT, UNSPECIFIED SNOMED Code(s): 009939371 (3) Stage IV pressure ulcer of left heel Current Visit: No Status: Acute Code(s): L89.624 - PRESSURE ULCER OF LEFT HEEL, STAGE 4 SNOMED Code(s): 51906054520982 Plan: 1patient with a chronic nonhealing wound to the left heel stage IV pressure ulcer and underlying osteomyelitis for the patient has completed his antibiotic therapy currently wound base with no slough tissue or surrounding redness suspicious low for ongoing infection and need for antibiotic therapy. 2patient with a mild elevated white count possibly reactive however the B did have a positive UA and CT did shows evidence of cystitis possible component of UTI from UTI gram-negative pathogen 3local wound care with Aquacel silver dressing and keep the area of the pressure 4patient white count has normalized continue cefepime while waiting for the culture to finalize Dictation was produced using 1calendar dictation software. please excuse any grammatical, word or spelling errors. Time with Patient: Less than 30
[2023-12-12 16:28] LABS: Glucose,Whole Blood 188 mg/dL (70-110)
[2023-12-12 20:32] LABS: Glucose,Whole Blood 150 mg/dL (70-110)
--- NOTE | 2023-12-12 21:40 | P.PN ---
Subjective Progress Note Date: 12/09/23 Patient is a 78-year-old male with a past medical history of hypertension, diabetes type 2 insulin-dependent, prior history of left urinary retention, CKD, venous stasis, PVD and bilateral leg ulcers completed antibiotic course presents to ER due to abnormal labs. Patient otherwise denies any complaints of chest pain or shortness of breath. No nausea vomiting abdominal pain or diarrhea. EKG showed sinus rhythm with first-degree AV block. Laboratory data showed WBC 9.4 hemoglobin 12.9 and platelets 279 sodium 141 potassium 7.7 chloride 111 bicarb is 18 BUN 8020 creatinine 3.32 and blood sugar 166 and magnesium 1.5 liver exams not elevated. Troponins x 1 negative. 12/09/2023 Patient is resting in the bed. Awake alert and oriented x 3. No complaints of chest pain or shortness of breath. No palpitations. No nausea vomiting abdominal pain or diarrhea. Tolerating oral diet. Blood sugar is controlled. Laboratory data showed WBC 11.2 hemoglobin 12.9 and platelets 297 sodium 142 potassium slightly improved to 6.9, chloride 110 bicarb is 22 BUN 76 and creatinine 3.18 and blood sugar 123 and calcium 9.9. Patient is being continued on Lokelma and is also given a dose of insulin/D50 and calcium gluconate. Nephrology is on board. Current medications reviewed. Objective - Vital Signs Vital signs: Vital Signs Temp 97.5 F L 12/09/23 08:00 Pulse 75 12/09/23 08:00 Resp 18 12/09/23 08:00 BP 147/76 12/09/23 08:00 Pulse Ox 100 12/09/23 08:00 FiO2 Intake & Output 12/08/23 12/09/23 12/09/23 18:59 06:59 18:59 Intake Total 480 Output Total 1600 Balance -1120 Weight 90.718 kg Intake: Oral 480 Output: Urine 1600 Other: # Bowel Movements 1 - Exam PHYSICAL EXAMINATION: Patient is lying in the bed comfortably, no acute distress, awake alert and oriented.. HEENT: Normocephalic. Neck is supple. Pupils reactive. Nostrils clear. Oral cavity is moist. Neck reveals no JVD, carotid bruits, or thyromegaly. CHEST EXAMINATION: Trachea is central. Symmetrical expansion. Lung nguyen clear to auscultation and percussion. CARDIAC: Normal S1, S2 with no gallops. No murmurs ABDOMEN: Soft. Bowel sounds normal. No organomegaly. No abdominal bruits. Extremities: reveal no edema. Left lower extremity heel ulcer no clubbing or cyanosis Neurologically awake, alert, oriented x3 with well-coordinated movements. No focal deficits noted Skin: No rash or skin lesions. Psychiatric: Coperative. Nonsuicidal Musculoskeletal: No joint swelling or deformity. Normal range of motion. - Labs CBC & Chem 7: 12/12/23 06:29 12/12/23 06:29 Labs: Abnormal Lab Results - Last 24 Hours (Table) 12/08/23 12/08/23 12/08/23 Range/Units 14:07 14:07 21:09 WBC (3.8-10.6) k/uL RBC 4.22 L (4.30-5.90) m/uL Hgb 12.9 L (13.0-17.5) gm/dL Neutrophils # (1.3-7.7) k/uL Potassium 7.7 H* 7.0 H* (3.5-5.1) mmol/L Chloride 111 H (98-107) mmol/L Carbon Dioxide 18 L (22-30) mmol/L BUN 82 H (9-20) mg/dL Creatinine 3.32 H (0.66-1.25) mg/dL Glucose 166 H (74-99) mg/dL Magnesium 1.5 L (1.6-2.3) mg/dL 12/09/23 12/09/23 Range/Units 08:17 08:17 WBC 11.2 H (3.8-10.6) k/uL RBC 4.23 L (4.30-5.90) m/uL Hgb 12.9 L (13.0-17.5) gm/dL Neutrophils # 8.0 H (1.3-7.7) k/uL Potassium 6.9 H* (3.5-5.1) mmol/L Chloride 110 H (98-107) mmol/L Carbon Dioxide (22-30) mmol/L BUN 76 H (9-20) mg/dL Creatinine 3.18 H (0.66-1.25) mg/dL Glucose 123 H (74-99) mg/dL Magnesium (1.6-2.3) mg/dL Assessment and Plan Assessment: Acute kidney injury nonoliguric. Possible ATN. Rule out interstitial nephritis, from recent antibiotics.Creatinine 3.32 on admission Hyperkalemia secondary acute kidney injury CKD stage III with baseline creatinine 1.4 Left heel full-thickness wound. Patient refused amputation as recommended by vascular surgery. On antibiotics as an outpatient currently. Has a PICC line and will continue with PICC line for 2 weeks per ID recommendations Hypertension Urinary retention requiring indwelling Blankenship catheter, patient will need o utpatient follow-up with urology for cystoscopy Diabetes type 2 insulin-dependent, has an insulin pump Prior history of urinary retention Generalized weakness with gait dysfunction DVT prophylaxis with heparin subcu Obesity with a BMI 31.7 GI prophylaxis Full code Plan: Patient will be continued on IV fluids and IV sodium bicarbonate. Was given insulin/D50 and calcium gluconate and also being continued on Lokelma and follow-up potassium level and renal function. Follow-up potassium level. Was given Lasix 40 mg IV x 1 as per nephrology. Nephrology was consulted.. Ultrasound renal was ordered. Continue with wound care and other home medications and follow-up closely. Time with Patient: Greater than 30
--- NOTE | 2023-12-12 21:44 | P.PN ---
Subjective Progress Note Date: 12/10/23 Patient is a 78-year-old male with a past medical history of hypertension, diabetes type 2 insulin-dependent, prior history of left urinary retention, CKD, venous stasis, PVD and bilateral leg ulcers completed antibiotic course presents to ER due to abnormal labs. Patient otherwise denies any complaints of chest pain or shortness of breath. No nausea vomiting abdominal pain or diarrhea. EKG showed sinus rhythm with first-degree AV block. Laboratory data showed WBC 9.4 hemoglobin 12.9 and platelets 279 sodium 141 potassium 7.7 chloride 111 bicarb is 18 BUN 8020 creatinine 3.32 and blood sugar 166 and magnesium 1.5 liver exams not elevated. Troponins x 1 negative. 12/09/2023 Patient is resting in the bed. Awake alert and oriented x 3. No complaints of chest pain or shortness of breath. No palpitations. No nausea vomiting abdominal pain or diarrhea. Tolerating oral diet. Blood sugar is controlled. Laboratory data showed WBC 11.2 hemoglobin 12.9 and platelets 297 sodium 142 potassium slightly improved to 6.9, chloride 110 bicarb is 22 BUN 76 and creatinine 3.18 and blood sugar 123 and calcium 9.9. Patient is being continued on Lokelma and is also given a dose of insulin/D50 and calcium gluconate. Nephrology is on board. 12/10/2023 Patient is currently resting in bed. Awake alert and oriented x 3. No complaints of chest pain or shortness of breath. No fever no chills. No nausea or vomiting.. Any worsening left heel pain. ROS creatinine increased to 3.95 today. Potassium 6.0 and WBC 6.0 hemoglobin 12.7 and platelets 321. Renal ultrasound showed no hydronephrosis. There is a 2.1 cm hypoechoic area within the left kidney recommend CT scan to exclude underlying mass lesion. Nephrology is on board. ID consult due to left heel ulcer. Current medications reviewed. Objective - Vital Signs Vital signs: Vital Signs Temp 98.2 F 12/10/23 15:18 Pulse 74 12/10/23 15:18 Resp 16 12/10/23 15:18 BP 116/60 12/10/23 15:18 Pulse Ox 96 12/10/23 15:18 FiO2 Intake & Output 12/10/23 12/10/23 12/11/23 06:59 18:59 06:59 Intake Total 100 2274 Output Total 2000 1525 1000 Balance -1900 749 -1000 Weight 90.718 kg Intake: Intake, IV Titration 960 Amount Dextrose 5% in Water 1, 960 000 ml @ 80 mls/hr IV . [id number] CIARA with Sodium Bicarb (1 Meq/ml) 150 ml Rx#:[id number] Oral 100 1314 Output: Urine 1999 1525 1000 Uretheral (Blankenship) 1125 Other: Voiding Method Indwelling Catheter Indwelling Catheter # Bowel Movements 1 - Exam PHYSICAL EXAMINATION: Patient is lying in the bed comfortably, no acute distress, awake alert and oriented.. HEENT: Normocephalic. Neck is supple. Pupils reactive. Nostrils clear. Oral cavity is moist. Neck reveals no JVD, carotid bruits, or thyromegaly. CHEST EXAMINATION: Trachea is central. Symmetrical expansion. Lung nguyen clear to auscultation and percussion. CARDIAC: Normal S1, S2 with no gallops. No murmurs ABDOMEN: Soft. Bowel sounds normal. No organomegaly. No abdominal bruits. Extremities: reveal no edema. Left lower extremity heel ulcer no clubbing or cyanosis Neurologically awake, alert, oriented x3 with well-coordinated movements. No focal deficits noted Skin: No rash or skin lesions. Psychiatric: Coperative. Nonsuicidal Musculoskeletal: No joint swelling or deformity. Normal range of motion. - Labs CBC & Chem 7: 12/12/23 06:29 12/12/23 06:29 Labs: Abnormal Lab Results - Last 24 Hours (Table) 12/10/23 12/10/23 12/10/23 Range/Units 05:33 09:34 09:34 WBC 11.0 H (3.8-10.6) k/uL RBC 4.20 L (4.30-5.90) m/uL Hgb 12.7 L (13.0-17.5) gm/dL Potassium 6.0 H (3.5-5.1) mmol/L BUN 75 H (9-20) mg/dL Creatinine 3.95 H (0.66-1.25) mg/dL Glucose 107 H (74-99) mg/dL POC Glucose (mg/dL) 235 H (70-110) mg/dL Urine Protein (Negative) Urine Blood (Negative) Ur Leukocyte Esterase (Negative) Urine WBC (0-5) /hpf Amorphous Sediment (None) /hpf Urine Bacteria (None) /hpf Urine Mucus (None) /hpf 12/10/23 12/10/23 12/10/23 Range/Units 11:32 16:31 17:31 WBC (3.8-10.6) k/uL RBC (4.30-5.90) m/uL Hgb (13.0-17.5) gm/dL Potassium 5.5 H (3.5-5.1) mmol/L BUN (9-20) mg/dL Creatinine (0.66-1.25) mg/dL Glucose (74-99) mg/dL POC Glucose (mg/dL) 130 H 178 H (70-110) mg/dL Urine Protein (Negative) Urine Blood (Negative) Ur Leukocyte Esterase (Negative) Urine WBC (0-5) /hpf Amorphous Sediment (None) /hpf Urine Bacteria (None) /hpf Urine Mucus (None) /hpf 12/10/23 Range/Units 18:26 WBC (3.8-10.6) k/uL RBC (4.30-5.90) m/uL Hgb (13.0-17.5) gm/dL Potassium (3.5-5.1) mmol/L BUN (9-20) mg/dL Creatinine (0.66-1.25) mg/dL Glucose (74-99) mg/dL POC Glucose (mg/dL) (70-110) mg/dL Urine Protein 1+ H (Negative) Urine Blood Trace H (Negative) Ur Leukocyte Esterase Trace H (Negative) Urine WBC 9 H (0-5) /hpf Amorphous Sediment Rare H (None) /hpf Urine Bacteria Moderate H (None) /hpf Urine Mucus Rare H (None) /hpf Assessment and Plan Assessment: Acute kidney injury nonoliguric. Possible ATN. Rule out interstitial nephritis, from recent antibiotics.Creatinine 3.32 on admission Hyperkalemia secondary acute kidney injury CKD stage III with baseline creatinine 1.4 Left heel full-thickness wound. Patient refused amputation as recommended by vascular surgery. On antibiotics as an outpatient currently. Has a PICC line and will continue with PICC line for 2 weeks per ID recommendations Hypertension Urinary retention requiring indwelling Blankenship catheter, patient will need outpatient follow-up with urology for cystoscopy Diabetes type 2 insulin-dependent, has an insulin pump Prior history of urinary retention Generalized weakness with gait dysfunction DVT prophylaxis with heparin subcu Obesity with a BMI 31.7 GI prophylaxis Full code Plan: Patient will be continued on IV fluids. Was given insulin/D50 and calcium gluconate and also being continued on Lokelma and follow-up potassium level and renal function. Continue with Lokelma and monitor potassium level. IV fluids changed to Ringer's lactate. Nephrology was consulted.. Ultrasound renal was ordered. Continue with wound care and other home medications and follow-up closely. Time with Patient: Greater than 30
--- NOTE | 2023-12-12 21:48 | P.PN ---
Subjective Progress Note Date: 12/11/23 Patient is a 78-year-old male with a past medical history of hypertension, diabetes type 2 insulin-dependent, prior history of left urinary retention, CKD, venous stasis, PVD and bilateral leg ulcers completed antibiotic course presents to ER due to abnormal labs. Patient otherwise denies any complaints of chest pain or shortness of breath. No nausea vomiting abdominal pain or diarrhea. EKG showed sinus rhythm with first-degree AV block. Laboratory data showed WBC 9.4 hemoglobin 12.9 and platelets 279 sodium 141 potassium 7.7 chloride 111 bicarb is 18 BUN 8020 creatinine 3.32 and blood sugar 166 and magnesium 1.5 liver exams not elevated. Troponins x 1 negative. 12/09/2023 Patient is resting in the bed. Awake alert and oriented x 3. No complaints of chest pain or shortness of breath. No palpitations. No nausea vomiting abdominal pain or diarrhea. Tolerating oral diet. Blood sugar is controlled. Laboratory data showed WBC 11.2 hemoglobin 12.9 and platelets 297 sodium 142 potassium slightly improved to 6.9, chloride 110 bicarb is 22 BUN 76 and creatinine 3.18 and blood sugar 123 and calcium 9.9. Patient is being continued on Lokelma and is also given a dose of insulin/D50 and calcium gluconate. Nephrology is on board. 12/10/2023 Patient is currently resting in bed. Awake alert and oriented x 3. No complaints of chest pain or shortness of breath. No fever no chills. No nausea or vomiting.. Any worsening left heel pain. ROS creatinine increased to 3.95 today. Potassium 6.0 and WBC 6.0 hemoglobin 12.7 and platelets 321. Renal ultrasound showed no hydronephrosis. There is a 2.1 cm hypoechoic area within the left kidney recommend CT scan to exclude underlying mass lesion. Nephrology is on board. ID consult due to left heel ulcer. 12/11/2023 Patient is currently lying in the bed. Awake alert and oriented x 3. Denies any complaints of fever or chills. No chest pain or shortness of breath. No nausea vomiting abdominal pain or diarrhea. Denies any left heel pain. Otherwise laboratory data showed WBC 10.7 hemoglobin 11.8 and platelets 267 so dium 138 potassium 5.2 chloride 103 bicarb is 26 BUN 75 and creatinine with slight improvement to 3.51 and blood sugar 189. Urinalysis showed 1+ protein trace blood trace leukocyte esterase and WBCs 9. Patient was started on antibiotics due to left heel ulcer stage IV and possible underlying Osteomyelitis. Wound care is on board. Follow-up deep cultures. ID and nephrology is on board. Titrate insulin dose for better blood sugar control. Current medications reviewed. Objective - Vital Signs Vital signs: Vital Signs Temp 98 F 12/11/23 19:36 Pulse 69 12/11/23 19:36 Resp 16 12/11/23 19:36 BP 116/64 12/11/23 19:36 Pulse Ox 98 12/11/23 19:36 FiO2 Intake & Output 12/11/23 12/11/23 12/12/23 06:59 18:59 06:59 Intake Total 1076 Output Total 2220 1375 Balance -2220 -299 Weight 84.5 kg Intake: Oral 1076 Output: Urine 2220 1375 Uretheral (Blankenship) 850 Other: Voiding Method Indwelling Catheter Indwelling Catheter - Exam PHYSICAL EXAMINATION: Patient is lying in the bed comfortably, no acute distress, awake alert and oriented.. HEENT: Normocephalic. Neck is supple. Pupils reactive. Nostrils clear. Oral cavity is moist. Neck reveals no JVD, carotid bruits, or thyromegaly. CHEST EXAMINATION: Trachea is central. Symmetrical expansion. Lung nguyen clear to auscultation and percussion. CARDIAC: Normal S1, S2 with no gallops. No murmurs ABDOMEN: Soft. Bowel sounds normal. No organomegaly. No abdominal bruits. Extremities: reveal no edema. Left lower extremity heel ulcer no clubbing or cyanosis Neurologically awake, alert, oriented x3 with well-coordinated movements. No focal deficits noted Skin: No rash or skin lesions. Psychiatric: Coperative. Nonsuicidal Musculoskeletal: No joint swelling or deformity. Normal range of motion. - Labs CBC & Chem 7: 12/12/23 06:29 12/12/23 06:29 Labs: Abnormal Lab Results - Last 24 Hours (Table) 12/11/23 12/11/23 12/11/23 Range/Units 09:12 09:12 11:42 WBC 10.7 H (3.8-10.6) k/uL RBC 3.86 L (4.30-5.90) m/uL Hgb 11.8 L (13.0-17.5) gm/dL Hct 36.6 L (39.0-53.0) % Neutrophils # 7.8 H (1.3-7.7) k/uL Monocytes # 1.1 H (0-1.0) k/uL Potassium 5.2 H (3.5-5.1) mmol/L BUN 75 H (9-20) mg/dL Creatinine 3.51 H (0.66-1.25) mg/dL Glucose 189 H (74-99) mg/dL POC Glucose (mg/dL) 247 H (70-110) mg/dL 12/11/23 12/11/23 Range/Units 16:10 20:03 WBC (3.8-10.6) k/uL RBC (4.30-5.90) m/uL Hgb (13.0-17.5) gm/dL Hct (39.0-53.0) % Neutrophils # (1.3-7.7) k/uL Monocytes # (0-1.0) k/uL Potassium (3.5-5.1) mmol/L BUN (9-20) mg/dL Creatinine (0.66-1.25) mg/dL Glucose (74-99) mg/dL POC Glucose (mg/dL) 134 H 138 H (70-110) mg/dL Assessment and Plan Assessment: Acute kidney injury nonoliguric. Possible ATN. Rule out interstitial nephritis, from recent antibiotics.Creatinine 3.32 on admission Hyperkalemia secondary acute kidney injury CKD stage III with baseline creatinine 1.4 Left heel full-thickness wound/ulcer stage III with underlying infection. Patient refused amputation as recommended by vascular surgery. Patient was on antibiotic course via PICC line recently. Hypertension Urinary retention requiring indwelling Blankenship catheter, patient will need outpatient follow-up with urology for cystoscopy Diabetes type 2 insulin-dependent, has an insulin pump Prior history of urinary retention Generalized weakness with gait dysfunction DVT prophylaxis with heparin subcu Obesity with a BMI 31.7 GI prophylaxis. Avoid PPI for possible interstitial nephritis. Full code Plan: Patient will be continued on IV fluids with Ringer's lactate. Was given insulin/D50 and calcium gluconate and also being continued on Lokelma with improvement in potassium level. Continue with Lokelma as needed Patient was also started on cefepime as per ID recommendations for left heel ulcer and leukocytosis. Nephrology is on board.. Ultrasound renal showed no evidence of hydronephrosis. Continue with wound care and other home medications and follow-up closely. Time with Patient: Greater than 30
--- NOTE | 2023-12-12 21:52 | P.PN ---
Subjective Progress Note Date: 12/12/23 Patient is a 78-year-old male with a past medical history of hypertension, diabetes type 2 insulin-dependent, prior history of left urinary retention, CKD, venous stasis, PVD and bilateral leg ulcers completed antibiotic course presents to ER due to abnormal labs. Patient otherwise denies any complaints of chest pain or shortness of breath. No nausea vomiting abdominal pain or diarrhea. EKG showed sinus rhythm with first-degree AV block. Laboratory data showed WBC 9.4 hemoglobin 12.9 and platelets 279 sodium 141 potassium 7.7 chloride 111 bicarb is 18 BUN 8020 creatinine 3.32 and blood sugar 166 and magnesium 1.5 liver exams not elevated. Troponins x 1 negative. 12/09/2023 Patient is resting in the bed. Awake alert and oriented x 3. No complaints of chest pain or shortness of breath. No palpitations. No nausea vomiting abdominal pain or diarrhea. Tolerating oral diet. Blood sugar is controlled. Laboratory data showed WBC 11.2 hemoglobin 12.9 and platelets 297 sodium 142 potassium slightly improved to 6.9, chloride 110 bicarb is 22 BUN 76 and creatinine 3.18 and blood sugar 123 and calcium 9.9. Patient is being continued on Lokelma and is also given a dose of insulin/D50 and calcium gluconate. Nephrology is on board. 12/10/2023 Patient is currently resting in bed. Awake alert and oriented x 3. No complaints of chest pain or shortness of breath. No fever no chills. No nausea or vomiting.. Any worsening left heel pain. ROS creatinine increased to 3.95 today. Potassium 6.0 and WBC 6.0 hemoglobin 12.7 and platelets 321. Renal ultrasound showed no hydronephrosis. There is a 2.1 cm hypoechoic area within the left kidney recommend CT scan to exclude underlying mass lesion. Nephrology is on board. ID consult due to left heel ulcer. 12/11/2023 Patient is currently lying in the bed. Awake alert and oriented x 3. Denies any complaints of fever or chills. No chest pain or shortness of breath. No nausea vomiting abdominal pain or diarrhea. Denies any left heel pain. Otherwise laboratory data showed WBC 10.7 hemoglobin 11.8 and platelets 267 so dium 138 potassium 5.2 chloride 103 bicarb is 26 BUN 75 and creatinine with slight improvement to 3.51 and blood sugar 189. Urinalysis showed 1+ protein trace blood trace leukocyte esterase and WBCs 9. Patient was started on antibiotics due to left heel ulcer stage IV and possible underlying Osteomyelitis. Wound care is on board. Follow-up deep cultures. ID and nephrology is on board. Titrate insulin dose for better blood sugar control. 12/12/2023 Patient is resting in bed. Awake alert and oriented. No complaints of chest pain or shortness of breath. No nausea or vomiting. Patient is being continued on cefepime for left heel ulcer. Laboratory test showed renal function remains the same at 3.37 creatinine. BUN 66 and potassium is improved to 5.2. Other laboratory data showed WBC 9.3 hemoglobin 11.3 and platelets 246 blood sugar 95. Calcium 8.8. Nephrology and ID is on board. Current medications reviewed. Objective - Vital Signs Vital signs: Vital Signs Temp 97.0 F L 12/12/23 08:23 Pulse 69 12/12/23 08:23 Resp 16 12/12/23 08:23 BP 136/71 12/12/23 08:23 Pulse Ox 99 12/12/23 08:23 FiO2 Intake & Output 12/11/23 12/12/23 12/12/23 18:59 06:59 18:59 Intake Total 1076 1210 Output Total 1375 1400 600 Balance -299 -1400 610 Weight 85 kg Intake: Intake, IV Titration 850 Amount Cefepime 1 gm In Sodium 50 Chloride 0.9% 50 ml @ 12. 5 mls/hr IVPB Q12H [facility] Rx #:[id number] Lactated Ringers 1,000 ml 800 @ 100 mls/hr IV .Q10H [facility] Rx#:[id number] Oral 1076 360 Output: Urine 1375 1400 600 Uretheral (Blankenship) 850 600 Other: Voiding Method Indwelling Catheter Indwelling Catheter Indwelling Catheter - Exam PHYSICAL EXAMINATION: Patient is lying in the bed comfortably, no acute distress, awake alert and oriented.. HEENT: Normocephalic. Neck is supple. Pupils reactive. Nostrils clear. Oral cavity is moist. Neck reveals no JVD, carotid bruits, or thyromegaly. CHEST EXAMINATION: Trachea is central. Symmetrical expansion. Lung nguyen clear to auscultation and percussion. CARDIAC: Normal S1, S2 with no gallops. No murmurs ABDOMEN: Soft. Bowel sounds normal. No organomegaly. No abdominal bruits. Extremities: reveal no edema. Left lower extremity heel ulcer no clubbing or cyanosis Neurologically awake, alert, oriented x3 with well-coordinated movements. No focal deficits noted Skin: No rash or skin lesions. Psychiatric: Coperative. Nonsuicidal Musculoskeletal: No joint swelling or deformity. Normal range of motion. - Labs CBC & Chem 7: 12/12/23 06:29 12/12/23 06:29 Labs: Abnormal Lab Results - Last 24 Hours (Table) 12/11/23 12/11/23 12/11/23 Range/Units 11:42 16:10 20:03 RBC (4.30-5.90) m/uL Hgb (13.0-17.5) gm/dL Hct (39.0-53.0) % Potassium (3.5-5.1) mmol/L Chloride (98-107) mmol/L BUN (9-20) mg/dL Creatinine (0.66-1.25) mg/dL POC Glucose (mg/dL) 247 H 134 H 138 H (70-110) mg/dL 12/12/23 12/12/23 Range/Units 06:29 06:29 RBC 3.73 L (4.30-5.90) m/uL Hgb 11.3 L (13.0-17.5) gm/dL Hct 35.8 L (39.0-53.0) % Potassium 5.2 H (3.5-5.1) mmol/L Chloride 108 H (98-107) mmol/L BUN 66 H (9-20) mg/dL Creatinine 3.37 H (0.66-1.25) mg/dL POC Glucose (mg/dL) (70-110) mg/dL Assessment and Plan Assessment: Acute kidney injury nonoliguric. Possible ATN. Rule out interstitial nephritis, from recent antibiotics.Creatinine 3.32 on admission Hyperkalemia secondary acute kidney injury. Improved CKD stage III with baseline creatinine 1.4 Left heel full-thickness wound/ulcer stage III with underlying infection. Patient refused amputation as recommended by vascular surgery. Patient was on antibiotic course via PICC line recently. Hypertension Urinary retention requiring indwelling Blank[place]hip catheter, patient will need outpatient follow-up with urology for cystoscopy Diabetes type 2 insulin-dependent, has an insulin pump Prior history of urinary retention Generalized weakness with gait dysfunction DVT prophylaxis with heparin subcu Obesity with a BMI 31.7 GI prophylaxis. Avoid PPI for possible interstitial nephritis. Full code Plan: Patient is off IV fluids. Encourage oral intake. Was given insulin/D50 and calcium gluconate and also being continued on Lokelma with improvement in potassium level. Continue with Lokelma as needed Patient was also started on cefepime as per ID recommendations for left heel ulcer and leukocytosis. Which is improving Ultrasound renal showed no evidence of hydronephrosis. No need for renal replacement therapy. Nephrology and ID is on board. Continue with wound care and other home medications and follow-up closely. Time with Patient: Greater than 30
[2023-12-13 06:04] LABS: Glucose,Whole Blood 108 mg/dL (70-110)
[2023-12-13 07:10] LABS: Basophils # (A) 0.1 k/uL (0-0.2); Basophils % (A) 1 %; Eosinophils # (A) 0.4 k/uL (0-0.7); Eosinophils % (A) 4 %; HCT 35.3 % (39.0-53.0); HGB 11.3 gm/dL (13.0-17.5); Lymphocytes # (A) 1.2 k/uL (1.0-4.8); Lymphocytes % (A) 11 %; MCH 30.3 pg (25.0-35.0); MCHC 31.9 g/dL (31.0-37.0); MCV 94.8 fL (80.0-100.0); Mean Platelet Volume 7.5; Monocytes % (A) 9 %; Neutrophils % (A) 73 %; Platelet Count 257 k/uL (150-450); RBC 3.72 m/uL (4.30-5.90)
[2023-12-13 07:24] LABS: African American GFR (CKD) 23 (>60 ml/min/1.73 sqM); Anion Gap 8 mmol/L; Blood Urea Nitrogen 54 mg/dL (9-20); Calcium 8.7 mg/dL (8.4-10.2); Carbon Dioxide 23 mmol/L (22-30); Chloride 110 mmol/L (98-107); Glucose 106 mg/dL (74-99); Non-African American GFR(CKD) 20 (>60 ml/min/1.73 sqM); Sodium 141 mmol/L (137-145)
[2023-12-13] MEDS ORDERED: Magnesium Replacement Protocol 1 EACH MISC MISCELLANE PRN (10:08)
--- NOTE | 2023-12-13 10:25 | P.PN ---
Subjective Patient is seen in follow-up for acute kidney injury on chronic kidney disease. Renal function improving. Hemodynamically stable. Nonoliguric. On IV fluids. Vital signs are stable. General: No acute distress. HEENT: Head exam is unremarkable. LUNGS: No audible rhonchi or wheezes. HEART: Rate and Rhythm are regular. ABDOMEN: Nontender. EXTREMITITES: Left foot drop. No drainage. Objective - Vital Signs Vital signs: Vital Signs Temp 97.9 F 12/13/23 08:00 Pulse 71 12/13/23 08:00 Resp 17 12/13/23 04:00 BP 122/66 12/13/23 08:00 Pulse Ox 99 12/13/23 08:00 FiO2 Intake & Output 12/12/23 12/13/23 12/13/23 18:59 06:59 18:59 Intake Total 1808 100 356 Output Total 2350 1150 Balance -542 -1050 356 Weight 84.5 kg Intake: Intake, IV Titration 850 Amount Cefepime 1 gm In Sodium 50 Chloride 0.9% 50 ml @ 12. 5 mls/hr IVPB Q12H [facility] Rx #:[id number] Lactated Ringers 1,000 ml 800 @ 100 mls/hr IV .Q10H [facility] Rx#:[id number] Oral 958 100 356 Output: Urine 2350 1150 Uretheral (Blankenship) 1100 Other: Voiding Method Indwelling Catheter Indwelling Catheter - Labs CBC & Chem 7: 12/13/23 06:44 12/13/23 06:44 Labs: Abnormal Lab Results - Last 24 Hours (Table) 12/12/23 12/12/23 12/12/23 Range/Units 11:26 16:27 20:30 WBC (3.8-10.6) k/uL RBC (4.30-5.90) m/uL Hgb (13.0-17.5) gm/dL Hct (39.0-53.0) % Neutrophils # (1.3-7.7) k/uL Chloride (98-107) mmol/L BUN (9-20) mg/dL Creatinine (0.66-1.25) mg/dL Glucose (74-99) mg/dL POC Glucose (mg/dL) 121 H 188 H 150 H (70-110) mg/dL Magnesium (1.6-2.3) mg/dL 12/13/23 12/13/23 12/13/23 Range/Units 06:44 06:44 06:44 WBC 11.0 H (3.8-10.6) k/uL RBC 3.72 L (4.30-5.90) m/uL Hgb 11.3 L (13.0-17.5) gm/dL Hct 35.3 L (39.0-53.0) % Neutrophils # 8.0 H (1.3-7.7) k/uL Chloride 110 H (98-107) mmol/L BUN 54 H (9-20) mg/dL Creatinine 2.88 H (0.66-1.25) mg/dL Glucose 106 H (74-99) mg/dL POC Glucose (mg/dL) (70-110) mg/dL Magnesium 1.2 L (1.6-2.3) mg/dL Assessment and Plan Plan: Assessment: 1. Acute kidney injury secondary to ATN. Urine eosinophils negative. No obstruction noted on imaging. Creatinine peaked at 3.95 this admission and is 2.88 today. 2. Chronic kidney disease stage IIIb with baseline creatinine 1.3-1.4 in October 2023. Patient then had an episode of acute kidney injury with creatinine near 3. 3. Hypomagnesemia from poor intake. 4. Hypertension with chronic kidney disease. Controlled. 5. Left heel wound maintained on IV antibiotics. 6. Diabetes mellitus. 7. Metabolic acidosis secondary to acute kidney injury and IV fluids maintained on oral bicarb. Stable. Plan: Maintain IV fluids. Replace magnesium. Avoid nephrotoxins. Continue to monitor renal function and urine output.
[2023-12-13 11:31] LABS: Glucose,Whole Blood 139 mg/dL (70-110)
[2023-12-13] MEDS: MAGNESIUM SULFATE-D5W PMX 1 GM in DEXTROSE/WATER 1 100ML.BAG IVPB SCH (14:14)
[2023-12-13 16:37] LABS: Glucose,Whole Blood 134 mg/dL (70-110)
--- NOTE | 2023-12-13 17:56 | P.PN ---
Subjective Progress Note Date: 12/13/23 Principal diagnosis: Reason for follow-up is left heel pressure ulcer and UTI Patient is a 78-year-old male with a past medical history significant for diabetes mellitus hypertension renal insufficiency, recently admitted to this facility and has been treated for a left heel stage IV pressure ulcer with underlying osteomyelitis for which the patient has completed his antibiotic therapy, patient remains in the hospital because of elevated potassium. Patient also have a mildly positive UA with a CT completed this admission showing evidence of cystitis. On today's evaluation that is 12/13/2023, the patient continues to be afebrile, the patient is on room air and breathing comfortably, the Pt denies having any chest pain or cough, the patient denies having any abdominal pain no vomiting or any diarrhea has been reported by the nursing staff, denies pain to the left heel wound. Patient white count is 11,000 creatinine is 2.88 urine culture negative Objective - Vital Signs Vital signs: Vital Signs Temp 97.9 F 12/13/23 08:00 Pulse 70 12/13/23 12:00 Resp 16 12/13/23 08:00 BP 134/65 12/13/23 12:00 Pulse Ox 98 12/13/23 12:00 FiO2 Intake & Output 12/12/23 12/13/23 12/13/23 18:59 06:59 18:59 Intake Total 1808 100 356 Output Total 2350 1150 1400 Balance -542 -1050 -1044 Weight 84.5 kg Intake: Intake, IV Titration 850 Amount Cefepime 1 gm In Sodium 50 Chloride 0.9% 50 ml @ 12. 5 mls/hr IVPB Q12H [facility] Rx #:[id number] Lactated Ringers 1,000 ml 800 @ 100 mls/hr IV .Q10H [facility] Rx#:[id number] Oral 958 100 356 Output: Urine 2350 1150 1400 Uretheral (Blankenship) 1100 Other: Voiding Method Indwelling Catheter Indwelling Catheter Indwelling Catheter - Exam GENERAL DESCRIPTION: An elderly male lying in bed in no distress RESPIRATORY SYSTEM: Unlabored breathing , decreased breath sounds at bases HEART: S1 S2 regular rate and rhythm , ABDOMEN: Soft , no tenderness EXTREMITIES: Left heel wound is currently dressed - Labs CBC & Chem 7: 12/13/23 06:44 12/13/23 06:44 Labs: Abnormal Lab Results - Last 24 Hours (Table) 12/12/23 12/12/23 12/13/23 Range/Units 16:27 20:30 06:44 WBC 11.0 H (3.8-10.6) k/uL RBC 3.72 L (4.30-5.90) m/uL Hgb 11.3 L (13.0-17.5) gm/dL Hct 35.3 L (39.0-53.0) % Neutrophils # 8.0 H (1.3-7.7) k/uL Chloride (98-107) mmol/L BUN (9-20) mg/dL Creatinine (0.66-1.25) mg/dL Glucose (74-99) mg/dL POC Glucose (mg/dL) 188 H 150 H (70-110) mg/dL Magnesium (1.6-2.3) mg/dL 12/13/23 12/13/23 12/13/23 Range/Units 06:44 06:44 11:29 WBC (3.8-10.6) k/uL RBC (4.30-5.90) m/uL Hgb (13.0-17.5) gm/dL Hct (39.0-53.0) % Neutrophils # (1.3-7.7) k/uL Chloride 110 H (98-107) mmol/L BUN 54 H (9-20) mg/dL Creatinine 2.88 H (0.66-1.25) mg/dL Glucose 106 H (74-99) mg/dL POC Glucose (mg/dL) 139 H (70-110) mg/dL Magnesium 1.2 L (1.6-2.3) mg/dL Assessment and Plan (1) Cystitis Current Visit: Yes Status: Acute Code(s): N30.90 - CYSTITIS, UNSPECIFIED WITHOUT HEMATURIA SNOMED Code(s): 27991802 (2) Leukocytosis Current Visit: Yes Status: Acute Code(s): D72.829 - ELEVATED WHITE BLOOD CELL COUNT, UNSPECIFIED SNOMED Code(s): 924096391 (3) Stage IV pressure ulcer of left heel Current Visit: No Status: Acute Code(s): L89.624 - PRESSURE ULCER OF LEFT HEEL, STAGE 4 SNOMED Code(s): 74721889388883 Plan: 1patient with a chronic nonhealing wound to the left heel stage IV pressure ulcer and underlying osteomyelitis for the patient has completed his antibiotic therapy currently wound base with no slough tissue or surrounding redness suspicious low for ongoing infection and need for antibiotic therapy. 2patient with a mild elevated white count possibly reactive however the B did have a positive UA and CT did shows evidence of cystitis possible component of UTI from UTI gram-negative pathogen 3local wound care with Aquacel silver dressing and keep the area of the pressure 4patient white count has normalized as of yesterday and urine culture has been negative cefepime can be discontinued on discharge discussed with the [facility] for admitting Dictation was produced using [employer] dictation software. please excuse any grammatical, word or spelling errors. Time with Patient: Less than 30
--- NOTE | 2023-12-13 19:20 | P.PN ---
Subjective Progress Note Date: 12/13/23 Patient is a 78-year-old male with a past medical history of hypertension, diabetes type 2 insulin-dependent, prior history of left urinary retention, CKD, venous stasis, PVD and bilateral leg ulcers completed antibiotic course presents to ER due to abnormal labs. Patient otherwise denies any complaints of chest pain or shortness of breath. No nausea vomiting abdominal pain or diarrhea. EKG showed sinus rhythm with first-degree AV block. Laboratory data showed WBC 9.4 hemoglobin 12.9 and platelets 279 sodium 141 potassium 7.7 chloride 111 bicarb is 18 BUN 8020 creatinine 3.32 and blood sugar 166 and magnesium 1.5 liver exams not elevated. Troponins x 1 negative. 12/09/2023 Patient is resting in the bed. Awake alert and oriented x 3. No complaints of chest pain or shortness of breath. No palpitations. No nausea vomiting abdominal pain or diarrhea. Tolerating oral diet. Blood sugar is controlled. Laboratory data showed WBC 11.2 hemoglobin 12.9 and platelets 297 sodium 142 potassium slightly improved to 6.9, chloride 110 bicarb is 22 BUN 76 and creatinine 3.18 and blood sugar 123 and calcium 9.9. Patient is being continued on Lokelma and is also given a dose of insulin/D50 and calcium gluconate. Nephrology is on board. 12/10/2023 Patient is currently resting in bed. Awake alert and oriented x 3. No complaints of chest pain or shortness of breath. No fever no chills. No nausea or vomiting.. Any worsening left heel pain. ROS creatinine increased to 3.95 today. Potassium 6.0 and WBC 6.0 hemoglobin 12.7 and platelets 321. Renal ultrasound showed no hydronephrosis. There is a 2.1 cm hypoechoic area within the left kidney recommend CT scan to exclude underlying mass lesion. Nephrology is on board. ID consult due to left heel ulcer. 12/11/2023 Patient is currently lying in the bed. Awake alert and oriented x 3. Denies any complaints of fever or chills. No chest pain or shortness of breath. No nausea vomiting abdominal pain or diarrhea. Denies any left heel pain. Otherwise laboratory data showed WBC 10.7 hemoglobin 11.8 and platelets 267 sodium 138 potassium 5.2 chloride 103 bicarb is 26 BUN 75 and creatinine with slight improvement to 3.51 and blood sugar 189. Urinalysis showed 1+ protein trace blood trace leukocyte esterase and WBCs 9. Patient was started on antibiotics due to left heel ulcer stage IV and possible underlying Osteomyelitis. Wound care is on board. Follow-up deep cultures. ID and nephrology is on board. Titrate insulin dose for better blood sugar control. 12/12/2023 Patient is resting in bed. Awake alert and oriented. No complaints of chest pain or shortness of breath. No nausea or vomiting. Patient is being continued on cefepime for left heel ulcer. Laboratory test showed renal function remains the same at 3.37 creatinine. BUN 66 and potassium is improved to 5.2. Other laboratory data showed WBC 9.3 hemoglobin 11.3 and platelets 246 blood sugar 95. Calcium 8.8. Nephrology and ID is on board. 12/13/2023 Patient is evaluated today in follow up on the medical floor. He is awake alert and oriented. Wondering about discharge back to [facility]. Patient has been there for IV antibiotics. Discussed with ID and urine culture normal and patient requires no more IV antibiotics on discharge. He continues with local wound care to the right heel. Patient has chronic left heel ulcer and osteomyelitis. Remains on IV cefepime while inpatient. Recommending to cut back dose of amlodipine. Patient continues with indwelling hernández catheter was placed this admission for urinary retention and we will complete a voiding trial prior to discharge. Patient continues on LR at 100 mls/hr. Remains on flomax. Current medications reviewed. Review of Systems Constitutional: Denied any fatigue denied any fever. Cardio vascular: denied any chest pain, palpitations Gastrointestinal: denied any nausea, vomiting, diarrhea Pulmonary: Denied any shortness of breath cough Neurologic denied any new focal deficits All inpatient medications were reviewed and appropriate changes in these medications as dictated in the interval history and assessment and plan. PHYSICAL EXAMINATION: GENERAL: The patient is alert and oriented x3, not in any acute distress. Well developed, well nourished. HEENT: Pupils are round and equally reacting to light. EOMI. No scleral icterus. No conjunctival pallor. Normocephalic, atraumatic. No pharyngeal erythema. No thyromegaly. CARDIOVASCULAR: S1 and S2 present. No murmurs, rubs, or gallops. PULMONARY: Faint scattered expiratory wheezing. ABDOMEN: Soft, nontender, nondistended, normoactive bowel sounds. No palpable organomegaly. MUSCULOSKELETAL: No joint swelling or deformity. EXTREMITIES: No cyanosis, clubbing, or pedal edema. 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 SKIN: No rashes. Assessment Acute kidney injury nonoliguric. Possible ATN. Rule out interstitial nephritis, from recent antibiotics. Creatinine 3.32 on admission Down to 2.88. Hyperkalemia secondary acute kidney injury. Improved CKD stage III with baseline creatinine 1.4 Left heel full-thickness wound/ulcer stage III with underlying infection. Patie nt refused amputation as recommended by vascular surgery. Patient was on antibiotic course via PICC line recently. 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 Avoid PPI for possible interstitial nephritis. Plan Continue IV fluids and check BMP in the morning, monitor renal function Complete voiding trial. D/C hernández cather Continue on flomax Replace magnesium per protocol and repeat blood work in the AM Decrease amlodipine. Possible return to [facility] in the next 24 hours Objective - Vital Signs Vital signs: Vital Signs Temp 97.9 F 12/13/23 08:00 Pulse 79 12/13/23 16:00 Resp 16 12/13/23 14:00 BP 150/74 12/13/23 16:00 Pulse Ox 98 12/13/23 16:00 FiO2 Intake & Output 12/12/23 12/13/23 12/13/23 18:59 06:59 18:59 Intake Total 1896 179 9172 Output Total 2350 1150 1400 Balance -542 -1050 780 Weight 84.5 kg Intake: Intake, IV Titration 850 1350 Amount Cefepime 1 gm In Sodium 50 50 Chloride 0.9% 50 ml @ 12. 5 mls/hr IVPB Q12H [facility] Rx #:[id number] Lactated Ringers 1,000 ml 800 1100 @ 100 mls/hr IV .Q10H [facility] Rx#:[id number] Magnesium Sulfate-D5w Pmx 200 1 gm In Dextrose/Water 1 100ml.bag @ 100 mls/hr IVPB Q1H [facility] Rx#: [id number] Oral 958 100 830 Output: Urine 2350 1150 1400 Uretheral (Hernández) 1100 Other: Voiding Method Indwelling Catheter Indwelling Catheter Indwelling Catheter - Labs CBC & Chem 7: 12/13/23 06:44 12/13/23 06:44 Labs: Abnormal Lab Results - Last 24 Hours (Table) 12/12/23 12/13/23 12/13/23 Range/Units 20:30 06:44 06:44 WBC 11.0 H (3.8-10.6) k/uL RBC 3.72 L (4.30-5.90) m/uL Hgb 11.3 L (13.0-17.5) gm/dL Hct 35.3 L (39.0-53.0) % Neutrophils # 8.0 H (1.3-7.7) k/uL Chloride 110 H (98-107) mmol/L BUN 54 H (9-20) mg/dL Creatinine 2.88 H (0.66-1.25) mg/dL Glucose 106 H (74-99) mg/dL POC Glucose (mg/dL) 150 H (70-110) mg/dL Magnesium (1.6-2.3) mg/dL 12/13/23 12/13/23 12/13/23 Range/Units 06:44 11:29 16:35 WBC (3.8-10.6) k/uL RBC (4.30-5.90) m/uL Hgb (13.0-17.5) gm/dL Hct (39.0-53.0) % Neutrophils # (1.3-7.7) k/uL Chloride (98-107) mmol/L BUN (9-20) mg/dL Creatinine (0.66-1.25) mg/dL Glucose (74-99) mg/dL POC Glucose (mg/dL) 139 H 134 H (70-110) mg/dL Magnesium 1.2 L (1.6-2.3) mg/dL Microbiology - Last 24 Hours (Table) 12/11/23 14:00 Urine Culture - Final Urine,Catheterized Assessment and Plan Time with Patient: Less than 30
[2023-12-13 20:34] LABS: Glucose,Whole Blood 114 mg/dL (70-110)
[2023-12-14 06:10] LABS: Glucose,Whole Blood 112 mg/dL (70-110)
[2023-12-14] MEDS: amLODIPine 5 MG TAB PO SCH (09:37)
[2023-12-14 11:06] LABS: Basophils # (A) 0.1 k/uL (0-0.2); Basophils % (A) 1 %; Eosinophils # (A) 0.4 k/uL (0-0.7); Eosinophils % (A) 4 %; HCT 38.3 % (39.0-53.0); HGB 12.1 gm/dL (13.0-17.5); Lymphocytes # (A) 1.3 k/uL (1.0-4.8); Lymphocytes % (A) 12 %; MCH 30.1 pg (25.0-35.0); MCHC 31.6 g/dL (31.0-37.0); MCV 95.1 fL (80.0-100.0); Mean Platelet Volume 7.4; Monocytes # (A) 0.9 k/uL (0-1.0); Monocytes % (A) 9 %; Neutrophils # (A) 7.6 k/uL (1.3-7.7); Neutrophils % (A) 72 %; Platelet Count 280 k/uL (150-450); RBC 4.02 m/uL (4.30-5.90); RDW 15.1 % (11.5-15.5); WBC 10.6 k/uL (3.8-10.6)
--- NOTE | 2023-12-14 11:27 | P.PN ---
Subjective Patient is seen in follow-up for acute kidney injury on chronic kidney disease. Renal function improving. Creatinine 2.88 yesterday. Hemodynamically stable. Nonoliguric. On IV fluids. Vital signs are stable. General: No acute distress. HEENT: Head exam is unremarkable. LUNGS: No audible rhonchi or wheezes. HEART: Rate and Rhythm are regular. ABDOMEN: Nontender. EXTREMITITES: Left foot wrapped. No drainage. Objective - Vital Signs Vital signs: Vital Signs Temp 98.0 F 12/14/23 08:00 Pulse 91 12/14/23 08:00 Resp 18 12/14/23 08:00 BP 131/70 12/14/23 08:00 Pulse Ox 98 12/14/23 08:00 FiO2 Intake & Output 12/13/23 12/14/23 12/14/23 18:59 06:59 18:59 Intake Total 2180 120 618 Output Total 1400 1900 700 Balance 780 -1780 -82 Intake: Intake, IV Titration 1350 Amount Cefepime 1 gm In Sodium 50 Chloride 0.9% 50 ml @ 12. 5 mls/hr IVPB Q12H [facility] Rx #:[id number] Lactated Ringers 1,000 ml 1100 @ 100 mls/hr IV .Q10H [facility] Rx#:[id number] Magnesium Sulfate-D5w Pmx 200 1 gm In Dextrose/Water 1 100ml.bag @ 100 mls/hr IVPB Q1H [facility] Rx#: [id number] Oral 830 120 618 Output: Urine 1400 1900 700 Other: Voiding Method Indwelling Catheter Indwelling Catheter Indwelling Catheter - Labs CBC & Chem 7: 12/14/23 10:37 12/13/23 06:44 Labs: Abnormal Lab Results - Last 24 Hours (Table) 12/13/23 12/13/23 12/13/23 Range/Units 11:29 16:35 20:33 RBC (4.30-5.90) m/uL Hgb (13.0-17.5) gm/dL Hct (39.0-53.0) % POC Glucose (mg/dL) 139 H 134 H 114 H (70-110) mg/dL 12/14/23 12/14/23 Range/Units 06:08 10:37 RBC 4.02 L (4.30-5.90) m/uL Hgb 12.1 L (13.0-17.5) gm/dL Hct 38.3 L (39.0-53.0) % POC Glucose (mg/dL) 112 H (70-110) mg/dL Microbiology - Last 24 Hours (Table) 12/11/23 14:00 Urine Culture - Final Urine,Catheterized Assessment and Plan Plan: Assessment: 1. Acute kidney injury secondary to ATN. Urine eosinophils negative. No obstruction noted on imaging. Creatinine peaked at 3.95 this admission -2.88 yesterday. 2. Chronic kidney disease stage IIIb with baseline creatinine 1.3-1.4 in October 2023. Patient then had an episode of acute kidney injury with creatinine near 3. 3. Hypomagnesemia from poor intake. Replaced. 4. Hypertension with chronic kidney disease. Controlled. 5. Left heel wound maintained on IV antibiotics. 6. Diabetes mellitus. 7. Metabolic acidosis secondary to acute kidney injury and IV fluids maintained on oral bicarb. Stable. 8. Chronic hyperkalemia maintained on Lokelma. Stable. Plan: Maintain IV fluids. Low potassium diet. Maintain Lokelma. Avoid nephrotoxins. Continue to monitor renal function and urine output. Follow-up outpatient 1 week postdischarge.
[2023-12-14 11:28] LABS: Glucose,Whole Blood 126 mg/dL (70-110)
[2023-12-14 11:39] LABS: African American GFR (CKD) 29 (>60 ml/min/1.73 sqM); Anion Gap 9 mmol/L; Blood Urea Nitrogen 42 mg/dL (9-20); Calcium 9.3 mg/dL (8.4-10.2); Carbon Dioxide 23 mmol/L (22-30); Chloride 110 mmol/L (98-107); Glucose 123 mg/dL (74-99); Magnesium 2.3 mg/dL (1.6-2.3); Non-African American GFR(CKD) 25 (>60 ml/min/1.73 sqM); Potassium 4.4 mmol/L (3.5-5.1); Sodium 142 mmol/L (137-145)
--- NOTE | 2023-12-14 14:08 | P.PN ---
Subjective Progress Note Date: 12/14/23 Patient is a 78-year-old male with a past medical history of hypertension, diabetes type 2 insulin-dependent, prior history of left urinary retention, CKD, venous stasis, PVD and bilateral leg ulcers completed antibiotic course presents to ER due to abnormal labs. Patient otherwise denies any complaints of chest pain or shortness of breath. No nausea vomiting abdominal pain or diarrhea. EKG showed sinus rhythm with first-degree AV block. Laboratory data showed WBC 9.4 hemoglobin 12.9 and platelets 279 sodium 141 potassium 7.7 chloride 111 bicarb is 18 BUN 8020 creatinine 3.32 and blood sugar 166 and magnesium 1.5 liver exams not elevated. Troponins x 1 negative. 12/09/2023 Patient is resting in the bed. Awake alert and oriented x 3. No complaints of chest pain or shortness of breath. No palpitations. No nausea vomiting abdominal pain or diarrhea. Tolerating oral diet. Blood sugar is controlled. Laboratory data showed WBC 11.2 hemoglobin 12.9 and platelets 297 sodium 142 potassium slightly improved to 6.9, chloride 110 bicarb is 22 BUN 76 and creatinine 3.18 and blood sugar 123 and calcium 9.9. Patient is being continued on Lokelma and is also given a dose of insulin/D50 and calcium gluconate. Nephrology is on board. 12/10/2023 Patient is currently resting in bed. Awake alert and oriented x 3. No complaints of chest pain or shortness of breath. No fever no chills. No nausea or vomiting.. Any worsening left heel pain. ROS creatinine increased to 3.95 today. Potassium 6.0 and WBC 6.0 hemoglobin 12.7 and platelets 321. Renal ultrasound showed no hydronephrosis. There is a 2.1 cm hypoechoic area within the left kidney recommend CT scan to exclude underlying mass lesion. Nephrology is on board. ID consult due to left heel ulcer. 12/11/2023 Patient is currently lying in the bed. Awake alert and oriented x 3. Denies any complaints of fever or chills. No chest pain or shortness of breath. No nausea vomiting abdominal pain or diarrhea. Denies any left heel pain. Otherwise laboratory data showed WBC 10.7 hemoglobin 11.8 and platelets 267 sodium 138 potassium 5.2 chloride 103 bicarb is 26 BUN 75 and creatinine with slight improvement to 3.51 and blood sugar 189. Urinalysis showed 1+ protein trace blood trace leukocyte esterase and WBCs 9. Patient was started on antibiotics due to left heel ulcer stage IV and possible underlying Osteomyelitis. Wound care is on board. Follow-up deep cultures. ID and nephrology is on board. Titrate insulin dose for better blood sugar control. 12/12/2023 Patient is resting in bed. Awake alert and oriented. No complaints of chest pain or shortness of breath. No nausea or vomiting. Patient is being continued on cefepime for left heel ulcer. Laboratory test showed renal function remains the same at 3.37 creatinine. BUN 66 and potassium is improved to 5.2. Other laboratory data showed WBC 9.3 hemoglobin 11.3 and platelets 246 blood sugar 95. Calcium 8.8. Nephrology and ID is on board. 12/13/2023 Patient is evaluated today in follow up on the medical floor. He is awake alert and oriented. Wondering about discharge back to [facility]. Patient has been there for IV antibiotics. Discussed with ID and urine culture normal and patient requires no more IV antibiotics on discharge. He continues with local wound care to the right heel. Patient has chronic left heel ulcer and osteomyelitis. Remains on IV cefepime while inpatient. Recommending to cut back dose of amlodipine. Patient continues with indwelling hernández catheter was placed this admission for urinary retention and we will complete a voiding trial prior to discharge. Patient continues on LR at 100 mls/hr. Remains on flomax. 12/14/2023 Patient is evaluated today in follow-up on the medical floor. He is currently pending insurance authorization for return to [facility]. ID is recommending no further antibiotics on discharge. He will continue on IV cefepime while inpatient here. Patient continues with local wound care to the left heel. Is continued on IV fluids tater Ringer's at 100. Work today reveals a BUN of 42 and a creatinine of 2.43. Will continue with indwelling Hernández catheter was placed his prior hospital stay patient has a follow-up with urology on Wednesday in the office for this. Current medications reviewed. Review of Systems Constitutional: Denied any fatigue denied any fever. Cardio vascular: denied any chest pain, palpitations Gastrointestinal: denied any nausea, vomiting, diarrhea Pulmonary: Denied any shortness of breath cough Neurologic denied any new focal deficits All inpatient medications were reviewed and appropriate changes in these medications as dictated in the interval history and assessment and plan. PHYSICAL EXAMINATION: GENERAL: The patient is alert and oriented x3, not in any acute distress. Well developed, well nourished. HEENT: Pupils are round and equally reacting to light. EOMI. No scleral icterus. No conjunctival pallor. Normocephalic, atraumatic. No pharyngeal erythema. No thyromegaly. CARDIOVASCULAR: S1 and S2 present. No murmurs, rubs, or gallops. PULMONARY: Faint scattered expiratory wheezing. ABDOMEN: Soft, nontender, nondistended, normoactive bowel sounds. No palpable organomegaly. Hernández catheter in place. MUSCULOSKELETAL: No joint swelling or deformity. EXTREMITIES: No cyanosis, clubbing, or pedal edema. 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 SKIN: No rashes. Assessment Acute kidney injury nonoliguric. Possible ATN. Rule out interstitial nephritis, from recent antibiotics. Creatinine 3.32 on admission Down to 2.43 Hyperkalemia secondary acute kidney injury. Improved CKD stage III with baseline creatinine 1.4 Left heel full-thickness wound/ulcer stage III with underlying infection. Patient refused amputation as recommended by vascular surgery. Patient was on antibiotic course via PICC line recently. 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 Avoid PPI for possible interstitial nephritis. Plan Continue IV fluids and check BMP in the morning, monitor renal function Continue Hernández catheter and patient has a follow-up with urology in the office on Wednesday for this. Continue on flomax Repeat blood work in the AM Continue on decreased dose of amlodipine Possible return to [facility] in the next 24 hours patient is currently pending insurance authorization The impression and plan of care has been dictated by Josefa David, Nurse Practitioner as directed. Dr. Dennise MD I have performed a history and physical examination and medical decision making of this patient, discussed the same with the dictator, and agree with the dictators assessment and plan as written, documented as a scribe. Based on total visit time, I have performed more than 50% of this visit. Objective - Vital Signs Vital signs: Vital Signs Temp 98.0 F 12/14/23 08:00 Pulse 91 12/14/23 08:00 Resp 18 12/14/23 08:00 BP 131/70 12/14/23 08:00 Pulse Ox 98 12/14/23 08:00 FiO2 Intake & Output 12/13/23 12/14/23 12/14/23 18:59 06:59 18:59 Intake Total 2180 120 736 Output Total 1400 1900 700 Balance 780 -1780 36 Intake: Intake, IV Titration 1350 Amount Cefepime 1 gm In Sodium 50 Chloride 0.9% 50 ml @ 12. 5 mls/hr IVPB Q12H [facility] Rx #:[id number] Lactated Ringers 1,000 ml 1100 @ 100 mls/hr IV .Q10H [facility] Rx#:[id number] Magnesium Sulfate-D5w Pmx 200 1 gm In Dextrose/Water 1 100ml.bag @ 100 mls/hr IVPB Q1H [facility] Rx#: [id number] Oral 830 120 736 Output: Urine 1400 1900 700 Other: Voiding Method Indwelling Catheter Indwelling Catheter Indwelling Catheter - Labs CBC & Chem 7: 12/14/23 10:37 12/14/23 10:37 Labs: Abnormal Lab Results - Last 24 Hours (Table) 12/13/23 12/13/23 12/14/23 Range/Units 16:35 20:33 06:08 RBC (4.30-5.90) m/uL Hgb (13.0-17.5) gm/dL Hct (39.0-53.0) % Chloride (98-107) mmol/L BUN (9-20) mg/dL Creatinine (0.66-1.25) mg/dL Glucose (74-99) mg/dL POC Glucose (mg/dL) 134 H 114 H 112 H (70-110) mg/dL 12/14/23 12/14/23 12/14/23 Range/Units 10:37 10:37 11:28 RBC 4.02 L (4.30-5.90) m/uL Hgb 12.1 L (13.0-17.5) gm/dL Hct 38.3 L (39.0-53.0) % Chloride 110 H (98-107) mmol/L BUN 42 H (9-20) mg/dL Creatinine 2.43 H (0.66-1.25) mg/dL Glucose 123 H (74-99) mg/dL POC Glucose (mg/dL) 126 H (70-110) mg/dL Microbiology - Last 24 Hours (Table) 12/11/23 14:00 Urine Culture - Final Urine,Catheterized Assessment and Plan Time with Patient: Less than 30
[2023-12-14 16:38] LABS: Glucose,Whole Blood 120 mg/dL (70-110)
[2023-12-14 20:02] LABS: Glucose,Whole Blood 121 mg/dL (70-110)
[2023-12-15 06:11] LABS: African American GFR (CKD) 29 (>60 ml/min/1.73 sqM); Anion Gap 10 mmol/L; Blood Urea Nitrogen 37 mg/dL (9-20); Calcium 8.7 mg/dL (8.4-10.2); Carbon Dioxide 20 mmol/L (22-30); Chloride 112 mmol/L (98-107); Glucose 91 mg/dL (74-99); Non-African American GFR(CKD) 25 (>60 ml/min/1.73 sqM); Potassium 4.3 mmol/L (3.5-5.1); Sodium 142 mmol/L (137-145)
[2023-12-15 07:12] LABS: Glucose,Whole Blood 105 mg/dL (70-110)
[2023-12-15 08:01] VITALS: RESP 17
--- NOTE | 2023-12-15 12:16 | P.DS ---
Providers Date of admission: 12/08/23 15:42 Attending physician: Alexandro Easton Consults: 12/08/23 15:41 Consult Physician Urgent Consulting Provider: Jenn Spencer Consult Reason/Comments: Hyperkalemia, renal failure Do you want consulting provider notified?: Yes 12/09/23 18:58 Consult Physician Routine Consulting Provider: Anuradha Bentley Consult Reason/Comments: chronic wound left heel Do you want consulting provider notified?: Yes Primary care physician: Chanelle [facility] Course: Final Diagnosis Acute kidney injury secondary to ATN. Rule out interstitial nephritis, from recent antibiotics. Hyperkalemia secondary acute kidney injury. Improved CKD stage III with baseline creatinine 1.4 Left heel full-thickness wound/ulcer stage III with underlying infection. Patient refused amputation as recommended by vascular surgery. Patient was on antibiotic course via PICC line recently. Metabolic acidosis secondary to acute kidney injury and IV fluids maintained on oral bicarb. Stable. Chronic hyperkalemia maintained on Lokelma. 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 Avoid PPI for possible interstitial nephritis. Discharge Disposition Stable for return to [facility]. Patient will not require any further IV antibiotic therapy on discharge per infectious disease. We would recommend to follow-up with Dr. Bentley in the office for 1 week's time. Patient will continue with local wound care to the left heel wound with collagen saline moist gauze dry gauze and rolled gauze and secure with paper tape and continue with the heel protector. Upon return to [facility] patient will continue with the Hydrofera Blue orders from the wound care center and follow-up with [facility] wound care on discharge. She will continue on Lokelma daily for the elevated potassium which is chronic for this patient. Recommend to repeat a basic metabolic panel in 2 to 3 days. Hospital Course Patient is a 78-year-old male with a past medical history of hypertension, diabetes type 2 insulin-dependent, prior history of left urinary retention, CKD, venous stasis, PVD and bilateral leg ulcers completed antibiotic course presents to ER due to abnormal labs was sent over from [facility] with worsening creatinine up to 3.32. Patient otherwise denies any complaints of chest pain or shortness of breath. No nausea vomiting abdominal pain or diarrhea. EKG showed sinus rhythm with first-degree AV block. Laboratory data showed WBC 9.4 hemoglobin 12.9 and platelets 279 sodium 141 potassium 7.7 chloride 111 bicarb is 18 BUN 8020 creatinine 3.32 and blood sugar 166 and magnesium 1.5 liver exams not elevated. Troponins x 1 negative. Patient was admitted to the hospital with a consult placed to nephrology. Patient was continued on Lokelma and treated for the elevated potassium with insulin D50 and calcium gluconate. Potassium has slowly come down and patient will be maintained on Lokelma daily. A renal ultrasound was completed for the acute kidney injury showed no evidence of hydronephrosis but there was a 2.1 cm hypoechoic area within the left kidney recommending CT scan to exclude underlying mass or lesion. Patient has been maintained on IV antibiotics at [facility] through a PICC line for a chronic left heel ulcer and osteomyelitis. ID is following continue the cefepime while in the hospital. He had discussed a deep tissue culture of the left heel however this was not completed. Patient was set to complete course of antibiotic therapy on December 12 and ID is recommending no further antibiotics on discharge. A urinalysis was abnormal however urine culture was final and negative. She did have a abdominal pelvic CT completed (no urolithiasis or obstructive uropathy. A Blankenship catheter is in with urinary bladder and bladder is thick walled suggestive of cystitis. 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 Cholelithiasis without cholecystitis. Patient's creatinine has improved down to 2.42. He is awake alert oriented he is not having any chest pain or shortness of breath. He is not having any nausea vomiting or diarrhea he is not having any abdominal pain. Patient continues with his chronic Blankenship catheter which was placed his prior admission to this. He is already set up to follow-up with Dr. Miller in the office tomorrow at 10:20 AM. Be discharged back to [facility] today. Please see medication reconciliation for a list of current medications. Thank you for allowing us to participate in the care of this patient. The impression and plan of care has been dictated by Josefa David, Nurse Practitioner as directed. Dr. Dennise MD I have performed a history and physical examination and medical decision making of this patient, discussed the same with the dictator, and agree with the dictators assessment and plan as written, documented as a scribe. Based on total visit time, I have performed more than 50% of this visit. Patient Condition at Discharge: Fair Plan - Discharge Summary Discharge Rx Participant: No New Discharge Prescriptions: New Sodium Zirconium Cyclosilicate [Lokelma] 10 gm PO DAILY packet amLODIPine [Norvasc] 5 mg PO DAILY tab Continue Multivitamins, Thera [Multivitamin (formulary)] 1 tab PO DAILY@0900 Acetaminophen Tab [Tylenol] 650 mg PO Q6HR PRN tab PRN Reason: Mild Pain Or Fever > 100.5 Atorvastatin [Lipitor] 10 mg PO HS@2100 Insulin Degludec [Tresiba Flextouch U-100 Pen] 8 units SQ DAILY@0900 Sodium Bicarbonate Tab 650 mg PO BID@0900,2100 Ferrous Sulfate [Iron (65 MG Elemental)] 325 mg PO DAILY@0900 Tamsulosin [Flomax] 0.4 mg PO DAILY@0900 Glucerna Shake 1 can PO BID@0900,2100 Heparin Sodium,Porcine (1 ml) [Heparin Sodium] 5,000 unit SQ TID@0600,1400,2200 Omeprazole 20 mg PO DAILY@0600 Insulin Lispro [humaLOG Kwikpen] See Protocol SQ ACHS@08,12,17,21 HYDROcodone/APAP 5-325MG [Monument 5-325] 1 tab PO Q6H PRN #4 tab PRN Reason: Moderate Pain (Scale 4 To 6) Discontinued amLODIPine [Norvasc] 10 mg PO DAILY@0900 Spironolactone [Aldactone] 25 mg PO DAILY@0900 Discharge Medication List Multivitamins, Thera [Multivitamin (formulary)] 1 tab PO DAILY@0900 12/26/21 [History] Ferrous Sulfate [Iron (65 MG Elemental)] 325 mg PO DAILY@0900 04/29/23 [History] Tamsulosin [Flomax] 0.4 mg PO DAILY@0900 10/21/23 [History] Acetaminophen Tab [Tylenol] 650 mg PO Q6HR PRN tab 10/27/23 [Rx] Atorvastatin [Lipitor] 10 mg PO HS@2100 11/15/23 [History] Glucerna Shake 1 can PO BID@0900,209911/15/23 [History] Heparin Sodium,Porcine (1 ml) [Heparin Sodium] 5,000 unit SQ TID@0600,1400,2200 11/15/23 [History] Omeprazole 20 mg PO DAILY@0600 11/15/23 [History] Insulin Degludec [Tresiba Flextouch U-100 Pen] 8 units SQ DAILY@0900 12/08/23 [History] Insulin Lispro [humaLOG Kwikpen] See Protocol SQ ACHS@08,12,,12/08/23 [History] Sodium Bicarbonate Tab 650 mg PO BID@0900,209912/08/23 [History] HYDROcodone/APAP 5-325MG [Monument 5-325] 1 tab PO Q6H PRN #4 tab 12/13/23 [Rx] Sodium Zirconium Cyclosilicate [Lokelma] 10 gm PO DAILY packet 12/13/23 [Rx] amLODIPine [Norvasc] 5 mg PO DAILY tab 12/13/23 [Rx] Follow up Appointment(s)/Referral(s): Jenn Spencer MD [STAFF PHYSICIAN] - 1 Week Deven Donis MD [STAFF PHYSICIAN] - 1 Week Chanelle Murphy MD [Primary Care Provider] - 1-2 days [facility] [NON-STAFF] - 12/13/23 12:45 pm Anuradha Bentley MD [STAFF PHYSICIAN] - 1 Week Ambulatory/Diagnostic Orders: Basic Metabolic Panel [LAB.AMB] Time Frame: 3 Days, Location: None Selected Discharge Disposition: TRANSFER TO SNF/ECF
[2023-12-15 12:17] LABS: Glucose,Whole Blood 133 mg/dL (70-110)
--- NOTE | 2023-12-15 12:29 | P.PN ---
Subjective Patient is seen in follow-up for acute kidney injury on chronic kidney disease. Renal function stable. Hemodynamically stable. Nonoliguric. On IV fluids. Vital signs are stable. General: No acute distress. HEENT: Head exam is unremarkable. LUNGS: No audible rhonchi or wheezes. HEART: Rate and Rhythm are regular. ABDOMEN: Nontender. EXTREMITITES: Left foot wrapped. No drainage. Objective - Vital Signs Vital signs: Vital Signs Temp 98.1 F 12/15/23 07:10 Pulse 66 12/15/23 08:40 Resp 17 12/15/23 08:40 BP 128/64 12/15/23 07:10 Pulse Ox 98 12/15/23 07:10 FiO2 Intake & Output 12/14/23 12/15/23 12/15/23 18:59 06:59 18:59 Intake Total 1452 590 Output Total 1700 2700 Balance -248 -2110 Intake: Oral 1452 590 Output: Urine 1700 2700 Other: Voiding Method Indwelling Catheter Indwelling Catheter Indwelling Catheter - Labs CBC & Chem 7: 12/14/23 10:37 12/15/23 05:34 Labs: Abnormal Lab Results - Last 24 Hours (Table) 12/14/23 12/14/23 12/15/23 Range/Units 16:36 20:00 05:34 Chloride 112 H (98-107) mmol/L Carbon Dioxide 20 L (22-30) mmol/L BUN 37 H (9-20) mg/dL Creatinine 2.42 H (0.66-1.25) mg/dL POC Glucose (mg/dL) 120 H 121 H (70-110) mg/dL 12/15/23 Range/Units 12:16 Chloride (98-107) mmol/L Carbon Dioxide (22-30) mmol/L BUN (9-20) mg/dL Creatinine (0.66-1.25) mg/dL POC Glucose (mg/dL) 133 H (70-110) mg/dL Assessment and Plan Plan: Assessment: 1. Acute kidney injury secondary to ATN. Urine eosinophils negative. No obstruction noted on imaging. Creatinine peaked at 3.95 this admission - 2.42 today. 2. Chronic kidney disease stage IIIb with baseline creatinine 1.3-1.4 in October 2023. Patient then had an episode of acute kidney injury with creatinine near 3. 3. Hypomagnesemia from poor intake. Replaced. 4. Hypertension with chronic kidney disease. Controlled. 5. Left heel wound maintained on IV antibiotics. 6. Diabetes mellitus. 7. Metabolic acidosis secondary to acute kidney injury and IV fluids maintained on oral bicarb. Stable. 8. Chronic hyperkalemia maintained on Lokelma. Stable. Plan: Maintain IV fluids. Decrease rate to 50 cc an hour. Low potassium diet. Maintain Lokelma. Avoid nephrotoxins. Continue to monitor renal function and urine output. Follow-up outpatient 1 week postdischarge. Repeat BMP and magnesium level 2 to 3 days postdischarge.
[2023-12-15 13:26] VITALS: BP 132/67; PULSE 64; TEMP 98
== END 2023-12-15 16:38 | DRG 683 ==
LOC: EC 13:30 → 3SCARD 15:42 → 5NMEDONC 12-14 23:07
PROVIDERS: ADMIT Internal Medicine; ATTEND Internal Medicine
DX: N17.0 Acute kidney failure with tubular necrosis (principal); E87.20 Acidosis, unspecified; L97.426 Non-pressure chronic ulcer of left heel and midfoot with bone involvement without evidence of necrosis; M86.9 Osteomyelitis, unspecified; E66.9 Obesity, unspecified; Z68.31 Body mass index [BMI] 31.0-31.9, adult; K80.20 Calculus of gallbladder without cholecystitis without obstruction; M21.372 Foot drop, left foot; N18.32 Chronic kidney disease, stage 3b; E11.22 Type 2 diabetes mellitus with diabetic chronic kidney disease; R33.9 Retention of urine, unspecified; I83.009 Varicose veins of unspecified lower extremity with ulcer of unspecified site; E11.51 Type 2 diabetes mellitus with diabetic peripheral angiopathy without gangrene; R26.9 Unspecified abnormalities of gait and mobility; N30.91 Cystitis, unspecified with hematuria; E11.621 Type 2 diabetes mellitus with foot ulcer; E11.69 Type 2 diabetes mellitus with other specified complication; E83.42 Hypomagnesemia; E87.5 Hyperkalemia; I12.9 Hypertensive chronic kidney disease with stage 1 through stage 4 chronic kidney disease, or unspecified chronic kidney disease; I44.0 Atrioventricular block, first degree; I72.2 Aneurysm of renal artery; I87.8 Other specified disorders of veins; Z79.4 Long term (current) use of insulin; Z79.899 Other long term (current) drug therapy; Z96.41 Presence of insulin pump (external) (internal); Z71.3 Dietary counseling and surveillance; Z28.21 Immunization not carried out because of patient refusal
CPT/HCPCS: 36415; 74176; 76770; 80048; 80051; 80053; 81001; 83735; 84132; 84484; 85025; 87086; 87205; 93005; 96365; 96367; 96372; 96375; 99291

== ENCOUNTER 2023-12-31 18:18 | Emergency (ER) | payer MEDICARE ==
[2023-12-31 18:29] VITALS: TEMP 98.2
[2023-12-31 18:29] LABS: Glucose,Whole Blood 131 mg/dL (70-110)
[2023-12-31] MEDS ORDERED: SODIUM CHLORIDE 0.9% 1,000 ML IV STA (18:32)
--- NOTE | 2023-12-31 18:36 | ED ---
Recheck HPI - General Chief Complaint: Skin/Abscess/Foreign Body Stated Complaint: Foot Infection Time Seen by Provider: 12/31/23 18:32 Source: EMS, RN notes reviewed, old records reviewed Mode of arrival: EMS Limitations: no limitations - History of Present Illness Initial Comments: This is a 78-year-old female to the ER for evaluation today. This patient presents today for evaluation regards to history of uncontrolled diabetes recently uncontrolled diabetes and left foot infection MD Complaint: abnormal lab (Elevated blood sugar infected foot) Initial Visit For: cellulitis Returns Today for: Called Because of Abnormal Lab/Test, needs IV antibiotics Symptoms Since Prior Visit: no new symptoms, worsening pain Context: planned re-check Associated Symptoms: none - Related Data Home Medications Medication Instructions Recorded Confirmed Multivitamins, Thera [Multivitamin 1 tab PO DAILY@0900 12/26/21 12/08/23 (formulary)] Ferrous Sulfate [Iron (65 MG 325 mg PO DAILY@0900 04/29/23 12/08/23 Elemental)] Tamsulosin [Flomax] 0.4 mg PO DAILY@0900 10/21/23 12/08/23 Atorvastatin [Lipitor] 10 mg PO HS@209911/15/23 12/08/23 Glucerna Shake 1 can PO BID@0900,209911/15/23 12/08/23 Heparin Sodium,Porcine (1 ml) 5,000 unit SQ TID@0600,1400,2200 11/15/23 12/08/23 [Heparin Sodium] Omeprazole 20 mg PO DAILY@0611/15/23 12/08/23 Insulin Degludec [Tresiba 8 units SQ DAILY@0912/08/23 12/08/23 Flextouch U-100 Pen] Insulin Lispro [humaLOG Kwikpen] See Protocol SQ ACHS@08,12,17,21 12/08/23 12/08/23 Sodium Bicarbonate Tab 650 mg PO BID@0900,2100 12/08/23 12/08/23 Previous Rx's Medication Instructions Recorded Acetaminophen Tab [Tylenol] 650 mg PO Q6HR PRN tab 10/27/23 HYDROcodone/APAP 5-325MG [[place] 1 tab PO Q6H PRN #4 tab 12/13/23 5-325] Sodium Zirconium Cyclosilicate 10 gm PO DAILY packet 12/13/23 [Lokelma] amLODIPine [Norvasc] 5 mg PO DAILY tab 12/13/23 Allergies Allergy/AdvReac Type Severity Reaction Status Date / Time No Known Allergies Allergy Verified 12/31/23 18:27 Review of Systems ROS Statement: Those systems with pertinent positive or pertinent negative responses have been documented in the HPI. ROS Other: All systems not noted in ROS Statement are negative. Past Medical History Past Medical History: Diabetes Mellitus, Hypertension, Renal Disease Additional Past Medical History / Comment(s): VENOUS STASIS ; ULCERS BILAT LEGS, PVD, CRISTAL LEG WOUND History of Any Multi-Drug Resistant Organisms: MRSA Date of last positivie culture/infection: 04/14/17 MDRO Source:: Right Leg Past Surgical History: Tonsillectomy Additional Past Surgical History / Comment(s): 07/13/17 CRISTAL AORTOGRAM AND LLE ANGIOGRAM, REATTACHED TENDON LT 5TH FINGER 1995. skin graft bilat legs, Right foot pinky toe amp. Past Anesthesia/Blood Transfusion Reactions: No Reported Reaction Past Psychological History: No Psychological Hx Reported Smoking Status: Never smoker Past Alcohol Use History: None Reported Past Drug Use History: None Reported - Past Family History Father Family Medical History: Cancer Additional Family Medical History / Comment(s): PROSTATE CANCER Mother Family Medical History: Hypertension General Exam Limitations: no limitations General appearance: alert, in no apparent distress Head exam: Present: atraumatic, normocephalic, normal inspection Eye exam: Present: normal appearance, PERRL, EOMI. Absent: scleral icterus, conjunctival injection, periorbital swelling ENT exam: Present: normal exam, mucous membranes moist Neck exam: Present: normal inspection. Absent: tenderness, meningismus, lymphadenopathy Respiratory exam: Present: normal lung sounds bilaterally. Absent: respiratory distress, wheezes, rales, rhonchi, stridor Cardiovascular Exam: Present: regular rate, normal rhythm, normal heart sounds. Absent: systolic murmur, diastolic murmur, rubs, gallop, clicks GI/Abdominal exam: Present: soft, normal bowel sounds. Absent: distended, tenderness, guarding, rebound, rigid Extremities exam: Present: normal inspection, full ROM, normal capillary refill. Absent: tenderness, pedal edema, joint swelling, calf tenderness Back exam: Present: normal inspection Neurological exam: Present: alert, oriented X3, CN II-XII intact Psychiatric exam: Present: normal affect, normal mood Skin exam: Present: warm, dry, intact, normal color. Absent: rash Course Vital Signs 12/31/23 12/31/23 18:25 21:49 Temperature 98.2 F Pulse Rate 90 84 Respiratory 16 18 Rate Blood Pressure 146/84 90/72 O2 Sat by Pulse 96 96 Oximetry - Reevaluation(s) Reevaluation #1: 12/31/23 19:15 Medical records reviewed Reevaluation #2: 12/31/23 19:15 Patient symptoms improved Reevaluation #3: 12/31/23 19:15 Patient symptoms are unchanged Reevaluation #4: Was pt. sent in by a medical professional or institution (MOUNA Mckeon, MA[employer] [employer]OM[employer], urgent care, hospital, or fci...) When possible be specific @ -no Did you speak to anyone other than the patient for history (EMS, parent, family, police, friend...)? What history was obtained from this source @ -no Did you review nursing and triage notes (agree or disagree)? Why? @ -agree Are old charts reviewed (outside hosp., previous admission, EMS record, old EKG, old radiological studies, urgent care reports/EKG's, fci records)? Report findings @ -yes Differential Diagnosis (chest pain, altered mental status, abdominal pain women, abdominal pain men, vaginal bleeding, weakness, fever, dyspnea, syncope, headache, dizziness, GI bleed, back pain, seizure, CVA, palpatations, mental health, musculoskeletal)? @ -prior EKG interpreted by me (3pts min.). @ -yes X-rays interpreted by me (1pt min.). @ -yes negative for acute disease CT interpreted by me (1pt min.). @ -no U/S interpreted by me (1pt. min.). @ -no What testing was considered but not performed or refused? (CT, X-rays, U/S, labs)? Why? @ -none What meds were considered but not given or refused? Why? @ -none Did you discuss the management of the patient with other professionals (professionals i.e. MOUNA Mckeon, MANA[employer] WOMEN, lab, RT, psych nurse, hospice social worker, certified alcohol drug counselor, teacher, chief customer officer, embedded case manager)? Give summary @ -no Was smoking cessation discussed for >3mins.? @ -no Was critical care preformed (if so, how long)? @ -no Were there social determinants of health that impacted care today? How? (Homelessness, low income, unemployed, alcoholism, drug addiction, transportation, low edu. Level, literacy, decrease access to med. care, fdc, rehab)? @ -none Was there de-escalation of care discussed even if they declined (Discuss DNR or withdrawal of care, Hospice)? DNR status @ -no What co-morbidities impacted this encounter? (DM, HTN, Smoking, COPD, CAD, Cancer, CVA, ARF, Chemo, Hep., AIDS, mental health diagnosis, sleep apnea, morbid obesity)? @ -none Was patient admitted / discharged? Hospital course, mention meds given and route, prescriptions, significant lab abnormalities, going to OR and other pertinent info. @ - 86 feMale to ER for evaluation of blood in the stool with history of hemorrhoids and blood thinners, no active bleeding on rectal examination here in the ER normal hemoglobin the patient does have low blood pressure likely dehydrated related not eating or drinking and the creatinine is 2 times normal. Patient will admit for resuscitation Discharge Undiagnosed new problem with uncertain prognosis? @ -no Drug Therapy requiring intensive monitoring for toxicity (Heparin, Nitro, Insulin, Cardizem)? @ -no Were any procedures done? @ -no Diagnosis/symptom? @ -Chronic foot ulcer Acute, or Chronic, or Acute on Chronic? @ -Acute Uncomplicated (without systemic symptoms) or Complicated (systemic symptoms)? @ -Complicated Side effects of treatment? @ -no Exacerbation, Progression, or Severe Exacerbation? @ -exacerbation Poses a threat to life or bodily function? How? (Chest pain, [place], [place], pneumonia, PE, COPD, DKA, ARF, appy, cholecystitis, CVA, Diverticulitis, Homicidal, Suicidal, threat to staff... and all critical care pts) @ -yes extremes of age Medical Decision Making - Lab Data Result diagrams: 12/31/23 18:45 12/31/23 18:45 Lab Results 12/31/23 12/31/23 12/31/23 Range/Units 18:27 18:45 18:45 WBC 9.5 (3.8-10.6) k/uL RBC 3.24 L (4.30-5.90) m/uL Hgb 10.4 L (13.0-17.5) gm/dL Hct 30.7 L (39.0-53.0) % MCV 94.6 (80.0-100.0) fL MCH 32.1 (25.0-35.0) pg MCHC 34.0 (31.0-37.0) g/dL RDW 15.3 (11.5-15.5) % Plt Count 264 (150-450) k/uL MPV 7.3 Neutrophils % 76 % Lymphocytes % 11 % Monocytes % 8 % Eosinophils % 2 % Basophils % 1 % Neutrophils # 7.2 (1.3-7.7) k/uL Lymphocytes # 1.0 (1.0-4.8) k/uL Monocytes # 0.8 (0-1.0) k/uL Eosinophils # 0.2 (0-0.7) k/uL Basophils # 0.1 (0-0.2) k/uL Sodium 142 (137-145) mmol/L Potassium 4.2 (3.5-5.1) mmol/L Chloride 112 H (98-107) mmol/L Carbon Dioxide 18 L (22-30) mmol/L Anion Gap 12 mmol/L BUN 55 H (9-20) mg/dL Creatinine 1.85 H (0.66-1.25) mg/dL Est GFR (CKD-EPI)AfAm 40 (>60 ml/min/1.73 sqM) Est GFR (CKD-EPI)NonAf 34 (>60 ml/min/1.73 sqM) Glucose 125 H (74-99) mg/dL POC Glucose (mg/dL) 131 H (70-110) mg/dL POC Glu Verification Clerk ID Geri Rawls Calcium 8.8 (8.4-10.2) mg/dL Phosphorus 3.3 (2.5-4.5) mg/dL Magnesium 1.6 (1.6-2.3) mg/dL Total Bilirubin 0.6 (0.2-1.3) mg/dL AST 24 (17-59) U/L ALT 26 (4-49) U/L Alkaline Phosphatase 78 (38-126) U/L Troponin I (0.000-0.034) ng/mL NT-Pro-B Natriuret Pep 2170 pg/mL Total Protein 6.8 (6.3-8.2) g/dL Albumin 3.8 (3.5-5.0) g/dL Acetone, Qual Negative (Negative) 12/31/23 Range/Units 18:45 WBC (3.8-10.6) k/uL RBC (4.30-5.90) m/uL Hgb (13.0-17.5) gm/dL Hct (39.0-53.0) % MCV (80.0-100.0) fL MCH (25.0-35.0) pg MCHC (31.0-37.0) g/dL RDW (11.5-15.5) % Plt Count (150-450) k/uL MPV Neutrophils % % Lymphocytes % % Monocytes % % Eosinophils % % Basophils % % Neutrophils # (1.3-7.7) k/uL Lymphocytes # (1.0-4.8) k/uL Monocytes # (0-1.0) k/uL Eosinophils # (0-0.7) k/uL Basophils # (0-0.2) k/uL Sodium (137-145) mmol/L Potassium (3.5-5.1) mmol/L Chloride (98-107) mmol/L Carbon Dioxide (22-30) mmol/L Anion Gap mmol/L BUN (9-20) mg/dL Creatinine (0.66-1.25) mg/dL Est GFR (CKD-EPI)AfAm (>60 ml/min/1.73 sqM) Est GFR (CKD-EPI)NonAf (>60 ml/min/1.73 sqM) Glucose (74-99) mg/dL POC Glucose (mg/dL) (70-110) mg/dL POC Glu Verification Clerk ID Calcium (8.4-10.2) mg/dL Phosphorus (2.5-4.5) mg/dL Magnesium (1.6-2.3) mg/dL Total Bilirubin (0.2-1.3) mg/dL AST (17-59) U/L ALT (4-49) U/L Alkaline Phosphatase (38-126) U/L Troponin I <0.012 (0.000-0.034) ng/mL NT-Pro-B Natriuret Pep pg/mL Total Protein (6.3-8.2) g/dL Albumin (3.5-5.0) g/dL Acetone, Qual (Negative) - EKG Data -: EKG Interpreted by Me (EKG is sinus 82 UT 185 QRS 140 QTc 454) - Radiology Data Radiology results: report reviewed (X-ray foot shows chronic changes), image reviewed Disposition Clinical Impression: Chronic ulcer of left foot with fat layer exposed Disposition: HOME SELF-CARE Condition: Good Instructions (If sedation given, give patient instructions): Diabetic Foot Ulcers (ED) Is patient prescribed a controlled substance at d/c from ED?: No Referrals: Chanelle Murphy MD [Primary Care Provider] - 1-2 days Time of Disposition: 20:20
[2023-12-31] MEDS: SODIUM CHLORIDE 0.9% 1,000 ML IV STA (18:37)
[2023-12-31] MEDS: SODIUM CHLORIDE 0.9% 500 ML 500 ML IV STA (18:38)
[2023-12-31 19:09] LABS: Basophils # (A) 0.1 k/uL (0-0.2); Basophils % (A) 1 %; Eosinophils # (A) 0.2 k/uL (0-0.7); Eosinophils % (A) 2 %; HCT 30.7 % (39.0-53.0); HGB 10.4 gm/dL (13.0-17.5); Lymphocytes % (A) 11 %; MCH 32.1 pg (25.0-35.0); MCV 94.6 fL (80.0-100.0); Mean Platelet Volume 7.3; Monocytes # (A) 0.8 k/uL (0-1.0); Monocytes % (A) 8 %; Neutrophils # (A) 7.2 k/uL (1.3-7.7); Neutrophils % (A) 76 %; Platelet Count 264 k/uL (150-450); RBC 3.24 m/uL (4.30-5.90); RDW 15.3 % (11.5-15.5); WBC 9.5 k/uL (3.8-10.6)
--- NOTE | 2023-12-31 19:42 | XR ---
EXAMINATION TYPE: XR foot limited LT DATE OF EXAM: 12/31/2023 7:17 PM CLINICAL INDICATION:Male, 78 years old with history of pain; [facility] COMPARISON: 10/21/2023 TECHNIQUE: XR foot limited LT examined in the AP, oblique, and lateral projections. FINDINGS/IMPRESSION: Overall similar appearance to prior exam on 10/21/2023 1. Deformity to the calcaneus with flattening of the foot and suspected soft tissue wound over the c alcaneus. No osseous erosion definitively visualized. Chronic changes. 3 present. 2. There is hyperextension of the toes 2 through 5. Moderate joint space narrowing and osteophyte fo rmation throughout the mid foot joints.
[2023-12-31 19:45] LABS: ALT 26 U/L (4-49); AST 24 U/L (17-59); African American GFR (CKD) 40 (>60 ml/min/1.73 sqM); Albumin 3.8 g/dL (3.5-5.0); Alkaline Phosphatase 78 U/L (38-126); Anion Gap 12 mmol/L; Blood Urea Nitrogen 55 mg/dL (9-20); Calcium 8.8 mg/dL (8.4-10.2); Carbon Dioxide 18 mmol/L (22-30); Chloride 112 mmol/L (98-107); Glucose 125 mg/dL (74-99); Magnesium 1.6 mg/dL (1.6-2.3); Non-African American GFR(CKD) 34 (>60 ml/min/1.73 sqM); Phosphorus 3.3 mg/dL (2.5-4.5); Potassium 4.2 mmol/L (3.5-5.1); Sodium 142 mmol/L (137-145); Total Bilirubin 0.6 mg/dL (0.2-1.3); Total Protein 6.8 g/dL (6.3-8.2)
[2023-12-31 19:52] LABS: NT-Pro-B-Type Natriuretic Pept 2170 pg/mL
[2023-12-31 21:50] VITALS: BP 90/72; PULSE 84; RESP 18
== END 2023-12-31 21:50 | disposition home or self-care (01) ==
LOC: EC 18:18
DX: E11.621 Type 2 diabetes mellitus with foot ulcer (principal); Z87.891 Personal history of nicotine dependence
CPT/HCPCS: 36415; 93005; 83880; 80053; 82009; 83735; 84100; 84484; 85025; 87040; 73620; 99284; 96365; 96361; J0696

== ENCOUNTER 2024-03-17 14:02 | Inpatient (IN) | payer MEDICARE ==
--- NOTE | 2024-03-17 14:40 | ED ---
General Adult HPI - General Chief complaint: Recheck/Abnormal Lab/Rx Stated complaint: L Foot Infection Time Seen by Provider: 03/17/24 14:04 Source: patient, EMS Mode of arrival: EMS Limitations: no limitations - History of Present Illness Initial comments: 79 year old male presents to emergency department via wound care instruction with complaint of maggots in left foot wound. States that he routinely sees a green marketing specialist and that his wounds were recently debrided by his physicican. Reports pain is 3/10 to left lateral aspect of foot but he is able to walk without any issues, there are no associated relieving or aggravating factors and he is not currently on antibiotics. - Related Data Home Medications Medication Instructions Recorded Confirmed Multivitamins, Thera [Multivitamin 1 tab PO DAILY@0900 12/26/21 12/08/23 (formulary)] Ferrous Sulfate [Iron (65 MG 325 mg PO DAILY@0900 04/29/23 12/08/23 Elemental)] Tamsulosin [Flomax] 0.4 mg PO DAILY@0900 10/21/23 12/08/23 Atorvastatin [Lipitor] 10 mg PO HS@209911/15/23 12/08/23 Glucerna Shake 1 can PO BID@0900,209911/15/23 12/08/23 Heparin Sodium,Porcine (1 ml) 5,000 unit SQ TID@0600,1400,2200 11/15/23 12/08/23 [Heparin Sodium] Omeprazole 20 mg PO DAILY@0611/15/23 12/08/23 Insulin Degludec [Tresiba 8 units SQ DAILY@0912/08/23 12/08/23 Flextouch U-100 Pen] Insulin Lispro [humaLOG Kwikpen] See Protocol SQ ACHS@08,12,17,12/08/23 12/08/23 Sodium Bicarbonate Tab 650 mg PO BID@0900,2100 12/08/23 12/08/23 Previous Rx's Medication Instructions Recorded Acetaminophen Tab [Tylenol] 650 mg PO Q6HR PRN tab 10/27/23 HYDROcodone/APAP 5-325MG [[place] 1 tab PO Q6H PRN #4 tab 12/13/23 5-325] Sodium Zirconium Cyclosilicate 10 gm PO DAILY packet 12/13/23 [Lokelma] amLODIPine [Norvasc] 5 mg PO DAILY tab 12/13/23 Allergies Allergy/AdvReac Type Severity Reaction Status Date / Time No Known Allergies Allergy Verified 03/17/24 14:08 Review of Systems ROS Statement: Those systems with pertinent positive or pertinent negative responses have been documented in the HPI. ROS Other: All systems not noted in ROS Statement are negative. Past Medical History Past Medical History: Diabetes Mellitus, Hypertension, Renal Disease Additional Past Medical History / Comment(s): VENOUS STASIS ; ULCERS BILAT LEGS, PVD, CRISTAL LEG WOUND History of Any Multi-Drug Resistant Organisms: MRSA Date of last positivie culture/infection: 04/14/17 MDRO Source:: Right Leg Past Surgical History: Tonsillectomy Additional Past Surgical History / Comment(s): 07/13/17 CRISTAL AORTOGRAM AND LLE A NGIOGRAM, REATTACHED TENDON LT 5TH FINGER 1995. skin graft bilat legs, Right foot pinky toe amp. Past Anesthesia/Blood Transfusion Reactions: No Reported Reaction Past Psychological History: No Psychological Hx Reported Smoking Status: Never smoker Past Alcohol Use History: None Reported Past Drug Use History: None Reported - Past Family History Father Family Medical History: Cancer Additional Family Medical History / Comment(s): PROSTATE CANCER Mother Family Medical History: Hypertension General Exam Limitations: no limitations General appearance: alert, in no apparent distress Head exam: Present: atraumatic, normocephalic, normal inspection Eye exam: Present: normal appearance, PERRL, EOMI. Absent: scleral icterus, conjunctival injection, periorbital swelling ENT exam: Present: normal exam, mucous membranes moist Neck exam: Present: normal inspection. Absent: tenderness, meningismus, lymphadenopathy Respiratory exam: Present: normal lung sounds bilaterally. Absent: respiratory distress, wheezes, rales, rhonchi, stridor Cardiovascular Exam: Present: regular rate, normal rhythm, normal heart sounds. Absent: systolic murmur, diastolic murmur, rubs, gallop, clicks GI/Abdominal exam: Present: soft, normal bowel sounds. Absent: distended, tenderness, guarding, rebound, rigid Extremities exam: Present: normal inspection, full ROM, normal capillary refill. Absent: tenderness, pedal edema, joint swelling, calf tenderness Left Foot/Toe exam: Present: tenderness (Full thickness ulceration to lateral-distal aspect of foot and 5th toe with granulation tissue. Full thickness ulceration to to medial and inferior aspect of left heel with some granulation and visible bone. ), deformity Back exam: Present: normal inspection Neurological exam: Present: alert, oriented X3, CN II-XII intact Psychiatric exam: Present: normal affect, normal mood Skin exam: Present: warm, dry, intact, normal color. Absent: rash Course Vital Signs 03/17/24 14:05 Respiratory 18 Rate Blood Pressure 154/74 O2 Sat by Pulse 99 Oximetry Medical Decision Making - Medical Decision Making Was pt. sent in by a medical professional or institution (, MOUNA, ELECTRODE CLEANER, urgent care, hospital, or group home...) When possible be specific @ -[Home health care nurse Did you speak to anyone other than the patient for history (EMS, parent, family, police, friend...)? What history was obtained from this source @ -[No] Did you review nursing and triage notes (agree or disagree)? Why? @ -[I reviewed and agree with nursing and triage notes] Were old charts reviewed (outside hosp., previous admission, EMS record, old EKG, old radiological studies, urgent care reports/EKG's, group home records)? Report findings @ -[No old charts were reviewed] Differential Diagnosis (chest pain, altered mental status, abdominal pain women, abdominal pain men, vaginal bleeding, weakness, fever, dyspnea, syncope, headache, dizziness, GI bleed, back pain, seizure, CVA, palpatations, mental health, musculoskeletal)? @ -Diabetic foot infection, osteomyelitis, cellulitis EKG interpreted by me (3pts min.). @ -None X-rays interpreted by me (1pt min.). @ -X-ray left foot showing possible osteomyelitis of the heel, chronic changes of the digits CT interpreted by me (1pt min.). @ -[None done] U/S interpreted by me (1pt. min.). @ -[None done] What testing was considered but not performed or refused? (CT, X-rays, U/S, labs)? Why? @ -[None] What meds were considered but not given or refused? Why? @ -[None] Did you discuss the management of the patient with other professionals (professionals i.e. , MOUNA, ELECTRODE CLEANER, lab, RT, psych nurse, social media coordinator, diesel service apprentice, teacher, chief learning officer, registered nurse hh case manager)? Give summary @ -Dr. Schulte for admission Was smoking cessation discussed for >3mins.? @ -[No] Was critical care preformed (if so, how long)? @ -[No] Were there social determinants of health that impacted care today? How? (Homelessness, low income, unemployed, alcoholism, drug addiction, transportation, low edu. Level, literacy, decrease access to med. care, long-term, rehab)? @ -[No] Was there de-escalation of care discussed even if they declined (Discuss DNR or withdrawal of care, Hospice)? DNR status @ -[No] What co-morbidities impacted this encounter? (DM, HTN, Smoking, COPD, CAD, Cancer, CVA, ARF, Chemo, Hep., AIDS, mental health diagnosis, sleep apnea, morbid obesity)? @ -Diabetes Was patient admitted / discharged? Hospital course, mention meds given and route, prescriptions, significant lab abnormalities, going to OR and other pertinent info. @ -Mated patient has concerning diabetic foot ulceration diabetic foot infection with concerns for osteomyelitis. Patient was started on Zosyn, vancomycin he will consult to vascular surgery, wound care and infectious disease. Undiagnosed new problem with uncertain prognosis? @ -[No] Drug Therapy requiring intensive monitoring for toxicity (Heparin, Nitro, Insulin, Cardizem)? @ -[No] Were any procedures done? @ -[No] Diagnosis/symptom? @ -Diabetic foot ulceration diabetic foot infection, osteomyelitis Acute, or Chronic, or Acute on Chronic? @ -Acute Uncomplicated (without systemic symptoms) or Complicated (systemic symptoms)? @ -Complicated Side effects of treatment? @ -[No] Exacerbation, Progression, or Severe Exacerbation? @ -[No] Poses a threat to life or bodily function? How? (Chest pain, [place], [place], pneumonia, PE, COPD, DKA, ARF, appy, cholecystitis, CVA, Diverticulitis, Homicidal, Suicidal, threat to staff... and all critical care pts) @ -[yes sepsis - Lab Data Result diagrams: 03/17/24 14:23 Lab Results 03/17/24 Range/Units 14:23 WBC 9.7 (3.8-10.6) k/uL RBC 3.66 L (4.30-5.90) m/uL Hgb 10.4 L (13.0-17.5) gm/dL Hct 32.3 L (39.0-53.0) % MCV 88.4 (80.0-100.0) fL MCH 28.4 (25.0-35.0) pg MCHC 32.1 (31.0-37.0) g/dL RDW 13.6 (11.5-15.5) % Plt Count 288 (150-450) k/uL MPV 7.4 Neutrophils % 80 % Lymphocytes % 8 % Monocytes % 8 % Eosinophils % 1 % Basophils % 0 % Neutrophils # 7.7 (1.3-7.7) k/uL Lymphocytes # 0.8 L (1.0-4.8) k/uL Monocytes # 0.8 (0-1.0) k/uL Eosinophils # 0.1 (0-0.7) k/uL Basophils # 0.0 (0-0.2) k/uL Disposition Clinical Impression: Diabetic ulcer of left foot, Osteomyelitis Disposition: ADMITTED IP TO THIS [facility] Condition: Poor Referrals: Chanelle Murphy MD [Primary Care Provider] - 1-2 days Time of Disposition: 15:46
[2024-03-17 15:12] LABS: Basophils % (A) 0 %; Eosinophils # (A) 0.1 k/uL (0-0.7); Eosinophils % (A) 1 %; HCT 32.3 % (39.0-53.0); HGB 10.4 gm/dL (13.0-17.5); Lymphocytes # (A) 0.8 k/uL (1.0-4.8); Lymphocytes % (A) 8 %; MCH 28.4 pg (25.0-35.0); MCHC 32.1 g/dL (31.0-37.0); MCV 88.4 fL (80.0-100.0); Mean Platelet Volume 7.4; Monocytes # (A) 0.8 k/uL (0-1.0); Monocytes % (A) 8 %; Neutrophils # (A) 7.7 k/uL (1.3-7.7); Neutrophils % (A) 80 %; Platelet Count 288 k/uL (150-450); RBC 3.66 m/uL (4.30-5.90); RDW 13.6 % (11.5-15.5); WBC 9.7 k/uL (3.8-10.6)
--- NOTE | 2024-03-17 15:16 | XR ---
EXAMINATION TYPE: XR foot limited LT DATE OF EXAM: 03/17/2024 3:10 PM CLINICAL INDICATION: Male, 79 years old with history of Wound; [facility] COMPARISON: 12/31/2023 TECHNIQUE: XR foot limited LT examined in the AP, oblique, and lateral projections. FINDINGS/IMPRESSION: 1. Deformity to the heel with soft tissue wound. Consider correlation with three-phase nuclear medic ine bone scan or MRI to exclude osteomyelitis. 2. Similar appearance of the foot with multifocal degeneration changes of the joints with joint spac e tearing osteophyte formation. [facility], Workstation: [facility], 03/17/2024 3:14 PM
[2024-03-17] MEDS ORDERED: VANCOMYCIN IV PER PHARMACY 1 EACH MISC MISCELLANE PRN (15:17)
[2024-03-17 15:24] LABS: ALT 34 U/L (4-49); AST 35 U/L (17-59); African American GFR (CKD) 51 (>60 ml/min/1.73 sqM); Albumin 3.3 g/dL (3.5-5.0); Alkaline Phosphatase 85 U/L (38-126); Anion Gap 9 mmol/L; Blood Urea Nitrogen 66 mg/dL (9-20); Calcium 8.9 mg/dL (8.4-10.2); Carbon Dioxide 22 mmol/L (22-30); Chloride 107 mmol/L (98-107); Glucose 120 mg/dL (74-99); Non-African American GFR(CKD) 44 (>60 ml/min/1.73 sqM); Potassium 4.3 mmol/L (3.5-5.1); Sodium 138 mmol/L (137-145); Total Bilirubin 0.6 mg/dL (0.2-1.3); Total Protein 6.7 g/dL (6.3-8.2)
[2024-03-17] MEDS ORDERED: ONDANSETRON 4 MG/2 ML VIAL IVP PRN (15:47)
[2024-03-17] MEDS ORDERED: NALOXONE 0.4 MG/ML 1 ML VIAL IV PRN (15:47)
--- NOTE | 2024-03-17 15:55 | HP ---
HISTORY AND PHYSICAL CHIEF COMPLAINT: Significant infection of the left foot. HISTORY OF PRESENT ILLNESS: This is a 79-year-old gentleman with a past medical history of diabetes, hypertension, history of peripheral vascular disease. He had a previous ulcers of the left foot. The patient apparently had maggots also in the wound according to him. The patient was admitted here 2 months ago with kidney injury and multiple other medical problems. The patient also had a heel ulcer even then. Currently, the Mag is also suspected. There is no history of any fever, rigors, or chills at this time. PAST MEDICAL HISTORY: History of diabetes mellitus, hypertension, venous stasis ulcers. Rest of the history and rest of the chart is also reviewed. HOME MEDICATIONS: Reviewed include Norvasc. Doses and rest medications reviewed. ALLERGIES: None. FAMILY HISTORY: History of prostate cancer. SOCIAL HISTORY: Sober for 18 years. REVIEW OF SYSTEMS: A 14-point review is negative except as mentioned earlier. PHYSICAL EXAMINATION: VITAL SIGNS: Pulse 80, blood pressure 150/74, respirations 18. CHEST: Clear to auscultation. CARDIOVASCULAR: S1, S2. ABDOMEN: Soft. LEGS: Significant erythema, multiple areas of ulcers and necrotic areas in the lateral part of the left foot and ulcers to heel also present. Some painful swelling in the nowak area also present. Poor skin with ischemic skin with denuded areas. Pulses diminished bilaterally. NERVOUS SYSTEM: No focal deficits. LABORATORY DATA: Awaited. ASSESSMENT: 1. Severe left foot diabetic foot ulcer and failure of outpatient treatment, rule out osteomyelitis. 2. History of hypertension. 3. Diabetes mellitus, type 2. 4. History of Methicillin-resistant Staphylococcus aureus. RECOMMENDATIONS AND DISCUSSION: This is a 79-year-old gentleman, who presented with multiple complex medical issues, we will monitor the patient closely. Continue the current medications and continue symptomatic treatment. The x-ray has been ordered. I would recommend empiric antibiotics and diabetic control. Resume home medications once they are confirmed. Otherwise prognosis remain guarded because of multiple complex medical issues. Further recommendations to follow. We will obtain Vascular and Infectious Disease evaluation. MMODL / IJN: [id number] /
[2024-03-17 16:01] LABS: C Reactive Protein 16.6 mg/dL (<1.0)
[2024-03-17] MEDS: PIPERACILLIN-TAZOBACTAM 3.375 GM in SODIUM CHLORIDE 0.9% 100 ML IVPB STA (16:01)
[2024-03-17] MEDS: VANCOMYCIN 1,500 MG in SODIUM CHLORIDE 0.9% 500 ML 500 ML IVPB STA (17:10)
[2024-03-17 20:22] LABS: Erythrocyte Sedimentation Rate 84 mm/Hr (0-20)
--- NOTE | 2024-03-17 23:28 | P.CONS ---
History of Present Illness - Reason for Consult Consult date: 03/17/24 Diabetic foot infection Requesting physician: Jazmin Schulte - Chief Complaint Worsening wound to the left foot x days - History of Present Illness Patient is a 79-year-old male with a past medical history significant for diabetes mellitus hypertension patient did have a history of diabetic foot ulcers and osteomyelitis and apparently has been dealing with the left lower extremity ulcer for the patient being taking care at wound care as well as by the wound care nurse patient has been sent to the ER by the home care nurse concerning for worsening infection to the left foot and apparently was some maggot infestation however not has been seen by the ER physician or the nursing staff patient denies having any high-grade fever or any chills and the patient was afebrile on presentation to the hospital patient denies having any headache or URI symptoms no chest pain shortness of breath or cough no nausea no vomiting no abdominal pain or diarrhea patient did have diabetic neuropathy denies significant pain to the left foot wound which apparently has some necrotic changes reported by the nursing staff however any foul-smelling drainage. Patient did have white count of 9.7, BUN and creatinine has been elevated with a creatinine 1.50 liver enzymes as well as electrolytes are normal patient has been started on vancomycin and Zosyn infectious disease was consulted for further management of antibiotic therapy Review of Systems Positive point and negatives has been mentioned in the HPI, complete review of systems was performed and all other systems are negative Past Medical History Past Medical History: Diabetes Mellitus, Hypertension, Renal Disease Additional Past Medical History / Comment(s): VENOUS STASIS ; ULCERS BILAT LEGS, PVD, CRISTAL LEG WOUND History of Any Multi-Drug Resistant Organisms: MRSA Year Discovered:: 04/14/17 MDRO Source:: Right Leg Past Surgical History: Tonsillectomy Additional Past Surgical History / Comment(s): 07/13/17 CRISTAL AORTOGRAM AND LLE ANGIOGRAM, REATTACHED TENDON LT 5TH FINGER 1995. skin graft bilat legs, Right foot pinky toe amp. Past Anesthesia/Blood Transfusion Reactions: No Reported Reaction Past Psychological History: No Psychological Hx Reported Smoking Status: Never smoker Past Alcohol Use History: None Reported Past Drug Use History: None Reported - Past Family History Father Family Medical History: Cancer Additional Family Medical History / Comment(s): PROSTATE CANCER Mother Family Medical History: Hypertension Medications and Allergies Home Medications Medication Instructions Recorded Confirmed Type Tamsulosin [Flomax] 0.4 mg PO DAILY 10/21/23 03/17/24 History Atorvastatin [Lipitor] 10 mg PO DAILY 11/15/23 03/17/24 History Insulin Degludec [Tresiba 8 units SQ DAILY 12/08/23 03/17/24 History Flextouch U-100 Pen] amLODIPine [Norvasc] 5 mg PO DAILY tab 12/13/23 03/17/24 Rx Pioglitazone [Actos] 15 mg PO DAILY 03/17/24 03/17/24 History lisinopriL [Zestril] 10 mg PO DAILY 03/17/24 03/17/24 History Allergies Allergy/AdvReac Type Severity Reaction Status Date / Time No Known Allergies Allergy Verified 03/17/24 17:12 Physical Exam Vitals: Vital Signs Resp BP Pulse Ox 03/17/24 14:05 18 154/74 99 Intake and Output 03/17/24 03/17/24 03/17/24 06:59 14:59 22:59 Other: Weight 90.718 kg GENERAL DESCRIPTION: Elderly male lying in bed, no distress. No tachypnea or accessory muscle of respiration use. HEENT: Shows Pallor , no scleral icterus. Oral mucous membrane is dry. No pharyngeal erythema or thrush NECK: Trachea central, no thyromegaly. LUNGS: Unlabored breathing. Clear to auscultation anteriorly. No wheeze or crackle. HEART: S1, S2, regular rate and rhythm. No loud murmur ABDOMEN: Soft, no tenderness , guarding or rigidity, no organomegaly EXTREMITIES: Left foot wound at the heel area with some slough tissue he did have a blackish discoloration to the left fifth toe SKIN: No rash, no masses palpable. NEUROLOGICAL: The patient is awake, alert, oriented x3, mood and affect normal. Results CBC & Chem 7: 03/18/24 05:23 03/18/24 05:23 Labs: Abnormal Lab Results - Last 24 Hours (Table) 03/17/24 Range/Units 14:23 RBC 3.66 L (4.30-5.90) m/uL Hgb 10.4 L (13.0-17.5) gm/dL Hct 32.3 L (39.0-53.0) % Lymphocytes # 0.8 L (1.0-4.8) k/uL Assessment and Plan (1) Diabetic ulcer of left foot Current Visit: Yes Status: Acute Code(s): E11.621 - TYPE 2 DIABETES MELLITUS WITH FOOT ULCER; L97.529 - NON-PRESSURE CHRONIC ULCER OTH PRT LEFT FOOT W UNSP SEVERITY SNOMED Code(s): 207471140 (2) Osteomyelitis Current Visit: Yes Status: Acute Code(s): M86.9 - OSTEOMYELITIS, UNSPECIFIED SNOMED Code(s): 23242693 Plan: 1patient presented to hospital with worsening wound to the left foot in this patient with underlying diabetes mellitus and also have a history of osteomyelitis now with worsening wound and some necrotic changes, we will need to cover for the polymicrobial bobby associated with the diabetic foot infection. 2await vascular surgery evaluation for debridement and deep culture. 3patient did have a mildly elevated creatinine and high risk of nephrotoxicity from vancomycin and Zosyn. 4we will continue vancomycin however switch Zosyn to cefepime pending finalization of the culture We will follow on clinical condition and cultures to further adjust medication if needed Thank you for this consultation we will follow the patient along with you Dictation was produced using [employer] dictation software. please excuse any gramma tical, word or spelling errors. Time with Patient: Greater than 30
[2024-03-18] MEDS ORDERED: PIPERACILLIN-TAZOBACTAM 3.375 GM in SODIUM CHLORIDE 0.9% 100 ML IVPB SCH
[2024-03-18] MEDS: CEFEPIME 2 GM in SODIUM CHLORIDE 0.9% 100 ML IVPB SCH (00:15)
[2024-03-18 05:53] LABS: Glucose,Whole Blood 149 mg/dL (70-110)
[2024-03-18] MEDS: INSULIN ASPART (NovoLOG) 100 UNIT/ML VIAL SQ SCH (06:37)
[2024-03-18] MEDS: INSULIN DETEMIR (LEVEMIR) 100 UNIT/ML SYR SQ SCH ×2 (06:38→14:14)
[2024-03-18] MEDS ORDERED: ZINC OXIDE PASTE (Z-GUARD) 1 APPLIC TOPICAL PRN (06:46)
[2024-03-18] MEDS: lisinopriL 10 MG TAB PO SCH (08:58)
[2024-03-18] MEDS: PIOGLITAZONE 15 MG TAB PO SCH (08:58)
[2024-03-18] MEDS: TAMSULOSIN 0.4 MG CAP.ER.24H PO SCH (08:58)
[2024-03-18] MEDS: ATORVASTATIN 10 MG TAB PO SCH (08:58)
[2024-03-18] MEDS: amLODIPine 5 MG TAB PO SCH (08:59)
--- NOTE | 2024-03-18 09:27 | P.GSCN ---
History of Present Illness History of present illness: 79-year-old gentleman well-known to me from the wound clinic patient comes every week for a wound on the left heel patient came in there was suspected of maggots left foot wound lateral aspect wound involving the fifth digit with some fluctuation odor smell patient also has a wound on the right heel which base of the wound is granulating no discharge or redness noted. Patient has history of peripheral vascular disease I have discussed with the patient in the past she may need some kind of amputation but patient is refusing any want us to treat the wound with local wound care. Medical history history of diabetes, hypertension, peripheral vascular disease, Chest is clear. Second sound present Abdomen soft nontender graft vascular brachial radial pulses are present femorals are 1+ PT DP not palpable patient has a chronic wound on the left heel and recently has developed a wound on the lateral aspect of the foot involving the fifth toe with some fluctuation and odor possible he had a maggot when he was at home Plan is wound debridement and ray amputation of the fifth toe we will keep the patient n.p.o. and arrange for surgery skin complication discussed Past Medical History Past Medical History: Diabetes Mellitus, Hypertension, Renal Disease Additional Past Medical History / Comment(s): VENOUS STASIS ; ULCERS BILAT LEGS, PVD, CRISTAL LEG WOUND History of Any Multi-Drug Resistant Organisms: MRSA Year Discovered:: 04/14/17 MDRO Source:: Right Leg Past Surgical History: Tonsillectomy Additional Past Surgical History / Comment(s): 07/13/17 CRISTAL AORTOGRAM AND LLE ANGIOGRAM, REATTACHED TENDON LT 5TH FINGER 1995. skin graft bilat legs, Right foot pinky toe amp. Past Anesthesia/Blood Transfusion Reactions: No Reported Reaction Past Psychological History: No Psychological Hx Reported Smoking Status: Never smoker Past Alcohol Use History: None Reported Past Drug Use History: None Reported - Past Family History Father Family Medical History: Cancer Additional Family Medical History / Comment(s): PROSTATE CANCER Mother Family Medical History: Hypertension Medications and Allergies Home Medications Medication Instructions Recorded Confirmed Type Tamsulosin [Flomax] 0.4 mg PO DAILY 10/21/23 03/17/24 History Atorvastatin [Lipitor] 10 mg PO DAILY 11/15/23 03/17/24 History Insulin Degludec [Tresiba 8 units SQ DAILY 12/08/23 03/17/24 History Flextouch U-100 Pen] amLODIPine [Norvasc] 5 mg PO DAILY tab 12/13/23 03/17/24 Rx Pioglitazone [Actos] 15 mg PO DAILY 03/17/24 03/17/24 History lisinopriL [Zestril] 10 mg PO DAILY 03/17/24 03/17/24 History Allergies Allergy/AdvReac Type Severity Reaction Status Date / Time No Known Allergies Allergy Verified 03/17/24 17:12 Surgical - Exam Vital Signs Resp BP Pulse Ox 18 154/74 99 03/17/24 14:05 03/17/24 14:05 03/17/24 14:05 Results - Labs 03/17/24 14:23 03/17/24 14:23 Abnormal Lab Results - Last 24 Hours (Table) 03/17/24 03/17/24 03/18/24 Range/Units 14:23 14:23 05:49 RBC 3.66 L (4.30-5.90) m/uL Hgb 10.4 L (13.0-17.5) gm/dL Hct 32.3 L (39.0-53.0) % Lymphocytes # 0.8 L (1.0-4.8) k/uL ESR 84 H (0-20) mm/Hr BUN 66 H (9-20) mg/dL Creatinine 1.50 H (0.66-1.25) mg/dL Glucose 120 H (74-99) mg/dL POC Glucose (mg/dL) 149 H (70-110) mg/dL C-Reactive Protein 16.6 H (<1.0) mg/dL Albumin 3.3 L (3.5-5.0) g/dL Diabetes panel 03/17/24 Range/Units 14:23 Sodium 138 (137-145) mmol/L Potassium 4.3 (3.5-5.1) mmol/L Chloride 107 (98-107) mmol/L Carbon Dioxide 22 (22-30) mmol/L BUN 66 H (9-20) mg/dL Creatinine 1.50 H (0.66-1.25) mg/dL Glucose 120 H (74-99) mg/dL Calcium 8.9 (8.4-10.2) mg/dL AST 35 (17-59) U/L ALT 34 (4-49) U/L Alkaline Phosphatase 85 (38-126) U/L Total Protein 6.7 (6.3-8.2) g/dL Albumin 3.3 L (3.5-5.0) g/dL Calcium panel 03/17/24 Range/Units 14:23 Calcium 8.9 (8.4-10.2) mg/dL Albumin 3.3 L (3.5-5.0) g/dL Pituitary panel 03/17/24 Range/Units 14:23 Sodium 138 (137-145) mmol/L Potassium 4.3 (3.5-5.1) mmol/L Chloride 107 (98-107) mmol/L Carbon Dioxide 22 (22-30) mmol/L BUN 66 H (9-20) mg/dL Creatinine 1.50 H (0.66-1.25) mg/dL Glucose 120 H (74-99) mg/dL Calcium 8.9 (8.4-10.2) mg/dL Adrenal panel 03/17/24 Range/Units 14:23 Sodium 138 (137-145) mmol/L Potassium 4.3 (3.5-5.1) mmol/L Chloride 107 (98-107) mmol/L Carbon Dioxide 22 (22-30) mmol/L BUN 66 H (9-20) mg/dL Creatinine 1.50 H (0.66-1.25) mg/dL Glucose 120 H (74-99) mg/dL Calcium 8.9 (8.4-10.2) mg/dL Total Bilirubin 0.6 (0.2-1.3) mg/dL AST 35 (17-59) U/L ALT 34 (4-49) U/L Alkaline Phosphatase 85 (38-126) U/L Total Protein 6.7 (6.3-8.2) g/dL Albumin 3.3 L (3.5-5.0) g/dL
[2024-03-18 11:17] LABS: HCT 32.7 % (39.6-50.0); MCH 27.3 pg (27.0-32.0); MCHC 30.6 g/dL (32.0-37.0); MCV 89.3 FL (80.0-97.0); Mean Platelet Volume 10.1 FL (9.5-12.2); NRBC Per 100 WBC 0 X 10*3/uL (0.00-0.01); Platelet Count 332 X 10*3/uL (140-440); RBC 3.66 X 10*6/uL (4.40-5.60); RDW 13.2 % (11.5-14.5)
[2024-03-18 11:18] LABS: Basophils # (A) 0.04 X 10*3/uL (0.00-0.10); Basophils % (A) 0.4 %; Eosinophils # (A) 0.14 X 10*3/uL (0.04-0.35); Eosinophils % (A) 1.5 %; Lymphocytes # (A) 1.19 X 10*3/uL (0.90-5.00); Lymphocytes % (A) 12.7 %; Monocytes # (A) 1.06 X 10*3/uL (0.20-1.00); Monocytes % (A) 11.3 %; Neutrophils # (A) 6.93 X 10*3/uL (1.80-7.70); Neutrophils % (A) 73.7 %
[2024-03-18 11:43] LABS: Blood Urea Nitrogen 53.2 mg/dL (9.0-27.0); Calcium 8.8 mg/dL (8.7-10.3); Carbon Dioxide 23.3 mmol/L (21.6-31.8); Chloride 106 mmol/L (96-109); Glucose 121 mg/dL (70-110); Potassium 4.4 mmol/L (3.5-5.5); Sodium 138 mmol/L (135-145)
[2024-03-18 12:02] LABS: Glucose,Whole Blood 254 mg/dL (70-110)
--- NOTE | 2024-03-18 15:54 | P.PN ---
Subjective Progress Note Date: 03/18/24 Principal diagnosis: Reason for follow-up is left diabetic foot ulcer and gangrene Patient is a 79-year-old male with a past medical history significant for diabetes mellitus hypertension patient did have a history of diabetic foot ulcers and osteomyelitis and apparently has been dealing with the left lower extremity ulcer for few weeks now being admitted to hospital with worsening wound and blackish discoloration of his left fifth toe. On today's evaluation that is 03/18/2024, Patient is afebrile patient is currently on room air and denies having any shortness of breath, the patient denies any chest pain or cough, the patient denies any nausea vomiting did not have any abdominal pain and no diarrhea, P denies any worsening pain to the left foot area. Patient white count is 9.40 creatinine is 1.4 ESR is 84 Objective - Vital Signs Vital signs: Vital Signs Temp 98.0 F 03/18/24 07:47 Pulse 73 03/18/24 07:47 Resp 17 03/18/24 07:47 BP 126/64 03/18/24 07:47 Pulse Ox 94 L 03/18/24 07:47 FiO2 Intake & Output 03/17/24 03/18/24 03/18/24 18:59 06:59 18:59 Weight 90.718 kg 90.718 kg Other: Voiding Method Diaper Incontinent # Voids 3 - Exam GENERAL DESCRIPTION: An elderly male lying in bed in no distress RESPIRATORY SYSTEM: Unlabored breathing , decreased breath sounds at bases HEART: S1 S2 regular rate and rhythm , ABDOMEN: Soft , no tenderness EXTREMITIES: Left foot is currently dressed to reveal the picture he did have a wound to the left heel with some slough tissue and a necrotic left fifth toe - Labs CBC & Chem 7: 03/18/24 05:23 03/18/24 05:23 Labs: Abnormal Lab Results - Last 24 Hours (Table) 03/17/24 03/17/24 03/18/24 Range/Units 14:23 14:23 05:23 RBC 3.66 L 3.66 L (4.30-5.90) m/uL Hgb 10.4 L 10.0 L (13.0-17.5) gm/dL Hct 32.3 L 32.7 L (39.0-53.0) % MCHC 30.6 L (32.0-37.0) g/dL Lymphocytes # 0.8 L (1.0-4.8) k/uL Monocytes # 1.06 H (0.20-1.00) X 10*3/uL ESR 84 H (0-20) mm/Hr BUN 66 H (9-20) mg/dL Creatinine 1.50 H (0.66-1.25) mg/dL Est GFR (CKD-EPI) (>=60) BUN/Creatinine Ratio (12.00-20.00) Ratio Glucose 120 H (74-99) mg/dL POC Glucose (mg/dL) (70-110) mg/dL C-Reactive Protein 16.6 H (<1.0) mg/dL Albumin 3.3 L (3.5-5.0) g/dL 03/18/24 03/18/24 03/18/24 Range/Units 05:23 05:49 12:01 RBC (4.30-5.90) m/uL Hgb (13.0-17.5) gm/dL Hct (39.0-53.0) % MCHC (32.0-37.0) g/dL Lymphocytes # (1.0-4.8) k/uL Monocytes # (0.20-1.00) X 10*3/uL ESR (0-20) mm/Hr BUN 53.2 H (9-20) mg/dL Creatinine (0.66-1.25) mg/dL Est GFR (CKD-EPI) 51 L (>=60) BUN/Creatinine Ratio 38.00 H (12.00-20.00) Ratio Glucose 121 H (74-99) mg/dL POC Glucose (mg/dL) 149 H 254 H (70-110) mg/dL C-Reactive Protein (<1.0) mg/dL Albumin (3.5-5.0) g/dL Assessment and Plan (1) Diabetic ulcer of left foot Current Visit: Yes Status: Acute Code(s): E11.621 - TYPE 2 DIABETES MELLITUS WITH FOOT ULCER; L97.529 - NON-PRESSURE CHRONIC ULCER OTH PRT LEFT FOOT W UNSP SEVERITY SNOMED Code(s): 573063179 (2) Osteomyelitis Current Visit: Yes Status: Acute Code(s): M86.9 - OSTEOMYELITIS, UNSPECIFIED SNOMED Code(s): 24011987 Plan: 1patient presented to hospital with worsening wound to the left foot in this patient with underlying diabetes mellitus and also have a history of osteomyelitis now with worsening wound and some necrotic changes, we will need to cover for the polymicrobial bobby associated with the diabetic foot infecti on. 2patient has been eval by vascular surgery recommending amputation of the left fifth toe hopefully culture should be obtained at the time of amputation 3patient to continue vancomycin and cefepime pending finalization of the culture Dictation was produced using [employer] software. please excuse any grammatical, word or spelling errors. Time with Patient: Less than 30
[2024-03-18] MEDS: VANCOMYCIN 1,500 MG in SODIUM CHLORIDE 0.9% 500 ML 500 ML IVPB SCH (16:10)
[2024-03-18 16:41] LABS: Glucose,Whole Blood 123 mg/dL (70-110)
[2024-03-18 20:33] LABS: Glucose,Whole Blood 151 mg/dL (70-110)
[2024-03-18] MEDS: HEPARIN SODIUM,PORCINE 5,000 UNIT/ML 1 ML VIAL SQ SCH (20:34)
--- NOTE | 2024-03-18 22:52 | PN ---
PROGRESS NOTE DATE OF SERVICE: 03/18/2024 SUBJECTIVE: This is a 79-year-old gentleman who was admitted with significant left foot diabetic ulcer and failure of outpatient treatment, is being closely monitored. No chest pain. No palpitation. Surgery and Infectious Disease are following the patient closely. Wound debridement and amputation of 5th toe as planned by Surgery. OBJECTIVE: VITAL SIGNS: Pulse is 73, blood pressure 126/64, respirations 17. CHEST: Clear to auscultation. CARDIOVASCULAR: S1, S2. ABDOMEN: Soft. LEGS: Left leg diabetic wound present. LABORATORY DATA: Noted. ASSESSMENT: 1. Severe left foot diabetic ulcer with failure of outpatient treatment, rule out osteomyelitis for surgery. 2. Hypertension. 3. Diabetes mellitus, type 2. 4. History of Methicillin-resistant Staphylococcus aureus. RECOMMENDATIONS AND DISCUSSION: Recommend to continue current medications and continue symptomatic treatment. Otherwise, at this time, I will recommend antibiotics. Repeat labs. DVT prophylaxis. Closely follow with Surgery, Infectious Disease. Further recommendations to follow. MMODL / IJN: [id number] /
[2024-03-19 06:16] LABS: Glucose,Whole Blood 119 mg/dL (70-110)
[2024-03-19] MEDS: LACTATED RINGERS 1,000 ML IV ONE (09:05)
[2024-03-19] MEDS ORDERED: fentaNYL (PF) 50 MCG/ML 2 ML AMP ONE (09:05)
[2024-03-19] MEDS ORDERED: MIDAZOLAM 2 MG/2 ML VIAL ONE (09:05)
[2024-03-19] MEDS ORDERED: PROPOFOL 10 MG/ML 20 ML VIAL IV ONE (09:05)
[2024-03-19] MEDS: LIDOCAINE 1% INJ 10MG/ML (20 ML MDV) SQ ONE (09:17)
--- NOTE | 2024-03-19 09:40 | P.PCN ---
Description of Procedure: Preop diagnosis left foot infected wound involving the lateral aspect of the foot and also involving the fifth toe Postop the same post measurement debridement is 4 x 3 x 1 cm Patient brought to the operating room foot was prepped and draped in Prestel manner. 1% lidocaine for infiltrated with IV sedation incision was made on the lateral aspect of the foot on the dorsal aspect deepened through skin fat and fascia down to the fifth metatarsal bone distally then the incision was made on the plantar aspect if it is a skin fat and fascia and the tendons were divided until we reached the fifth metatarsal distally fifth mid metatarsal distally was divided abdomen was removed including the fifth toe and necrotic wound bleeding points were electrocoagulated wound was irrigated irrigated with hydroperoxide and saline hemostasis well-controlled blood loss less than 5 cc Aquacel silver was applied to the wound dressing applied patient tarted the procedure well and transferred to the recovery room in satisfactory condition Operation is debridement and excision of the infected wound along with the fifth fifth toe with excision central metatarsal bone
[2024-03-19 10:00] LABS: Blood Urea Nitrogen 40.3 mg/dL (9.0-27.0); Calcium 8.2 mg/dL (8.7-10.3); Carbon Dioxide 21.9 mmol/L (21.6-31.8); Chloride 110 mmol/L (96-109); Glucose 106 mg/dL (70-110); Potassium 4.3 mmol/L (3.5-5.5); Sodium 142 mmol/L (135-145)
[2024-03-19 10:02] LABS: Basophils # (A) 0.07 X 10*3/uL (0.00-0.10); Basophils % (A) 0.7 %; Eosinophils # (A) 0.21 X 10*3/uL (0.04-0.35); HCT 30.2 % (39.6-50.0); HGB 9.3 g/dL (13.0-17.0); Lymphocytes # (A) 0.79 X 10*3/uL (0.90-5.00); Lymphocytes % (A) 7.5 %; MCH 28.2 pg (27.0-32.0); MCHC 30.8 g/dL (32.0-37.0); MCV 91.5 FL (80.0-97.0); Mean Platelet Volume 10.2 FL (9.5-12.2); Monocytes # (A) 1.13 X 10*3/uL (0.20-1.00); Monocytes % (A) 10.7 %; NRBC Per 100 WBC 0 X 10*3/uL (0.00-0.01); Neutrophils # (A) 8.33 X 10*3/uL (1.80-7.70); Neutrophils % (A) 78.6 %; Platelet Count 318 X 10*3/uL (140-440); RDW 13.2 % (11.5-14.5); WBC 10.58 X 10*3/uL (4.50-10.00)
[2024-03-19 11:32] LABS: Glucose,Whole Blood 160 mg/dL (70-110)
--- NOTE | 2024-03-19 16:28 | P.PN ---
Subjective Progress Note Date: 03/19/24 Principal diagnosis: Reason for follow-up is left diabetic foot ulcer and gangrene Patient is a 79-year-old male with a past medical history significant for diabetes mellitus hypertension patient did have a history of diabetic foot ulcers and osteomyelitis and apparently has been dealing with the left lower extremity ulcer for few weeks now being admitted to hospital with worsening wound and blackish discoloration of his left fifth toe. Patient is status post left fifth toe amputation with excision of the central metatarsal wound and debridement of the wound completed by vascular surgery on 03/19/2024. On today's evaluation that is 03/19/2024, patient has been afebrile, patient is breathing comfortably and is currently on room air, patient denies having any si gnificant cough no chest pain shortness of breath, patient denies nausea vomiting or diarrhea and no abdominal pain, P denies any worsening pain to the left foot. Patient white count is 10.58, creatinine is 1.3 blood cultures pending local cultures pending Objective - Vital Signs Vital signs: Vital Signs Temp 98.1 F 03/19/24 14:42 Pulse 65 03/19/24 14:42 Resp 17 03/19/24 14:42 BP 133/65 03/19/24 14:42 Pulse Ox 98 03/19/24 14:42 FiO2 Intake & Output 03/18/24 03/19/24 03/19/24 18:59 06:59 18:59 Intake Total 1080 300 Output Total 500 950 5 Balance -500 130 295 Weight 90.718 kg Intake: IV 300 Oral 1080 Output: Urine 500 950 Estimated Blood Loss 5 Other: Voiding Method Incontinent Incontinent Incontinent External Catheter - Exam GENERAL DESCRIPTION: An elderly male lying in bed in no distress RESPIRATORY SYSTEM: Unlabored breathing , decreased breath sounds at bases HEART: S1 S2 regular rate and rhythm , ABDOMEN: Soft , no tenderness EXTREMITIES: Left foot is currently dressed no drainage on the dressing - Labs CBC & Chem 7: 03/19/24 04:46 03/19/24 04:46 Labs: Abnormal Lab Results - Last 24 Hours (Table) 03/18/24 03/18/24 03/19/24 Range/Units 16:40 20:30 04:46 WBC 10.58 H (4.50-10.00) X 10*3/uL RBC 3.30 L (4.40-5.60) X 10*6/uL Hgb 9.3 L (13.0-17.0) g/dL Hct 30.2 L (39.6-50.0) % MCHC 30.8 L (32.0-37.0) g/dL Immature Gran # 0.05 H (0.00-0.04) X 10*3/uL Neutrophils # 8.33 H (1.80-7.70) X 10*3/uL Lymphocytes # 0.79 L (0.90-5.00) X 10*3/uL Monocytes # 1.13 H (0.20-1.00) X 10*3/uL Chloride (96-109) mmol/L BUN (9.0-27.0) mg/dL Est GFR (CKD-EPI) (>=60) BUN/Creatinine Ratio (12.00-20.00) Ratio POC Glucose (mg/dL) 123 H 151 H (70-110) mg/dL Calcium (8.7-10.3) mg/dL 03/19/24 03/19/24 03/19/24 Range/Units 04:46 06:15 11:31 WBC (4.50-10.00) X 10*3/uL RBC (4.40-5.60) X 10*6/uL Hgb (13.0-17.0) g/dL Hct (39.6-50.0) % MCHC (32.0-37.0) g/dL Immature Gran # (0.00-0.04) X 10*3/uL Neutrophils # (1.80-7.70) X 10*3/uL Lymphocytes # (0.90-5.00) X 10*3/uL Monocytes # (0.20-1.00) X 10*3/uL Chloride 110 H (96-109) mmol/L BUN 40.3 H (9.0-27.0) mg/dL Est GFR (CKD-EPI) 56 L (>=60) BUN/Creatinine Ratio 31.00 H (12.00-20.00) Ratio POC Glucose (mg/dL) 119 H 160 H (70-110) mg/dL Calcium 8.2 L (8.7-10.3) mg/dL Microbiology - Last 24 Hours (Table) 03/17/24 15:45 Blood Culture - Preliminary Blood Assessment and Plan (1) Diabetic ulcer of left foot Current Visit: Yes Status: Acute Code(s): E11.621 - TYPE 2 DIABETES MELLITUS WITH FOOT ULCER; L97.529 - NON-PRESSURE CHRONIC ULCER OTH PRT LEFT FOOT W UNSP SEVERITY SNOMED Code(s): 744536837 (2) Osteomyelitis Current Visit: Yes Status: Acute Code(s): M86.9 - OSTEOMYELITIS, UNSPECIFIED SNOMED Code(s): 19325485 Plan: 1patient presented to hospital with worsening wound to the left foot in this patient with underlying diabetes mellitus and also have a history of osteomyelitis now with worsening wound and some necrotic changes, we will need to cover for the polymicrobial bobby associated with the diabetic foot infect ion. 2patient has been eval by vascular surgery and the patient is status post amputation of the left fifth toe along with the cultures are currently pending 3patient to continue vancomycin and cefepime while waiting for the culture to finalize Dictation was produced using [employer] dictation software. please excuse any grammatical, word or spelling errors. Time with Patient: Less than 30
[2024-03-19 17:05] LABS: Glucose,Whole Blood 168 mg/dL (70-110)
[2024-03-19 20:40] LABS: Glucose,Whole Blood 175 mg/dL (70-110)
--- NOTE | 2024-03-19 22:25 | PN ---
PROGRESS NOTE DATE OF SERVICE: 03/19/2024 SUBJECTIVE: This 79-year-old gentleman has severe diabetic foot, underwent debridement and excision of the infected wound along the 5th toe by Dr. Martini. No chest pain. No palpitation. OBJECTIVE: VITAL SIGNS: Pulse is 64, blood pressure 130/56, respirations 17. CHEST: Clear to auscultation. ABDOMEN: Soft. LEGS: Status post surgery. LABORATORY DATA: WBC 10.8. Labs are noted. ASSESSMENT: 1. Status post debridement and excision of the infected wound along the 5th toe on the left. 2. Left diabetic foot. 3. Hypertension. 4. Diabetes mellitus, type 2. 5. History of Methicillin-resistant Staphylococcus aureus. RECOMMENDATIONS: Recommend to continue current medications. Continue symptomatic treatment and antibiotics. Cultures are negative so far. Closely follow with Infectious Disease and Vascular. Further recommendations to follow. MMRUSSL / NAOMIN: [id number] /
[2024-03-20 05:47] LABS: African American GFR (CKD) 59 (>60 ml/min/1.73 sqM); Non-African American GFR(CKD) 51 (>60 ml/min/1.73 sqM)
[2024-03-20 06:35] LABS: Glucose,Whole Blood 125 mg/dL (70-110)
[2024-03-20 11:44] LABS: Glucose,Whole Blood 197 mg/dL (70-110)
--- NOTE | 2024-03-20 13:22 | P.PN ---
Progress Note - Text 79-year gentleman patient came with left foot wound with gangrenous changes involving the fifth toe patient had a debridement and a ray amputation of the fifth toe we will using extra silver dressing is dry intact will change dressing tomorrow patient does not have antibiotic under care of infectious disease this patient also has a wound on his left heel base of the wound is granulating patient has a brawny induration of the lower extremity. We will change her dressing tomorrow
[2024-03-20 16:39] LABS: Glucose,Whole Blood 314 mg/dL (70-110)
--- NOTE | 2024-03-20 20:27 | PN ---
PROGRESS NOTE DATE OF SERVICE: 03/20/2024 SUBJECTIVE: This is a 79-year-old gentleman who was admitted after debridement and excision of the 5th toe on the left diabetic foot ulcer. No chest pain. No palpitation. The patient is on antibiotics. Cultures are negative so far. OBJECTIVE: VITAL SIGNS: Pulse is 66, blood pressure 120/84, respirations 17. CHEST: Clear. CARDIOVASCULAR: S1, S2. ABDOMEN: Soft. EXTREMITIES: Left foot, status post surgery. LABORATORY DATA: Reviewed. ASSESSMENT: 1. Status post debridement and excision of the infected wound along the fifth toe on the left. 2. Left diabetic foot. 3. Hypertension. 4. Diabetes mellitus, type 2. 5. History of Methicillin-resistant Staphylococcus aureus. RECOMMENDATIONS: Recommend to continue current management and continue symptomatic treatment. Continue the empiric antibiotics. Repeat labs. Closely follow with Infectious Disease. Await cultures. Further recommendations to follow. MMODL / IJN: [id number] /
[2024-03-20 20:33] LABS: Glucose,Whole Blood 141 mg/dL (70-110)
[2024-03-21 05:51] LABS: Glucose,Whole Blood 138 mg/dL (70-110)
[2024-03-21 09:00] LABS: Basophils # (A) 0.06 X 10*3/uL (0.00-0.10); Basophils % (A) 0.6 %; Eosinophils # (A) 0.29 X 10*3/uL (0.04-0.35); Eosinophils % (A) 2.9 %; HCT 29.3 % (39.6-50.0); HGB 8.9 g/dL (13.0-17.0); Lymphocytes # (A) 1.03 X 10*3/uL (0.90-5.00); Lymphocytes % (A) 10.3 %; MCH 27.7 pg (27.0-32.0); MCHC 30.4 g/dL (32.0-37.0); MCV 91.3 FL (80.0-97.0); Mean Platelet Volume 10.3 FL (9.5-12.2); Monocytes # (A) 1.07 X 10*3/uL (0.20-1.00); Monocytes % (A) 10.7 %; NRBC Per 100 WBC 0 X 10*3/uL (0.00-0.01); Neutrophils # (A) 7.54 X 10*3/uL (1.80-7.70); Platelet Count 355 X 10*3/uL (140-440); RBC 3.21 X 10*6/uL (4.40-5.60); RDW 13.3 % (11.5-14.5); WBC 10.04 X 10*3/uL (4.50-10.00)
[2024-03-21 09:04] LABS: BUN/Creat Ratio 22.92 Ratio (12.00-20.00); Blood Urea Nitrogen 27.5 mg/dL (9.0-27.0); Carbon Dioxide 22.3 mmol/L (21.6-31.8); Chloride 110 mmol/L (96-109); Glucose 117 mg/dL (70-110); Potassium 4.6 mmol/L (3.5-5.5); Sodium 141 mmol/L (135-145)
[2024-03-21 09:05] LABS: Calcium 8.5 mg/dL (8.7-10.3)
[2024-03-21 11:35] LABS: Glucose,Whole Blood 165 mg/dL (70-110)
[2024-03-21] MEDS: VANCOMYCIN TROUGH DUE 1 EACH MISC MISCELLANE ONE (14:19)
--- NOTE | 2024-03-21 14:44 | XR ---
EXAMINATION TYPE: XR chest 1V portable DATE OF EXAM: 03/21/2024 COMPARISON: None HISTORY: Shortness of breath TECHNIQUE: Single frontal view of the chest is obtained. FINDINGS: Limited inspiration with no focal pneumonia or CHF. There is a irregular nodular density s een in the left upper lobe. Recommend CT of chest exclude pulmonary mass. Osseous structures intact. Heart size normal. IMPRESSION: 1. No evidence of CHF. 2. Nodular density in the medial margin left upper lobe recommend CT chest to exclude mass. [facility], , 03/21/2024 2:42 PM
[2024-03-21 16:38] LABS: Glucose,Whole Blood 277 mg/dL (70-110)
--- NOTE | 2024-03-21 16:53 | P.PN ---
Progress Note - Text 79-year-old diabetic male patient had a wound on the left foot lateral aspect with fifth toe involvement had a ray amputation patient also had a has a wound on the left heel which is granulating today will change the dressing with using Aquacel silver patient is an IV antibiotic under care of infectious disease we will change the dressing every 48 hours using extra silver and IV antibiotic under care of infectious disease
[2024-03-21 20:35] LABS: Glucose,Whole Blood 141 mg/dL (70-110)
[2024-03-22 03:35] LABS: African American GFR (CKD) 59 (>60 ml/min/1.73 sqM); Anion Gap 7 mmol/L; Blood Urea Nitrogen 26 mg/dL (9-20); Calcium 8.8 mg/dL (8.4-10.2); Carbon Dioxide 25 mmol/L (22-30); Chloride 108 mmol/L (98-107); Glucose 129 mg/dL (74-99); Non-African American GFR(CKD) 51 (>60 ml/min/1.73 sqM); Potassium 4.6 mmol/L (3.5-5.1); Sodium 140 mmol/L (137-145)
[2024-03-22 05:54] LABS: Glucose,Whole Blood 135 mg/dL (70-110)
[2024-03-22 09:12] LABS: Basophils # (A) 0.08 X 10*3/uL (0.00-0.10); Basophils % (A) 0.7 %; Eosinophils # (A) 0.35 X 10*3/uL (0.04-0.35); Eosinophils % (A) 3.3 %; HCT 30.8 % (39.6-50.0); HGB 9.3 g/dL (13.0-17.0); Lymphocytes # (A) 1.19 X 10*3/uL (0.90-5.00); Lymphocytes % (A) 11.2 %; MCH 27.2 pg (27.0-32.0); MCHC 30.2 g/dL (32.0-37.0); MCV 90.1 FL (80.0-97.0); Mean Platelet Volume 9.8 FL (9.5-12.2); Monocytes # (A) 1.16 X 10*3/uL (0.20-1.00); Monocytes % (A) 10.9 %; NRBC Per 100 WBC 0 X 10*3/uL (0.00-0.01); Neutrophils % (A) 73.1 %; Platelet Count 380 X 10*3/uL (140-440); RBC 3.42 X 10*6/uL (4.40-5.60); RDW 13.5 % (11.5-14.5); WBC 10.67 X 10*3/uL (4.50-10.00)
--- NOTE | 2024-03-22 09:21 | P.PN ---
Subjective Progress Note Date: 03/20/24 Principal diagnosis: Reason for follow-up is left diabetic foot ulcer and gangrene Patient is a 79-year-old male with a past medical history significant for diabetes mellitus hypertension patient did have a history of diabetic foot ulcers and osteomyelitis and apparently has been dealing with the left lower extremity ulcer for few weeks now being admitted to hospital with worsening wound and blackish discoloration of his left fifth toe. Patient is status post left fifth toe amputation with excision of the central metatarsal wound and debridement of the wound completed by vascular surgery on 03/19/2024. On today's evaluation that is 03/20/2024, Patient is afebrile this morning patient denies having any chest pain shortness of breath or cough, the patient is breathing comfortably on room air, patient denies any abdominal pain no diarrhea no nausea no vomiting patient denies any worsening pain to the left foot area Patient did have a creatinine of 1.34 no CBC was done today Objective - Vital Signs Vital signs: Vital Signs Temp 98.3 F 03/20/24 07:43 Pulse 66 03/20/24 07:43 Resp 17 03/20/24 07:43 BP 129/81 03/20/24 07:43 Pulse Ox 96 03/20/24 07:43 FiO2 Intake & Output 03/19/24 03/20/24 03/20/24 18:59 06:59 18:59 Intake Total 300 Output Total 705 1000 Balance -405 -1000 Weight 90.718 kg Intake: IV 300 Output: Urine 700 1000 Estimated Blood Loss 5 Other: Voiding Method Incontinent Incontinent External Catheter External Catheter # Voids 2 - Exam GENERAL DESCRIPTION: An elderly male lying in bed in no distress RESPIRATORY SYSTEM: Unlabored breathing , decreased breath sounds at bases HEART: S1 S2 regular rate and rhythm , ABDOMEN: Soft , no tenderness EXTREMITIES: Left foot is currently dressed no drainage on the dressing - Labs CBC & Chem 7: 03/22/24 02:32 03/22/24 02:32 Labs: Abnormal Lab Results - Last 24 Hours (Table) 03/19/24 03/19/24 03/20/24 Range/Units 17:04 20:37 05:07 Creatinine 1.34 H (0.66-1.25) mg/dL POC Glucose (mg/dL) 168 H 175 H (70-110) mg/dL 03/20/24 03/20/24 Range/Units 06:34 11:42 Creatinine (0.66-1.25) mg/dL POC Glucose (mg/dL) 125 H 197 H (70-110) mg/dL Microbiology - Last 24 Hours (Table) 03/19/24 09:30 Gram Stain - Preliminary Foot - Left 03/17/24 15:45 Blood Culture - Preliminary Blood Assessment and Plan (1) Diabetic ulcer of left foot Current Visit: Yes Status: Acute Code(s): E11.621 - TYPE 2 DIABETES MELLITUS WITH FOOT ULCER; L97.529 - NON-PRESSURE CHRONIC ULCER OTH PRT LEFT FOOT W UNSP SEVERITY SNOMED Code(s): 341360313 (2) Osteomyelitis Current Visit: Yes Status: Acute Code(s): M86.9 - OSTEOMYELITIS, UNSPECIFIED SNOMED Code(s): 76520917 Plan: 1patient presented to hospital with worsening wound to the left foot in this patient with underlying diabetes mellitus and also have a history of osteomyelitis now with worsening wound and some necrotic changes, we will need to cover for the polymicrobial bobby associated with the diabetic foot infection. 2patient has been eval by vascular surgery and the patient is status post amputation of the left fifth toe along with the cultures are currently pending 3patient to continue vancomycin and cefepime, cultures are currently pending Dictation was produced using [employer] dictation software. please excuse any grammatical, word or spelling errors. Time with Patient: Less than 30
--- NOTE | 2024-03-22 09:22 | P.PN ---
Subjective Progress Note Date: 03/21/24 Principal diagnosis: Reason for follow-up is left diabetic foot ulcer and gangrene Patient is a 79-year-old male with a past medical history significant for diabetes mellitus hypertension patient did have a history of diabetic foot ulcers and osteomyelitis and apparently has been dealing with the left lower extremity ulcer for few weeks now being admitted to hospital with worsening wound and blackish discoloration of his left fifth toe. Patient is status post left fifth toe amputation with excision of the central metatarsal wound and debridement of the wound completed by vascular surgery on 03/19/2024. On today's evaluation that is 03/21/2024,the patient denies any fever or any chills, patient is breathing comfortably on room air, the patient denies chest pain shortness of breath and no significant cough, patient denies abdominal pain, no nausea vomiting or diarrhea. Patient pain to the left foot is currently controlled and no new symptoms. Patient did have a white count of 10.4 creatinine is 1.2, cultures are currently pending Objective - Vital Signs Vital signs: Vital Signs Temp 98.0 F 03/21/24 12:42 Pulse 66 03/21/24 12:42 Resp 16 03/21/24 12:42 BP 128/68 03/21/24 08:27 Pulse Ox 99 03/21/24 12:42 FiO2 Intake & Output 03/20/24 03/21/24 03/21/24 18:59 06:59 18:59 Intake Total 250 Output Total 425 1325 Balance -425 -1325 250 Intake: Oral 250 Output: Urine 425 1325 Other: Voiding Method Incontinent Incontinent External Catheter External Catheter # Voids 2 - Exam GENERAL DESCRIPTION: An elderly male lying in bed in no distress RESPIRATORY SYSTEM: Unlabored breathing , decreased breath sounds at bases HEART: S1 S2 regular rate and rhythm , ABDOMEN: Soft , no tenderness EXTREMITIES: Left foot is currently dressed no drainage on the dressing - Labs CBC & Chem 7: 03/22/24 02:32 03/22/24 02:32 Labs: Abnormal Lab Results - Last 24 Hours (Table) 03/20/24 03/20/24 03/21/24 Range/Units 16:38 20:31 04:47 WBC 10.04 H (4.50-10.00) X 10*3/uL RBC 3.21 L (4.40-5.60) X 10*6/uL Hgb 8.9 L (13.0-17.0) g/dL Hct 29.3 L (39.6-50.0) % MCHC 30.4 L (32.0-37.0) g/dL Immature Gran # 0.05 H (0.00-0.04) X 10*3/uL Monocytes # 1.07 H (0.20-1.00) X 10*3/uL Chloride (96-109) mmol/L BUN (9.0-27.0) mg/dL BUN/Creatinine Ratio (12.00-20.00) Ratio Glucose (70-110) mg/dL POC Glucose (mg/dL) 314 H 141 H (70-110) mg/dL Calcium (8.7-10.3) mg/dL 03/21/24 03/21/24 03/21/24 Range/Units 04:47 05:49 11:34 WBC (4.50-10.00) X 10*3/uL RBC (4.40-5.60) X 10*6/uL Hgb (13.0-17.0) g/dL Hct (39.6-50.0) % MCHC (32.0-37.0) g/dL Immature Gran # (0.00-0.04) X 10*3/uL Monocytes # (0.20-1.00) X 10*3/uL Chloride 110 H (96-109) mmol/L BUN 27.5 H (9.0-27.0) mg/dL BUN/Creatinine Ratio 22.92 H (12.00-20.00) Ratio Glucose 117 H (70-110) mg/dL POC Glucose (mg/dL) 138 H 165 H (70-110) mg/dL Calcium 8.5 L (8.7-10.3) mg/dL Microbiology - Last 24 Hours (Table) 03/17/24 15:45 Blood Culture - Preliminary Blood 03/19/24 09:30 Gram Stain - Preliminary Foot - Left Assessment and Plan (1) Diabetic ulcer of left foot Current Visit: Yes Status: Acute Code(s): E11.621 - TYPE 2 DIABETES MELLITUS WITH FOOT ULCER; L97.529 - NON-PRESSURE CHRONIC ULCER OTH PRT LEFT FOOT W UNSP SEVERITY SNOMED Code(s): 393923505 (2) Osteomyelitis Current Visit: Yes Status: Acute Code(s): M86.9 - OSTEOMYELITIS, UNSPECIFIED SNOMED Code(s): 93446679 Plan: 1patient presented to hospital with worsening wound to the left foot in this patient with underlying diabetes mellitus and also have a history of osteomyelitis now with worsening wound and some necrotic changes, we will need to cover for the polymicrobial bobby associated with the diabetic foot infection. 2patient has been eval by vascular surgery and the patient is status post amputation of the left fifth toe along with the cultures are currently pending 3patient is currently covered with vancomycin and cefepime, we are waiting for the culture to finalize determine discharge antibiotics however he will likely need a PICC line for outpatient IV antibiotics Dictation was produced using [employer] dictation software. please excuse any grammatical, word or spelling errors. Time with Patient: Less than 30
[2024-03-22 11:40] LABS: Glucose,Whole Blood 244 mg/dL (70-110)
[2024-03-22 16:49] LABS: Glucose,Whole Blood 137 mg/dL (70-110)
[2024-03-22 20:33] LABS: Glucose,Whole Blood 200 mg/dL (70-110)
--- NOTE | 2024-03-23 05:48 | P.PN ---
Subjective Progress Note Date: 03/22/24 This is a 79-year-old male who was recently admitted for left diabetic foot ulcer and is status post debridement and fifth toe amputation with vascular surgery Dr. Martini. Patient is maintained on IV antibiotics with infectious disease following and will require a PICC line and 6 weeks of IV antibiotic therapy. Patient also continues with a left heel ulcer that is draining and will have wound care evaluate the patient with appreciating recommendations regarding wound care to the heel. Will have vascular reevaluate as well in the event patient needs a debridement. Patient is afebrile and white count is within normal limits and denies any chest pain or shortness of breath. Patient is extremely weak and per nursing staff did not do well with physical therapy would recommend physical therapy daily and have discussed going to [facility]. Patient does not want to go to rehab although reports he lives alone and is high risk for falls and rehospitalization. Review of systems: Constitutional: No reports of fatigue, fever, or chills Cardiovascular: No reports of chest pain or palpitations Respiratory: No reports of shortness of breath or cough GI: No reports of nausea, no reports of vomiting, no diarrhea : No reports of dysuria or retention Neurovascular: reports of generalized weakness, mild left foot pain All medications have been reviewed Active Medications PHYSICAL EXAMINATION: GENERAL: The patient is alert and oriented x4, Well developed, elderly appearing HEENT: Pupils are round and equally reacting to light. EOMI. no scleral icterus. No conjunctival pallor. Normocephalic, atraumatic. No pharyngeal erythema. No thyromegaly. CARDIOVASCULAR: S1 and S2 muffled PULMONARY: diminished breath sounds bilaterally with no wheezing or rhonchi noted. ABDOMEN: soft. Nontender on exam. non-distended, normoactive bowel sounds. No palpable organomegaly. MUSCULOSKELETAL: No joint swelling or deformity. EXTREMITIES: No cyanosis, clubbing, or pedal edema. Left foot dressing is dry and intact NEUROLOGICAL: Gross neurological examination did not reveal any focal deficits. Diffuse weakness SKIN: No rashes. Assessment: Left diabetic foot ulcer infection, present on admission, status post debridement and amputation of the left fifth toe History of hypertension Diabetes mellitus, type II History of MRSA History of chronic venous stasis History of peripheral vascular disease Generalized weakness with gait dysfunction GI prophylaxis DVT prophylaxis Full code Plan: Recommend to continue with current medications and management with vascular surgery and infectious disease following. Patient is status post left fifth toe amputation. Per nursing staff patient has noted increased drainage of the left heel ulcer and will consult wound care and appreciate recommendations. Vascular surgery following as well and will discuss further in the event patient may need further debridement of the area. Patient to receive a PICC line and will continue on 6 weeks of IV antibiotic therapy Case management following and reports he owes money to previous ECF and has not been accepted. Will consult inpatient rehab. Patient would like to return home although feel this is an unsafe discharge as patient lives alone and high risk for readmissions as well as falls Follow-up on repeat labs and will discuss further with case management regarding discharge planning. The impression and plan of care has been dictated by Mary Larsen, nurse practitioner as directed. Dr. Eris MD I have performed a history and examination and MDM of this patient, discussed the same with the dictator, and agree with the dictator's assessment and plan as written ,documented as a scribe. Based on total visit time, I have performed more than 50% of the visit. Any additional findings or plans will be noted. Objective - Vital Signs Vital signs: Vital Signs Temp 98.4 F 03/22/24 07:47 Pulse 74 03/22/24 07:47 Resp 18 03/22/24 07:47 BP 133/71 03/22/24 07:47 Pulse Ox 98 03/22/24 07:47 FiO2 Intake & Output 03/21/24 03/22/24 03/22/24 18:59 06:59 18:59 Intake Total 250 Output Total 850 500 Balance 250 -850 -500 Intake: Oral 250 Output: Urine 850 500 Other: Voiding Method Incontinent External Catheter External Catheter # Voids 3 3 # Bowel Movements 1 - Labs CBC & Chem 7: 03/22/24 02:32 03/22/24 02:32 Labs: Abnormal Lab Results - Last 24 Hours (Table) 03/21/24 03/21/24 03/22/24 Range/Units 16:37 20:34 02:32 WBC (4.50-10.00) X 10*3/uL RBC (4.40-5.60) X 10*6/uL Hgb (13.0-17.0) g/dL Hct (39.6-50.0) % MCHC (32.0-37.0) g/dL Immature Gran # (0.00-0.04) X 10*3/uL Neutrophils # (1.80-7.70) X 10*3/uL Monocytes # (0.20-1.00) X 10*3/uL Chloride 108 H (98-107) mmol/L BUN 26 H (9-20) mg/dL Creatinine 1.33 H (0.66-1.25) mg/dL Glucose 129 H (74-99) mg/dL POC Glucose (mg/dL) 277 H 141 H (70-110) mg/dL 03/22/24 03/22/24 03/22/24 Range/Units 02:32 05:51 11:38 WBC 10.67 H (4.50-10.00) X 10*3/uL RBC 3.42 L (4.40-5.60) X 10*6/uL Hgb 9.3 L (13.0-17.0) g/dL Hct 30.8 L (39.6-50.0) % MCHC 30.2 L (32.0-37.0) g/dL Immature Gran # 0.09 H (0.00-0.04) X 10*3/uL Neutrophils # 7.80 H (1.80-7.70) X 10*3/uL Monocytes # 1.16 H (0.20-1.00) X 10*3/uL Chloride (98-107) mmol/L BUN (9-20) mg/dL Creatinine (0.66-1.25) mg/dL Glucose (74-99) mg/dL POC Glucose (mg/dL) 135 H 244 H (70-110) mg/dL Microbiology - Last 24 Hours (Table) 03/19/24 09:30 Anaerobic Culture - Preliminary Foot - Left 03/19/24 09:30 Gram Stain - Preliminary Foot - Left Tissue Culture - Preliminary Providencia rettgeri Morganella morganii Gram Neg Bacilli Kerstersia gyiorum Presumptive MRSA
[2024-03-23 06:01] LABS: Glucose,Whole Blood 121 mg/dL (70-110)
[2024-03-23] MEDS: ACETAMINOPHEN TAB 325 MG TAB PO PRN (06:25)
[2024-03-23 08:21] LABS: Basophils # (A) 0.08 X 10*3/uL (0.00-0.10); Basophils % (A) 0.8 %; Eosinophils # (A) 0.36 X 10*3/uL (0.04-0.35); Eosinophils % (A) 3.4 %; HGB 10.1 g/dL (13.0-17.0); Lymphocytes # (A) 1.05 X 10*3/uL (0.90-5.00); Lymphocytes % (A) 9.9 %; MCH 28.3 pg (27.0-32.0); MCHC 30.6 g/dL (32.0-37.0); MCV 92.4 FL (80.0-97.0); Mean Platelet Volume 9.7 FL (9.5-12.2); Monocytes # (A) 1.31 X 10*3/uL (0.20-1.00); Monocytes % (A) 12.4 %; NRBC Per 100 WBC 0 X 10*3/uL (0.00-0.01); Neutrophils # (A) 7.68 X 10*3/uL (1.80-7.70); Neutrophils % (A) 72.6 %; Platelet Count 381 X 10*3/uL (140-440); RBC 3.57 X 10*6/uL (4.40-5.60); RDW 13.6 % (11.5-14.5); WBC 10.57 X 10*3/uL (4.50-10.00)
[2024-03-23 09:41] LABS: BUN/Creat Ratio 15.54 Ratio (12.00-20.00); Blood Urea Nitrogen 20.2 mg/dL (9.0-27.0); Calcium 8.8 mg/dL (8.7-10.3); Carbon Dioxide 22.2 mmol/L (21.6-31.8); Chloride 108 mmol/L (96-109); Glucose 120 mg/dL (70-110); Magnesium 1.7 mg/dL (1.5-2.4); Potassium 4.5 mmol/L (3.5-5.5); Sodium 140 mmol/L (135-145)
[2024-03-23 11:14] LABS: Glucose,Whole Blood 156 mg/dL (70-110)
--- NOTE | 2024-03-23 14:02 | P.PN ---
Subjective Progress Note Date: 03/22/24 Principal diagnosis: Reason for follow-up is left diabetic foot ulcer and gangrene Patient is a 79-year-old male with a past medical history significant for diabetes mellitus hypertension patient did have a history of diabetic foot ulcers and osteomyelitis and apparently has been dealing with the left lower extremity ulcer for few weeks now being admitted to hospital with worsening wound and blackish discoloration of his left fifth toe. Patient is status post left fifth toe amputation with excision of the central metatarsal wound and debridement of the wound completed by vascular surgery on 03/19/2024. On today's evaluation that is 03/22/2024,the patient remains to be afebrile, patient is on room air not requiring supplemental oxygen and denies any shortness of breath no chest pain or cough.Patient denies having any nausea or vomiting, no abdominal pain and no diarrhea has been reported patient denies any worsening pain to the left foot and heel wound area. Patient did have white count of 10.67, creatinine is 1.33 Vanco trough is 15.4 sed rate 84 Objective - Vital Signs Vital signs: Vital Signs Temp 98.4 F 03/22/24 07:47 Pulse 74 03/22/24 07:47 Resp 18 03/22/24 07:47 BP 133/71 03/22/24 07:47 Pulse Ox 98 03/22/24 07:47 FiO2 Intake & Output 03/21/24 03/22/24 03/22/24 18:59 06:59 18:59 Intake Total 250 Output Total 850 500 Balance 250 -850 -500 Intake: Oral 250 Output: Urine 850 500 Other: Voiding Method Incontinent External Catheter External Catheter # Voids 3 3 # Bowel Movements 1 - Exam GENERAL DESCRIPTION: An elderly male lying in bed in no distress RESPIRATORY SYSTEM: Unlabored breathing , decreased breath sounds at bases HEART: S1 S2 regular rate and rhythm , ABDOMEN: Soft , no tenderness EXTREMITIES: Left foot wound at the site of the fifth amputation is deep also have a wound on the left heel with bone palpable - Labs CBC & Chem 7: 03/23/24 05:47 03/23/24 05:47 Labs: Abnormal Lab Results - Last 24 Hours (Table) 03/21/24 03/21/24 03/22/24 Range/Units 16:37 20:34 02:32 WBC (4.50-10.00) X 10*3/uL RBC (4.40-5.60) X 10*6/uL Hgb (13.0-17.0) g/dL Hct (39.6-50.0) % MCHC (32.0-37.0) g/dL Immature Gran # (0.00-0.04) X 10*3/uL Neutrophils # (1.80-7.70) X 10*3/uL Monocytes # (0.20-1.00) X 10*3/uL Chloride 108 H (98-107) mmol/L BUN 26 H (9-20) mg/dL Creatinine 1.33 H (0.66-1.25) mg/dL Glucose 129 H (74-99) mg/dL POC Glucose (mg/dL) 277 H 141 H (70-110) mg/dL 03/22/24 03/22/24 03/22/24 Range/Units 02:32 05:51 11:38 WBC 10.67 H (4.50-10.00) X 10*3/uL RBC 3.42 L (4.40-5.60) X 10*6/uL Hgb 9.3 L (13.0-17.0) g/dL Hct 30.8 L (39.6-50.0) % MCHC 30.2 L (32.0-37.0) g/dL Immature Gran # 0.09 H (0.00-0.04) X 10*3/uL Neutrophils # 7.80 H (1.80-7.70) X 10*3/uL Monocytes # 1.16 H (0.20-1.00) X 10*3/uL Chloride (98-107) mmol/L BUN (9-20) mg/dL Creatinine (0.66-1.25) mg/dL Glucose (74-99) mg/dL POC Glucose (mg/dL) 135 H 244 H (70-110) mg/dL Microbiology - Last 24 Hours (Table) 03/19/24 09:30 Anaerobic Culture - Preliminary Foot - Left 03/19/24 09:30 Gram Stain - Preliminary Foot - Left Tissue Culture - Preliminary Providencia rettgeri Morganella morganii Gram Neg Bacilli Kerstersia gyiorum Presumptive MRSA Assessment and Plan (1) Diabetic ulcer of left foot Current Visit: Yes Status: Acute Code(s): E11.621 - TYPE 2 DIABETES MELLITUS WITH FOOT ULCER; L97.529 - NON-PRESSURE CHRONIC ULCER OTH PRT LEFT FOOT W UNSP SEVERITY SNOMED Code(s): 829819796 (2) Osteomyelitis Current Visit: Yes Status: Acute Code(s): M86.9 - OSTEOMYELITIS, UNSPECIFIED SNOMED Code(s): 58950775 Plan: 1patient presented to hospital with worsening wound to the left foot in this patient with underlying diabetes mellitus and also have a history of osteomyelitis now with worsening wound and some necrotic changes, we will need to cover for the polymicrobial bobby associated with the diabetic foot infection. 2patient has been eval by vascular surgery and the patient is status post amputation of the left fifth toe along with the cultures are currently growing presented MRSA and gram-negative's 3patient to continue with vancomycin and cefepime keeping in mind bone is palpable with clinical osteomyelitis he will need IV antibiotic on discharge PICC line has been requested Dictation was produced using [employer] software. please excuse any grammatical, word or spelling errors.
--- NOTE | 2024-03-23 14:03 | P.PN ---
Subjective Progress Note Date: 03/23/24 Principal diagnosis: Reason for follow-up is left diabetic foot ulcer and gangrene Patient is a 79-year-old male with a past medical history significant for diabetes mellitus hypertension patient did have a history of diabetic foot ulcers and osteomyelitis and apparently has been dealing with the left lower extremity ulcer for few weeks now being admitted to hospital with worsening wound and blackish discoloration of his left fifth toe. Patient is status post left fifth toe amputation with excision of the central metatarsal wound and debridement of the wound completed by vascular surgery on 03/19/2024. On today's evaluation that is 03/23/2024, the patient continues to be afebrile, the patient is on room air and breathing comfortably, the Pt denies having any c hest pain or cough, the patient denies having any abdominal pain no vomiting or any diarrhea, patient denies pain to the left foot wound area. Patient white count is 10.57 creatinine is 1.3 culture currently growing Morganella and Citrobacter MRSA and Proteus Objective - Vital Signs Vital signs: Vital Signs Temp 98.0 F 03/23/24 07:00 Pulse 59 L 03/23/24 07:00 Resp 18 03/23/24 07:00 BP 138/68 03/23/24 07:00 Pulse Ox 96 03/23/24 07:00 FiO2 Intake & Output 03/22/24 03/23/24 03/23/24 18:59 06:59 18:59 Intake Total 120 Output Total 725 400 800 Balance -580 -400 -947 Intake: Oral 120 Output: Urine 725 400 800 Other: Voiding Method External Catheter Urinal # Voids 2 - Exam GENERAL DESCRIPTION: An elderly male lying in bed in no distress RESPIRATORY SYSTEM: Unlabored breathing , decreased breath sounds at bases HEART: S1 S2 regular rate and rhythm , ABDOMEN: Soft , no tenderness EXTREMITIES: Left foot wound at the site of the fifth amputation is deep also have a wound on the left heel with bone palpable - Labs CBC & Chem 7: 03/23/24 05:47 03/23/24 05:47 Labs: Abnormal Lab Results - Last 24 Hours (Table) 03/22/24 03/22/24 03/23/24 Range/Units 16:47 20:32 05:47 WBC 10.57 H (4.50-10.00) X 10*3/uL RBC 3.57 L (4.40-5.60) X 10*6/uL Hgb 10.1 L (13.0-17.0) g/dL Hct 33.0 L (39.6-50.0) % MCHC 30.6 L (32.0-37.0) g/dL Immature Gran # 0.09 H (0.00-0.04) X 10*3/uL Monocytes # 1.31 H (0.20-1.00) X 10*3/uL Eosinophils # 0.36 H (0.04-0.35) X 10*3/uL Est GFR (CKD-EPI) (>=60) Glucose (70-110) mg/dL POC Glucose (mg/dL) 137 H 200 H (70-110) mg/dL 03/23/24 03/23/24 03/23/24 Range/Units 05:47 05:54 11:13 WBC (4.50-10.00) X 10*3/uL RBC (4.40-5.60) X 10*6/uL Hgb (13.0-17.0) g/dL Hct (39.6-50.0) % MCHC (32.0-37.0) g/dL Immature Gran # (0.00-0.04) X 10*3/uL Monocytes # (0.20-1.00) X 10*3/uL Eosinophils # (0.04-0.35) X 10*3/uL Est GFR (CKD-EPI) 56 L (>=60) Glucose 120 H (70-110) mg/dL POC Glucose (mg/dL) 121 H 156 H (70-110) mg/dL Microbiology - Last 24 Hours (Table) 03/19/24 09:30 Gram Stain - Final Foot - Left Tissue Culture - Final Providencia rettgeri Morganella morganii Citrobacter species Kerstersia gyiorum Methicillin resist S. aureus Proteus mirabilis 03/17/24 15:45 Blood Culture - Final Blood Assessment and Plan (1) Diabetic ulcer of left foot Current Visit: Yes Status: Acute Code(s): E11.621 - TYPE 2 DIABETES MELLITUS WITH FOOT ULCER; L97.529 - NON-PRESSURE CHRONIC ULCER OTH PRT LEFT FOOT W UNSP SEVERITY SNOMED Code(s): 729743264 (2) Osteomyelitis Current Visit: Yes Status: Acute Code(s): M86.9 - OSTEOMYELITIS, UNSPECIFIED SNOMED Code(s): 86572415 Plan: 1patient presented to hospital with worsening wound to the left foot in this patient with underlying diabetes mellitus and also have a history of osteomyelitis now with worsening wound and some necrotic changes, we will need to cover for the polymicrobial bobby associated with the diabetic foot infection. 2patient has been evaluated by by vascular surgery and the patient is status post amputation of the left fifth toe along with the cultures are currently growing presented MRSA and multiple gram-negative's 3patient did have a PICC line placement plan is for 6-week course of IV cefepime and Flagyl along with oral Flagyl and close outpatient follow-up discussed with [facility]YPIST for admitting team Dictation was produced using [employer] dictation software. please excuse any grammatical, word or spelling errors. Time with Patient: Less than 30
--- NOTE | 2024-03-23 14:48 | PN ---
PROGRESS NOTE DATE OF SERVICE: 03/21/2024 SUBJECTIVE: This is a 79-year-old gentleman admitted with diabetic foot and as well as the 5th toe excision and debridement, is being worked up for rehab at this time. No chest pain. No palpitation. OBJECTIVE: VITAL SIGNS: Pulse is 60, blood pressure 120/60, respirations 16. CHEST: Clear to auscultation. CARDIOVASCULAR: S1, S2. ABDOMEN: Soft. LEGS: Status post infection. LABORATORY DATA: Reviewed. ASSESSMENT: 1. Status post debridement and excision of the infected wound along the fifth toe on the left. 2. Left diabetic foot. 3. Hypertension. 4. Diabetes mellitus, type 2. 5. Gait dysfunction. 6. History of Methicillin-resistant Staphylococcus aureus. RECOMMENDATIONS: Recommend to continue current management and continue symptomatic treatment. PT, OT evaluation, possible ECF rehab. Repeat labs. Continue the antibiotics. Further recommendations to follow. MMODL / IJN: [id number] /
--- NOTE | 2024-03-23 16:24 | P.CONS ---
History of Present Illness - Reason for Consult Consult date: 03/23/24 rehab recommendations - Chief Complaint debility, foot amputation - History of Present Illness This is a 79-year-old male who lives alone SS home 2 virgilio. Patient most recently using a knee scooter or walker for ambulation due to his foot infection. He has limited support except for his neighbor who is currently taking care of his dog. Patient was recently admitted for left diabetic foot ulcer and is status post debridement and fifth toe amputation with vascular surgery Dr. Martini. Patient is maintained on IV antibiotics with infectious disease following and will require a PICC line and 6 weeks of IV antibiotic therapy. Patient also continues with a left heel ulcer that is draining, wound care following. Patient is afebrile and white count is within normal limits and denies any chest pain or shortness of breath. PM&R consulted for rehab recommendations. Patient was seen by rehab; bathing mod assist, UB dressing supervision, LB dressing max assist, toileting max assist, bed mobility min assist, stand step pivot supervision, gait 26 ft RW min assist. 03/23/24: Patient states he is doing well, he reports therapy was fine, i just lost my balance some but I am doing better. He wants to go home, he feels he can manage at home. I told him he is needing some assistance from therapy assessments and is on 6 weeks of IV abx and will likely need to stay at a rehab facility. He denies CP, SOB, and abdominal pain. pain is controlled. No bowel or bladder complaints. Review of Systems reviewed, as above in Subjective Past Medical History Past Medical History: Diabetes Mellitus, Hypertension, Renal Disease Additional Past Medical History / Comment(s): VENOUS STASIS ; ULCERS BILAT LEGS, PVD, CRISTAL LEG WOUND History of Any Multi-Drug Resistant Organisms: MRSA Year Discovered:: 03/19/24 MDRO Source:: left foot, right leg Past Surgical History: Tonsillectomy Additional Past Surgical History / Comment(s): 07/13/17 CRISTAL AORTOGRAM AND LLE ANGIOGRAM, REATTACHED TENDON LT 5TH FINGER 1995. skin graft bilat legs, Right foot pinky toe amp. Past Anesthesia/Blood Transfusion Reactions: No Reported Reaction Past Psychological History: No Psychological Hx Reported Smoking Status: Never smoker Past Alcohol Use History: None Reported Past Drug Use History: None Reported - Past Family History Father Family Medical History: Cancer Additional Family Medical History / Comment(s): PROSTATE CANCER Mother Family Medical History: Hypertension Medications and Allergies Home Medications Medication Instructions Recorded Confirmed Type Tamsulosin [Flomax] 0.4 mg PO DAILY 10/21/23 03/17/24 History Atorvastatin [Lipitor] 10 mg PO DAILY 11/15/23 03/17/24 History Insulin Degludec [Tresiba 8 units SQ DAILY 12/08/23 03/17/24 History Flextouch U-100 Pen] amLODIPine [Norvasc] 5 mg PO DAILY tab 12/13/23 03/17/24 Rx Pioglitazone [Actos] 15 mg PO DAILY 03/17/24 03/17/24 History lisinopriL [Zestril] 10 mg PO DAILY 03/17/24 03/17/24 History Allergies Allergy/AdvReac Type Severity Reaction Status Date / Time No Known Allergies Allergy Verified 03/17/24 17:12 Physical Exam Vitals: Vital Signs Temp Pulse Resp BP Pulse Ox 03/23/24 07:00 98.0 F 59 L 18 138/68 96 03/23/24 01:40 98.5 F 69 17 147/73 96 03/22/24 20:00 17 03/22/24 19:37 98.2 F 67 18 133/71 97 03/22/24 14:58 98.4 F 70 19 144/73 98 Intake and Output 03/22/24 03/23/24 03/23/24 22:59 06:59 14:59 Output Total 225 400 Balance -225 -400 Output: Urine 225 400 Other: # Voids 2 EXAM; General: WDWN, male sitting up in chair, NAD Head: Normocephalic, atraumatic. Eyes: Symmetric Ears: Symmetric. Hearing within normal limits. Mouth: Clear. Cardiac: no cardiac distress. Calves supple, non tender, distal L > R leg edema Lungs: Breathing comfortably on RA. Chest symmetric. Abdomen: Soft, nontender. Extremities: Arthritic changes consistent with age. Neurological: Alert and oriented x 3 Speech is clear and fluent without paraphasic errors Cranial nerves: CN II-XII grossly intact. Sensation: Intact and symmetrical limbs. Musculoskeletal: ROM WFL EXCEPT: left offloading shoe on, toe amputation left foot MMT UE Sh Abd EE EF FABD WE HG Right 5 5 5 5 5 Left 5 5 5 5 5 MMT LE HF KE DF EHL Right 5 5 5 5 Left 4 4 fires Skin: Skin intact where visible to head, neck, and bilateral upper and lower extremities EXCEPT: left foot wounds and toe amputation Psych: Calm, cooperative Results CBC & Chem 7: 03/23/24 05:47 03/23/24 05:47 Labs: Abnormal Lab Results - Last 24 Hours (Table) 03/22/24 03/22/24 03/22/24 Range/Units 11:38 16:47 20:32 WBC (4.50-10.00) X 10*3/uL RBC (4.40-5.60) X 10*6/uL Hgb (13.0-17.0) g/dL Hct (39.6-50.0) % MCHC (32.0-37.0) g/dL Immature Gran # (0.00-0.04) X 10*3/uL Monocytes # (0.20-1.00) X 10*3/uL Eosinophils # (0.04-0.35) X 10*3/uL Est GFR (CKD-EPI) (>=60) Glucose (70-110) mg/dL POC Glucose (mg/dL) 244 H 137 H 200 H (70-110) mg/dL 03/23/24 03/23/24 03/23/24 Range/Units 05:47 05:47 05:54 WBC 10.57 H (4.50-10.00) X 10*3/uL RBC 3.57 L (4.40-5.60) X 10*6/uL Hgb 10.1 L (13.0-17.0) g/dL Hct 33.0 L (39.6-50.0) % MCHC 30.6 L (32.0-37.0) g/dL Immature Gran # 0.09 H (0.00-0.04) X 10*3/uL Monocytes # 1.31 H (0.20-1.00) X 10*3/uL Eosinophils # 0.36 H (0.04-0.35) X 10*3/uL Est GFR (CKD-EPI) 56 L (>=60) Glucose 120 H (70-110) mg/dL POC Glucose (mg/dL) 121 H (70-110) mg/dL Microbiology - Last 24 Hours (Table) 03/19/24 09:30 Gram Stain - Final Foot - Left Tissue Culture - Final Providencia rettgeri Morganella morganii Citrobacter species Kerstersia gyiorum Methicillin resist S. aureus Proteus mirabilis 03/17/24 15:45 Blood Culture - Final Blood Assessment and Plan Assessment: # Impaired gait and ADLs secondary to Left diabetic foot ulcer infection status post debridement and amputation of the left fifth toe -Offloading shoe, NWB to LLE -per records, IV abx x 6 weeks #History of hypertension #Diabetes mellitus, type II #History of MRSA #History of chronic venous stasis #History of peripheral vascular disease #Generalized weakness with gait dysfunction #GI prophylaxis #DVT prophylaxis # Your medical dx and management Dispo: Patient is performing below his baseline level of function, He has limited support and will need 6 weeks of IV abx. Patient better suited for [facility] at this time for continued rehab. Patient seen and examined in collaboration with Dr Thomas Krishna Thank you for consulting our services.
[2024-03-23 17:07] LABS: Glucose,Whole Blood 127 mg/dL (70-110)
[2024-03-23] MEDS: metroNIDAZOLE 500 MG TAB PO SCH (17:57)
[2024-03-23 21:25] LABS: Glucose,Whole Blood 150 mg/dL (70-110)
[2024-03-24 05:59] LABS: Glucose,Whole Blood 110 mg/dL (70-110)
--- NOTE | 2024-03-24 09:44 | P.PN ---
Subjective Progress Note Date: 03/23/24 This is a 79-year-old male who was recently admitted for left diabetic foot ulcer and is status post debridement and fifth toe amputation with vascular surgery Dr. Martini. Patient is maintained on IV antibiotics with infectious disease following and will require a PICC line and 6 weeks of IV antibiotic therapy. Patient also continues with a left heel ulcer that is draining and will have wound care evaluate the patient with appreciating recommendations regarding wound care to the heel. Will have vascular reevaluate as well in the event patient needs a debridement. Patient is afebrile and white count is within normal limits and denies any chest pain or shortness of breath. Patient is extremely weak and per nursing staff did not do well with physical therapy would recommend physical therapy daily and have discussed going to ECF. Patient does not want to go to rehab although reports he lives alone and is high risk for falls and rehospitalization. 03/23/2024 Patient is seen in follow-up today status post left fifth toe amputation with vascular surgery Dr. Martini. Patient is maintained on IV antibiotics and has received a PICC line as patient will need 6 weeks of antibiotic therapy per ID recommendations. Patient is weak with difficulty ambulating and walking as he also has a significant left heel ulcer. Patient would benefit from ECF for continued IV antibiotic therapy as well as strength and mobility. Patient does live alone and feel an unsafe discharge. Case management is following working on ECF's as multiple facilities around here have denied due to financial issues. Patient will require insurance authorization and case management will follow once an ECF has accepted. Patient is reluctant to go to rehab but is willing. Patient is afebrile with no reports of chest pain or shortness of breath. Patient reports to tolerating diet with no reported nausea or vomiting. Continue with local wound care to the left lower extremity and elevate while at rest. Review of systems: Constitutional: No reports of fatigue, fever, or chills Cardiovascular: No reports of chest pain or palpitations Respiratory: No reports of shortness of breath or cough GI: No reports of nausea, no reports of vomiting, no diarrhea : No reports of dysuria or retention Neurovascular: reports of generalized weakness, mild left foot pain All medications have been reviewed Active Medications PHYSICAL EXAMINATION: GENERAL: The patient is alert and oriented x4, Well developed, elderly appearing HEENT: Pupils are round and equally reacting to light. EOMI. no scleral icterus. No conjunctival pallor. Normocephalic, atraumatic. No pharyngeal erythema. No thyromegaly. CARDIOVASCULAR: S1 and S2 muffled PULMONARY: diminished breath sounds bilaterally with no wheezing or rhonchi noted. ABDOMEN: soft. Nontender on exam. non-distended, normoactive bowel sounds. No palpable organomegaly. MUSCULOSKELETAL: No joint swelling or deformity. EXTREMITIES: No cyanosis, clubbing, or pedal edema. Left foot dressing is dry and intact as it was just changed this morning NEUROLOGICAL: Gross neurological examination did not reveal any focal deficits. Diffuse weakness SKIN: No rashes. Assessment: Left diabetic foot ulcer infection, present on admission, status post debrideme nt and amputation of the left fifth toe, cultures growing multiple bacteria and has received a PICC line for IV antibiotic therapy for 6 weeks per ID recommendations outpatient. Chronic left heel ulcer, present on admission History of hypertension Diabetes mellitus, type II History of MRSA History of chronic venous stasis History of peripheral vascular disease Generalized weakness with gait dysfunction GI prophylaxis DVT prophylaxis Full code Plan: Recommend to continue with current medications and management with vascular surgery and infectious disease following. Patient is status post left fifth toe amputation. Per nursing staff patient has noted increased drainage of the left heel ulcer and will have vascular reevaluate and also dressing changes and appreciate wound care recommendations. Patient has received a PICC line and will require IV cefepime along with oral Flagyl for 6 weeks with close outpatient follow-up with infectious disease. Case management following and reports he owes money to previous ECF and has not been accepted. Inpatient rehab evaluated and requiring over $12,000 for admission. Patient would like to return home although feel this is an unsafe discharge as patient lives alone and high risk for readmissions as well as falls. [facility] has also declined the patient. Case management is following and patient will require insurance authorization. Follow-up on repeat labs and will discuss further with case management regarding discharge planning. Possible discharge in the next 24 to 48 hours The impression and plan of care has been dictated by Mary Larsen, nurse practitioner as directed. Dr. Dennise MD I have performed a history and examination and MDM of this patient, discussed the same with the dictator, and agree with the dictator's assessment and plan as written ,documented as a scribe. Based on total visit time, I have performed more than 50% of the visit. Any additional findings or plans will be noted. Objective - Vital Signs Vital signs: Vital Signs Temp 98.4 F 03/24/24 07:16 Pulse 81 03/24/24 07:16 Resp 18 03/24/24 07:16 BP 168/73 03/24/24 07:16 Pulse Ox 96 03/24/24 07:16 FiO2 Intake & Output 03/23/24 03/24/24 03/24/24 18:59 06:59 18:59 Intake Total 240 Output Total 800 575 100 Balance -560 -575 -100 Intake: Oral 240 Output: Urine 800 575 100 Other: Voiding Method Urinal Urinal # Voids 4 - Labs CBC & Chem 7: 03/23/24 05:47 03/23/24 05:47 Labs: Abnormal Lab Results - Last 24 Hours (Table) 03/23/24 03/23/24 03/23/24 Range/Units 05:47 11:13 17:05 Est GFR (CKD-EPI) 56 L (>=60) Glucose 120 H (70-110) mg/dL POC Glucose (mg/dL) 156 H 127 H (70-110) mg/dL 03/23/24 Range/Units 21:24 Est GFR (CKD-EPI) (>=60) Glucose (70-110) mg/dL POC Glucose (mg/dL) 150 H (70-110) mg/dL Microbiology - Last 24 Hours (Table) 03/19/24 09:30 Anaerobic Culture - Final Foot - Left Prevotella species
[2024-03-24 11:39] LABS: Glucose,Whole Blood 127 mg/dL (70-110)
--- NOTE | 2024-03-24 13:54 | P.DS ---
Providers Date of admission: 03/17/24 15:57 Attending physician: Jazmin Schulte Consults: 03/17/24 15:04 Consult Physician Routine Consulting Provider: Carlos Martini Consult Reason/Comments: left diabetic foot Do you want consulting provider notified?: Yes Consult Physician Routine Consulting Provider: Anuradha Bentley Consult Reason/Comments: left diabetic foot Do you want consulting provider notified?: Yes 03/22/24 15:05 Consult Physician Urgent Consulting Provider: Obdulio Smyth Consult Reason/Comments: needs rehab weak, unsteady , rec r toe amp, 6wk iv abx need, lives alone Do you want consulting provider notified?: Yes Primary care physician: [facility] Course: Final Diagnosis Left diabetic foot ulcer infection, present on admission, status post debridement and amputation of the left fifth toe, cultures growing multiple bacteria and has received a PICC line for IV antibiotic therapy for 6 weeks per ID recommendations outpatient. Chronic left heel ulcer, present on admission History of hypertension Diabetes mellitus, type II History of MRSA History of chronic venous stasis History of peripheral vascular disease Generalized weakness with gait dysfunction Discharge Disposition Stable for discharge to subacute rehab. Patient will continue IV biotics in the form of IV cefepime and oral Flagyl for the next 6 weeks. Patient is a PICC line in place. Patient will continue local wound care to the left heel with Aquacel silver change every 48 hours. Patient additionally had findings of a nodular density in the left upper lobe and will need a chest CT this can be done on an outpatient basis. Repeat blood work in 2 to 3 days. Hospital Course This is a 79-year-old male medical history of diabetes, hypertension, peripheral vascular disease who was recently admitted for left diabetic foot ulcer and is status post debridement and fifth toe amputation with vascular surgery Dr. Martini. Patient has been followed by ID for the diabetic foot ulcers and osteomyelitis. He has local wound care to the left heel wound with aquacel silver. His surgical cultures from the amputation growing multiple organisms including prevotella species, Providencia Rettgeri, Morganella morganii, Citrobacter, Kerstersia Gyiorum, MRSA, Proetus Mirabilis. Patient is maintained on IV antibiotics with infectious disease following and will require a PICC line and 6 weeks of IV antibiotic therapy. White blood cell count is 10.57, sodium 140, potassium 4.5, BUN 20.2, creatinine 1.3, magnesium 1.7. He did have a chest xray this admission with findings of a nodular density in the medial margin left upper lobe recommend CT chest to exclude mass this can be done on an outpatient basis. He is cleared for DC to rehab. Please see medication reconciliation for a list of current medications. Thank you for allowing us to participate in the care of this patient. The impression and plan of care has been dictated by Josefa David, Nurse Practitioner as directed. Dr. Dennise MD I have performed a history and physical examination and medical decision making of this patient, discussed the same with the dictator, and agree with the dictators assessment and plan as written, documented as a scribe. Based on total visit time, I have performed more than 50% of this visit. Patient Condition at Discharge: Fair Plan - Discharge Summary Discharge Rx Participant: No New Discharge Prescriptions: New Pantoprazole [Protonix] 40 mg PO DAILY #30 tab Acetaminophen Tab [Tylenol] 650 mg PO Q6HR PRN tab PRN Reason: Fever And/ Or Pain lisinopriL [Zestril] 10 mg PO DAILY tab metroNIDAZOLE [Flagyl] 500 mg PO TID 42 Days #126 tab Heparin Sodium,Porcine (1 ml) [Heparin Sodium] 5,000 unit SQ Q12HR each Cefepime [Maxipime] 2 gm IVPB Q12H 42 Days #84 each amLODIPine [Norvasc] 5 mg PO DAILY tab INSULIN ASPART (NovoLOG) [NovoLOG (formulary)] 0 unit SQ ACHS each Continue Atorvastatin [Lipitor] 10 mg PO DAILY Insulin Degludec [Tresiba Flextouch U-100 Pen] 8 units SQ DAILY Pioglitazone [Actos] 15 mg PO DAILY lisinopriL [Zestril] 10 mg PO DAILY Tamsulosin [Flomax] 0.4 mg PO DAILY amLODIPine [Norvasc] 5 mg PO DAILY tab Discharge Medication List Tamsulosin [Flomax] 0.4 mg PO DAILY 10/21/23 [History] Atorvastatin [Lipitor] 10 mg PO DAILY 11/15/23 [History] Insulin Degludec [Tresiba Flextouch U-100 Pen] 8 units SQ DAILY 12/08/23 [History] amLODIPine [Norvasc] 5 mg PO DAILY tab 12/13/23 [Rx] Pioglitazone [Actos] 15 mg PO DAILY 03/17/24 [History] lisinopriL [Zestril] 10 mg PO DAILY 03/17/24 [History] Acetaminophen Tab [Tylenol] 650 mg PO Q6HR PRN tab 03/24/24 [Rx] Cefepime [Maxipime] 2 gm IVPB Q12H 42 Days #84 each 03/24/24 [Rx] Heparin Sodium,Porcine (1 ml) [Heparin Sodium] 5,000 unit SQ Q12HR each 03/24/24 [Rx] INSULIN ASPART (NovoLOG) [NovoLOG (formulary)] 0 unit SQ ACHS each 03/24/24 [Rx] Pantoprazole [Protonix] 40 mg PO DAILY #30 tab 03/24/24 [Rx] amLODIPine [Norvasc] 5 mg PO DAILY tab 03/24/24 [Rx] lisinopriL [Zestril] 10 mg PO DAILY tab 03/24/24 [Rx] metroNIDAZOLE [Flagyl] 500 mg PO TID 42 Days #126 tab 03/24/24 [Rx] Follow up Appointment(s)/Referral(s): Chanelle Murphy MD [Primary Care Provider] - 1-2 days Anuradha Bentley MD [STAFF PHYSICIAN] - 1 Week Carlos Martini MD [STAFF PHYSICIAN] - 1 Week [facility] [NON-STAFF] - 1 Week Ambulatory/Diagnostic Orders: Basic Metabolic Panel [LAB.AMB] Time Frame: 3 Days, Location: None Selected Complete Blood Count w/diff [LAB.AMB] Location: None Selected Activity/Diet/Wound Care/Special Instructions: [facility] Continue local wound care to the left heel using aquacel silver and change the dressing every 48 hours. Continue with zinc barrier paste to the sacrum. Continue with IV cefepime and oral flagyl as prescribed for the next 6 weeks through the PICC line. Discharge Disposition: TRANSFER TO SNF/ECF
[2024-03-24 14:42] VITALS: BMI 26.4
--- NOTE | 2024-03-24 15:50 | P.PN ---
Subjective Progress Note Date: 03/24/24 Principal diagnosis: Reason for follow-up is left diabetic foot ulcer and gangrene Patient is a 79-year-old male with a past medical history significant for diabetes mellitus hypertension patient did have a history of diabetic foot ulcers and osteomyelitis and apparently has been dealing with the left lower extremity ulcer for few weeks now being admitted to hospital with worsening wound and blackish discoloration of his left fifth toe. Patient is status post left fifth toe amputation with excision of the central metatarsal wound and debridement of the wound completed by vascular surgery on 03/19/2024. On today's evaluation that is 03/24/2024, Patient is afebrile patient is currently on room air and denies having any shortness of breath, the patient denies any chest pain or cough, the patient denies any nausea vomiting did not have any abdominal pain and no diarrhea, patient has been to the left heel area. No new lab has been repeated today Objective - Vital Signs Vital signs: Vital Signs Temp 98.4 F 03/24/24 07:16 Pulse 81 03/24/24 08:20 Resp 18 03/24/24 08:20 BP 168/73 03/24/24 07:16 Pulse Ox 96 03/24/24 07:16 FiO2 Intake & Output 03/23/24 03/24/24 03/24/24 18:59 06:59 18:59 Intake Total 240 Output Total 800 575 600 Balance -560 -575 -600 Intake: Oral 240 Output: Urine 800 575 600 Other: Voiding Method Urinal Urinal Urinal # Voids 4 # Bowel Movements 1 - Exam GENERAL DESCRIPTION: An elderly male lying in bed in no distress RESPIRATORY SYSTEM: Unlabored breathing , decreased breath sounds at bases HEART: S1 S2 regular rate and rhythm , ABDOMEN: Soft , no tenderness EXTREMITIES: Left foot wound at the site of the fifth amputation is deep also have a wound on the left heel with bone palpable - Labs CBC & Chem 7: 03/23/24 05:47 03/23/24 05:47 Labs: Abnormal Lab Results - Last 24 Hours (Table) 03/23/24 03/23/24 03/24/24 Range/Units 17:05 21:24 11:38 POC Glucose (mg/dL) 127 H 150 H 127 H (70-110) mg/dL Microbiology - Last 24 Hours (Table) 03/19/24 09:30 Anaerobic Culture - Final Foot - Left Prevotella species Assessment and Plan (1) Diabetic ulcer of left foot Current Visit: Yes Status: Acute Code(s): E11.621 - TYPE 2 DIABETES MELLITUS WITH FOOT ULCER; L97.529 - NON-PRESSURE CHRONIC ULCER OTH PRT LEFT FOOT W UNSP SEVERITY SNOMED Code(s): 433916300 (2) Osteomyelitis Current Visit: Yes Status: Acute Code(s): M86.9 - OSTEOMYELITIS, UNSPECIFIED SNOMED Code(s): 58644327 Plan: 1patient presented to hospital with worsening wound to the left foot in this patient with underlying diabetes mellitus and also have a history of oste omyelitis now with worsening wound and some necrotic changes, we will need to cover for the polymicrobial bobby associated with the diabetic foot infection. 2patient has been evaluated by by vascular surgery and the patient is status post amputation of the left fifth toe along with the cultures are currently growing presented MRSA and multiple gram-negative's 3patient did have a PICC line placement, the patient is currently waiting for placement plan is for 6-week course of IV cefepime and Flagyl along with oral Flagyl discussed with the [employer] for admitting team working on discharge Dictation was produced using natue dictation software. please excuse any grammatical, word or spelling errors. Time with Patient: Less than 30
[2024-03-24 16:35] LABS: African American GFR (CKD) 50 (>60 ml/min/1.73 sqM); Anion Gap 9 mmol/L; Blood Urea Nitrogen 28 mg/dL (9-20); Calcium 9.1 mg/dL (8.4-10.2); Carbon Dioxide 25 mmol/L (22-30); Chloride 108 mmol/L (98-107); Glucose 144 mg/dL (74-99); Non-African American GFR(CKD) 43 (>60 ml/min/1.73 sqM); Potassium 4.7 mmol/L (3.5-5.1); Sodium 142 mmol/L (137-145)
[2024-03-24 16:42] LABS: Glucose,Whole Blood 194 mg/dL (70-110)
[2024-03-24] MEDS: VANCOMYCIN TROUGH DUE 1 EACH MISC MISCELLANE ONE (16:48)
[2024-03-24 19:42] LABS: Glucose,Whole Blood 131 mg/dL (70-110)
--- NOTE | 2024-03-24 22:16 | PN ---
PROGRESS NOTE Mr. Taylor has history of chronic wound, left heel, and the patient came with 5th toe gangrene with wound. We did the wound debridement and ray amputation of the fifth toe. The patient is on IV antibiotic under the care of Infectious Disease. We have been treating with local wound care using Aquacel silver. The patient is going for rehab and I advised to continue with local wound care using Aquacel silver. This should be changed every 48 hours and the patient will follow up in the wound clinic at [facility] next week on Wednesday. MMODL / IJN: [id number] /
[2024-03-25 01:46] VITALS: RESP 18
[2024-03-25 05:47] LABS: Glucose,Whole Blood 126 mg/dL (70-110)
[2024-03-25 07:59] VITALS: BP 148/69; PULSE 76; TEMP 97.7
== END 2024-03-25 11:12 | DRG 617 ==
LOC: EC 14:02 → 4SSUR 15:57
PROVIDERS: ADMIT Hospitalist; ATTEND Hospitalist
PROC: 0Y6N0ZF Detachment at Left Foot, Partial 5th Ray, Open Approach (ICD-10-PCS; principal; 2024-03-19 09:00)
PROC: 02HV33Z Insertion of Infusion Device into Superior Vena Cava, Percutaneous Approach (ICD-10-PCS; 2024-03-22)
DX: E11.69 Type 2 diabetes mellitus with other specified complication (principal); E11.52 Type 2 diabetes mellitus with diabetic peripheral angiopathy with gangrene; L97.429 Non-pressure chronic ulcer of left heel and midfoot with unspecified severity; M86.9 Osteomyelitis, unspecified; B96.89 Other specified bacterial agents as the cause of diseases classified elsewhere; R26.9 Unspecified abnormalities of gait and mobility; B95.62 Methicillin resistant Staphylococcus aureus infection as the cause of diseases classified elsewhere; R91.1 Solitary pulmonary nodule; B96.4 Proteus (mirabilis) (morganii) as the cause of diseases classified elsewhere; E11.621 Type 2 diabetes mellitus with foot ulcer; E11.628 Type 2 diabetes mellitus with other skin complications; I10 Essential (primary) hypertension; I87.8 Other specified disorders of veins; L08.9 Local infection of the skin and subcutaneous tissue, unspecified; L97.529 Non-pressure chronic ulcer of other part of left foot with unspecified severity; Z79.4 Long term (current) use of insulin; Z79.84 Long term (current) use of oral hypoglycemic drugs; Z79.899 Other long term (current) drug therapy; Z86.14 Personal history of Methicillin resistant Staphylococcus aureus infection; Z91.81 History of falling; Z71.3 Dietary counseling and surveillance; Z60.2 Problems related to living alone; Z28.311 Partially vaccinated for COVID-19; Z59.86 Financial insecurity
CPT/HCPCS: 36415; 36573; 71045; 80048; 80053; 80202; 82565; 83735; 85025; 85652; 86140; 87040; 87070; 87075; 87077; 87186; 87205; 96365; 96366; 96367; 99285